=== PATIENT | male | born 1955 | race Caucasian/White ===

== ENCOUNTER → 2018-03-23 11:35 | Outpatient (CLI) | payer OTHER, SELFPAY ==
[2018-03-23 12:47] LABS: Blood Urea Nitrogen 16 mg/dL (9-20); Calcium 9.7 mg/dL (8.4-10.2); Carbon Dioxide 27 mmol/L (22-32); Chloride 99 mmol/L (98-107); Cholesterol 183 mg/dL (140-199); Estimated Glomerular Filt Rate > 60.0 mL/min (>60); Glucose 97 mg/dL (80-110); HDL Cholesterol 52 mg/dL (40-60); HEMOLYSIS 28 (0-50); LDL Cholesterol Calculated 107 mg/dL (<100); Potassium 5.3 mmol/L (3.4-5.1); Sodium 136 mmol/L (137-145); Triglycerides 122 mg/dL (35-150)
== END ==
PROVIDERS: PCP Internal Medicine; Visit Provider Internal Medicine
DX: E78.2 Mixed hyperlipidemia (principal)
CPT/HCPCS: 36415; 80048; 80061

== ENCOUNTER → 2019-03-28 15:36 | Outpatient (CLI) | payer MEDICARE, OTHER, SELFPAY ==
[2019-03-28 17:04] LABS: BUN Creatinine Ratio 16.7 (6-22); Blood Urea Nitrogen 15 mg/dL (9-20); Calcium 10.6 mg/dL (8.4-10.2); Carbon Dioxide 22 mmol/L (22-32); Chloride 105 mmol/L (98-107); Cholesterol 149 mg/dL (140-199); Estimated Glomerular Filt Rate > 60.0 mL/min (>60); Glucose 89 mg/dL (80-110); HDL Cholesterol 46 mg/dL (40-60); HEMOLYSIS < 15 (0-50); LDL Cholesterol Calculated 85 mg/dL (<100); Potassium 4.7 mmol/L (3.4-5.1); Sodium 138 mmol/L (137-145); Triglycerides 91 mg/dL (35-150)
== END ==
PROVIDERS: Family Provider Internal Medicine; PCP Internal Medicine; Visit Provider Internal Medicine
DX: I10 Essential (primary) hypertension (principal); E78.2 Mixed hyperlipidemia; Z12.5 Encounter for screening for malignant neoplasm of prostate
CPT/HCPCS: 36415; 80048; 80061; G0103

== ENCOUNTER → 2019-08-11 12:39 | Outpatient (CLI) | payer MEDICARE, OTHER, SELFPAY ==
[2019-08-11 13:56] LABS: Influenza A - CEPHEID Flu A NEGATIVE (NEGATIVE); Influenza B - CEPHEID Flu B NEGATIVE (NEGATIVE)
== END ==
PROVIDERS: Family Provider Internal Medicine; PCP Internal Medicine; Visit Provider Nurse Practitioner
DX: R68.89 Other general symptoms and signs (principal)
CPT/HCPCS: 87502

== ENCOUNTER → 2020-01-06 14:18 | Outpatient (CLI) | payer MEDICARE, OTHER, SELFPAY ==
--- NOTE | 2020-01-06 | DI.RAD.S_ITS ---
PROCEDURE: XR CHEST 2V INDICATIONS: COUGH TECHNIQUE: 2 views of the chest were acquired. COMPARISON: [facility], , CHEST 1 VIEW, 06/19/2013, 11:51. FINDINGS: Surgical changes and devices: None. Lungs and pleura: Moderate bibasilar airspace opacities are present. No pleural effusions or pneumothorax. Mediastinum: Mediastinal contours are normal. Heart size is normal. Bones and chest wall: No suspicious bony abnormalities. Soft tissues appear unremarkable. IMPRESSION: Moderate bibasilar pneumonia. Continued plain film surveillance is recommended to ensure resolution, and to exclude underlying or central malignancy. Dictated by: Zuleima Negron M.D. on 01/06/2020 at 16:43 Approved by: Zuleima Negron M.D. on 01/06/2020 at 16:45
== END ==
PROVIDERS: Family Provider Internal Medicine; PCP Internal Medicine; Referring Provider Internal Medicine; Visit Provider Internal Medicine
DX: R05 Cough (principal); J18.9 Pneumonia, unspecified organism
CPT/HCPCS: 71046

== ENCOUNTER → 2020-01-14 11:59 | Outpatient (CLI) | payer MEDICARE, OTHER, SELFPAY ==
--- NOTE | 2020-01-14 12:02 | DI.CT.S_ITS ---
PROCEDURE: CT CHEST W CON INDICATIONS: Pneumonia, unspecified organism TECHNIQUE: After the administration of intravenous contrast, 5 mm thick sections acquired from the pulmonary apices to the posterior costophrenic angles. 1 mm axial lung, 5 mm thick coronal and sagittal reformats and 7 mm axial MIP were acquired. For radiation dose reduction, the following was used: automated exposure control, adjustment of mA and/or kV according to patient size. COMPARISON: [facility], CT, PE STUDY (CTA CHEST), 06/19/2013, 12:20. FINDINGS: Image quality: Excellent. Lungs and pleura: No pneumothorax. Small-moderate left pleural effusion is noted with adjacent atelectasis. No right pleural fluid. Scattered atelectasis and patchy consolidations involving the right middle lobe and right lower lobe. There is nodular appearance to subpleural consolidation seen within the lateral right lung base. Airway thickening in keeping with nonspecific bronchitis and/or reactive airways disease. Mediastinum: Heart size is normal. Coronary artery calcifications are present. No pericardial effusion. No mediastinal or hilar adenopathy by size criteria. Thoracic aorta and central pulmonary arteries are normal in size. Esophagus is normal in caliber. No hiatal hernia. Bones and chest wall: No suspicious bony lesions. No vertebral body compression fractures. No axillary or supraclavicular adenopathy by size criteria. Thyroid gland unremarkable. Possible partially visualized left renal cyst although technically indeterminate. IMPRESSION: Small-moderate left pleural effusion with adjacent atelectasis Patchy consolidative opacities within the right middle lobe and right lower lobe. One of these demonstrates a nodular appearance as indicated on the montage image. This could represent focal pneumonia, nodular scarring/atypical rounded atelectasis however in the absence of relevant prior studies cannot exclude a neoplastic etiology. Short interval followup could be performed after treatment with chest CT to document improvement or resolution. If this persists, then PET/CT could be considered. Coronary artery disease Airway thickening in keeping with nonspecific bronchitis and/or reactive airways disease. Dictated by: Gibran Adam M.D. on 01/14/2020 at 15:04 Approved by: Gibran Adam M.D. on 01/14/2020 at 15:12
[2020-01-14 13:31] LABS: BUN Creatinine Ratio 14.3 (6-22); Blood Urea Nitrogen 13 mg/dL (9-20); Carbon Dioxide 25 mmol/L (22-32); Chloride 102 mmol/L (98-107); Estimated Glomerular Filt Rate > 60.0 mL/min (>60); Glucose 119 mg/dL (80-110); HEMOLYSIS < 15 (0-50); Potassium 4.6 mmol/L (3.4-5.1); Sodium 137 mmol/L (137-145)
== END ==
PROVIDERS: Family Provider Internal Medicine; PCP Internal Medicine; Referring Provider Internal Medicine; Visit Provider Internal Medicine
DX: J18.9 Pneumonia, unspecified organism (principal); I25.10 Atherosclerotic heart disease of native coronary artery without angina pectoris; J90 Pleural effusion, not elsewhere classified; J98.11 Atelectasis
CPT/HCPCS: 36415; 71260; 80048

== ENCOUNTER → 2020-02-04 11:59 | Outpatient (CLI) | payer MEDICARE, OTHER, SELFPAY ==
--- NOTE | 2020-02-04 | DI.CT.S_ITS ---
PROCEDURE: CT CHEST W CON INDICATIONS: CHRONIC OBSTRUCTION TECHNIQUE: After the administration of intravenous contrast, 5 mm thick sections acquired from the pulmonary apices to the posterior costophrenic angles. 1 mm axial lung, 5 mm thick coronal and sagittal reformats and 7 mm axial MIP were acquired. For radiation dose reduction, the following was used: automated exposure control, adjustment of mA and/or kV according to patient size. COMPARISON: [facility], CT, PE STUDY (CTA CHEST), 06/19/2013, 12:20. [facility], CT, CT CHEST W CON, 01/14/2020, 13:47. FINDINGS: Image quality: Excellent. Lungs and pleura: Since 01/14/20, there is interval decrease in size of subpleural ill-defined nodular consolidation measuring 1.8 x 1.2 cm, previously 3.2 x 2.0 cm. There is scattered bibasilar scarring/atelectasis. Small-moderate left pleural effusion with adjacent atelectasis. Trace loculated right pleural fluid. Airway thickening in keeping with nonspecific bronchitis and/or reactive airways disease. Mediastinum: Heart size is normal. Coronary artery calcifications are present. No pericardial effusion. No mediastinal or hilar adenopathy by size criteria. Redemonstration of eccentric intraluminal filling defect seen in the left pulmonary artery compatible with chronic pulmonary embolism. This is slightly more conspicuous appearance since the prior study, although of note also demonstrated eccentric (chronic) appearance on that study. Esophagus is normal in caliber. No hiatal hernia. Bones and chest wall: No suspicious bony lesions. No vertebral body compression fractures. No axillary or supraclavicular adenopathy by size criteria. Abdomen: Visualized upper abdominal solid organs appear normal. Upper abdominal bowel loops are normal in caliber. IMPRESSION: Improvement/decrease in size of subpleural ill-defined nodular focus within the right lung base, compatible with resolving postinflammatory etiology. Incidentally noted, eccentric filling defect within the left pulmonary artery in keeping with chronic pulmonary embolism. This appears slightly more conspicuous since 01/14/20. Consider further evaluation and risk stratification with bilateral lower extremity ultrasound for deep venous thrombosis. Findings and recommendations were personally telephoned and discussed with Dr. Collins at 1330 hours on 02/04/20 Small left pleural effusion with adjacent atelectasis. This appears unchanged Additional chronic and incidental findings as above. Dictated by: Gibran Adam M.D. on 02/04/2020 at 13:08 Approved by: Gibran Adam M.D. on 02/04/2020 at 13:31
[2020-02-04 12:45] LABS: BUN Creatinine Ratio 18.5 (6-22); Blood Urea Nitrogen 15 mg/dL (9-20); Estimated Glomerular Filt Rate > 60.0 mL/min (>60)
== END ==
PROVIDERS: Family Provider Internal Medicine; PCP Internal Medicine; Referring Provider Internal Medicine; Visit Provider Internal Medicine
DX: J16.8 Pneumonia due to other specified infectious organisms (principal); J44.9 Chronic obstructive pulmonary disease, unspecified; J90 Pleural effusion, not elsewhere classified; J98.11 Atelectasis; I27.82 Chronic pulmonary embolism; I25.10 Atherosclerotic heart disease of native coronary artery without angina pectoris
CPT/HCPCS: 36415; 71260; 82565; 84520; Q9967

== ENCOUNTER → 2020-02-05 12:11 | Outpatient (CLI) | payer MEDICARE, OTHER, SELFPAY ==
--- NOTE | 2020-02-05 12:13 | DI.US.S_ITS ---
PROCEDURE: US PERIPH VENOUS LOW EXTREM BI INDICATIONS: PE TECHNIQUE: Real-time imaging, as well as color and pulse Doppler interrogation, were performed of the deep veins of both legs from the inguinal ligament to the popliteal fossa. COMPARISON: None. FINDINGS: Right: The common femoral, femoral and popliteal veins are normally compressible, and free of intraluminal thrombus. Color and pulse Doppler demonstrate normal phasic intravascular flow. There is normal augmentation response to distal compression maneuver. Left: The common femoral, femoral and popliteal veins are normally compressible, and free of intraluminal thrombus. Color and pulse Doppler demonstrate normal phasic intravascular flow. There is normal augmentation response to distal compression maneuver. IMPRESSION: Negative for deep venous thrombosis. Dictated by: Gen Rose M.D. on 02/05/2020 at 12:11 Approved by: Gen Rose M.D. on 02/05/2020 at 12:11
--- NOTE | 2020-02-20 10:45 | ONC.MSW ---
Description: Initial Referral Navigation Activity: Reviewed referral for acuity, medical status, and immediate needs. Forwarded to scheduling for next available initial consult time.
== END ==
PROVIDERS: Family Provider Internal Medicine; PCP Internal Medicine; Referring Provider Internal Medicine; Visit Provider Internal Medicine
DX: I26.99 Other pulmonary embolism without acute cor pulmonale (principal); I82.409 Acute embolism and thrombosis of unspecified deep veins of unspecified lower extremity
CPT/HCPCS: 93970

== ENCOUNTER → 2020-03-17 14:52 | Outpatient (CLI) | payer MEDICARE, OTHER, SELFPAY ==
[2020-03-17 15:05] LABS: Add Manual Diff / Slide Review NO; Basophils Absolute Auto 0 /uL (0-100); Basophils Percent Auto 0.7 % (0-2); Eosinophils Absolute Auto 100 /uL (0-450); Eosinophils Percent Auto 1.7 % (2-4); Hematocrit 46.9 % (41-53); Hemoglobin 15.9 g/dL (13.5-17.5); Lymphocytes Absolute Auto 1600 /uL (1100-4500); Lymphocytes Percent Auto 26.2 % (25-40); Mean Corpuscular Hemoglobin 35.3 PG (26-34); Mean Corpuscular Volume 103.8 fL (80-100); Monocytes Absolute Auto 600 /uL (0-900); Monocytes Percent Auto 10.3 % (3-14); Neutrophils Absolute Auto 3800 /uL (1500-7000); Neutrophils Percent Auto 61.1 % (50-75); Platelet Count 138 X10^3/uL (150-400); Red Blood Cell Count 4.51 X10^6/uL (4.5-5.9); Red Cell Distribution Width 14.6 % (11.6-14.8); White Blood Cell Count 6.2 X10^3/uL (4.5-11.0)
== END ==
PROVIDERS: Family Provider Internal Medicine; PCP Internal Medicine; Referring Provider Internal Medicine Hematology & Oncology; Visit Provider Internal Medicine Hematology & Oncology
DX: I26.99 Other pulmonary embolism without acute cor pulmonale (principal); R22.2 Localized swelling, mass and lump, trunk
CPT/HCPCS: 36415; 85025

== ENCOUNTER → 2020-03-18 10:41 | Outpatient (CLI) | payer MEDICARE, OTHER, SELFPAY ==
--- NOTE | 2020-03-18 10:42 | DI.CT.S_ITS ---
PROCEDURE: CT CHEST W CON INDICATIONS: pleural nodules, left pleural fluids, pulmonoanry embolism TECHNIQUE: After the administration of intravenous contrast, 5 mm thick sections acquired from the pulmonary apices to the posterior costophrenic angles. 1 mm axial lung, 5 mm thick coronal and sagittal reformats and 7 mm axial MIP were acquired. For radiation dose reduction, the following was used: automated exposure control, adjustment of mA and/or kV according to patient size. COMPARISON: [facility], CT, CT CHEST W CON, 02/04/2020, 12:45. FINDINGS: Image quality: Excellent. Lungs and pleura: Focal pleural-based area of irregular thickening and reticulation laterally in the right lower lobe. Slight tethering of the overlying bronchovascular architecture. Mild scarring anteromedially right upper lobe and small posterolateral superior segment right lower lobe subpleural 4 mm nodule, stable. The moderate size left pleural effusion is unchanged. There is associated left lower lobe atelectasis. There has been interval resolution of the trace right pleural effusion. No new airspace opacities. No airway lesions. Mediastinum: Heart size is normal. Moderate coronary artery calcification. No pericardial effusion. No mediastinal or hilar adenopathy by size criteria. Thoracic aorta and central pulmonary arteries are normal in size. Esophagus is normal in caliber. No hiatal hernia Hypodense, slightly irregular adherent clot is seen along the dorsal aspect of the left main pulmonary artery. There is also eccentric clot in the posterior basal left lower lobe segmental branch, similar compared to the prior study. The left inferior pulmonary vein appears attenuated. Bones and chest wall: No suspicious bony lesions. No vertebral body compression fractures. No axillary or supraclavicular adenopathy by size criteria. Thyroid gland is unremarkable . Surgical change in the left humeral head. Abdomen: Visualized upper abdominal solid organs appear normal. Upper abdominal bowel loops are normal in caliber. IMPRESSION: 1. Persistent left pleural effusion and atelectasis. 2. Persistent left lower lobe posterior basal partial occlusive PE. 3. Decreased extent of left main pulmonary arterial thrombus. 4. No evidence of right heart strain. 5. Decreased size of subpleural irregularity right lateral lower lobe suggesting resolving Delgado's hump or round atelectasis. 6. Resolution of trace right pleural effusion. Dictated by: Lyndsay Herrera M.D. on 03/18/2020 at 16:52 Approved by: Lyndsay Herrera M.D. on 03/18/2020 at 17:14
[2020-03-18 11:17] LABS: Alanine Aminotransferase 41 IU/L (<50); Albumin 4.2 g/dL (3.5-5.0); Albumin Globulin Ratio 1.4 (1.0-2.8); Alkaline Phosphatase 83 U/L (38-126); Aspartate Aminotransferase 43 IU/L (17-59); BUN Creatinine Ratio 12.8 (6-22); Blood Urea Nitrogen 11 mg/dL (9-20); Calcium 10.1 mg/dL (8.4-10.2); Carbon Dioxide 28 mmol/L (22-32); Chloride 103 mmol/L (98-107); Estimated Glomerular Filt Rate > 60.0 mL/min (>60); Glucose 89 mg/dL (80-110); HEMOLYSIS < 15 (0-50); Potassium 5.1 mmol/L (3.4-5.1); Sodium 137 mmol/L (137-145); Total Protein 7.2 g/dL (6.3-8.2)
== END ==
PROVIDERS: Family Provider Internal Medicine; PCP Internal Medicine; Referring Provider Internal Medicine Hematology & Oncology; Visit Provider Internal Medicine Hematology & Oncology
DX: R22.2 Localized swelling, mass and lump, trunk (principal); I26.99 Other pulmonary embolism without acute cor pulmonale; J90 Pleural effusion, not elsewhere classified; I27.82 Chronic pulmonary embolism; J98.11 Atelectasis
CPT/HCPCS: 36415; 71260; 80053; Q9967

== ENCOUNTER → 2020-06-17 19:36 | Outpatient (ROUT) | payer MEDICARE, OTHER, SELFPAY | PROVIDERS: Family Provider Internal Medicine; PCP Internal Medicine; Visit Provider Internal Medicine | DX: N30.00 Acute cystitis without hematuria (principal); N39.0 Urinary tract infection, site not specified | CPT/HCPCS: 87077; 87086; 87186 ==

== ENCOUNTER → 2020-08-13 14:32 | Outpatient (CLI) | payer MEDICARE, OTHER, SELFPAY ==
[2020-08-13 14:48] LABS: Bacteria Urine None Seen
[2020-08-13 15:56] LABS: Appearance Urine UA CLEAR; Bilirubin Urine UA NEGATIVE (NEGATIVE); Color Urine UA YELLOW; Glucose Urine UA NEGATIVE (Negative); Ketones Urine UA NEGATIVE (NEGATIVE); Leukocyte Esterase Urine UA NEGATIVE (NEGATIVE); Nitrite Urine UA NEGATIVE (Negative); Occult Blood Urine UA 3+ (Negative); Protein Urine UA TRACE (Negative); Urobilinogen Urine UA 0.2 E.U./dL (0.2); pH Urine UA 6.5 (4.5-8.0)
[2020-08-13 16:20] LABS: Culture Indicated Urine Cult Not Indicated; RBC Urine 10-30/HPF (0-5/HPF); Renal Epithelial Cells Urine 0-1/HPF (0-1/HPF); Squamous Epithelial Cell Urine 1-5 /HPF (0-5/HPF); Transitional Epi Cells Urine 0-1/HPF (0-5/HPF); WBC Urine 0-1/HPF (0-5/HPF)
== END ==
PROVIDERS: Family Provider Internal Medicine; PCP Internal Medicine; Referring Provider Internal Medicine; Visit Provider Internal Medicine
DX: N30.00 Acute cystitis without hematuria (principal)
CPT/HCPCS: 81001; 87086

== ENCOUNTER → 2020-08-18 19:32 | Outpatient (ROUT) | payer MEDICARE, OTHER, SELFPAY | PROVIDERS: Family Provider Internal Medicine; PCP Internal Medicine; Visit Provider Internal Medicine | DX: R30.0 Dysuria (principal) | CPT/HCPCS: 87086 ==

== ENCOUNTER → 2020-10-16 13:51 | Outpatient (CLI) | payer MEDICARE, OTHER, SELFPAY ==
[2020-10-16 14:14] LABS: Add Manual Diff / Slide Review NO; Basophils Absolute Auto 100 /uL (0-100); Eosinophils Absolute Auto 100 /uL (0-450); Eosinophils Percent Auto 1.5 % (2-4); Hematocrit 42.7 % (41-53); Hemoglobin 14.6 g/dL (13.5-17.5); Lymphocytes Absolute Auto 1200 /uL (1100-4500); Lymphocytes Percent Auto 23.2 % (25-40); Mean Corpuscular HGB Conc 34.1 % (30-36); Mean Corpuscular Hemoglobin 38.8 PG (26-34); Mean Corpuscular Volume 113.6 fL (80-100); Monocytes Absolute Auto 500 /uL (0-900); Monocytes Percent Auto 10.1 % (3-14); Neutrophils Absolute Auto 3300 /uL (1500-7000); Neutrophils Percent Auto 64.2 % (50-75); Platelet Count 125 X10^3/uL (150-400); Red Blood Cell Count 3.76 X10^6/uL (4.5-5.9); Red Cell Distribution Width 12.4 % (11.6-14.8); White Blood Cell Count 5.2 X10^3/uL (4.5-11.0)
[2020-10-16 14:27] LABS: Macrocytosis 3+
== END ==
PROVIDERS: Family Provider Internal Medicine; PCP Internal Medicine; Referring Provider Internal Medicine Hematology & Oncology; Visit Provider Internal Medicine Hematology & Oncology
DX: I26.99 Other pulmonary embolism without acute cor pulmonale (principal); R22.2 Localized swelling, mass and lump, trunk
CPT/HCPCS: 36415; 85025

== ENCOUNTER → 2020-11-17 10:33 | Outpatient (CLI) | payer MEDICARE, OTHER, SELFPAY ==
--- NOTE | 2020-11-17 10:54 | DI.CT.S_ITS ---
PROCEDURE: CT CHEST W CON INDICATIONS: pulmonary embolism, cough, pleural nodules TECHNIQUE: After the administration of intravenous contrast, 5 mm thick sections acquired from the pulmonary apices to the posterior costophrenic angles. 1 mm axial lung, 5 mm thick coronal and sagittal reformats and 7 mm axial MIP were acquired. For radiation dose reduction, the following was used: automated exposure control, adjustment of mA and/or kV according to patient size. COMPARISON: [facility], CT, CT CHEST W CON, 03/18/2020, 11:29. [facility], CT, CT CHEST W CON, 02/04/2020, 12:45. FINDINGS: Image quality: Excellent. Lungs and pleura: A small right pleural effusion has not significantly changed in size when compared to the CT from 03/18/2020 with scarring or atelectasis of the adjacent left lower lobe. Chronic subpleural scarring is again seen in the lateral portion of the right lower lobe. Stable 4 mm subpleural pulmonary nodule in the right lower lobe (image 140 of series 3). No right-sided pleural effusion is seen. Central and peripheral airways are patent and normal in caliber. Mediastinum: Heart size is normal. No pericardial effusion. Moderate coronary artery atherosclerotic calcifications are present. Mild atherosclerotic calcifications are seen in the aorta No mediastinal or hilar adenopathy by size criteria. Esophagus is normal in caliber. No hiatal hernia. The previously seen eccentric thrombus along the dorsal aspect of the left main pulmonary artery has resolved. There continues to be eccentric nonocclusive chronic thrombus within posterior basal segment of the left lower lobe pulmonary artery. The main pulmonary artery measures 3.2 cm in diameter, not significantly changed when compared to the prior CT. Bones and chest wall: No suspicious bony lesions. No vertebral body compression fractures. No axillary or supraclavicular adenopathy by size criteria. Thyroid gland appears normal. Postsurgical changes again noted in the right humeral head. Abdomen: An air-filled diverticulum is seen in the 2nd portion of the duodenum. A simple appearing cyst is seen in the superior pole of left kidney. Visualized upper abdominal solid organs otherwise appear normal. IMPRESSION: 1. No significant change in the left pleural effusion with atelectasis of the left lower lobe. 2. Chronic eccentric partially occlusive thrombus in the posterior basal segment of the left lower lobe pulmonary artery appears stable. Eccentric thrombus in the left main pulmonary artery has resolved. 3. Chronic subpleural scarring or rounded atelectasis in the lateral right lower lobe appears stable. Dictated by: Wilfredo Brooks M.D. on 11/17/2020 at 10:00 Approved by: Wilfredo Brooks M.D. on 11/17/2020 at 10:19
== END ==
PROVIDERS: Family Provider Internal Medicine; PCP Internal Medicine; Referring Provider Internal Medicine Hematology & Oncology; Visit Provider Internal Medicine Hematology & Oncology
DX: I27.82 Chronic pulmonary embolism (principal); I48.91 Unspecified atrial fibrillation; R05 Cough; R91.8 Other nonspecific abnormal finding of lung field; J90 Pleural effusion, not elsewhere classified; I25.10 Atherosclerotic heart disease of native coronary artery without angina pectoris; J98.4 Other disorders of lung
CPT/HCPCS: 71260; Q9967

== ENCOUNTER → 2021-03-02 10:09 | Outpatient (CLI) | payer MEDICARE, OTHER, SELFPAY | PROVIDERS: Family Provider Internal Medicine; PCP Internal Medicine; Visit Provider Urology | DX: R30.0 Dysuria (principal); R31.0 Gross hematuria; B96.20 Unspecified Escherichia coli [E. coli] as the cause of diseases classified elsewhere; R82.81 Pyuria; R35.0 Frequency of micturition; N39.41 Urge incontinence; R39.14 Feeling of incomplete bladder emptying; Z79.01 Long term (current) use of anticoagulants; Z72.0 Tobacco use | CPT/HCPCS: 51798; 81002; 87077; 87086; 87186; 99215 ==

== ENCOUNTER → 2021-03-09 08:39 | Outpatient (CLI) | payer MEDICARE, OTHER, SELFPAY ==
--- NOTE | 2021-03-09 08:43 | DI.CT.S_ITS ---
PROCEDURE: CT ABDOMEN PELVIS WO/W CON INDICATIONS: irritative voiding symptoms, gross hematuria, tobacco abuse TECHNIQUE: Optional 5 mm thick noncontrast images acquired from the diaphragm to the symphysis pubis. After the administration of intravenous contrast, 5 mm thick images acquired from the diaphragm to the symphysis pubis after a 10-minute delay. 2 mm thick coronal and sagittal reformats were then performed of the kidneys and ureters. For radiation dose reduction, the following was used: automated exposure control, adjustment of mA and/or kV according to patient size. COMPARISON: [facility], CT, CT CHEST W CON, 01/14/2020, 13:47 the . [facility], CT, CT CHEST W CON, 11/17/2020, 10:42. FINDINGS: Image quality: Excellent. Lung bases: Small left pleural effusion with left basilar atelectasis.. Heart size is normal. Moderately advanced coronary artery calcifications. Urinary system: Both kidneys are normal in size, without hydronephrosis or nephrolithiasis on pre-contrast images. No perinephric fat stranding. There is normal bilateral renal enhancement. Renal calyces appear normal in morphology when filled with contrast. Opacified portions of both ureters demonstrate normal caliber. The bladder has asymmetric wall thickening, significantly greater along the right lateral wall and right fundus. Findings may potentially represent plaque-like malignancy. Alternatively, it may represent asymmetric involvement with cystitis. There is ill definition of the fat adjacent to the right wall of the bladder, anterior laterally, possibly inflammatory. However, cannot exclude involvement with malignancy. Other solid organs: Liver is normal in size and enhancement. Gallbladder is unremarkable . Biliary system is non dilated. Pancreas enhances normally. Spleen is normal in size and enhancement. Nonspecific left adrenal nodule measuring approximately 2 cm. This is stable. Peritoneum and bowel: Bowel loops demonstrate normal wall thickness and caliber. No free fluid or air. Extensive sigmoid diverticulosis without evidence of diverticulitis. Nodes and vessels: No retroperitoneal or mesenteric adenopathy by size criteria. Aorta and inferior vena cava are normal in size. Abdominal wall: No ventral hernias. Pelvis: No pathologic free pelvic fluid. Bilateral fat containing inguinal hernias, left greater than right. No inguinal adenopathy. Bones: No suspicious bony lesions. No vertebral body compression fractures. IMPRESSION: 1. Small left pleural effusion with left basilar atelectasis. 2. Moderately advanced coronary artery disease. 3. Asymmetric wall thickening along the right side of the bladder. Cannot exclude malignancy. Additionally, there is ill definition of the fat adjacent to the right wall of the bladder anterior laterally. This can potentially be inflammatory. However, cannot exclude involvement with malignancy. 4. Sigmoid diverticulosis without evidence of diverticulitis. Dictated by: Felipe Crook M.D. on 03/09/2021 at 9:40 Approved by: Felipe Crook M.D. on 03/09/2021 at 11:46
== END ==
PROVIDERS: Family Provider Internal Medicine; PCP Internal Medicine; Referring Provider Urology; Visit Provider Urology
DX: R31.0 Gross hematuria (principal); I25.10 Atherosclerotic heart disease of native coronary artery without angina pectoris; J90 Pleural effusion, not elsewhere classified; J98.11 Atelectasis; K57.30 Diverticulosis of large intestine without perforation or abscess without bleeding; Z72.0 Tobacco use
CPT/HCPCS: 74178; Q9967

== ENCOUNTER → 2021-03-22 15:15 | Outpatient (CLI) | payer MEDICARE, OTHER, SELFPAY | PROVIDERS: Family Provider Internal Medicine; PCP Internal Medicine; Visit Provider Urology | DX: R30.0 Dysuria (principal); R31.0 Gross hematuria; N32.89 Other specified disorders of bladder; N39.0 Urinary tract infection, site not specified; B96.20 Unspecified Escherichia coli [E. coli] as the cause of diseases classified elsewhere | CPT/HCPCS: 81002; 87086; 99215 ==

== ENCOUNTER → 2021-04-22 15:19 | Outpatient (CLI) | payer MEDICARE, OTHER, SELFPAY | PROVIDERS: Family Provider Internal Medicine; PCP Internal Medicine; Referring Provider Urology; Visit Provider Urology | DX: N39.0 Urinary tract infection, site not specified (principal); N32.89 Other specified disorders of bladder; N32.9 Bladder disorder, unspecified; R39.14 Feeling of incomplete bladder emptying; N39.41 Urge incontinence; R35.0 Frequency of micturition; Z79.01 Long term (current) use of anticoagulants | CPT/HCPCS: 81002; 87086; 99215 ==

== ENCOUNTER → 2021-04-27 10:07 | Outpatient (CLI) | payer MEDICARE, OTHER, SELFPAY ==
[2021-04-27 11:02] LABS: COVID19 -Nasal RAPID Negative (Negative)
== END ==
PROVIDERS: Family Provider Internal Medicine; PCP Internal Medicine; Visit Provider Urology
DX: Z20.822 Contact with and (suspected) exposure to COVID-19 (principal)
CPT/HCPCS: 87635; C9803

== ENCOUNTER 2021-04-29 09:49 | Day surgery (SDC) | payer MEDICARE, OTHER, SELFPAY ==
[2021-04-28 10:51] VITALS: BMI 36.6
[2021-04-29] VITALS (7 sets, daily range): BP systolic 107–137; BP diastolic 68–78; PULSE 79–138; RESP 14–20; TEMP 36.4–36.8; O2SAT 92–98; BMI 36.6
--- NOTE | 2021-04-29 | PATH_ITS ---
[facility] Accession Number: [id number] . 01 Material submitted: . bladder - RIGHT BLADDER WALL . 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 No invasive malignancy identified. MRV 05/05/2021 1551 Local . 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 Coty Leigh, who concurs with the given interpretation. . 01 Electronically signed: . Aundrea Anderson MD, Pathologist NPI- [id number] . 01 Gross description: . RIGHT BLADDER WALL: Received in formalin are 4 fragment(s) of linares, soft tissue measuring 0.5 x 0.3 x 0.1 cm to 0.3 x 0.3 x 0.1 cm submitted entirely in 1 cassette(s) /JANEE 04/30/2021 0343 Local . 01 Microscopic: . Immunostains performed show focal patchy CK20 positivity within the urothelial umbrella cells. P53 shows focal and weak staining of the basal urothelial cells (less than 10 %). Ki67 shows a low proliferation index (less than 10%). Interpretation: The morphology and immunophenotype is consistent with benign (reactive) urothelium. Controls stain appropriately. . Technical Note: This test and its performance characteristics have been determined by [facility]. It has not been cleared or approved by the U.S. Food and Drug Administration. The FDA has determined that such clearance or approval is not necessary. This test is used for clinical purposes. It should not be regarded as investigational or for research. . 01 Pathologist provided ICD-10: N32.9 . 01 CPT . 316732, I34085, J71602 Performed at: 01 [facility] [address] [facility] [place], [place], [place] [id number] MD Emmanuel Charlton MD Phone: [phone]
[2021-04-29] MEDS: LACTATED RINGERS 1,000 ML 42 ML IV (10:50)
[2021-04-29] MEDS: ALBUTEROL 2.5 MG/3 ML NEB (ADULT) INH (12:12)
--- NOTE | 2021-04-29 12:15 | PM.PREOP ---
Pre-operative Note COVID-19 COVID-19 status: Negative Result date/Date tested (Pos, Neg/Pending): 04/27/21 Interval Note History & Physical reviewed/Exam performed by Physician: Yes Changes to H&P: No
[2021-04-29] MEDS: CEFAZOLIN 1 GM VIAL 2 GM IV (12:50)
[2021-04-29] MEDS: BELLADONNA/OPIUM SUPPOSITORIES 1 EACH PR (12:52)
--- NOTE | 2021-04-29 13:04 | SUR.OPER ---
Lithotomy on padded OR bed, head on pillow, arms secured on padded arm boards at <90 degrees abduction. Legs secured in padded yellow fins stirrups.
[2021-04-29] MEDS: LIDOCAINE 2% (GLYDO) 6 ML GEL TOP (13:16)
[2021-04-29] MEDS: METOPROLOL TARTRATE 5 MG/5 ML INJ IV (13:38)
--- NOTE | 2021-04-29 13:39 | PM.OP.1 ---
Procedure & Clinicians Procedure: Cystoscopy with bladder biopsy and fulguration Same procedure as scheduled: Yes Indications: Very pleasant gentleman who presented with gross hematuria and dysuria. Through workup he was found to have a right-sided bladder lesion of presents this time for cystoscopy with bladder biopsy. Surgeon: Dilip Humphreys Click Yes if Unassisted: Yes Anesthesia Type: General Operative Notes Findings: Urethra normal to the prostatic fossa which shows minimal to moderate obstructive character. Within the bladder the ureteral orifices in normal position with clear efflux. On the right side of the bladder, encompassing most all the right side is an area of erythema, bolus edema and what appeared to be inflammatory changes. These are biopsied the breast of the bladder is minimally hyperemic. No stones are noted. This does not have the appearance of a classic transitional cell or urothelial carcinoma. And again appears more inflammatory. Was quite friable and easy to bleed. Closure Type: not applicable Specimen(s): other (Biopsy of right bladder wall lesion.) Estimated Blood Loss (mL): 10 Blood products transfused: none Procedure in detail: Procedure in detail: After informed consent was obtained, patient was identified and brought to the operating room. He was placed on the operating room table in supine position and anesthesia was induced. After induction and maintenance of anesthesia the patient was placed in a lithotomy position. Patient was then prepped, draped and prepared in a sterile fashion; After prepping draping and ensure and ensuring an adequate level of anesthesia a 22 [place] cystoscope was passed through the urethra prostate and into the bladder. Once in the bladder cystoscopy was performed with the 30 and 70 degree lens. Biopsy forceps was then inserted and biopsies taken from multiple sites on the lesion. The biopsy forceps was then exchanged for Bugbee electrode and points of bleeding were controlled infiltrated with the Bugbee. After this hemostasis appeared to be good. With this the bladder was drained, the scope removed,the patient awakened and taken to the postanesthesia care unit. There were no complications and the patient tolerated the procedure well. Patient will be discharged home to follow-up in my office. Specimens forwarded to pathology for examination. Complications: none Post-operative Condition: stable Disposition: PACU Plan for aftercare: Discharged to home follow-up in my office.
--- NOTE | 2021-04-29 13:39 | SUR.PHASEI ---
Pt arrived to PACU, HR 120-130, metoprolol given as instructed.
[2021-04-29] MEDS: ACETAMINOPHEN 325 MG TABLET 650 MG PO (13:52)
[2021-04-29] MEDS: PHENAZOPYRIDINE 100 MG TABLET 200 MG PO (13:52)
== END 2021-04-29 15:00 | disposition home or self-care (01) ==
PROVIDERS: Family Provider Internal Medicine; PCP Internal Medicine; Referring Provider Urology; Visit Provider Urology
PROC: 0TBB8ZZ Excision of Bladder, Via Natural or Artificial Opening Endoscopic (ICD-10-PCS; CPT 52204; principal; 2021-04-29 10:45)
DX: N30.20 Other chronic cystitis without hematuria (principal); F17.210 Nicotine dependence, cigarettes, uncomplicated; Z79.01 Long term (current) use of anticoagulants; E78.5 Hyperlipidemia, unspecified; I48.91 Unspecified atrial fibrillation
CPT/HCPCS: 52204; 82962; J0690; J1100; J2250; J2405; J2704; J3010; J7613

== ENCOUNTER → 2021-05-05 13:38 | Outpatient (ROUT) | payer MEDICARE, OTHER, SELFPAY ==
[2021-05-05 14:06] LABS: Appearance Urine UA TURBID; Bilirubin Urine UA NEGATIVE (NEGATIVE); Color Urine UA RED; Glucose Urine UA 1+ g/dL (Negative); Ketones Urine UA NEGATIVE (NEGATIVE); Leukocyte Esterase Urine UA TRACE (NEGATIVE); Nitrite Urine UA POSITIVE (Negative); Occult Blood Urine UA 3+ (Negative); Protein Urine UA 3+ (Negative)
[2021-05-05 14:10] LABS: RBC Urine >100/HPF (0-5/HPF); WBC Urine 1-5/HPF (0-5/HPF)
[2021-05-05 14:11] LABS: Bacteria Urine Many (>30); Culture Indicated Urine Specimen Cultured
== END ==
PROVIDERS: Family Provider Internal Medicine; PCP Internal Medicine; Visit Provider Urology
DX: N39.0 Urinary tract infection, site not specified (principal)
CPT/HCPCS: 81001; 87086

== ENCOUNTER 2021-06-23 10:15 | Emergency (ER) | payer MEDICARE, OTHER, SELFPAY ==
[2021-06-23 10:26] VITALS: BP 126/69; PULSE 163; RESP 22; TEMP 36.2; O2SAT 93; BMI 35.2
--- NOTE | 2021-06-23 10:36 | ED_ITS ---
HPI - Fall General Chief Complaint: Fall Stated Complaint: Fell, on thinners Time Seen by Provider: 06/23/21 10:25 Source: patient, EMS and old records reviewed Mode of arrival: EMS Limitations: no limitations History of Present Illness HPI Narrative: This is a 65-year-old male who states that [facility] at around 7:00 a.m.. Patient states he got up at 4:00 a.m. without any issues and was able to walk to the bathroom get a drink to water in go back to bed. He states between then and 7:00 a.m. he had some difficulty with sleeping and noted that he started having some pain in his calf and numbness. He states that he had a bed about 7:00 a.m. in the morning and it was very difficult and that he fell onto the floor. He does not believe that he hit his head. He states that it feels like his right leg is numb. It is painful to try to move from the calf area about 2[address] He denies any back pain. Patient states he has not had similar issues in the past. He normally ambulates either with a cane or without any assistance at all. He denies headache, no vision changes, no numbness, tingling or weakness in his arms or left leg. He states his left leg was sort of painful earlier but feels better now. He denies any new urinary incontinence or bowel control. No chest pain, no shortness of breath. Patient states he missed his morning COPD inhaled medications and often uses albuterol in the morning as well. He takes Xarelto daily in the evening and had his recent dose. He does metoprolol and several medications for his known atrial fibrillation, COPD, had a recent biopsy of his bladder. Related Data Home Medications Medication Instructions Recorded Confirmed metoprolol tartrate 50 mg tablet 50 mg PO BID #0 02/07/13 05/20/21 allopurinol 100 mg tablet 400 mg PO SEE INSTRUCTIONS #0 07/27/16 05/20/21 tiotropium bromide 1.25 2 puff INHALATION DAILY 08/11/19 05/20/21 mcg/actuation mist for inhalation (Spiriva Respimat) albuterol sulfate 90 mcg/actuation 2 puff INHALATION Q4-6H PRN 03/16/20 05/20/21 aerosol inhaler fluticasone 250 mcg-salmeterol 50 1 inh INHALATION BID 03/16/20 05/20/21 mcg/dose blistr powdr for inhalation (Advair Diskus) sulfamethoxazole 800 1 tab PO BID 04/16/21 05/20/21 mg-trimethoprim 160 mg tablet (Bactrim DS) tamsulosin 0.4 mg capsule (Flomax) 0.4 mg PO DAILY 04/16/21 05/20/21 Previous Rx's Medication Instructions Recorded oxybutynin chloride 5 mg tablet 5 mg PO BID-TID PRN #30 tab 04/29/21 phenazopyridine 200 mg tablet 200 mg PO TID PRN #30 tab 04/29/21 (Pyridium) furosemide 40 mg tablet (Lasix) 40 mg PO DAILY #5 tab 06/23/21 Allergies Allergy/AdvReac Type Severity Reaction Status Date / Time No Known Drug Allergies Allergy Verified 05/20/21 15:20 Review of Systems Review of Systems ROS Unobtainable: All systems reviewed & are unremarkable except as noted in HPI and below Patient History Medical History Acute urinary tract infection Afib Bladder wall thickening Cat bite of left lower leg with infection Chronic anticoagulation COPD (chronic obstructive pulmonary disease) Dysuria E. coli urinary tract infection Feeling of incomplete bladder emptying Gout Gross hematuria History of renal calculi Hyperlipidemia Lesion of bladder Sleep apnea syndrome Tobacco abuse Urge incontinence Urinary frequency Surgical History H/O knee surgery H/O shoulder surgery Social History household members: family Smoking Status: Current every day smoker alcohol intake: current Smoking Status: Current every day smoker alcohol intake frequency: 3 or more drinks per day Alcohol type: beer, wine and hard liquor Substance Use Type: does not use Exam Narrative Exam Narrative: GEN: Patient appears in mild distress. HEAD: No evidence of trauma, no raccoon/Jean sign. NECK: Nontender, painless range of motion, trachea midline [Negative/positive] Nexus criteria, there is no midline line tenderness, distracting injury, altered mental status, neuro deficit, recent EtOH. EYES: PERRLA, EOMI ENT: External inspection normal, trachea is midline, nares are clear, no septal hematoma, no dental or oral injury, airway is normal and with normal occlusion, No bony tenderness RESP: Chest is nontender and has symmetric movement, no ecchymosis, breath sounds are normal no crackles, wheezes or rales CVS: Heart sounds are normal, no murmur noted, No JVD. ABG/GI: Nontender, soft, normal bowel sounds, no distention, no organomegaly, pelvic rock is negative NEURO: Oriented AOx3, neuro is grossly intact, sensation and motor is normal all 4 extremities moving, cranial nerves II through XII are intact, GCS is 15 PSYCH: Normal mood and affect SKIN: Intact, warm and dry, no crepitus and without decubitus BACK: No CVA tenderness, no vertebral tenderness, no step-off's, no crepitus EXT: Atraumatic, right greater trochanter is tender to palpation, left is nontender, patient does not have any clear bony tenderness throughout the right lower extremity. Calf squeeze is negative. Lower extremities are equal circumference with no warmth, erythema or other changes appreciated. Pedal edema, normal color and temperature, normal range of motion of extremities except for the right leg, patient increased pain with movement. Otherwise normal tendon exam, 2+ pulses in all four extremities Initial Vital Signs Initial Vital Signs: Vital Signs Temperature 97.2 F L 06/23/21 10:26 Pulse Rate 163 H 06/23/21 10:26 Respiratory Rate 22 06/23/21 10:26 Blood Pressure 126/69 06/23/21 10:26 Pulse Oximetry 93 06/23/21 10:26 Scores GCS [place] coma scale eye opening: Spontaneous [place] coma scale verbal response: Orientated [place] coma scale motor response: Obey commands [place] coma scale total score: 15 Course Orders Ordered: ED Orders 06/23/21 10:22 COVID19 -Nasal swab/Pre-Proc Stat 06/23/21 10:30 Basic Metabolic Panel Stat Complete Blood Count AUTO DIFF Stat Magnesium Stat NT-proBNP (BNP-Adult 18+) Stat Partial Thromboplastin Time Stat Prothrombin Time INR Stat Thyroid Stimulating Hormone Stat Troponin & CK Cardiac Panel Stat 06/23/21 10:51 CT head/brain wo con Stat XR chest 1V Stat XR hip w pel if done RT 2V Stat XR tibia fibula RT 2V Stat Discontinued Medications Albuterol (Albuterol Hfa Mdi 60 Puff/8 Gm Inhaler) 2 puff INH NOW ONE Stop: 06/23/21 10:52 Last Admin: 06/23/21 11:53 Dose: Not Given Documented by: CTRRadhaHANDER Albuterol (Albuterol 2.5 Mg/3 Ml Neb (Adult)) 2.5 mg INH NOW ONE Stop: 06/23/21 11:32 Last Admin: 06/23/21 11:34 Dose: 2.5 mg Documented by: GRAEME Diltiazem HCl (Diltiazem 5 Mg/Ml Sdv) 10 mg IV NOW ONE Stop: 06/23/21 10:52 Last Admin: 06/23/21 11:21 Dose: 10 mg Documented by: SHAHIDA Diltiazem HCl (Diltiazem 5 Mg/Ml Sdv) 10 mg IV NOW ONE Stop: 06/23/21 11:58 Last Admin: 06/23/21 12:10 Dose: 10 mg Documented by: CTRRadhaHANDAYAD Furosemide (Furosemide 40 Mg/4 Ml Vial) 40 mg IV NOW ONE Stop: 06/23/21 12:51 Last Admin: 06/23/21 13:04 Dose: 40 mg Documented by: CTRVIVIANA Sodium Chloride (Normal Saline 0.9%) 1,000 mls @ 150 mls/hr IV CONT [facility] Last Infusion: 06/23/21 15:22 Dose: 0 mls/hr Documented by: Admin: 06/23/21 11:21 Dose: 150 mls/hr Documented by: SHAHIDA Metoprolol Tartrate (Metoprolol Ir 25 Mg Tablet) 50 mg PO NOW ONE Stop: 06/23/21 12:51 Last Admin: 06/23/21 13:04 Dose: 50 mg Documented by: CTRRadhaHANDAYAD Metoprolol Tartrate (Metoprolol Tartrate 5 Mg/5 Ml Inj) 5 mg IV Q5M ELIUD Stop: 06/23/21 13:56 Last Admin: 06/23/21 14:26 Dose: 5 mg Documented by: Admin: 06/23/21 14:11 Dose: 5 mg Documented by: CTRRadhaHANDAYAD Admin: 06/23/21 13:50 Dose: 5 mg Documented by: CTRRadhaREEMA Morphine Sulfate (Morphine 2 Mg/Ml Inj) 2 mg IV NOW ONE Stop: 06/23/21 10:52 Last Admin: 06/23/21 11:20 Dose: 2 mg Documented by: SHAHIDA Reevaluation(s) Time: 11:56 Reevaluation #2: On re-evaluation patient is still tachycardic in AFib RVR. Heart rate sometimes up to 150s even after 2 doses of IV Cardizem and his home dose of oral metoprolol. After further discussion patient states he has not taken his anticoagulants or any of his medications for the past week. He does not feel when he is in atrial fibrillation. Time: 13:38 Reevaluation #3: Patient is adamant that he does not wish to be admitted. He w as given several doses of IV metoprolol after minimal improvement with IV Cardizem and his home oral metoprolol dose. Patient was able to stand and walk although somewhat shaky fully. He is alert, appropriate to make decisions. He states he does not wish to stay because he has a cat at home. We did have social work meet with the patient. We did review that if he continues to be in AFib RVR persistently that he could continue to worsen and . Time: 14:22 Additional Reevaluation(s): Patient discharged home Against Medical Advice. He was able to stand and ambulate in the department with a little wobbly. He is alert, oriented and appropriate to make this decision. He is aware that I will he should be admitted. His heart rate has improved with some IV medications here in the department and he was asked to restart his home medications. Patient was waiting for a cab but when it arrived patient was unable to get up and ambulate to the cab himself without any assistance. He initially was reluctant to call any family admission was once again offered even though he had been discharged already. Patient continues to defer and a friend was called who came and picked patient here at the emergency department. Patient was made aware that he can return at any time for re-evaluation. Vital Signs Vital signs: Vital Signs - 8 hr 06/23/21 11:37 06/23/21 11:54 06/23/21 12:10 Pulse Rate 141 H 143 H 154 H Respiratory Rate 16 22 Blood Pressure 160/81 H 154/86 H Pulse Oximetry 93 93 06/23/21 13:40 06/23/21 14:16 Pulse Rate 136 H 109 H Respiratory Rate 20 Blood Pressure 130/73 Pulse Oximetry 97 MDM - Fall Lab Data Result diagrams: 06/23/21 10:30 06/23/21 10:30 Labs: Lab Results 06/23/21 06/23/21 06/23/21 Range/Units 10: 10:30 10:30 WBC 13.3 H (4.5-11.0) X10^3/uL RBC 3.66 L (4.5-5.9) X10^6/uL Hgb 14.6 (13.5-17.5) g/dL Hct 42.3 (41-53) % MCV 115.6 H (80-100) fL MCH 39.8 H (26-34) PG MCHC 34.4 (30-36) % RDW 13.0 (11.6-14.8) % Plt Count 128 L (150-400) X10^3/uL Neut % (Auto) 92.4 H (50-75) % Lymph % (Auto) 2.4 L (25-40) % [place] % (Auto) 4.8 (3-14) % Eos % (Auto) 0.0 L (2-4) % Baso % (Auto) 0.4 (0-2) % Neut # (Auto) 32689 H (7618-4156) /uL Lymph # (Auto) 300 L (8642-0246) /uL [place] # (Auto) 600 (0-900) /uL Eos # (Auto) 0 (0-450) /uL Baso # (Auto) 0 (0-100) /uL RBC Morphology Not Reportable Macrocytosis 2+ H PT 25.0 H (10.1-12.7) SECONDS INR 2.2 H (0.9-1.3) APTT 42 H (26.4-36.2) SECONDS Sodium (137-145) mmol/L Potassium (3.4-5.1) mmol/L Chloride (98-107) mmol/L Carbon Dioxide (22-32) mmol/L BUN (9-20) mg/dL Creatinine (0.66-1.25) mg/dL Estimated GFR (>60) mL/min BUN/Creatinine Ratio (6-22) Glucose (80-110) mg/dL Calcium (8.4-10.2) mg/dL Magnesium (1.6-2.3) mg/dL Total Creatine Kinase (55-170) U/L CK-MB (CK-2) CK-MB (CK-2) Rel Index Troponin I (0.01-0.034) ng/mL NT-Pro-B Natriuret Pep (<125) pg/mL TSH (0.47-4.68) uIU/mL SARS-CoV-2 (PCR) Negative (Negative) 06/23/21 06/23/21 06/23/21 Range/Units 10:30 10:30 10:30 WBC (4.5-11.0) X10^3/uL RBC (4.5-5.9) X10^6/uL Hgb (13.5-17.5) g/dL Hct (41-53) % MCV (80-100) fL MCH (26-34) PG MCHC (30-36) % RDW (11.6-14.8) % Plt Count (150-400) X10^3/uL Neut % (Auto) (50-75) % Lymph % (Auto) (25-40) % [place] % (Auto) (3-14) % Eos % (Auto) (2-4) % Baso % (Auto) (0-2) % Neut # (Auto) (9154-0170) /uL Lymph # (Auto) (9807-3023) /uL [place] # (Auto) (0-900) /uL Eos # (Auto) (0-450) /uL Baso # (Auto) (0-100) /uL RBC Morphology Macrocytosis PT (10.1-12.7) SECONDS INR (0.9-1.3) APTT (26.4-36.2) SECONDS Sodium 135 L (137-145) mmol/L Potassium 4.3 (3.4-5.1) mmol/L Chloride 100 (98-107) mmol/L Carbon Dioxide 24 (22-32) mmol/L BUN 15 (9-20) mg/dL Creatinine 0.98 (0.66-1.25) mg/dL Estimated GFR > 60.0 (>60) mL/min BUN/Creatinine Ratio 15.3 (6-22) Glucose 120 H (80-110) mg/dL Calcium 10.0 (8.4-10.2) mg/dL Magnesium 1.6 (1.6-2.3) mg/dL Total Creatine Kinase 56 (55-170) U/L CK-MB (CK-2) TNP CK-MB (CK-2) Rel Index TNP Troponin I < 0.012 (0.01-0.034) ng/mL NT-Pro-B Natriuret Pep 1290 H (<125) pg/mL TSH 1.04 (0.47-4.68) uIU/mL SARS-CoV-2 (PCR) (Negative) Imaging Data CT scan - head: Radiologist's Impression: [address] [address] [address] Scan Report Signed Patient: Farhad Valdes MR#: [id number] : 1955 Acct:[id number] Age/Sex: 65 / M Date of Service: 06/23/21 Loc: ED Accession Number: [id number] ?? Procedure: CT head/brain wo con Ordering Provider: Valentine Germain D.O. PROCEDURE:? CT HEAD/BRAIN WO CON ? INDICATIONS:? fall, on thinners, new right leg weakness ? TECHNIQUE:? Noncontrast 4.5 mm thick angled axial sections acquired from the foramen magnum to the vertex, with coronal and sagittal reformats.? For radiation dose reduction, the following was used:? automated exposure control, adjustment of mA and/or kV according to patient size.? ? COMPARISON:? None. ? FINDINGS:? Image quality:? Excellent.? ? CSF spaces:? Basal cisterns are patent.? No extra-axial fluid collections.? The ventricles are symmetric in size and shape.? ? Brain:? No intracranial bleeds or masses.? There is cerebral volume loss for age, with resultant ventricular and sulcal prominence.? There are periventricular and deep white matter chronic small vessel ischemic changes.? There is intracranial internal carotid artery and vertebral artery atherosclerosis.? ? Skull and face:? Calvarium and visualized facial bones appear intact, without suspicious lesions.? ? Sinuses:? Visualized sinuses and mastoids are clear.? ? IMPRESSION:? No acute intracranial disease process. ? ? Dictated by: Rosaline Flanagan MD, PhD on 06/23/2021 at 11:09 ? ? Approved by: Rosaline Flanagan MD, PhD on 06/23/2021 at 11:1 Chest x-ray: Radiologist's Impression: Launch?Image [address] [address] XRay Report Signed Patient: Farhad Valdes MR#: [id number] : 1955 Acct:[id number] Age/Sex: 65 / M Date of Service: 06/23/21 Loc: ED Accession Number: [id number] ?? Procedure: XR chest 1V Ordering Provider: Valentine Germain D.O. PROCEDURE:? XR CHEST 1V ? INDICATIONS:? fall, leg pain, weakness ? TECHNIQUE:? One view of the chest was acquired.? ? COMPARISON:[facility], CR, XR CHEST 2V, 01/06/2020, 15:01. ? FINDINGS:? ? Surgical changes and devices:? None.? ? Lungs and pleura:? Mild increased pulmonary vascularity is present. ? Mediastinum:? Mediastinal contours appear normal.? Heart size is enlarged. ? Bones and chest wall:? No suspicious bony lesions.? Overlying soft tissues appear unremarkable.? ? IMPRESSION:? Cardiomegaly with increased vascularity suggestive of edema. ? ? Dictated by: Beverley Summers M.D. on 06/23/2021 at 11:41 ? ? Approved by: Beverley Summers M.D. on 06/23/2021 at 11:42? Extremity x-ray #1: Radiologist's Impression: Close Tibia/Fibula X-Ray (Signed) Beverley Summers - 06/23/21 Hip X-Ray (Signed) Beverley Summers - 06/23/[address] (Signed) Rosaline Flanagan - 06/23/21 Chest X-Ray (Signed) Beverley Summers - 06/23/21 Abdomen/Pelvis CT (Signed) Felipe Crook - 03/09/[address] (Signed) Wilfredo Brooks - 11/17/[address] (Signed) Lyndsay Herrera - 03/18/20 Vascular Ultrasound (Signed) Gen Rose - 02/05/[address] (Signed) Gibran Adam - 02/04/[address] (Signed) Thien Adamie - 01/14/20 Chest X-Ray (Signed) Zuleima Negron - 01/06/20 Radiology - Historical 08/01/16 Launch?Image [address] [address] XRay Report Signed Patient: Farhad Valdes MR#: [id number] : 1955 Acct:[id number] Age/Sex: 65 / M Date of Service: 06/23/21 Loc: ED Accession Number: [id number] ?? Procedure: XR hip w pel if done RT 2V Ordering Provider: Valentine Germain D.O. PROCEDURE:? XR HIP W PEL IF DONE RT 2V ? INDICATIONS:? right hip pain, calf pain, fall from bed. ? TECHNIQUE:? AP pelvis with lateral view(s) of the right hip(s).? ? COMPARISON:? [facility], , HIP 2V RIGHT, 02/05/2015, 9:54. ? FINDINGS:? ? Bones:? No fractures or dislocations.? Pelvic ring appears intact.? No suspicious bony lesions.? Right hip arthroplasty is present.? Hardware is intact without evidence of hardware fracture or periprosthetic lucency to suggest loosening.? Mild degenerative narrowing is present within the left hip. ? Soft tissues:? The visualized bowel gas pattern is normal.? No suspicious soft tissue calcifications.? ? ? IMPRESSION:? No visualized acute fracture or dislocation. However, if clinical concern and/or pain persist, short interval imaging followup in 7-10 days is recommended, as occult injury cannot be definitively excluded. ? Dictated by: Beverley Summers M.D. on 06/23/2021 at 11:32 ? ? Approved by: Beverley Summers M.D. on 06/23/2021 at 11:41?? Extremity x-ray #2: Radiologist's Impression: [address] [address] XRay Report Signed Patient: Farhad Valdes MR#: [id number] : 1955 Acct:[id number] Age/Sex: 65 / M Date of Service: 06/23/21 Loc: ED Accession Number: [id number] ?? Procedure: XR tibia fibula RT 2V Ordering Provider: Valentine Germain D.O. PROCEDURE:? XR TIBIA FUBULA RT 2V ? INDICATIONS:? right calf pain ? TECHNIQUE:? 2 views of the tibia and fibula were acquired.? ? COMPARISON:? None. ? FINDINGS:? ? Bones:? No fractures or dislocations.? No suspicious bony lesions.? ? Soft tissues:? No suspicious soft tissue calcifications or masses.? ? IMPRESSION:? No visualized acute fracture or dislocation. However, if clinical concern and/or pain persist, short interval imaging followup in 7-10 days is recommended, as occult injury cannot be definitively excluded. ? ? Dictated by: Beverley Summers M.D. on 06/23/2021 at 11:29 ? ? Approved by: Beverley Summers M.D. on 06/23/2021 at 11:30? ECG Data Attestation: I personally reviewed and interpreted this ECG as follows: Prior ECG tracings: not available for review Interpretation: Afib with RVR. Nonspecific ST changes. Patient does have some possible depression V4-V6. No acute developed a massey appreciated. Patient has prior EKG from 07/20/2016 with similar changes except in lateral lead. MDM Narrative Medical decision making narrative: This is a 65-year-old male who had a fall out of bed. He does drink alcohol sometimes 4-5 glasses daily this may have contributed. There does not appear to be any clear acute neurologic event causing his symptoms he has pain in his calf which seems to be the majority the reason why he cannot lift or move his leg. He did have some hip pain on exam imaging does not show any fractures or obvious injuries, head CT is negative. His urine exam does not show any acute neurologic changes. He is noted to be in AFib with RVR and has not been hypoxic but does appear to have some pulmonary edema. His heart rate improved moderately with some IV medications and after discussion about cardioversion it was made clear to myself that he has been off his anticoagulants for at least a week, does not have a sensation when he is in AFib and is not an appropriate candidate because of this. Patient was offered admission which he politely refuses he states he has a CT he wishes to take care of and when discussing options to assist with him staying he continues to politely defer. Patient was able to stand and ambulate some here in the department but when discharged was not able to get into a cab. He was offered admission again and again politely refused and appears competent appropriate to make this decision. Social work had been in contact with patient in the department before and after discharge and there is a plan in place to have the community global regulatory affairs manager program follow-up with the patient. He was ultimately picked up by friends who assisted him back to his home. Discharge Plan Departure Patient Disposition: Left Against Medical Advice Clinical Impression: Atrial fibrillation with rapid ventricular response, Fall, Acute pain of right lower extremity, CHF (congestive heart failure) Instructions: DI for Atrial Fibrillation Activity Restrictions/Additional Instructions: Your atrial fibrillation was uncontrolled today and will likely not be well controlled home. You do need to restart your home medications and take these regularly. Please take your medications this evening. It is recommended that you be admitted today as you have elected not to please follow-up in the short term for recheck. Call for an appointment in the morning. You may return for re-evaluation in the emergency department at any time. Prescription sent to [facility]. Please return for new or worsening symptoms, chest pain shortness of breath, lightheadedness or passing out, persistent vomiting, recurrent falling or other new or concerning symptoms. Prescriptions: New furosemide [Lasix] 40 mg tablet 40 mg PO DAILY Qty: 5 RF: 0 No Action Spiriva Respimat 1.25 mcg/actuation mist 2 puff INHALATION DAILY RF: 0 metoprolol tartrate 50 MG tablet 50 mg PO BID Qty: 0 RF: 0 allopurinol 100 MG tablet 400 mg PO SEE INSTRUCTIONS Qty: 0 RF: 0 fluticasone propion-salmeterol [Advair Diskus] 250-50 mcg/dose Blister With Device 1 inh INHALATION BID RF: 0 albuterol sulfate 90 mcg/actuation Hfa Aerosol Inhaler 2 puff INHALATION Q4-6H PRN (Reason: Cough) RF: 0 oxybutynin chloride 5 mg tablet 5 mg PO BID-TID PRN (Reason: bladder spasms) Qty: 30 RF: 0 phenazopyridine [Pyridium] 200 mg tablet 200 mg PO TID PRN (Reason: Bladder irritation) Qty: 30 RF: 0 tamsulosin [Flomax] 0.4 mg capsule 0.4 mg PO DAILY RF: 0 sulfamethoxazole-trimethoprim [Bactrim DS] 800-160 mg tablet 1 tab PO BID RF: 0 Referrals: Amarilis Alexander MD [Physician] - Alicia Collins MD [Primary Care Provider] - Stand Alone Forms: Against Medical Advice
--- NOTE | 2021-06-23 10:51 | DI.RAD.S_ITS ---
PROCEDURE: XR HIP W PEL IF DONE RT 2V INDICATIONS: right hip pain, calf pain, fall from bed. TECHNIQUE: AP pelvis with lateral view(s) of the right hip(s). COMPARISON: [facility], , HIP 2V RIGHT, 02/05/2015, 9:54. FINDINGS: Bones: No fractures or dislocations. Pelvic ring appears intact. No suspicious bony lesions. Right hip arthroplasty is present. Hardware is intact without evidence of hardware fracture or periprosthetic lucency to suggest loosening. Mild degenerative narrowing is present within the left hip. Soft tissues: The visualized bowel gas pattern is normal. No suspicious soft tissue calcifications. IMPRESSION: No visualized acute fracture or dislocation. However, if clinical concern and/or pain persist, short interval imaging followup in 7-10 days is recommended, as occult injury cannot be definitively excluded. Dictated by: Beverley Summers M.D. on 06/23/2021 at 11:32 Approved by: Beverley Summers M.D. on 06/23/2021 at 11:41
--- NOTE | 2021-06-23 10:51 | DI.CT.S_ITS ---
PROCEDURE: CT HEAD/BRAIN WO CON INDICATIONS: fall, on thinners, new right leg weakness TECHNIQUE: Noncontrast 4.5 mm thick angled axial sections acquired from the foramen magnum to the vertex, with coronal and sagittal reformats. For radiation dose reduction, the following was used: automated exposure control, adjustment of mA and/or kV according to patient size. COMPARISON: None. FINDINGS: Image quality: Excellent. CSF spaces: Basal cisterns are patent. No extra-axial fluid collections. The ventricles are symmetric in size and shape. Brain: No intracranial bleeds or masses. There is cerebral volume loss for age, with resultant ventricular and sulcal prominence. There are periventricular and deep white matter chronic small vessel ischemic changes. There is intracranial internal carotid artery and vertebral artery atherosclerosis. Skull and face: Calvarium and visualized facial bones appear intact, without suspicious lesions. Sinuses: Visualized sinuses and mastoids are clear. IMPRESSION: No acute intracranial disease process. Dictated by: Rosaline Flanagan MD, PhD on 06/23/2021 at 11:09 Approved by: Rosaline Flanagan MD, PhD on 06/23/2021 at 11:11
--- NOTE | 2021-06-23 10:51 | DI.RAD.S_ITS ---
PROCEDURE: XR TIBIA FUBULA RT 2V INDICATIONS: right calf pain TECHNIQUE: 2 views of the tibia and fibula were acquired. COMPARISON: None. FINDINGS: Bones: No fractures or dislocations. No suspicious bony lesions. Soft tissues: No suspicious soft tissue calcifications or masses. IMPRESSION: No visualized acute fracture or dislocation. However, if clinical concern and/or pain persist, short interval imaging followup in 7-10 days is recommended, as occult injury cannot be definitively excluded. Dictated by: Beverley Summers M.D. on 06/23/2021 at 11:29 Approved by: Beverley Summers M.D. on 06/23/2021 at 11:30
--- NOTE | 2021-06-23 10:51 | DI.RAD.S_ITS ---
PROCEDURE: XR CHEST 1V INDICATIONS: fall, leg pain, weakness TECHNIQUE: One view of the chest was acquired. COMPARISON: [facility], CR, XR CHEST 2V, 01/06/2020, 15:01. FINDINGS: Surgical changes and devices: None. Lungs and pleura: Mild increased pulmonary vascularity is present. Mediastinum: Mediastinal contours appear normal. Heart size is enlarged. Bones and chest wall: No suspicious bony lesions. Overlying soft tissues appear unremarkable. IMPRESSION: Cardiomegaly with increased vascularity suggestive of edema. Dictated by: Beverley Summers M.D. on 06/23/2021 at 11:41 Approved by: Beverley Summers M.D. on 06/23/2021 at 11:42
[2021-06-23 11:01] LABS: Add Manual Diff / Slide Review NO; Basophils Absolute Auto 0 /uL (0-100); Basophils Percent Auto 0.4 % (0-2); Eosinophils Absolute Auto 0 /uL (0-450); Hematocrit 42.3 % (41-53); Hemoglobin 14.6 g/dL (13.5-17.5); Lymphocytes Absolute Auto 300 /uL (1100-4500); Lymphocytes Percent Auto 2.4 % (25-40); Mean Corpuscular HGB Conc 34.4 % (30-36); Mean Corpuscular Hemoglobin 39.8 PG (26-34); Mean Corpuscular Volume 115.6 fL (80-100); Monocytes Absolute Auto 600 /uL (0-900); Monocytes Percent Auto 4.8 % (3-14); Neutrophils Absolute Auto 12300 /uL (1500-7000); Neutrophils Percent Auto 92.4 % (50-75); Platelet Count 128 X10^3/uL (150-400); Red Blood Cell Count 3.66 X10^6/uL (4.5-5.9); White Blood Cell Count 13.3 X10^3/uL (4.5-11.0)
[2021-06-23 11:03] LABS: INR 2.2 (0.9-1.3)
[2021-06-23 11:05] LABS: PTT Partial Thromboplastin Tim 42 SECONDS (26.4-36.2)
[2021-06-23 11:07] LABS: BUN Creatinine Ratio 15.3 (6-22); Blood Urea Nitrogen 15 mg/dL (9-20); Carbon Dioxide 24 mmol/L (22-32); Chloride 100 mmol/L (98-107); Creatine Kinase 56 U/L (55-170); Estimated Glomerular Filt Rate > 60.0 mL/min (>60); Glucose 120 mg/dL (80-110); HEMOLYSIS 19 (0-50); Magnesium 1.6 mg/dL (1.6-2.3); Potassium 4.3 mmol/L (3.4-5.1); Sodium 135 mmol/L (137-145)
[2021-06-23 11:18] LABS: Troponin I < 0.012 ng/mL (0.01-0.034)
[2021-06-23] MEDS: MORPHINE 2 MG/ML INJ IV (11:20)
[2021-06-23] MEDS: SODIUM CHLORIDE 0.9% 1,000 ML 150 ML IV (11:21)
[2021-06-23] MEDS: dilTIAZem 5 MG/ML SDV 10 MG IV ×2 (11:21→12:10)
[2021-06-23 11:28] LABS: COVID19 -Nasal RAPID Negative (Negative)
[2021-06-23 11:29] LABS: Macrocytosis 2+
[2021-06-23] MEDS: ALBUTEROL 2.5 MG/3 ML NEB (ADULT) INH (11:34)
[2021-06-23 11:37] VITALS: BP 160/81; PULSE 141; RESP 16; O2SAT 93
[2021-06-23 11:38] LABS: Thyroid Stimulating Hormone 1.04 uIU/mL (0.47-4.68)
--- NOTE | 2021-06-23 11:48 | PC.NURSE ---
RT at bedside administering neb. Pt tolerating well.
[2021-06-23 11:54] VITALS: PULSE 143; RESP 22; O2SAT 93
[2021-06-23 12:09] LABS: NT-proBNP (BNP-Adult 18+) 1290 pg/mL (<125)
[2021-06-23 12:10] VITALS: BP 154/86; PULSE 154
[2021-06-23] MEDS: FUROSEMIDE 40 MG/4 ML VIAL IV (13:04)
[2021-06-23] MEDS: METOPROLOL IR 25 MG TABLET 50 MG PO (13:04)
--- NOTE | 2021-06-23 13:39 | PC.NURSE ---
Pt aided in using a urinal. Wet brief from home removed; pt endorses that he has been incontinent since a recent bladder biopsy. Clean brief applied.
[2021-06-23 13:40] VITALS: PULSE 136
[2021-06-23] MEDS: METOPROLOL TARTRATE 5 MG/5 ML INJ IV ×3 (13:50→14:26)
[2021-06-23 14:16] VITALS: BP 130/73; PULSE 109; RESP 20; O2SAT 97
--- NOTE | 2021-06-23 14:28 | PC.NURSE ---
AGRICULTURAL PRODUCE COMMISSION AGENT at bedside discussing options for further help at home. Pt is open exploring the support available.
--- NOTE | 2021-06-23 14:39 | CM.SWNOTE ---
Addendum entered by Tracie Rosa 06/23/21 17:17: RN BUILDING Assessment Note Update: Correction - Plan: Patient to d/c ED AMA, with community bowling pin setters installer referral in place. ED provider's recommendation for patient was to be admitted for AFib, CHF and recent GLF. Patient declined and chose to leave AMA. The [employer] was called for patient upon d/c from the ED but upon [employer] arrival patient was unable to ambulate and get up to get into the taxi and [employer] declined patient. ESTEBAN, RN and ED provider Dr. Germain attempt to encourage patient to return to ED as admission is an option and there is concern for his medical clearance and his ability to independently ambulate. [facility] contacts ED/ICU/ACU director Keke Aguero who informs [facility] of patient's options. Patient is informed of his options by TALENT DEVELOPMENT CONSULTANT and RN BUILDING of his options to have his sister give him a ride or patient could be admitted or LE will be contacted and patient will be trespassed. Patient was adamant about d/c to home. Patient is without his phone and not able to access his contacts. Patient had concern for worrying sister, but ultimately agreed to have RN BUILDING call his sister for a ride. RN BUILDING calls patient's sister Danisha, and the voicemail box is full and RN BUILDING cannot leave VM. Patient provides the name of a friend Armen Cm who is currently at the [employer] lodge. [facility] calls patient's friend and it is reported that he can pear picker patient. Plan: patient to d/c from the ED via friend Jabari and RN BUILDING to continue to refer Community Environmental Director program for patient. ESTEBAN Jo Original Note: RN BUILDING Assessment RN BUILDING receives consult and enters room to meet with patient. Patient is 65 y/o male who presents to the ED via EMS after a recent fall out of his bed this morning. Patient endorses he does not know what happened and he was not able to get up so he contacted EMS. Patient endorses he lives alone, and endorses independence with ADLs. Patient endorses he has a cat at home to care for. Patient endorses he has a sister that lives in [place] and friends that live locally in [place]. Patient endorses upon d/c he would like to have [employer] transportation and declined ED staff contacting his emergency contact, his sister. Patient endorses he drives his care and ambulates independently with cane and has a walker at home. Patient has an upcoming [facility] appt on 07/02/21 and an upcoming Oncology appt on 08/27/21 for f/u regarding hx of Pulmonary Embolism. Patient's PCP is Dr. Alicia Collins. RN BUILDING discusses HH and Community Environmental Director services. Patient denies HH but indicates interest in being connected with Community Environmental Director Bucky Gao with [facility] (Ph. # [phone]). RN BUILDING provides patient with Bucky's contact information and calls Bucky to leave requesting return call for referral. Plan: Patient to d/c to home when medically clear with community bowling pin setters installer f/u referral. ESTEBAN Jo
== END 2021-06-23 15:00 | disposition left against medical advice (07) ==
PROVIDERS: Emergency Provider Emergency Medicine; Family Provider Internal Medicine; PCP Internal Medicine
DX: I48.20 Chronic atrial fibrillation, unspecified (principal); M25.551 Pain in right hip; M79.604 Pain in right leg; I50.9 Heart failure, unspecified; W06.XXXA Fall from bed, initial encounter; R00.0 Tachycardia, unspecified; Z20.822 Contact with and (suspected) exposure to COVID-19; Z79.01 Long term (current) use of anticoagulants
CPT/HCPCS: 36415; 70450; 71045; 73502; 73590; 80048; 82550; 83735; 83880; 84443; 84484; 85025; 85610; 85730; 87635; 93005; 94640; 96361; 96374; 96375; 96376; 99285; C9803; A9270; J1940; J2270; J7613

== ENCOUNTER → 2021-07-02 11:24 | Outpatient (CLI) | payer MEDICARE, OTHER, SELFPAY | PROVIDERS: Family Provider Internal Medicine; PCP Internal Medicine; Visit Provider Urology | DX: N39.0 Urinary tract infection, site not specified (principal); R30.0 Dysuria; N32.9 Bladder disorder, unspecified; N32.89 Other specified disorders of bladder; Z79.01 Long term (current) use of anticoagulants; R39.14 Feeling of incomplete bladder emptying; R82.81 Pyuria; Z68.38 Body mass index [BMI] 38.0-38.9, adult | CPT/HCPCS: 51798; 81002; 87077; 87086; 87186; 99213 ==

== ENCOUNTER → 2021-11-30 15:43 | Outpatient (CLI) | payer MEDICARE, OTHER, SELFPAY | PROVIDERS: Family Provider Internal Medicine; PCP Internal Medicine; Visit Provider Urology | DX: R30.0 Dysuria (principal); R82.81 Pyuria; N32.89 Other specified disorders of bladder | CPT/HCPCS: 51798; 81002; 87077; 87086; 87186; 99213 ==

== ENCOUNTER → 2022-01-04 15:23 | Outpatient (CLI) | payer MEDICARE, OTHER, SELFPAY ==
[2022-01-04 17:47] LABS: Add Manual Diff / Slide Review NO; Basophils Absolute Auto 100 /uL (0-100); Basophils Percent Auto 1.1 % (0-2); Eosinophils Absolute Auto 100 /uL (0-450); Eosinophils Percent Auto 2.5 % (2-4); Hematocrit 42.3 % (41-53); Hemoglobin 14.8 g/dL (13.5-17.5); Lymphocytes Absolute Auto 1200 /uL (1100-4500); Lymphocytes Percent Auto 22.2 % (25-40); Mean Corpuscular Volume 108.5 fL (80-100); Monocytes Absolute Auto 600 /uL (0-900); Monocytes Percent Auto 10.5 % (3-14); Neutrophils Absolute Auto 3400 /uL (1500-7000); Neutrophils Percent Auto 63.7 % (50-75); Platelet Count 154 X10^3/uL (150-400); Red Blood Cell Count 3.89 X10^6/uL (4.5-5.9); White Blood Cell Count 5.4 X10^3/uL (4.5-11.0)
[2022-01-04 18:00] LABS: Alanine Aminotransferase 31 IU/L (<50); Albumin 4.1 g/dL (3.5-5.0); Albumin Globulin Ratio 1.3 (1.0-2.8); Alkaline Phosphatase 78 U/L (38-126); Aspartate Aminotransferase 30 IU/L (17-59); BUN Creatinine Ratio 8.6 (6-22); Bilirubin Total 0.7 mg/dL (0.2-1.3); Blood Urea Nitrogen 8 mg/dL (9-20); Calcium 9.3 mg/dL (8.4-10.2); Carbon Dioxide 28 mmol/L (22-32); Chloride 100 mmol/L (98-107); Estimated Glomerular Filt Rate > 60 mL/min (>60); Globulin 3.2 g/dL (1.7-4.1); Glucose 90 mg/dL (80-110); HEMOLYSIS < 15 (0-50); Potassium 4.3 mmol/L (3.4-5.1); Sodium 132 mmol/L (137-145); Total Protein 7.3 g/dL (6.3-8.2)
[2022-01-04 18:18] LABS: RBC Urine 10-30/HPF (0-5/HPF); Squamous Epithelial Cell Urine 0-1 /HPF (0-5/HPF); WBC Urine >100/HPF (0-5/HPF)
[2022-01-04 18:19] LABS: Bacteria Urine Few (2-10); Culture Indicated Urine Specimen Cultured; Transitional Epi Cells Urine 0-1/HPF (0-5/HPF)
[2022-01-04 18:30] LABS: Prostate Specific Antigen 0.781 ng/mL (0.10-4.00)
== END ==
PROVIDERS: Family Provider Internal Medicine; PCP Internal Medicine; Referring Provider Internal Medicine Infectious Disease; Visit Provider Internal Medicine Infectious Disease
DX: R31.9 Hematuria, unspecified (principal); N39.0 Urinary tract infection, site not specified
CPT/HCPCS: 36415; 80053; 81015; 84153; 85025; 87077; 87086; 87186

== ENCOUNTER → 2022-01-20 13:45 | Outpatient (CLI) | payer MEDICARE, OTHER, SELFPAY ==
[2022-01-20 15:34] LABS: Appearance Urine UA CLEAR; Bilirubin Urine UA NEGATIVE (NEGATIVE); Color Urine UA YELLOW; Glucose Urine UA TRACE g/dL (Negative); Ketones Urine UA TRACE (NEGATIVE); Leukocyte Esterase Urine UA 1+ (NEGATIVE); Nitrite Urine UA NEGATIVE (Negative); Occult Blood Urine UA TRACE-INTACT (Negative); Protein Urine UA TRACE (Negative); Specific Gravity Urine UA 1.015 (1.000-1.035)
[2022-01-20 15:51] LABS: Bacteria Urine None Seen; Culture Indicated Urine Specimen Cultured; RBC Urine 1-5/HPF (0-5/HPF); Squamous Epithelial Cell Urine 5-10 /HPF (0-5/HPF); WBC Urine 10-30/HPF (0-5/HPF)
[2022-01-20 15:58] LABS: Add Manual Diff / Slide Review NO; Basophils Absolute Auto 100 /uL (0-100); Basophils Percent Auto 1.4 % (0-2); Eosinophils Absolute Auto 100 /uL (0-450); Eosinophils Percent Auto 2.4 % (2-4); Hematocrit 41.5 % (41-53); Hemoglobin 14.6 g/dL (13.5-17.5); Lymphocytes Absolute Auto 1100 /uL (1100-4500); Lymphocytes Percent Auto 19.6 % (25-40); Mean Corpuscular HGB Conc 35.3 % (30-36); Mean Corpuscular Hemoglobin 38.9 PG (26-34); Mean Corpuscular Volume 110.3 fL (80-100); Monocytes Absolute Auto 700 /uL (0-900); Monocytes Percent Auto 11.6 % (3-14); Neutrophils Absolute Auto 3800 /uL (1500-7000); Platelet Count 130 X10^3/uL (150-400); Red Blood Cell Count 3.76 X10^6/uL (4.5-5.9); Red Cell Distribution Width 15.2 % (11.6-14.8); White Blood Cell Count 5.9 X10^3/uL (4.5-11.0)
[2022-01-20 16:20] LABS: Alanine Aminotransferase 25 IU/L (<50); Albumin 4.1 g/dL (3.5-5.0); Albumin Globulin Ratio 1.5 (1.0-2.8); Alkaline Phosphatase 75 U/L (38-126); Aspartate Aminotransferase 27 IU/L (17-59); Bilirubin Total 0.9 mg/dL (0.2-1.3); Blood Urea Nitrogen 12 mg/dL (9-20); Carbon Dioxide 26 mmol/L (22-32); Chloride 99 mmol/L (98-107); Estimated Glomerular Filt Rate > 60 mL/min (>60); Globulin 2.7 g/dL (1.7-4.1); Glucose 101 mg/dL (80-110); HEMOLYSIS < 15 (0-50); Potassium 4.4 mmol/L (3.4-5.1); Sodium 130 mmol/L (137-145); Total Protein 6.8 g/dL (6.3-8.2)
[2022-01-20 16:21] LABS: Anisocytosis 1+; Macrocytosis 1+
[2022-01-20 16:50] LABS: Prostate Specific Antigen 0.739 ng/mL (0.10-4.00)
== END ==
PROVIDERS: Family Provider Internal Medicine; PCP Internal Medicine; Referring Provider Internal Medicine Infectious Disease; Visit Provider Internal Medicine Infectious Disease
DX: N39.0 Urinary tract infection, site not specified (principal); R31.9 Hematuria, unspecified
CPT/HCPCS: 36415; 80053; 81001; 84153; 85025; 87086

== ENCOUNTER → 2022-02-04 10:26 | Outpatient (CLI) | payer MEDICARE, OTHER, SELFPAY ==
[2022-02-04 11:08] LABS: Appearance Urine UA CLEAR; Bilirubin Urine UA NEGATIVE (NEGATIVE); Color Urine UA YELLOW; Glucose Urine UA NEGATIVE (Negative); Ketones Urine UA NEGATIVE (NEGATIVE); Leukocyte Esterase Urine UA TRACE (NEGATIVE); Nitrite Urine UA NEGATIVE (Negative); Occult Blood Urine UA TRACE-INTACT (Negative); Protein Urine UA TRACE (Negative); Specific Gravity Urine UA 1.015 (1.000-1.035); Urobilinogen Urine UA 0.2 E.U./dL (0.2)
[2022-02-04 11:16] LABS: Bacteria Urine None Seen; Culture Indicated Urine Specimen Cultured; RBC Urine 1-5/HPF (0-5/HPF); Squamous Epithelial Cell Urine 0-1 /HPF (0-5/HPF); WBC Urine 1-5/HPF (0-5/HPF)
== END ==
PROVIDERS: Family Provider Internal Medicine; PCP Internal Medicine; Referring Provider Internal Medicine Infectious Disease; Visit Provider Internal Medicine Infectious Disease
DX: N39.0 Urinary tract infection, site not specified (principal)
CPT/HCPCS: 81001; 87086

== ENCOUNTER → 2022-02-08 16:11 | Outpatient (CLI) | payer MEDICARE, OTHER, SELFPAY ==
[2022-02-08 18:03] LABS: Add Manual Diff / Slide Review NO; Basophils Absolute Auto 0 /uL (0-100); Basophils Percent Auto 0.6 % (0-2); Eosinophils Absolute Auto 100 /uL (0-450); Hematocrit 42.4 % (41-53); Hemoglobin 15.2 g/dL (13.5-17.5); Lymphocytes Absolute Auto 1100 /uL (1100-4500); Mean Corpuscular HGB Conc 35.7 % (30-36); Mean Corpuscular Volume 109.1 fL (80-100); Monocytes Absolute Auto 500 /uL (0-900); Monocytes Percent Auto 11.3 % (3-14); Neutrophils Absolute Auto 2800 /uL (1500-7000); Neutrophils Percent Auto 62.1 % (50-75); Platelet Count 90 X10^3/uL (150-400); Red Blood Cell Count 3.89 X10^6/uL (4.5-5.9); Red Cell Distribution Width 15.3 % (11.6-14.8); White Blood Cell Count 4.5 X10^3/uL (4.5-11.0)
[2022-02-08 18:16] LABS: Alanine Aminotransferase 55 IU/L (<50); Albumin 4.2 g/dL (3.5-5.0); Albumin Globulin Ratio 1.3 (1.0-2.8); Alkaline Phosphatase 92 U/L (38-126); Aspartate Aminotransferase 48 IU/L (17-59); BUN Creatinine Ratio 8.2 (6-22); Bilirubin Total 0.8 mg/dL (0.2-1.3); Blood Urea Nitrogen 9 mg/dL (9-20); Calcium 9.3 mg/dL (8.4-10.2); Carbon Dioxide 23 mmol/L (22-32); Chloride 97 mmol/L (98-107); Estimated Glomerular Filt Rate > 60 mL/min (>60); Globulin 3.3 g/dL (1.7-4.1); Glucose 99 mg/dL (80-110); HEMOLYSIS < 15 (0-50); Potassium 4.2 mmol/L (3.4-5.1); Sodium 130 mmol/L (137-145); Total Protein 7.5 g/dL (6.3-8.2)
== END ==
PROVIDERS: Family Provider Internal Medicine; PCP Internal Medicine; Referring Provider Internal Medicine Infectious Disease; Visit Provider Internal Medicine Infectious Disease
DX: N39.0 Urinary tract infection, site not specified (principal); A49.8 Other bacterial infections of unspecified site
CPT/HCPCS: 36415; 80053; 85025

== ENCOUNTER → 2022-05-11 14:29 | Outpatient (CLI) | payer MEDICARE, OTHER, SELFPAY ==
[2022-05-11 14:45] LABS: Add Manual Diff / Slide Review SLIDE REVIEW; Basophils Absolute Auto 100 /uL (0-100); Basophils Percent Auto 1.1 % (0-2); Eosinophils Absolute Auto 100 /uL (0-450); Eosinophils Percent Auto 1.9 % (2-4); Hematocrit 43.9 % (41-53); Hemoglobin 15.6 g/dL (13.5-17.5); Lymphocytes Absolute Auto 1300 /uL (1100-4500); Lymphocytes Percent Auto 22.8 % (25-40); Mean Corpuscular HGB Conc 35.4 % (30-36); Mean Corpuscular Hemoglobin 40.8 PG (26-34); Mean Corpuscular Volume 115.1 fL (80-100); Monocytes Absolute Auto 700 /uL (0-900); Monocytes Percent Auto 12.5 % (3-14); Neutrophils Absolute Auto 3600 /uL (1500-7000); Neutrophils Percent Auto 61.7 % (50-75); Platelet Count 136 X10^3/uL (150-400); Red Blood Cell Count 3.82 X10^6/uL (4.5-5.9); Red Cell Distribution Width 13.9 % (11.6-14.8); White Blood Cell Count 5.9 X10^3/uL (4.5-11.0)
[2022-05-11 14:57] LABS: D Dimer 954 ng/ml (<500)
[2022-05-11 15:03] LABS: Alanine Aminotransferase 27 IU/L (<50); Albumin 4.2 g/dL (3.5-5.0); Albumin Globulin Ratio 1.1 (1.0-2.8); Alkaline Phosphatase 70 U/L (38-126); Aspartate Aminotransferase 30 IU/L (17-59); BUN Creatinine Ratio 10.9 (6-22); Bilirubin Total 0.9 mg/dL (0.2-1.3); Blood Urea Nitrogen 10 mg/dL (9-20); Calcium 9.6 mg/dL (8.4-10.2); Carbon Dioxide 28 mmol/L (22-32); Chloride 97 mmol/L (98-107); Estimated Glomerular Filt Rate > 60 mL/min (>60); Globulin 3.7 g/dL (1.7-4.1); Glucose 104 mg/dL (80-110); HEMOLYSIS < 15 (0-50); Potassium 3.8 mmol/L (3.4-5.1); Sodium 134 mmol/L (137-145); Total Protein 7.9 g/dL (6.3-8.2)
[2022-05-11 15:08] LABS: Macrocytosis 2+
== END ==
PROVIDERS: PCP Internal Medicine; Referring Provider Internal Medicine Hematology & Oncology; Visit Provider Internal Medicine Hematology & Oncology
DX: I27.82 Chronic pulmonary embolism (principal); I48.91 Unspecified atrial fibrillation
CPT/HCPCS: 36415; 80053; 85025; 85379

== ENCOUNTER → 2022-09-12 13:46 | Outpatient (CLI) | payer MEDICARE, OTHER, SELFPAY ==
[2022-09-12 15:17] LABS: Appearance Urine UA SL CLOUDY; Bilirubin Urine UA NEGATIVE (NEGATIVE); Color Urine UA YELLOW; Glucose Urine UA NEGATIVE (Negative); Ketones Urine UA NEGATIVE (NEGATIVE); Leukocyte Esterase Urine UA 2+ (NEGATIVE); Nitrite Urine UA POSITIVE (Negative); Occult Blood Urine UA 2+ (Negative); Protein Urine UA 1+ (Negative); Urobilinogen Urine UA 0.2 E.U./dL (0.2)
[2022-09-12 15:25] LABS: RBC Urine 1-5/HPF (0-5/HPF)
[2022-09-12 15:26] LABS: Bacteria Urine Moderate (10-30); Culture Indicated Urine Specimen Cultured; Squamous Epithelial Cell Urine 1-5 /HPF (0-5/HPF); WBC Urine 1-5/HPF (0-5/HPF)
== END ==
PROVIDERS: PCP Internal Medicine; Referring Provider Internal Medicine Infectious Disease; Visit Provider Internal Medicine Infectious Disease
DX: N39.0 Urinary tract infection, site not specified (principal)
CPT/HCPCS: 81001; 87077; 87086; 87186

== ENCOUNTER → 2022-11-10 13:55 | Outpatient (CLI) | payer MEDICARE, OTHER, SELFPAY ==
[2022-11-10 15:54] LABS: Appearance Urine UA CLOUDY; Bilirubin Urine UA 1+ (NEGATIVE); Color Urine UA YELLOW; Glucose Urine UA NEGATIVE (Negative); Ketones Urine UA NEGATIVE (NEGATIVE); Leukocyte Esterase Urine UA NEGATIVE (NEGATIVE); Nitrite Urine UA NEGATIVE (Negative); Occult Blood Urine UA 3+ (Negative); Protein Urine UA 1+ (Negative); Specific Gravity Urine UA >=1.030 (1.000-1.035); pH Urine UA 5.5 (4.5-8.0)
[2022-11-10 16:01] LABS: BUN Creatinine Ratio 10.2 (6-22); Blood Urea Nitrogen 9 mg/dL (9-20); Calcium 8.6 mg/dL (8.4-10.2); Carbon Dioxide 27 mmol/L (22-32); Chloride 99 mmol/L (98-107); Estimated Glomerular Filt Rate > 60 mL/min (>60); Glucose 67 mg/dL (80-110); HEMOLYSIS < 15 (0-50); Magnesium 1.6 mg/dL (1.6-2.3); Potassium 3.9 mmol/L (3.4-5.1); Sodium 131 mmol/L (137-145)
[2022-11-10 16:19] LABS: Bacteria Urine None Seen; Culture Indicated Urine Cult Not Indicated; Ictotest Urine Negative (Negative); RBC Urine 30-100/HPF (0-5/HPF); Squamous Epithelial Cell Urine 1-5 /HPF (0-5/HPF); WBC Urine 1-5/HPF (0-5/HPF)
== END ==
PROVIDERS: PCP Internal Medicine; Referring Provider Internal Medicine Infectious Disease; Visit Provider Internal Medicine Infectious Disease
DX: R94.31 Abnormal electrocardiogram [ECG] [EKG] (principal); A49.8 Other bacterial infections of unspecified site; T78 Adverse effects, not elsewhere classified
CPT/HCPCS: 36415; 80048; 81001; 83735

== ENCOUNTER → 2023-02-16 15:05 | Outpatient (CLI) | payer MEDICARE, OTHER, SELFPAY ==
[2023-02-16 17:13] LABS: BUN Creatinine Ratio 11.1 (6-22); Blood Urea Nitrogen 10 mg/dL (9-20); Calcium 8.8 mg/dL (8.4-10.2); Carbon Dioxide 29 mmol/L (22-32); Chloride 94 mmol/L (98-107); Cholesterol 174 mg/dL (140-199); Estimated Glomerular Filt Rate > 60 mL/min (>60); Glucose 88 mg/dL (80-110); HDL Cholesterol 64 mg/dL (40-60); HEMOLYSIS < 15 (0-50); LDL Cholesterol Calculated 92 mg/dL (<100); Potassium 4.7 mmol/L (3.4-5.1); Sodium 130 mmol/L (137-145); Triglycerides 89 mg/dL (35-150)
== END ==
PROVIDERS: PCP Internal Medicine; Referring Provider Internal Medicine Cardiovascular Disease; Visit Provider Internal Medicine Cardiovascular Disease
DX: I10 Essential (primary) hypertension (principal); E78.5 Hyperlipidemia, unspecified
CPT/HCPCS: 36415; 80048; 80061

== ENCOUNTER → 2023-05-19 12:30 | Outpatient (CLI) | payer MEDICARE, OTHER, SELFPAY ==
--- NOTE | 2023-05-19 | DI.ECHO.S_ITS ---
[facility]---------+ [facility] +---------+ : : [address] : : : : [id number] : : : : Phone: [phone] Echocardiogram Report + + :Name: LEONID VOSS Study Date: 05/19/2023 Height: 68 in : :[facility] ReadingLocation: Weight: 240 lb : : Gender: Male BSA: 2.2 m2 : :: 1955 Age: 67 yrs BP: 115/78 mmHg: :Reason For Study: Other Forms of Dyspnea : :Ordering Physician: JOHN, : :VERONIKA Valderrama Performed By: Natasha Girard : :Referring: VERONIKA PAZ : + + Interpretation Summary The ejection fraction is estimated to be 60-65%. Diastolic function could not be accurately assessed due to atrial fibrillation. The left atrium is moderately dilated. The right ventricle is mildly dilated. The right ventricular systolic function is normal. The right atrium is mildly dilated. No significant valvular abnormalities. Pulmonary artery pressures cannot be estimated because of the lack of a measurable TR jet velocity but the IVC suggests a CVP of around 3 mmHg. Procedure: A two-dimensional transthoracic echocardiogram with color flow and Doppler was performed. The study quality was technically difficult. The patient had an echocardiogram, but there is no comparison study available. The patient was in atrial fibrillation with heart rates between 73-105 bpm during the exam. Left Ventricle: The left ventricle is normal in size and wall thickness. The ejection fraction is estimated to be 60-65%. Diastolic function could not be accurately assessed due to atrial fibrillation. Right Ventricle: The right ventricle is mildly dilated. The right ventricular systolic function is normal. Atria: The left atrium is moderately dilated. The right atrium is mildly dilated. There is no Doppler evidence for an interatrial shunt. Mitral Valve: The mitral valve is normal. There is no mitral valve stenosis. There is trace mitral regurgitation. Aortic Valve: The aortic valve is trileaflet. There is mild aortic valve sclerosis. There is no aortic valve stenosis. No aortic regurgitation is present. Tricuspid Valve: The tricuspid valve is normal. There is no tricuspid stenosis. There is trace tricuspid regurgitation. Pulmonary artery pressures cannot be estimated because of the lack of a measurable TR jet velocity but the IVC suggests a CVP of around 3 mmHg. Pulmonic Valve: The pulmonic valve leaflets are thin and pliable; valve motion is normal. There is no pulmonic valvular stenosis. There is trace pulmonic regurgitation. Great Vessels: The aortic root is normal size. The ascending aorta is at the upper limits of normal in size. The pulmonary artery is normal size. The IVC is of normal diameter and collapses greater than 50% with a sniff. This suggests a low right atrial pressure of 3 mm Hg. Pericardium/ Pleura There is no pericardial effusion. MMode/2D Measurements & Calculations LVIDd: 4.4 cm LVOT diam: 2.2 cm LVIDs: 2.8 cm Ao root diam: 3.6 cm FS: 36.4 % asc Aorta Diam: 3.6 cm IVSd: 1.0 cm LVPWd: 1.1 cm LV whiteside. diameter/BSA (cm/m^2): 2.0 LV sys. diameter/BSA (cm/m^2): 1.3 LA A2 area: 22.0 cm2 RA area: 22.4 cm2 LA length (vol): 6.6 cm RVD1 (basal): 4.7 cm LVLs ap4: 6.1 cm LVLd ap2: 7.4 cm TAPSE_phl: 2.1 cm LVLs ap2: 6.3 cm Doppler Measurements & Calculations Ao V2 max: 90.7 cm/sec LVOT Max Cisco: 78.4 cm/sec Ao V2 mean: 64.2 cm/sec LV V1 max P.5 mmHg Ao max P.0 mmHg LV V1 VTI: 14.8 cm Ao mean P.0 mmHg JANEE(I,D): 3.0 cm2 Ao V2 VTI: 18.5 cm JANEE(V,D): 3.3 cm2 sev ratio: 0.80 JANEE indexed to BSA (cm^2/m^2): 1.4 TR max cisco: 199.0 cm/sec SV(LVOT): 56.1 ml TR max P.8 mmHg PA V2 max: 81.6 cm/sec PA V2 mean: 57.4 cm/sec PA mean P.0 mmHg PA pr(Accel): 47.9 mmHg AV VR_phl: 0.86 JANEE(VTI)/BSA_phl: 1.4 Reading Physician:04:53 PM
== END ==
PROVIDERS: PCP Internal Medicine; Referring Provider Internal Medicine Cardiovascular Disease; Visit Provider Internal Medicine Cardiovascular Disease
DX: I35.8 Other nonrheumatic aortic valve disorders (principal); R06.09 Other forms of dyspnea
CPT/HCPCS: 93306

== ENCOUNTER → 2023-06-23 13:48 | Outpatient (CLI) | payer MEDICARE, OTHER, SELFPAY ==
--- NOTE | 2023-06-23 | DI.NM.S_ITS ---
PROCEDURE: NM RAMAN PERF SPECT R&S PHARM Rest and pharmacological stress myocardial perfusion SPECT with gated imaging and ejection fraction RADIOPHARMACEUTICAL: 25.2 mCi Tc-99m tetrafosmin IV at rest and 25.8 mCi Tc-99m tetrafosmin IV at peak effect of pharmacological stress. Brn-krz-aahqbcpm was performed. INDICATIONS: Other forms of dyspnea TECHNIQUE: Radiopharmaceutical was injected at peak stress test, and also at rest. SPECT images were obtained. SPECT myocardial perfusion images were displayed in short axis, horizontal long axis, and vertical long axis views. Gated images were reviewed using [employer] software. COMPARISON: None. CARDIAC STRESS: A pharmacologic stress test was performed under the supervision of an attending staff, using an infusion of regadenoson 0.4 mg IV. Hemodynamic data: There is normal blood pressure and heart rate response to pharmacologic stress. Symptoms: The patient denied anginal chest pain. EKG: No diagnostic changes of ischemia; no ectopy. FINDINGS: Raw data: There is good myocardial uptake of radiotracer. No significant motion artifacts. Abru-vo-tnqbz ratio is 0.41 (normal is less than 0.38 for tetrafosmin tracer). Left ventricle function: Gated images demonstrate normal left ventricular wall thickening. No segmental wall motion abnormalities. No transient ischemic dilation; TID is 0.89 (normal less than 1.3). Left ventricle resting end diastolic volume is 109 mL. Left ventricle stress ejection fraction is 63%; normal range is above 45%. Myocardial perfusion: There is a medium size, mild intensity fixed inferior wall defect that appears somewhat better in the resting supine images. No reversible perfusion defects. IMPRESSION: Likely low risk study. No evidence of pharmacologic induced ischemia. The fixed inferior wall defect appears better but does not completely resolve in the stress supine images. No prone images were obtained to clarify. There is evidence of some diaphragmatic attenuation on the raw images likely contributing to this finding. Normal LV size and function. Dictated by: Veronika Paz D.O. on 06/26/2023 at 16:29 Approved by: Veronika Paz D.O. on 06/26/2023 at 16:32
== END ==
PROVIDERS: PCP Internal Medicine; Referring Provider Internal Medicine Cardiovascular Disease; Visit Provider Internal Medicine Cardiovascular Disease
DX: R06.09 Other forms of dyspnea (principal)
CPT/HCPCS: 78452; 93017; A9502; J2785

== ENCOUNTER 2023-10-16 10:49 | Inpatient (IN) | payer MEDICARE, OTHER, SELFPAY ==
[2023-10-16] VITALS (101 sets, daily range): BP systolic 113–188; BP diastolic 65–115; PULSE 69–166; RESP 14–37; TEMP 29–37.4; O2SAT 74–99; BMI 39.2
--- NOTE | 2023-10-16 10:55 | ED.SOB ---
HPI - SOB/Dyspnea General Chief Complaint: Shortness of Breath/Dyspnea Stated Complaint: Resp distress Time Seen by Provider: 10/16/23 10:55 Source: patient, RN notes reviewed and old records reviewed Mode of arrival: EMS Limitations: no limitations History of Present Illness HPI Narrative: 67-year-old male known history of COPD, atrial fibrillation,, pulmonary embolism on metoprolol and reportedly on anticoagulants but does not know the name. Patient presents with complaint of shortness of breath he would felt ill for the last several days with increasing shortness of breath. Called 911 because he would slipped out of bed and fallen onto his knees. Was too weak to be able to stand on his legs. Patient denies any fevers or chills. States he had recent increasing cough with yellow productive sputum which he states gotten better but then had increasing shortness of breath. Denies any pain in his chest. No syncope. No nausea or vomiting, no GI or urinary symptoms. Denies new swelling in his extremities. Patient does continue to smoke tobacco, patient does drink several alcoholic drinks daily, denies any recreational drugs or IV drugs. No known drug allergies. Patient was found to be in the 70s per EMS, received DuoNeb in the field as well as placed on CPAP and improved into the mid 90s and had significant improvement in his work of breathing. Related Data Home Medications Medication Instructions Recorded Confirmed metoprolol tartrate 50 mg tablet 50 mg PO BID ##0 02/07/13 04/14/22 tiotropium bromide 1.25 2 puff inhalation DAILY 08/11/19 04/14/22 mcg/actuation mist for inhalation (Spiriva Respimat) albuterol sulfate 90 mcg/actuation 2 puff inhalation Q4-6H PRN Cough 03/16/20 04/14/22 aerosol inhaler fluticasone 250 mcg-salmeterol 50 1 inh inhalation BID 03/16/20 04/14/22 mcg/dose blistr powdr for inhalation (Advair Diskus) acetaminophen 650 mg 1,300 mg PO DAILY 07/02/21 04/14/22 tablet,extended release (Tylenol Arthritis Pain) allopurinol 100 mg tablet 400 mg PO SEE INSTRUCTIONS PRN 07/02/21 04/14/22 Gout ##0 tamsulosin 0.4 mg capsule (Flomax) 0.4 mg PO BID 07/02/21 04/14/22 Previous Rx's Medication Instructions Recorded apixaban 5 mg tablet (Eliquis) 5 mg PO BID #180 tabs 10/13/22 Allergies Allergy/AdvReac Type Severity Reaction Status Date / Time No Known Drug Allergies Allergy Verified 12/21/21 15:30 Review of Systems Review of Systems ROS Unobtainable: All systems reviewed & are unremarkable except as noted in HPI and below Patient History Medical History Lesion of bladder Acute urinary tract infection Bladder wall thickening Feeling of incomplete bladder emptying Chronic anticoagulation Urge incontinence History of renal calculi Urinary frequency Dysuria E. coli urinary tract infection Gross hematuria Cat bite of left lower leg with infection Tobacco abuse Gout Sleep apnea syndrome Hyperlipidemia Afib COPD (chronic obstructive pulmonary disease) Surgical History H/O knee surgery H/O shoulder surgery Social History household members: family Smoking Status: Current every day smoker alcohol intake: current Smoking Status: Current every day smoker alcohol intake frequency: 3 or more drinks per day Alcohol type: beer, wine and hard liquor Substance Use Type: does not use Exam Narrative Exam Narrative: GENERAL: Alert and oriented x three, obese male in moderate distress. HEENT: Head normocephalic, atraumatic, EOMI, pupils reactive, face symmetric, moist mucous membranes NECK: Supple, full range of motion CARDIOVASCULAR: Tachycardic rate and rhythm without murmurs, rubs or gallops. No edema bilateral lower extremities. RESPIRATORY: Breath sounds present bilaterally, no wheezes or rales. Positive for tachypnea. Positive for work of breathing. Patient arrived on EMS CPAP and switched over to BiPAP. ABDOMEN: Soft, nontender. Normoactive bowel sounds all 4 quadrants. No guarding or rebound, rigidity, no mass : No CVA tenderness EXTREMITIES: Normal range of motion, no clubbing or edema. Neurovascularly intact NEUROLOGICAL: Cranial nerves II through XII grossly intact. Moving all extremities SKIN: Warm, dry, no petechiae, no rashes or lesions, Patient had portion of his left great toenail pulled off. Small amount of blood. Initial Vital Signs Initial Vital Signs: Vital Signs Temperature 99.4 F 10/16/23 10:49 Pulse Rate 159 H 10/16/23 10:49 Respiratory Rate 35 H 10/16/23 10:49 Blood Pressure 131/93 H 10/16/23 10:49 Pulse Oximetry 88 L 10/16/23 10:49 Oxygen Delivery Method CPAP 10/16/23 10:49 Course Orders Ordered: ED Orders 10/16/23 10:50 Complete Blood Count AUTO DIFF Stat Comprehensive Metabolic Panel Stat Lactate (Lactic Acid) Stat Lipase Stat NT-proBNP (BNP-Adult 18+) Stat PTT Partial Thromboplastin Raman Stat Procalcitonin Stat Prothrombin Time INR Stat Respiratory Panel (Film Array) Stat Troponin & CK Cardiac Panel Stat 10/16/23 10:58 XR chest 1V Stat EKG-12 Lead Stat 10/16/23 11:03 ABG [Arterial Blood Gas] Stat 10/16/23 11:10 Blood Culture Stat 10/16/23 11:52 CT angio chest PE protocol Stat 10/16/23 14:15 Trop I [Troponin I] Stat Discontinued Medications Diltiazem HCl (Diltiazem 5 Mg/Ml Sdv) 10 mg IV NOW ONE Stop: 10/16/23 11:41 Last Admin: 10/16/23 12:18 Dose: 10 mg Documented By: SAL Sodium Chloride (Normal Saline 0.9%) 1,000 mls @ 1,000 mls/hr IV BOLUS ONE Stop: 10/16/23 12:21 Last Infusion: 10/16/23 13:15 Dose: Infused Documented By: Admin: 10/16/23 11:32 Dose: 1,000 mls/hr Documented By: SAL Ceftriaxone Sodium 2,000 mg/ (Sodium Chloride) 100 mls @ 200 mls/hr IV NOW ONE Stop: 10/16/23 13:01 Last Infusion: 10/16/23 14:29 Dose: Infused Documented By: Admin: 10/16/23 13:40 Dose: 200 mls/hr Documented By: SAL Azithromycin 500 mg/ Dextrose 250 mls @ 250 mls/hr IV NOW ONE Stop: 10/16/23 13:01 Last Infusion: 10/16/23 15:49 Dose: 250 mls/hr Documented By: Admin: 10/16/23 15:13 Dose: 250 mls/hr Documented By: SPF Methylprednisolone (Methylprednisolone 125 Mg/2 Ml Vial) 125 mg IV NOW ONE Stop: 10/16/23 10:58 Last Admin: 10/16/23 11:33 Dose: 125 mg Documented By: SAL Vital Signs Vital signs: Vital Signs - 8 hr 10/16/23 10:49 10/16/23 10:54 10/16/23 10:59 Temperature 99.4 F Pulse Rate 159 H 166 H Respiratory Rate 35 H 35 H Blood Pressure 131/93 H 131/93 H Pulse Oximetry 88 L 96 Oxygen Delivery Method CPAP Oxygen Flow Rate Fraction of Inspired Oxygen 35 10/16/23 11:00 10/16/23 11:02 10/16/23 11:02 Temperature Pulse Rate 163 H 158 H Respiratory Rate 36 H 36 H Blood Pressure 113/79 Pulse Oximetry 96 96 Oxygen Delivery Method Oxygen Flow Rate Fraction of Inspired Oxygen 10/16/23 11:05 10/16/23 11:05 10/16/23 11:10 Temperature Pulse Rate 159 H 156 H Respiratory Rate 34 H 35 H Blood Pressure 113/73 Pulse Oximetry 96 94 Oxygen Delivery Method Oxygen Flow Rate Fraction of Inspired Oxygen 10/16/23 11:10 10/16/23 11:15 10/16/23 11:15 Temperature Pulse Rate 154 H Respiratory Rate 31 H Blood Pressure 121/92 H 132/105 H Pulse Oximetry 94 Oxygen Delivery Method Oxygen Flow Rate Fraction of Inspired Oxygen 10/16/23 11:20 10/16/23 11:20 10/16/23 11:25 Temperature Pulse Rate 146 H Respiratory Rate 33 H Blood Pressure 131/96 H 131/71 Pulse Oximetry 95 Oxygen Delivery Method BiPAP Oxygen Flow Rate Fraction of Inspired Oxygen 10/16/23 11:25 10/16/23 11:30 10/16/23 11:30 Temperature Pulse Rate 144 H 142 H Respiratory Rate 34 H 33 H Blood Pressure 131/72 Pulse Oximetry 95 94 Oxygen Delivery Method BiPAP Oxygen Flow Rate Fraction of Inspired Oxygen 10/16/23 11:35 10/16/23 11:35 10/16/23 11:40 Temperature Pulse Rate 136 H 124 H Respiratory Rate 34 H 32 H Blood Pressure 134/83 Pulse Oximetry 95 95 Oxygen Delivery Method BiPAP Oxygen Flow Rate Fraction of Inspired Oxygen 10/16/23 11:40 10/16/23 11:45 10/16/23 11:45 Temperature Pulse Rate 128 H Respiratory Rate 27 H Blood Pressure 121/72 133/66 Pulse Oximetry 95 Oxygen Delivery Method Oxygen Flow Rate Fraction of Inspired Oxygen 10/16/23 11:50 10/16/23 11:50 10/16/23 11:55 Temperature Pulse Rate 121 H 118 H Respiratory Rate 30 H 31 H Blood Pressure 135/90 Pulse Oximetry 95 94 Oxygen Delivery Method BiPAP BiPAP Oxygen Flow Rate Fraction of Inspired Oxygen 10/16/23 11:55 10/16/23 12:00 10/16/23 12:00 Temperature Pulse Rate 120 H Respiratory Rate 29 H Blood Pressure 142/65 H 131/85 Pulse Oximetry 95 Oxygen Delivery Method BiPAP Oxygen Flow Rate Fraction of Inspired Oxygen 10/16/23 12:12 10/16/23 12:12 10/16/23 12:15 Temperature Pulse Rate 127 H 129 H Respiratory Rate 31 H 30 H Blood Pressure 138/77 Pulse Oximetry 90 L 90 L Oxygen Delivery Method Nasal Cannula Nasal Cannula Oxygen Flow Rate 4 4 Fraction of Inspired Oxygen 10/16/23 12:15 10/16/23 12:18 10/16/23 12:20 Temperature Pulse Rate 114 H 118 H Respiratory Rate 28 H Blood Pressure 138/100 H 138/100 H Pulse Oximetry 93 Oxygen Delivery Method Oxygen Flow Rate Fraction of Inspired Oxygen 10/16/23 12:23 10/16/23 12:24 10/16/23 12:24 Temperature Pulse Rate 89 Respiratory Rate 28 H Blood Pressure 119/75 Pulse Oximetry 91 90 L Oxygen Delivery Method BiPAP Oxygen Flow Rate Fraction of Inspired Oxygen 10/16/23 12:26 10/16/23 12:28 10/16/23 12:28 Temperature Pulse Rate 87 Respiratory Rate 29 H Blood Pressure 138/73 Pulse Oximetry 91 91 Oxygen Delivery Method BiPAP BiPAP Oxygen Flow Rate Fraction of Inspired Oxygen 10/16/23 12:30 10/16/23 12:32 10/16/23 12:32 Temperature Pulse Rate 84 86 Respiratory Rate 29 H 29 H Blood Pressure 130/71 Pulse Oximetry 91 91 Oxygen Delivery Method BiPAP Oxygen Flow Rate Fraction of Inspired Oxygen 10/16/23 12:36 10/16/23 12:36 10/16/23 12:40 Temperature Pulse Rate 86 83 Respiratory Rate 30 H 26 H Blood Pressure 129/79 Pulse Oximetry 93 92 Oxygen Delivery Method Oxygen Flow Rate Fraction of Inspired Oxygen 10/16/23 12:40 10/16/23 12:44 10/16/23 12:44 Temperature Pulse Rate 85 Respiratory Rate 24 Blood Pressure 123/79 129/75 Pulse Oximetry 92 Oxygen Delivery Method Oxygen Flow Rate Fraction of Inspired Oxygen 10/16/23 12:48 10/16/23 12:48 10/16/23 12:50 Temperature Pulse Rate 88 83 Respiratory Rate 28 H 24 Blood Pressure 123/81 Pulse Oximetry 92 92 Oxygen Delivery Method BiPAP Oxygen Flow Rate Fraction of Inspired Oxygen 10/16/23 12:52 10/16/23 12:52 10/16/23 12:55 Temperature Pulse Rate 91 H Respiratory Rate 29 H Blood Pressure 137/77 138/100 H Pulse Oximetry 91 Oxygen Delivery Method BiPAP Oxygen Flow Rate Fraction of Inspired Oxygen 35 10/16/23 12:56 10/16/23 12:56 10/16/23 13:00 Temperature Pulse Rate 89 83 Respiratory Rate 26 H 24 Blood Pressure 126/76 Pulse Oximetry 92 92 Oxygen Delivery Method BiPAP Oxygen Flow Rate Fraction of Inspired Oxygen 10/16/23 13:00 10/16/23 13:04 10/16/23 13:04 Temperature Pulse Rate 88 Respiratory Rate 29 H Blood Pressure 125/77 134/77 Pulse Oximetry 93 Oxygen Delivery Method Oxygen Flow Rate Fraction of Inspired Oxygen 10/16/23 13:08 10/16/23 13:08 10/16/23 13:10 Temperature Pulse Rate 93 H 88 Respiratory Rate 34 H 28 H Blood Pressure 128/79 Pulse Oximetry 94 94 Oxygen Delivery Method BiPAP Oxygen Flow Rate Fraction of Inspired Oxygen 10/16/23 13:12 10/16/23 13:12 10/16/23 13:16 Temperature Pulse Rate 94 H Respiratory Rate 29 H Blood Pressure 136/79 133/86 Pulse Oximetry 94 Oxygen Delivery Method Oxygen Flow Rate Fraction of Inspired Oxygen 10/16/23 13:16 10/16/23 13:20 10/16/23 13:20 Temperature Pulse Rate 90 89 Respiratory Rate 27 H 29 H Blood Pressure 132/79 Pulse Oximetry 94 94 Oxygen Delivery Method Oxygen Flow Rate Fraction of Inspired Oxygen 10/16/23 13:24 10/16/23 13:24 10/16/23 13:28 Temperature Pulse Rate 91 H 95 H Respiratory Rate 30 H 33 H Blood Pressure 137/87 Pulse Oximetry 95 95 Oxygen Delivery Method BiPAP Oxygen Flow Rate Fraction of Inspired Oxygen 10/16/23 13:28 10/16/23 13:30 10/16/23 13:32 Temperature Pulse Rate 91 H Respiratory Rate 28 H Blood Pressure 133/96 H 145/98 H Pulse Oximetry 94 Oxygen Delivery Method Oxygen Flow Rate Fraction of Inspired Oxygen 10/16/23 13:32 10/16/23 13:36 10/16/23 13:36 Temperature Pulse Rate 92 H 98 H Respiratory Rate 29 H 29 H Blood Pressure 148/97 H Pulse Oximetry 94 94 Oxygen Delivery Method Oxygen Flow Rate Fraction of Inspired Oxygen 10/16/23 13:40 10/16/23 13:40 10/16/23 13:50 Temperature Pulse Rate 96 H 101 H Respiratory Rate 30 H 30 H Blood Pressure 143/104 H Pulse Oximetry 94 95 Oxygen Delivery Method BiPAP Oxygen Flow Rate Fraction of Inspired Oxygen 10/16/23 14:00 10/16/23 14:01 10/16/23 14:01 Temperature Pulse Rate 93 H 101 H Respiratory Rate 29 H 29 H Blood Pressure 143/89 H Pulse Oximetry 94 94 Oxygen Delivery Method BiPAP Oxygen Flow Rate Fraction of Inspired Oxygen 10/16/23 14:10 10/16/23 14:20 10/16/23 14:20 Temperature Pulse Rate 110 H 102 H Respiratory Rate 28 H 29 H Blood Pressure 159/97 H Pulse Oximetry 95 94 Oxygen Delivery Method Oxygen Flow Rate Fraction of Inspired Oxygen 10/16/23 14:30 10/16/23 14:40 10/16/23 14:40 Temperature Pulse Rate 109 H 117 H Respiratory Rate 29 H 27 H Blood Pressure 154/107 H Pulse Oximetry 95 94 Oxygen Delivery Method BiPAP Oxygen Flow Rate Fraction of Inspired Oxygen 10/16/23 14:44 10/16/23 14:50 10/16/23 15:00 Temperature Pulse Rate 114 H 117 H Respiratory Rate 27 H 29 H Blood Pressure 154/107 H Pulse Oximetry 95 95 Oxygen Delivery Method BiPAP Oxygen Flow Rate Fraction of Inspired Oxygen 35 10/16/23 15:00 Temperature Pulse Rate Respiratory Rate Blood Pressure 160/114 H Pulse Oximetry Oxygen Delivery Method Oxygen Flow Rate Fraction of Inspired Oxygen MDM - SOB/Dyspnea Lab Data 10/16/23 10:50 10/16/23 10:50 Labs: Lab Results 10/16/23 10/16/23 10/16/23 Range/Units 10:50 11:03 13:15 WBC 8.3 (4.5-11.0) X10^3/uL RBC 3.52 L (4.5-5.9) X10^6/uL Hgb 14.2 (13.5-17.5) g/dL Hct 40.9 L (41-53) % MCV 116.2 H (80-100) fL MCH 40.3 H (26-34) PG MCHC 34.7 (30-36) % RDW 13.8 (11.6-14.8) % Plt Count 116 L (150-400) X10^3/uL Neut % (Auto) 82.6 H (50-75) % Lymph % (Auto) 7.4 L (25-40) % [place] % (Auto) 9.4 (3-14) % Eos % (Auto) 0.0 L (2-4) % Baso % (Auto) 0.6 (0-2) % Neut # (Auto) 6900 (2306-2066) /uL Lymph # (Auto) 600 L (2354-7894) /uL [place] # (Auto) 800 (0-900) /uL Eos # (Auto) 0 (0-450) /uL Baso # (Auto) 0 (0-100) /uL RBC Morphology See below Macrocytosis 2+ H PT 21.8 H (9.4-12.5) SECONDS INR 1.9 H (0.9-1.3) APTT 37 H (25.1-36.5) SECONDS ABG Sample Site Left radial ABG pH 7.29 L* (7.35-7.45) ABG pCO2 48.3 H (35-45) mmHg ABG pO2 113 H (80-100) mmHg ABG HCO3 23 (23-27) mmol/L ABG Total CO2 24 (23-27) mmol/L ABG O2 Saturation 98 (95-100) % ABG Base Excess -4.0 L (-2-3) mmol/L FiO2 45 Sodium 129 L (137-145) mmol/L Potassium 4.2 (3.4-5.1) mmol/L Chloride 94 L (98-107) mmol/L Carbon Dioxide 20 L (22-32) mmol/L BUN 12 (9-20) mg/dL Creatinine 0.99 (0.66-1.25) mg/dL Estimated GFR > 60 (>60) mL/min BUN/Creatinine Ratio 12.1 (6-22) Glucose 183 H (80-110) mg/dL Lactate 6.3 H* 1.0 (0.7-2.1) mmol/L Calcium 9.6 (8.4-10.2) mg/dL Total Bilirubin 1.1 (0.2-1.3) mg/dL AST 45 (17-59) IU/L ALT 26 (<50) IU/L Alkaline Phosphatase 75 (38-126) U/L Total Creatine Kinase 487 H (55-170) U/L Troponin I 0.013 (0.01-0.034) ng/mL NT-Pro-B Natriuret Pep 3390 H (<125) pg/mL Total Protein 8.0 (6.3-8.2) g/dL Albumin 4.4 (3.5-5.0) g/dL Globulin 3.6 (1.7-4.1) g/dL Albumin/Globulin Ratio 1.2 (1.0-2.8) Lipase 52 (23-300) U/L Procalcitonin 0.09 (<0.5) ng/mL Chlamy pneumoniae PCR Not detected (Not Detect) Adenovirus (PCR) Not detected (Not Detect) B.parapertussis DNA PCR Not detected (Not Detecte) Coronavirus OC43 (PCR) Not detected (Not Detect) Coronavirus HKU1 (PCR) Not detected (Not Detect) Coronavirus 229E (PCR) Not detected (Not Detect) SARS-CoV-2 (PCR) Not detected (Not Detecte) Coronavirus NL63 (PCR) Not detected (Not Detect) Human Metapneumovir PCR Not detected (Not Detect) Influ A (H1N1 [place]) PCR Detected H (Not Detect) Influenza Type B (PCR) Not detected (Not Detect) M. pneumoniae (PCR) Not detected (Not Detect) Parainfluenza 1 (PCR) Not detected (Not Detect) Parainfluenza 2 (PCR) Not detected (Not Detect) Parainfluenza 3 (PCR) Not detected (Not Detect) Parainfluenza 4 (PCR) Not detected (Not Detect) RSV (PCR) Not detected (Not Detect) Entero/Rhino (PCR) Detected H (Not Detect) 02/19/24 Range/Units 14:15 WBC (4.5-11.0) X10^3/uL RBC (4.5-5.9) X10^6/uL Hgb (13.5-17.5) g/dL Hct (41-53) % MCV (80-100) fL MCH (26-34) PG MCHC (30-36) % RDW (11.6-14.8) % Plt Count (150-400) X10^3/uL Neut % (Auto) (50-75) % Lymph % (Auto) (25-40) % [place] % (Auto) (3-14) % Eos % (Auto) (2-4) % Baso % (Auto) (0-2) % Neut # (Auto) (0355-7532) /uL Lymph # (Auto) (2824-0992) /uL [place] # (Auto) (0-900) /uL Eos # (Auto) (0-450) /uL Baso # (Auto) (0-100) /uL RBC Morphology Macrocytosis PT (9.4-12.5) SECONDS INR (0.9-1.3) APTT (25.1-36.5) SECONDS ABG Sample Site ABG pH (7.35-7.45) ABG pCO2 (35-45) mmHg ABG pO2 (80-100) mmHg ABG HCO3 (23-27) mmol/L ABG Total CO2 (23-27) mmol/L ABG O2 Saturation (95-100) % ABG Base Excess (-2-3) mmol/L FiO2 Sodium (137-145) mmol/L Potassium (3.4-5.1) mmol/L Chloride (98-107) mmol/L Carbon Dioxide (22-32) mmol/L BUN (9-20) mg/dL Creatinine (0.66-1.25) mg/dL Estimated GFR (>60) mL/min BUN/Creatinine Ratio (6-22) Glucose (80-110) mg/dL Lactate (0.7-2.1) mmol/L Calcium (8.4-10.2) mg/dL Total Bilirubin (0.2-1.3) mg/dL AST (17-59) IU/L ALT (<50) IU/L Alkaline Phosphatase (38-126) U/L Total Creatine Kinase (55-170) U/L Troponin I 0.037 H (0.01-0.034) ng/mL NT-Pro-B Natriuret Pep (<125) pg/mL Total Protein (6.3-8.2) g/dL Albumin (3.5-5.0) g/dL Globulin (1.7-4.1) g/dL Albumin/Globulin Ratio (1.0-2.8) Lipase (23-300) U/L Procalcitonin (<0.5) ng/mL Chlamy pneumoniae PCR (Not Detect) Adenovirus (PCR) (Not Detect) B.parapertussis DNA PCR (Not Detecte) Coronavirus OC43 (PCR) (Not Detect) Coronavirus HKU1 (PCR) (Not Detect) Coronavirus 229E (PCR) (Not Detect) SARS-CoV-2 (PCR) (Not Detecte) Coronavirus NL63 (PCR) (Not Detect) Human Metapneumovir PCR (Not Detect) Influ A (H1N1 [place]) PCR (Not Detect) Influenza Type B (PCR) (Not Detect) M. pneumoniae (PCR) (Not Detect) Parainfluenza 1 (PCR) (Not Detect) Parainfluenza 2 (PCR) (Not Detect) Parainfluenza 3 (PCR) (Not Detect) Parainfluenza 4 (PCR) (Not Detect) RSV (PCR) (Not Detect) Entero/Rhino (PCR) (Not Detect) ABG Data ABG results: ABG shows a pH of 7.28 pCO2 of 48, PO2 113 with a bicarb of 23 on BiPAP FiO2 was decreased from 45% 35%. Imaging Data Chest x-ray: Radiologist's Impression: [address] [address] XRay Report Signed Patient: Farhad Valdes MR#: [id number] : 1955 Acct:[id number] Age/Sex: 67 / M Date of Service: 10/16/23 Loc: ED Accession Number: [id number] Procedure: XR chest 1V Ordering Provider: Valentine Germain D.O. PROCEDURE: XR CHEST 1V INDICATIONS: sob TECHNIQUE: One view of the chest was acquired. COMPARISON: [facility], [place], XR CHEST 1V, 06/23/2021, 10:48. FINDINGS: Surgical changes and devices: None. Lungs and pleura: Poor inspiratory effort is present. There is mild appearance of left lower lobe opacity. Mediastinum: Mediastinal contours appear normal. Heart size is enlarged. Bones and chest wall: No suspicious bony lesions. Overlying soft tissues appear unremarkable. IMPRESSION: Appearance of left lower lobe opacity although poor inspiratory effort is present. Cannot exclude development of effusion/pneumonia/atelectasis. Dictated by: Beverley Summers M.D. on 10/16/2023 at 11:45 Approved by: Beverley Summers M.D. on 10/16/2023 at 11:45 CT scan - chest: Radiologist's Impression: Close Chest CTA (Signed) Rosaline Flanagan - 10/16/23 Chest X-Ray (Signed) Beverley Summers - 10/16/23 Myocardial Perfusion Scan Nuc Med (Signed) Veronika Paz - 06/23/23 Echocardiogram Ultrasound (Signed) Veronika Paz - 05/19/23 Tibia/Fibula X-Ray (Signed) Beverley Summers - 06/23/21 Hip X-Ray (Signed) Beverley Summers - 06/23/[address] (Signed) Rosaline Flanagan - 06/23/21 Chest X-Ray (Signed) Beverley Summers - 06/23/21 Abdomen/Pelvis CT (Signed) Felipe Crook - 03/09/[address] (Signed) Wilfredo Brooks - 11/17/[address] (Signed) Lyndsay Herrera - 03/18/20 Vascular Ultrasound (Signed) Gen Rose - 02/05/[address] (Signed) Gibran Adam - 02/04/[address] (Signed) Gibran Adam - 01/14/20 Chest X-Ray (Signed) Zuleima Negron - 01/06/[address] [address] [address] Scan Report Signed Patient: Farhad Valdes MR#: [id number] : 1955 Acct:[id number] Age/Sex: 67 / M Date of Service: 10/16/23 Loc: ED Accession Number: [id number] Procedure: CT angio chest PE protocol Ordering Provider: Valentine Germain D.O. PROCEDURE: CT ANGIO CHEST PE PROTOCOL INDICATIONS: hx of chronic PE, acute hypoxic resp failure TECHNIQUE: After the administration of intravenous contrast, 2 mm thick sections acquired from the pulmonary apices to the posterior costophrenic angles. 3-dimensional maximum intensity projection (MIP) coronal and sagittal reformats were then acquired through the thorax. For radiation dose reduction, the following was used: automated exposure control, adjustment of mA and/or kV according to patient size. COMPARISON: [facility], CT, CT CHEST W CON, 11/17/2020, 10:42. [facility], CR, XR CHEST 1V, 06/23/2021, 10:48. [facility], CR, XR CHEST 1V, 10/16/2023, 11:21. FINDINGS: Image quality: Diagnostic. Pulmonary arteries: Pulmonary arteries are normal in size, and demonstrate no intraluminal filling defects to suggest central pulmonary embolism. Lower Neck: No enlarged lymph nodes. Thyroid: No thyroid nodules which require sonographic follow up, per consensus guidelines. Axillae: No enlarged lymph nodes. Chest Wall: Unremarkable. Bones: Spine degenerative disc disease and facet arthropathy. Lungs and Pleura: No pneumothorax. Trace left pleural effusion. Mild pleural enhancement adjacent to the pleural effusion which could be secondary to inflammatory infectious etiology. Patchy consolidation in the left lung base. Stable parenchymal scarring in the lateral periphery of the right lower lobe. Heart: Heart size is normal. No pericardial effusion. Thoracic Vessels: No aortic aneurysm. Mediastinum and [place]: No enlarged lymph nodes. Esophagus: No wall thickening. Small hiatal hernia. Upper Abdomen: No acute disease process in the visualized abdomen. IMPRESSION: No pulmonary embolus. Trace left pleural effusion with associated subtle pleural enhancement. Finding could represent inflammatory or infectious process. Left basilar patchy consolidation that could represent atelectasis, aspiration or pneumonia. Dictated by: Rosaline Flanagan MD, PhD on 10/16/2023 at 12:19 Approved by: Rosaline Flanagan MD, PhD on 10/16/2023 at 12:28 ECG Data Attestation: I personally reviewed and interpreted this ECG as follows: Prior ECG tracings: available for review Interpretation: AFib rate of 144 QRS 80 QTC 483. No acute ST elevation depression noted. Patient has prior from 06/23/21 which appears similar. MDM Narrative Medical decision making narrative: ? 67-year-old male with history of COPD, prior chronic pulmonary embolism reportedly anticoagulated, tobacco use and chronic ETOH use. Patient presents with acute respiratory failure, hypoxia in the field improved with CPAP patient is acidotic but does not appear to be retaining CO2 appears more metabolic.? Patient does have history of pulmonary emboli he is somewhat poor historian but appears to still be on his anticoagulation for chronic pulmonary emboli as well as atrial fibrillation.? Patient was in AFib RVR. Labs show normal white count, no significant anemia, INR of 1.9 patient has had repeat D-dimer is from Oncology trended upwards over time was not repeated today but had CT angio which showed no pulmonary emboli, left patchy basilar consolidation, trace left pleural effusion. CMP shows a sodium 129 CO2 of 20, potassium of 4.2 with normal renal function glucose of 183 initial lactate was 6.3 and police septic slowly to a level of 1 with fluids and respiratory support.? Patient's LFTs are negative total CK was 487 initial troponin was negative at 0.013 trended upwards slightly to indeterminate range at 0.037 but suspected to be more demand ischemia.? BNP is 3390.? Procalcitonin is negative.? Patient had had recent upper respiratory infection in his positive for influenza a as well as entero/rhinovirus. Patient received steroids secondary to COPD history, had received DuoNeb and field he has not wheezy on examination but was continued on with BiPAP, was trialed off on nasal cannula unsuccessfully and dropped to the mid 80% range with 4-5 L.? Patient does not normally use any home O2 and was placed back on BiPAP.?? Patient is reluctant to stay he states he is no intubation, can have short term CPR but does not want prolonged.? He states he does have a DNR/DNI at home. Patient was covered with dose of IV antibiotics as well as a dose of diltiazem 10 mg which helped with AFib RVR and patient's heart rate had significantly improved.? Only received a L bolus was not given a 30 cc/kilos bolus although met septic criteria with tachycardia, tachypnea secondary to atrial fibrillation potential CHF history.? Patient seems to improved.? Discussed with Dr. Garcia who accepts for inpatient admission with ICU. Critical Care Time Critical Care Time Critical Care Time: Yes Total Critical Care Time: 35 Attestation: The high probability of a clinically significant, sudden or life threatening deterioration of the [cardiac, pulm] system(s) required my full and direct attention, intervention and personal management. The aggregate critical care time was [] minutes. This time is in addition to time spent performing reported procedures but includes the following: [x] Data Review and interpretation [x] Patient assessment and monitoring of vital signs [x] Documentation [x] Medication orders and management Discharge Plan Departure Patient Disposition: Admitted As Inpatient Clinical Impression: Atrial fibrillation with rapid ventricular response, Acute respiratory distress, Influenza A, Rhinovirus infection, Pneumonia Admit Date/Time: 10/16/23 15:15 Admit Provider: Zachariah Toribio
--- NOTE | 2023-10-16 10:58 | DI.RAD.S_ITS ---
PROCEDURE: XR CHEST 1V INDICATIONS: sob TECHNIQUE: One view of the chest was acquired. COMPARISON: [facility], CR, XR CHEST 1V, 06/23/2021, 10:48. FINDINGS: Surgical changes and devices: None. Lungs and pleura: Poor inspiratory effort is present. There is mild appearance of left lower lobe opacity. Mediastinum: Mediastinal contours appear normal. Heart size is enlarged. Bones and chest wall: No suspicious bony lesions. Overlying soft tissues appear unremarkable. IMPRESSION: Appearance of left lower lobe opacity although poor inspiratory effort is present. Cannot exclude development of effusion/pneumonia/atelectasis. Dictated by: Beverley Summers M.D. on 10/16/2023 at 11:45 Approved by: Beverley Summers M.D. on 10/16/2023 at 11:45
[2023-10-16 11:11] LABS: Add Manual Diff / Slide Review NO; Basophils Absolute Auto 0 /uL (0-100); Basophils Percent Auto 0.6 % (0-2); Eosinophils Absolute Auto 0 /uL (0-450); Hematocrit 40.9 % (41-53); Hemoglobin 14.2 g/dL (13.5-17.5); Lymphocytes Absolute Auto 600 /uL (1100-4500); Lymphocytes Percent Auto 7.4 % (25-40); Mean Corpuscular HGB Conc 34.7 % (30-36); Mean Corpuscular Hemoglobin 40.3 PG (26-34); Mean Corpuscular Volume 116.2 fL (80-100); Monocytes Absolute Auto 800 /uL (0-900); Monocytes Percent Auto 9.4 % (3-14); Neutrophils Absolute Auto 6900 /uL (1500-7000); Neutrophils Percent Auto 82.6 % (50-75); Platelet Count 116 X10^3/uL (150-400); Red Blood Cell Count 3.52 X10^6/uL (4.5-5.9); Red Cell Distribution Width 13.8 % (11.6-14.8); White Blood Cell Count 8.3 X10^3/uL (4.5-11.0)
[2023-10-16 11:15] LABS: INR 1.9 (0.9-1.3); Prothrombin Time 21.8 SECONDS (9.4-12.5)
[2023-10-16 11:17] LABS: PTT Partial Thromboplastin Tim 37 SECONDS (25.1-36.5)
[2023-10-16 11:17] LABS: Allen Test for ABG Passed? Yes, Passed; Blood Gas Collection Site Left Radial; Fractionated Inspired Oxygen 45; HCO3 ABG 23 mmol/L (23-27); Oxygen Saturation ABG 98 % (95-100); PCO2 ABG 48.3 mmHg (35-45); PO2 ABG 113 mmHg (80-100); TCO2 ABG 24 mmol/L (23-27); pH ABG 7.29 (7.35-7.45)
[2023-10-16 11:21] LABS: Alanine Aminotransferase 26 IU/L (<50); Albumin 4.4 g/dL (3.5-5.0); Albumin Globulin Ratio 1.2 (1.0-2.8); Alkaline Phosphatase 75 U/L (38-126); Aspartate Aminotransferase 45 IU/L (17-59); BUN Creatinine Ratio 12.1 (6-22); Bilirubin Total 1.1 mg/dL (0.2-1.3); Blood Urea Nitrogen 12 mg/dL (9-20); Calcium 9.6 mg/dL (8.4-10.2); Carbon Dioxide 20 mmol/L (22-32); Chloride 94 mmol/L (98-107); Creatine Kinase 487 U/L (55-170); Estimated Glomerular Filt Rate > 60 mL/min (>60); Globulin 3.6 g/dL (1.7-4.1); Glucose 183 mg/dL (80-110); HEMOLYSIS < 15 (0-50); Lactate (Lactic Acid) 6.3 mmol/L (0.7-2.1); Lipase 52 U/L (23-300); Potassium 4.2 mmol/L (3.4-5.1); Sodium 129 mmol/L (137-145)
[2023-10-16 11:23] LABS: Macrocytosis 2+
[2023-10-16 11:32] LABS: NT-proBNP (BNP-Adult 18+) 3390 pg/mL (<125); Troponin I 0.013 ng/mL (0.01-0.034)
[2023-10-16] MEDS: SODIUM CHLORIDE 0.9% 1,000 ML 1000 ML IV (11:32)
[2023-10-16] MEDS: methylPREDNISolone 125 MG/2 ML VIAL IV (11:33)
[2023-10-16 11:38] LABS: Procalcitonin 0.09 ng/mL (<0.5)
--- NOTE | 2023-10-16 11:47 | PC.NURSE ---
Addendum entered by Jim Krishnamurthy R.N. 10/16/23 12:29: Pt's left greater toenail is partially broken from his slip out of bed this morning. Bleeding controlled. Original Note: Pt reports feeling unwell, weak, and SOB since Past couple of days. Pt slipped out of his bed this morning and was on his knees at the bedside for about an hour and a half. Pt reports he dropped his phone and was looking for it under the bed. Pt finally found his phone and called . Pt C/O SOB and lightheaded. Denies N/V and chest pain. He is A&O x4. He uses a CPAP machine at home and does not use oxygen. He endorses history of COPD and atrial fibrillation. Pt is taking eliquis. Pt reports pain to his right buttocks and left knee (which is swollen). Pt has a skin tear the size of a quarter on his right knee from being on the ground. Pt ambulatory at home with a cane.
--- NOTE | 2023-10-16 11:52 | DI.CT.S_ITS ---
PROCEDURE: CT ANGIO CHEST PE PROTOCOL INDICATIONS: hx of chronic PE, acute hypoxic resp failure TECHNIQUE: After the administration of intravenous contrast, 2 mm thick sections acquired from the pulmonary apices to the posterior costophrenic angles. 3-dimensional maximum intensity projection (MIP) coronal and sagittal reformats were then acquired through the thorax. For radiation dose reduction, the following was used: automated exposure control, adjustment of mA and/or kV according to patient size. COMPARISON: [facility], CT, CT CHEST W CON, 11/17/2020, 10:42. [facility], CR, XR CHEST 1V, 06/23/2021, 10:48. [facility], CR, XR CHEST 1V, 10/16/2023, 11:21. FINDINGS: Image quality: Diagnostic. Pulmonary arteries: Pulmonary arteries are normal in size, and demonstrate no intraluminal filling defects to suggest central pulmonary embolism. Lower Neck: No enlarged lymph nodes. Thyroid: No thyroid nodules which require sonographic follow up, per consensus guidelines. Axillae: No enlarged lymph nodes. Chest Wall: Unremarkable. Bones: Spine degenerative disc disease and facet arthropathy. Lungs and Pleura: No pneumothorax. Trace left pleural effusion. Mild pleural enhancement adjacent to the pleural effusion which could be secondary to inflammatory infectious etiology. Patchy consolidation in the left lung base. Stable parenchymal scarring in the lateral periphery of the right lower lobe. Heart: Heart size is normal. No pericardial effusion. Thoracic Vessels: No aortic aneurysm. Mediastinum and Apoorva: No enlarged lymph nodes. Esophagus: No wall thickening. Small hiatal hernia. Upper Abdomen: No acute disease process in the visualized abdomen. IMPRESSION: No pulmonary embolus. Trace left pleural effusion with associated subtle pleural enhancement. Finding could represent inflammatory or infectious process. Left basilar patchy consolidation that could represent atelectasis, aspiration or pneumonia. Dictated by: Rosaline Flanagan MD, PhD on 10/16/2023 at 12:19 Approved by: Rosaline Flanagan MD, PhD on 10/16/2023 at 12:28
--- NOTE | 2023-10-16 12:10 | PC.NURSE ---
Pt placed on 4L NC and taken to CT with transport monitor. Oxygen 92% on 4L NC. RN with pt to CT.
[2023-10-16] MEDS: dilTIAZem 5 MG/ML SDV 10 MG IV (12:18)
[2023-10-16 12:19] LABS: Adenovirus Not Detected (Not Detect); B. parapertussis Not Detected (Not Detecte); Bordetella pertussis Not Detected (Not Detect); Chlamydophila pneumoniae Not Detected (Not Detect); Coronavirus 229E Not Detected (Not Detect); Coronavirus HKU1 Not Detected (Not Detect); Coronavirus NL 63 Not Detected (Not Detect); Coronavirus OC43 Not Detected (Not Detect); Human Metapneumovirus Not Detected (Not Detect); Human Rhinovirus/Enterovirus Detected (Not Detect); Influenza A H1-2009 Detected (Not Detect); Influenza B Not Detected (Not Detect); Mycoplasma pneumoniae Not Detected (Not Detect); Parainfluenza Virus 1 Not Detected (Not Detect); Parainfluenza Virus 2 Not Detected (Not Detect); Parainfluenza Virus 3 Not Detected (Not Detect); Parainfluenza Virus 4 Not Detected (Not Detect); Respiratory Syncytial Virus Not Detected (Not Detect); SARS- CoV-2 Not Detected (Not Detecte)
--- NOTE | 2023-10-16 12:23 | PC.NURSE ---
Pt is back in the room from CT and reports I cant catch my breathe now while on 4L NC. RT at bedside and patient positioned back onto Bipap with Ipap16 and Epap 6.
[2023-10-16 12:48] LABS: Reflexed Lactate in 2 Hours Y
[2023-10-16] MEDS: cefTRIAXone 2,000 MG in SODIUM CHLORIDE 0.9% 100 ML 200 MG IV (13:40)
--- NOTE | 2023-10-16 13:47 | PC.NURSE ---
Pt expresses to me that he wants to go home to take care of his cat before being admitted to the hospital. I informed patient of the concern for his need for respiratory equipment. Pt continues to state he is thinking of ways to escape. I asked about his sister possibly getting access to the house to care for his cat (pt reports using a garage door captain and entering through that way, no access from front door (?) ). Pt does not have his garage door captain on his person.
[2023-10-16 14:53] LABS: Troponin I 0.037 ng/mL (0.01-0.034)
[2023-10-16] MEDS: AZITHROMYCIN 500 MG in DEXTROSE 5% IN WATER 250 ML 250 MG IV (15:13)
--- NOTE | 2023-10-16 15:18 | PC.NURSE ---
Pt reports that his cat bit him on his left, lateral calf yesterday. There are hernandez representing a cat bite on left calf.
--- NOTE | 2023-10-16 15:37 | PC.NURSE ---
Noted monitor states 9 beat run of possible VT vs AFib: Dr. Germain aware, believes it is afib. no new orders.
--- NOTE | 2023-10-16 16:00 | PC.NURSE ---
Pt states No one is listening to me. I will call NARESH's taxi to take me home. Pt unable to tolerate being off of Bipap. Pt moved to ICU.
--- NOTE | 2023-10-16 16:16 | RT ---
FiO2 titrated to 30%; SpO2 sustaining at 94%, pt tolerating well. Will continue to monitor.
--- NOTE | 2023-10-16 16:50 | RT ---
At 1650, pt taken off BiPAP per Dr. Toribio. He is currently being supported on 2L nasal cannula. Per Dr. Toribio will perform ABG in 30 minute while off BiPAP.
--- NOTE | 2023-10-16 16:51 | PM.HP.1 ---
History of Present Illness History of Present Illness Date Patient Seen: 10/16/23 Time Patient Seen: 16:51 Chief complaint: Resp distress Narrative: This is a 67 year old male with PMH of COPD, chronic atrial fibrillation, PE on chronic anticoagulation, HTN who presents with worsening shortness of breath over the past 4-5 days. He reports fever yesterday, worsening cough for the past 1-2 days productive of yellowish sputum. He was reportedly hypoxic to the 70s with EMS, improved with CPAP. Attempted to wean to nasal cannula in the ER, but placed on bipap. He was given solumedrol, furosemide and antibiotics in the ER. He feels like he cannot take a deep breath in, but was improved with the bipap. Blood gas showed pH of 7.29, with PCO2 of 49. Troponin initially negative, repeat indeterminant at 0.037, proBNP 3390. Sodium was 129. He was positive for flu and rhinovirus on respiratory panel. He was admitted for further management to the ICU. [facility] Medical History Lesion of bladder Acute urinary tract infection Bladder wall thickening Feeling of incomplete bladder emptying Chronic anticoagulation Urge incontinence History of renal calculi Urinary frequency Dysuria E. coli urinary tract infection Gross hematuria Cat bite of left lower leg with infection Tobacco abuse Gout Sleep apnea syndrome Hyperlipidemia Afib COPD (chronic obstructive pulmonary disease) Surgical History H/O knee surgery H/O shoulder surgery Social History household members: none Smoking Status: Current every day smoker alcohol intake: current Meds Home Medications and Allergies Home Medications Medication Instructions Recorded Confirmed Type metoprolol tartrate 50 mg tablet 50 mg PO BID ##0 02/07/13 10/16/23 History tiotropium bromide 1.25 2 puff inhalation DAILY 08/11/19 10/16/23 History mcg/actuation mist for inhalation (Spiriva Respimat) albuterol sulfate 90 mcg/actuation 2 puff inhalation Q4-6H PRN Cough 03/16/20 10/16/23 History aerosol inhaler fluticasone 250 mcg-salmeterol 50 1 inh inhalation BID 03/16/20 10/16/23 History mcg/dose blistr powdr for inhalation (Advair Diskus) acetaminophen 650 mg 1,300 mg PO DAILY PRN Pain (Scale 07/02/21 10/16/23 History tablet,extended release (Tylenol Score 4-6) Arthritis Pain) tamsulosin 0.4 mg capsule (Flomax) 0.4 mg PO BID 07/02/21 10/16/23 History apixaban 5 mg tablet (Eliquis) 5 mg PO BID #180 tabs 10/13/22 10/16/23 Rx losartan 50 mg tablet 50 mg PO DAILY 10/16/23 10/16/23 History magnesium oxide 400 mg (241.3 mg 400 mg PO DAILY 10/16/23 10/16/23 History magnesium) tablet Allergies Allergy/AdvReac Type Severity Reaction Status Date / Time No Known Drug Allergies Allergy Verified 12/21/21 15:30 Review of Systems Review of Systems Narrative: All other systems reviewed with the patient and are negative unless otherwise stated. Exam Vital Signs (past 8 hours): - 10/16/23 10:49 10/16/23 10:54 10/16/23 10:59 Temperature 99.4 F Pulse Rate 159 H 166 H Respiratory Rate 35 H 35 H Blood Pressure 131/93 H 131/93 H Pulse Oximetry 88 L 96 Oxygen Delivery Method CPAP Oxygen Flow Rate Fraction of Inspired Oxygen 35 10/16/23 11:00 10/16/23 11:02 10/16/23 11:02 Temperature Pulse Rate 163 H 158 H Respiratory Rate 36 H 36 H Blood Pressure 113/79 Pulse Oximetry 96 96 Oxygen Delivery Method Oxygen Flow Rate Fraction of Inspired Oxygen 10/16/23 11:05 10/16/23 11:05 10/16/23 11:10 Temperature Pulse Rate 159 H 156 H Respiratory Rate 34 H 35 H Blood Pressure 113/73 Pulse Oximetry 96 94 Oxygen Delivery Method Oxygen Flow Rate Fraction of Inspired Oxygen 10/16/23 11:10 10/16/23 11:15 10/16/23 11:15 Temperature Pulse Rate 154 H Respiratory Rate 31 H Blood Pressure 121/92 H 132/105 H Pulse Oximetry 94 Oxygen Delivery Method Oxygen Flow Rate Fraction of Inspired Oxygen 10/16/23 11:20 10/16/23 11:20 10/16/23 11:25 Temperature Pulse Rate 146 H Respiratory Rate 33 H Blood Pressure 131/96 H 131/71 Pulse Oximetry 95 Oxygen Delivery Method BiPAP Oxygen Flow Rate Fraction of Inspired Oxygen 10/16/23 11:25 10/16/23 11:30 10/16/23 11:30 Temperature Pulse Rate 144 H 142 H Respiratory Rate 34 H 33 H Blood Pressure 131/72 Pulse Oximetry 95 94 Oxygen Delivery Method BiPAP Oxygen Flow Rate Fraction of Inspired Oxygen 10/16/23 11:35 10/16/23 11:35 10/16/23 11:40 Temperature Pulse Rate 136 H 124 H Respiratory Rate 34 H 32 H Blood Pressure 134/83 Pulse Oximetry 95 95 Oxygen Delivery Method BiPAP Oxygen Flow Rate Fraction of Inspired Oxygen 10/16/23 11:40 10/16/23 11:45 10/16/23 11:45 Temperature Pulse Rate 128 H Respiratory Rate 27 H Blood Pressure 121/72 133/66 Pulse Oximetry 95 Oxygen Delivery Method Oxygen Flow Rate Fraction of Inspired Oxygen 10/16/23 11:50 10/16/23 11:50 10/16/23 11:55 Temperature Pulse Rate 121 H 118 H Respiratory Rate 30 H 31 H Blood Pressure 135/90 Pulse Oximetry 95 94 Oxygen Delivery Method BiPAP BiPAP Oxygen Flow Rate Fraction of Inspired Oxygen 10/16/23 11:55 10/16/23 12:00 10/16/23 12:00 Temperature Pulse Rate 120 H Respiratory Rate 29 H Blood Pressure 142/65 H 131/85 Pulse Oximetry 95 Oxygen Delivery Method BiPAP Oxygen Flow Rate Fraction of Inspired Oxygen 10/16/23 12:12 10/16/23 12:12 10/16/23 12:15 Temperature Pulse Rate 127 H 129 H Respiratory Rate 31 H 30 H Blood Pressure 138/77 Pulse Oximetry 90 L 90 L Oxygen Delivery Method Nasal Cannula Nasal Cannula Oxygen Flow Rate 4 4 Fraction of Inspired Oxygen 10/16/23 12:15 10/16/23 12:18 10/16/23 12:20 Temperature Pulse Rate 114 H 118 H Respiratory Rate 28 H Blood Pressure 138/100 H 138/100 H Pulse Oximetry 93 Oxygen Delivery Method Oxygen Flow Rate Fraction of Inspired Oxygen 10/16/23 12:23 10/16/23 12:24 10/16/23 12:24 Temperature Pulse Rate 89 Respiratory Rate 28 H Blood Pressure 119/75 Pulse Oximetry 91 90 L Oxygen Delivery Method BiPAP Oxygen Flow Rate Fraction of Inspired Oxygen 10/16/23 12:26 10/16/23 12:28 10/16/23 12:28 Temperature Pulse Rate 87 Respiratory Rate 29 H Blood Pressure 138/73 Pulse Oximetry 91 91 Oxygen Delivery Method BiPAP BiPAP Oxygen Flow Rate Fraction of Inspired Oxygen 10/16/23 12:30 10/16/23 12:32 10/16/23 12:32 Temperature Pulse Rate 84 86 Respiratory Rate 29 H 29 H Blood Pressure 130/71 Pulse Oximetry 91 91 Oxygen Delivery Method BiPAP Oxygen Flow Rate Fraction of Inspired Oxygen 10/16/23 12:36 10/16/23 12:36 10/16/23 12:40 Temperature Pulse Rate 86 83 Respiratory Rate 30 H 26 H Blood Pressure 129/79 Pulse Oximetry 93 92 Oxygen Delivery Method Oxygen Flow Rate Fraction of Inspired Oxygen 10/16/23 12:40 10/16/23 12:44 10/16/23 12:44 Temperature Pulse Rate 85 Respiratory Rate 24 Blood Pressure 123/79 129/75 Pulse Oximetry 92 Oxygen Delivery Method Oxygen Flow Rate Fraction of Inspired Oxygen 10/16/23 12:48 10/16/23 12:48 10/16/23 12:50 Temperature Pulse Rate 88 83 Respiratory Rate 28 H 24 Blood Pressure 123/81 Pulse Oximetry 92 92 Oxygen Delivery Method BiPAP Oxygen Flow Rate Fraction of Inspired Oxygen 10/16/23 12:52 10/16/23 12:52 10/16/23 12:55 Temperature Pulse Rate 91 H Respiratory Rate 29 H Blood Pressure 137/77 138/100 H Pulse Oximetry 91 Oxygen Delivery Method BiPAP Oxygen Flow Rate Fraction of Inspired Oxygen 35 10/16/23 12:56 10/16/23 12:56 10/16/23 13:00 Temperature Pulse Rate 89 83 Respiratory Rate 26 H 24 Blood Pressure 126/76 Pulse Oximetry 92 92 Oxygen Delivery Method BiPAP Oxygen Flow Rate Fraction of Inspired Oxygen 10/16/23 13:00 10/16/23 13:04 10/16/23 13:04 Temperature Pulse Rate 88 Respiratory Rate 29 H Blood Pressure 125/77 134/77 Pulse Oximetry 93 Oxygen Delivery Method Oxygen Flow Rate Fraction of Inspired Oxygen 10/16/23 13:08 10/16/23 13:08 10/16/23 13:10 Temperature Pulse Rate 93 H 88 Respiratory Rate 34 H 28 H Blood Pressure 128/79 Pulse Oximetry 94 94 Oxygen Delivery Method BiPAP Oxygen Flow Rate Fraction of Inspired Oxygen 10/16/23 13:12 10/16/23 13:12 10/16/23 13:16 Temperature Pulse Rate 94 H Respiratory Rate 29 H Blood Pressure 136/79 133/86 Pulse Oximetry 94 Oxygen Delivery Method Oxygen Flow Rate Fraction of Inspired Oxygen 10/16/23 13:16 10/16/23 13:20 10/16/23 13:20 Temperature Pulse Rate 90 89 Respiratory Rate 27 H 29 H Blood Pressure 132/79 Pulse Oximetry 94 94 Oxygen Delivery Method Oxygen Flow Rate Fraction of Inspired Oxygen 10/16/23 13:24 10/16/23 13:24 10/16/23 13:28 Temperature Pulse Rate 91 H 95 H Respiratory Rate 30 H 33 H Blood Pressure 137/87 Pulse Oximetry 95 95 Oxygen Delivery Method BiPAP Oxygen Flow Rate Fraction of Inspired Oxygen 10/16/23 13:28 10/16/23 13:30 10/16/23 13:32 Temperature Pulse Rate 91 H Respiratory Rate 28 H Blood Pressure 133/96 H 145/98 H Pulse Oximetry 94 Oxygen Delivery Method Oxygen Flow Rate Fraction of Inspired Oxygen 10/16/23 13:32 10/16/23 13:36 10/16/23 13:36 Temperature Pulse Rate 92 H 98 H Respiratory Rate 29 H 29 H Blood Pressure 148/97 H Pulse Oximetry 94 94 Oxygen Delivery Method Oxygen Flow Rate Fraction of Inspired Oxygen 10/16/23 13:40 10/16/23 13:40 10/16/23 13:50 Temperature Pulse Rate 96 H 101 H Respiratory Rate 30 H 30 H Blood Pressure 143/104 H Pulse Oximetry 94 95 Oxygen Delivery Method BiPAP Oxygen Flow Rate Fraction of Inspired Oxygen 10/16/23 14:00 10/16/23 14:01 10/16/23 14:01 Temperature Pulse Rate 93 H 101 H Respiratory Rate 29 H 29 H Blood Pressure 143/89 H Pulse Oximetry 94 94 Oxygen Delivery Method BiPAP Oxygen Flow Rate Fraction of Inspired Oxygen 10/16/23 14:10 10/16/23 14:20 10/16/23 14:20 Temperature Pulse Rate 110 H 102 H Respiratory Rate 28 H 29 H Blood Pressure 159/97 H Pulse Oximetry 95 94 Oxygen Delivery Method Oxygen Flow Rate Fraction of Inspired Oxygen 10/16/23 14:30 10/16/23 14:40 10/16/23 14:40 Temperature Pulse Rate 109 H 117 H Respiratory Rate 29 H 27 H Blood Pressure 154/107 H Pulse Oximetry 95 94 Oxygen Delivery Method BiPAP Oxygen Flow Rate Fraction of Inspired Oxygen 10/16/23 14:44 10/16/23 14:50 10/16/23 15:00 Temperature Pulse Rate 114 H 117 H Respiratory Rate 27 H 29 H Blood Pressure 154/107 H Pulse Oximetry 95 95 Oxygen Delivery Method BiPAP Oxygen Flow Rate Fraction of Inspired Oxygen 35 10/16/23 15:00 10/16/23 15:20 10/16/23 15:20 Temperature Pulse Rate 116 H Respiratory Rate 28 H Blood Pressure 160/114 H 144/91 H Pulse Oximetry 96 Oxygen Delivery Method Oxygen Flow Rate Fraction of Inspired Oxygen 10/16/23 15:40 10/16/23 15:40 10/16/23 16:14 Temperature Pulse Rate 116 H 103 H Respiratory Rate 26 H 29 H Blood Pressure 145/100 H Pulse Oximetry 96 99 Oxygen Delivery Method BiPAP Oxygen Flow Rate Fraction of Inspired Oxygen 10/16/23 16:15 10/16/23 16:15 10/16/23 16:15 Temperature Pulse Rate 102 H Respiratory Rate 29 H Blood Pressure 135/89 Pulse Oximetry 96 Oxygen Delivery Method BiPAP Oxygen Flow Rate Fraction of Inspired Oxygen 35 10/16/23 16:16 10/16/23 16:20 10/16/23 16:29 Temperature Pulse Rate 117 H Respiratory Rate 29 H Blood Pressure Pulse Oximetry 95 94 Oxygen Delivery Method BiPAP BiPAP Oxygen Flow Rate Fraction of Inspired Oxygen 30 10/16/23 16:40 Temperature Pulse Rate 115 H Respiratory Rate 26 H Blood Pressure Pulse Oximetry 95 Oxygen Delivery Method Oxygen Flow Rate Fraction of Inspired Oxygen Fraction of Inspired Oxygen 30 Oxygen Delivery Method BiPAP Oxygen Flow Rate 4 Narrative Exam Narrative: General:? Patient is well developed and well nourished, in no distress at this time. HEENT:? Normocephalic, atraumatic, extraocular muscles intact, oral pharynx is clear and mucous membranes are moist. Neck: supple and symmetric, trachea is midline, no cervical adenopathy. Negative for JVD Chest:? Normal AP diameter and contour without kyphoscoliosis, no tachypnea, equal chest rise bilaterally. Lungs:? CTA b/l no wheezing rhonchi or rales. Cardio:?RRR no m/r/g. Abdomen: S NT ND. No CVA tenderness. Musculoskeletal:? Muscle strength and tone are equal within normal limits, no deformity. Extremities: No edema or joint effusions. No cyanosis or clubbing. Skin:? Pale,? Warm to touch,dry and intact without rashes, ulcerations or petechiae.? Neuro:? Alert and orientated x3,? sensation to touch intact in all extremities, no gross deficits noted of cranial nerves. Psych:? Patient has a well-kept appearance, appropriate affect, mental status attitude thought context and judgment are appropriate for age. Objective ECG Impression: afib with RVR with nonspecific ST depressions based on my interpretation. Labs 10/16/23 10:50 10/16/23 10:50 Labs: Laboratory Results - last 24 hr 10/16/23 10/16/23 10/16/23 10:50 11:03 13:15 WBC 8.3 RBC 3.52 L Hgb 14.2 Hct 40.9 L MCV 116.2 H MCH 40.3 H MCHC 34.7 RDW 13.8 Plt Count 116 L Neut % (Auto) 82.6 H Lymph % (Auto) 7.4 L [place] % (Auto) 9.4 Eos % (Auto) 0.0 L Baso % (Auto) 0.6 Neut # (Auto) 6900 Lymph # (Auto) 600 L [place] # (Auto) 800 Eos # (Auto) 0 Baso # (Auto) 0 RBC Morphology See below Macrocytosis 2+ H PT 21.8 H INR 1.9 H APTT 37 H ABG Sample Site Left radial ABG pH 7.29 L* ABG pCO2 48.3 H ABG pO2 113 H ABG HCO3 23 ABG Total CO2 24 ABG O2 Saturation 98 ABG Base Excess -4.0 L FiO2 45 Sodium 129 L Potassium 4.2 Chloride 94 L Carbon Dioxide 20 L BUN 12 Creatinine 0.99 Estimated GFR > 60 BUN/Creatinine Ratio 12.1 Glucose 183 H Lactate 6.3 H* 1.0 Calcium 9.6 Total Bilirubin 1.1 AST 45 ALT 26 Alkaline Phosphatase 75 Total Creatine Kinase 487 H Troponin I 0.013 NT-Pro-B Natriuret Pep 3390 H Total Protein 8.0 Albumin 4.4 Globulin 3.6 Albumin/Globulin Ratio 1.2 Lipase 52 Procalcitonin 0.09 Chlamy pneumoniae PCR Not detected Adenovirus (PCR) Not detected B.parapertussis DNA PCR Not detected Coronavirus OC43 (PCR) Not detected Coronavirus HKU1 (PCR) Not detected Coronavirus 229E (PCR) Not detected SARS-CoV-2 (PCR) Not detected Coronavirus NL63 (PCR) Not detected Human Metapneumovir PCR Not detected Influ A (H1N1 Seas) PCR Detected H Influenza Type B (PCR) Not detected M. pneumoniae (PCR) Not detected Parainfluenza 1 (PCR) Not detected Parainfluenza 2 (PCR) Not detected Parainfluenza 3 (PCR) Not detected Parainfluenza 4 (PCR) Not detected RSV (PCR) Not detected Entero/Rhino (PCR) Detected H 10/16/23 14:15 WBC RBC Hgb Hct MCV MCH MCHC RDW Plt Count Neut % (Auto) Lymph % (Auto) [place] % (Auto) Eos % (Auto) Baso % (Auto) Neut # (Auto) Lymph # (Auto) [place] # (Auto) Eos # (Auto) Baso # (Auto) RBC Morphology Macrocytosis PT INR APTT ABG Sample Site ABG pH ABG pCO2 ABG pO2 ABG HCO3 ABG Total CO2 ABG O2 Saturation ABG Base Excess FiO2 Sodium Potassium Chloride Carbon Dioxide BUN Creatinine Estimated GFR BUN/Creatinine Ratio Glucose Lactate Calcium Total Bilirubin AST ALT Alkaline Phosphatase Total Creatine Kinase Troponin I 0.037 H NT-Pro-B Natriuret Pep Total Protein Albumin Globulin Albumin/Globulin Ratio Lipase Procalcitonin Chlamy pneumoniae PCR Adenovirus (PCR) B.parapertussis DNA PCR Coronavirus OC43 (PCR) Coronavirus HKU1 (PCR) Coronavirus 229E (PCR) SARS-CoV-2 (PCR) Coronavirus NL63 (PCR) Human Metapneumovir PCR Influ A (H1N1 Seas) PCR Influenza Type B (PCR) M. pneumoniae (PCR) Parainfluenza 1 (PCR) Parainfluenza 2 (PCR) Parainfluenza 3 (PCR) Parainfluenza 4 (PCR) RSV (PCR) Entero/Rhino (PCR) Assessment & Plan Assessment & Plan narrative: 1. Sepsis with acute respiratory failure with hypoxia and hypercapnea, thrombocytopenia secondary to influenza, rhinovirus, possible bacterial pnemonia - possible bacterial pneumonia superimposed with flu and rhinoviral infections, willl continue antibiotics with ceftriaxone and azithromycin - improved respiratory status with only mild hypercapnea on admission, trial off bipap with repeat blood gas after off for 1/2 an hour. May need to resume. - hold home losartan for now - supportive care for flu and rhinovirus 2. chronic afib with RVR - resume home metorpolol, did not take this morning - if difficulty weaning consider further diuresis or echo - continue home eliquis. 3. COPD with exacerbation - RT eval and treat - replace home medications with pulmicort, duonebs, and prn albuterol - prednisone 40 mg Daily, given IV steroids in the ER. 4. myocardial injury - non specific ST changes on EKG, no chest pain, likely elevated troponin due to demand from above. - continue to trend until downtrending, patient already on anticoagulation. 5. possible diastolic heart failure - does not appear grossly overloaded on exam now, given diuretic in the emergency room. - no echo at this time but if difficulty weaning or more overt failure will order one - diurese prn. 6. hyponatremia - s/p furosemide in the ER, mild at 129, will continue to monitor with bmp in the morning tomorrow. 7. history of PE with chronic anticoagulation - continue home eliquis. Code: Full, surrogate is patient's sister DVT on anticoagulation I have utilized all available immediate resources to obtain, update, or review the patient's current medications. I spent 35 minutes providing critical care management this patient. This excludes time spent in performing separately billed procedures. Quality VTE Deep Vein Thrombosis/Pulmonary Embolism Present on Admission: No
[2023-10-16] MEDS: METOPROLOL IR 50 MG TABLET PO ×2 (17:11→20:30)
--- NOTE | 2023-10-16 17:37 | RT ---
Dr. Toribio aware of ABG results on 2L. Pt placed back on BiPAP with previous settings of 16/6 30% at 1737. He is tolerating well, will cont. to monitor. RN aware.
[2023-10-16 17:48] LABS: pH ABG 7.26 (7.35-7.45)
[2023-10-16 17:49] LABS: Allen Test for ABG Passed? Yes, Passed; Blood Gas Collection Site Right Radial; Fractionated Inspired Oxygen 28; HCO3 ABG 27 mmol/L (23-27); Oxygen Saturation ABG 86 % (95-100); PCO2 ABG 60.8 mmHg (35-45); PO2 ABG 61 mmHg (80-100); TCO2 ABG 29 mmol/L (23-27)
[2023-10-16 19:26] LABS: MRSA (Nasal) PCR Not Detected (Not Detect)
[2023-10-16] MEDS: APIXABAN 5 MG TABLET PO (20:30)
[2023-10-16] MEDS: TAMSULOSIN 0.4 MG CAPSULE PO (20:30)
[2023-10-16] MEDS: BUDESONIDE 0.5 MG/2 ML NEB INH (21:39)
[2023-10-16] MEDS: ALBUTEROL/IPRATROPIUM 3 ML AMPUL INH (21:41)
[2023-10-16 22:45] LABS: Troponin I 0.026 ng/mL (0.01-0.034)
[2023-10-17] VITALS (61 sets, daily range): BP systolic 130–161; BP diastolic 88–114; PULSE 95–156; RESP 14–45; TEMP 30.7–37.1; O2SAT 84–99
[2023-10-17] MEDS: ALBUTEROL/IPRATROPIUM 3 ML AMPUL INH ×2 (08:04→16:43)
[2023-10-17] MEDS: BUDESONIDE 0.5 MG/2 ML NEB INH ×2 (08:04→20:19)
[2023-10-17] MEDS: METOPROLOL IR 50 MG TABLET PO ×3 (09:49→21:23)
[2023-10-17] MEDS: APIXABAN 5 MG TABLET PO ×2 (09:49→21:23)
[2023-10-17] MEDS: predniSONE 20 MG TABLET 40 MG PO (09:49)
[2023-10-17] MEDS: TAMSULOSIN 0.4 MG CAPSULE PO ×2 (09:49→21:23)
[2023-10-17] MEDS: FUROSEMIDE 40 MG/4 ML VIAL IV ×2 (11:10→17:22)
[2023-10-17 11:32] LABS: Add Manual Diff / Slide Review NO; Basophils Absolute Auto 0 /uL (0-100); Basophils Percent Auto 0.1 % (0-2); Eosinophils Absolute Auto 0 /uL (0-450); Eosinophils Percent Auto 0.1 % (2-4); Hematocrit 37.7 % (41-53); Lymphocytes Absolute Auto 300 /uL (1100-4500); Lymphocytes Percent Auto 3.3 % (25-40); Mean Corpuscular HGB Conc 34.3 % (30-36); Mean Corpuscular Hemoglobin 39.6 PG (26-34); Mean Corpuscular Volume 115.4 fL (80-100); Monocytes Absolute Auto 400 /uL (0-900); Monocytes Percent Auto 4.7 % (3-14); Neutrophils Absolute Auto 6900 /uL (1500-7000); Neutrophils Percent Auto 91.8 % (50-75); Platelet Count 94 X10^3/uL (150-400); Red Blood Cell Count 3.27 X10^6/uL (4.5-5.9); Red Cell Distribution Width 13.4 % (11.6-14.8); White Blood Cell Count 7.5 X10^3/uL (4.5-11.0)
[2023-10-17 11:43] LABS: Alanine Aminotransferase 31 IU/L (<50); Albumin 3.6 g/dL (3.5-5.0); Albumin Globulin Ratio 1.1 (1.0-2.8); Alkaline Phosphatase 61 U/L (38-126); Aspartate Aminotransferase 80 IU/L (17-59); BUN Creatinine Ratio 20.3 (6-22); Bilirubin Total 0.7 mg/dL (0.2-1.3); Blood Urea Nitrogen 14 mg/dL (9-20); Calcium 8.8 mg/dL (8.4-10.2); Carbon Dioxide 24 mmol/L (22-32); Chloride 96 mmol/L (98-107); Estimated Glomerular Filt Rate > 60 mL/min (>60); Globulin 3.4 g/dL (1.7-4.1); Glucose 134 mg/dL (80-110); HEMOLYSIS < 15 (0-50); Magnesium 1.9 mg/dL (1.6-2.3); Potassium 4.4 mmol/L (3.4-5.1); Sodium 129 mmol/L (137-145)
[2023-10-17 11:48] LABS: Anisocytosis 1+; Poikilocytosis 1+
[2023-10-17] MEDS: cefTRIAXone 1,000 MG in SODIUM CHLORIDE 0.9% 100 ML 200 MG IV (14:37)
[2023-10-17] MEDS: AZITHROMYCIN 500 MG in DEXTROSE 5% IN WATER 250 ML 250 MG IV (15:29)
--- NOTE | 2023-10-17 15:33 | P.PN_ITS ---
Subjective Subjective Interval history: 67 M with PMH of COPD, afib admitted with sepsis, acute respiratory failure, COPD exacerbation due primarily due to flu and rhinovirus infection. He struggled to get off of biPAP today, but improved after dose of furosemide given. Remains in afib with RVR, have increased metoprolol to TID. He still has cough and shortness of breath today. Exam Vital Signs (past 8 hours): - 10/17/23 07:40 10/17/23 08:00 10/17/23 08:00 Pulse Rate 146 H 141 H Respiratory Rate 37 H 25 H Blood Pressure Pulse Oximetry 94 95 Oxygen Delivery Method BiPAP Fraction of Inspired Oxygen 10/17/23 08:18 10/17/23 08:20 10/17/23 08:25 Pulse Rate 113 H 139 H Respiratory Rate 24 39 H Blood Pressure 150/97 H Pulse Oximetry 95 96 Oxygen Delivery Method BiPAP Fraction of Inspired Oxygen 30 30 10/17/23 08:40 10/17/23 09:00 10/17/23 09:20 Pulse Rate 117 H 106 H 101 H Respiratory Rate 26 H 18 16 Blood Pressure Pulse Oximetry 96 94 94 Oxygen Delivery Method Fraction of Inspired Oxygen 10/17/23 09:40 10/17/23 09:56 10/17/23 09:56 Pulse Rate 107 H 142 H Respiratory Rate 45 H 38 H Blood Pressure 149/114 H Pulse Oximetry 95 93 Oxygen Delivery Method Fraction of Inspired Oxygen 10/17/23 10:00 10/17/23 10:20 10/17/23 10:40 Pulse Rate 151 H 156 H 139 H Respiratory Rate 22 25 H 21 Blood Pressure Pulse Oximetry 84 L 95 96 Oxygen Delivery Method Fraction of Inspired Oxygen 10/17/23 11:00 10/17/23 11:20 10/17/23 11:40 Pulse Rate 102 H 109 H 113 H Respiratory Rate 16 21 23 Blood Pressure Pulse Oximetry 96 96 96 Oxygen Delivery Method Fraction of Inspired Oxygen 10/17/23 12:00 10/17/23 12:00 10/17/23 12:20 Pulse Rate 130 H 119 H Respiratory Rate 24 25 H Blood Pressure Pulse Oximetry 95 95 Oxygen Delivery Method BiPAP Fraction of Inspired Oxygen 10/17/23 12:40 10/17/23 12:45 10/17/23 12:45 Pulse Rate 132 H 113 H Respiratory Rate 30 H 24 Blood Pressure 147/102 H Pulse Oximetry 95 97 Oxygen Delivery Method Fraction of Inspired Oxygen 10/17/23 13:00 10/17/23 13:04 10/17/23 13:20 Pulse Rate 107 H 102 H Respiratory Rate 22 19 Blood Pressure Pulse Oximetry 96 95 Oxygen Delivery Method Fraction of Inspired Oxygen 30 10/17/23 13:40 10/17/23 14:00 10/17/23 14:20 Pulse Rate 131 H 117 H 125 H Respiratory Rate 23 26 H 27 H Blood Pressure Pulse Oximetry 98 96 97 Oxygen Delivery Method Fraction of Inspired Oxygen Fraction of Inspired Oxygen 30 SaO2/FiO2 Ratio 316 Oxygen Delivery Method BiPAP Oxygen Flow Rate 4 Narrative Exam Narrative: General:? Patient is well developed and well nourished, in no distress at this time. Lungs:?bibasilar rales. Cardio:?tacycardic, irregularly irregular. Abdomen: S NT ND. Musculoskeletal:? Muscle strength and tone are equal within normal limits, no deformity. Neuro:? Alert and orientated x3,? sensation to touch intact in all extremities, no gross deficits noted of cranial nerves. Psych:? Patient has a well-kept appearance, appropriate affect, mental status attitude thought context and judgment are appropriate for age. Objective Labs 10/17/23 11:14 10/17/23 11:14 Labs: Laboratory Results - last 24 hr 10/16/23 10/16/23 10/16/23 16:46 17:26 22:15 WBC RBC Hgb Hct MCV MCH MCHC RDW Plt Count Neut % (Auto) Lymph % (Auto) [place] % (Auto) Eos % (Auto) Baso % (Auto) Neut # (Auto) Lymph # (Auto) [place] # (Auto) Eos # (Auto) Baso # (Auto) RBC Morphology Poikilocytosis Anisocytosis ABG Sample Site Right radial ABG pH 7.26 L* ABG pCO2 60.8 H ABG pO2 61 L ABG HCO3 27 ABG Total CO2 29 H ABG O2 Saturation 86 L ABG Base Excess 0.0 FiO2 28 Sodium Potassium Chloride Carbon Dioxide BUN Creatinine Estimated GFR BUN/Creatinine Ratio Glucose Calcium Magnesium Total Bilirubin AST ALT Alkaline Phosphatase Troponin I 0.026 Total Protein Albumin Globulin Albumin/Globulin Ratio Nasal Screen MRSA (PCR) Not detected 10/17/23 11:14 WBC 7.5 RBC 3.27 L Hgb 13.0 L Hct 37.7 L MCV 115.4 H MCH 39.6 H MCHC 34.3 RDW 13.4 Plt Count 94 L Neut % (Auto) 91.8 H Lymph % (Auto) 3.3 L [place] % (Auto) 4.7 Eos % (Auto) 0.1 L Baso % (Auto) 0.1 Neut # (Auto) 6900 Lymph # (Auto) 300 L [place] # (Auto) 400 Eos # (Auto) 0 Baso # (Auto) 0 RBC Morphology Not Reportable Poikilocytosis 1+ H Anisocytosis 1+ H ABG Sample Site ABG pH ABG pCO2 ABG pO2 ABG HCO3 ABG Total CO2 ABG O2 Saturation ABG Base Excess FiO2 Sodium 129 L Potassium 4.4 Chloride 96 L Carbon Dioxide 24 BUN 14 Creatinine 0.69 Estimated GFR > 60 BUN/Creatinine Ratio 20.3 Glucose 134 H Calcium 8.8 Magnesium 1.9 Total Bilirubin 0.7 AST 80 H ALT 31 Alkaline Phosphatase 61 Troponin I Total Protein 7.0 Albumin 3.6 Globulin 3.4 Albumin/Globulin Ratio 1.1 Nasal Screen MRSA (PCR) [facility] Medical History Lesion of bladder Acute urinary tract infection Bladder wall thickening Feeling of incomplete bladder emptying Chronic anticoagulation Urge incontinence History of renal calculi Urinary frequency Dysuria E. coli urinary tract infection Gross hematuria Cat bite of left lower leg with infection Tobacco abuse Gout Sleep apnea syndrome Hyperlipidemia Afib COPD (chronic obstructive pulmonary disease) Surgical History H/O knee surgery H/O shoulder surgery Social History household members: none Smoking Status: Current every day smoker alcohol intake: current Assessment & Plan Assessment & Plan narrative: 1. Sepsis with acute respiratory failure with hypoxia and hypercapnea, thrombocytopenia secondary to influenza, rhinovirus, possible bacterial pnemonia - possible bacterial pneumonia superimposed with flu and rhinoviral infections, willl continue antibiotics with ceftriaxone and azithromycin - continue bipap prn for now, try to maximize time off of therapy. repeat blood gas if off for a few hours - hold home losartan for now - supportive care for flu and rhinovirus - prednisone 40 mg daily for COPD exacerbation for 5 days total. - started diuresis today with some improvement. 2. chronic afib with RVR - increased metoprolol to TID from BID today, may need additional rate control agents, poor exercise tolerance but okay rate at rest. - started diuresis today, continue 40 mg IV BID - continue home eliquis. 3. COPD with exacerbation - RT eval and treat - replace home medications with pulmicort, duonebs, and prn albuterol - prednisone 40 mg Daily, given IV steroids in the ER. 4. myocardial injury - non specific ST changes on EKG, no chest pain, likely elevated troponin due to demand from above. - continue to trend until downtrending, patient already on anticoagulation. 5. acute diastolic heart failure - does not appear grossly overloaded on exam now, given diuretic in the emergency room. - limited echo ordered today to reassess EF in setting of RVR, recent echo about 6 months ago with normal EF. - diurese as noted above. 6. hyponatremia - s/p furosemide in the ER, mild at 129, will continue to monitor with bmp in the morning tomorrow. 7. history of PE with chronic anticoagulation - continue home eliquis. Code: Full, surrogate is patient's sister DVT on anticoagulation I have utilized all available immediate resources to obtain, update, or review the patient's current medications. I spent 35 minutes providing critical care management this patient. This excludes time spent in performing separately billed procedures. Quality VTE Deep Vein Thrombosis/Pulmonary Embolism Present on Admission: No
--- NOTE | 2023-10-17 15:50 | DI.ECHO.S_ITS ---
[facility]---------+ [facility] +---------+ : : [address] : : : : [id number] : : : : Phone: [phone] Echocardiogram Report + + :Name: LEONID VOSS Study Date: 10/18/2023 Height: 69 in : :[facility] ReadingLocation: Weight: 266 lb : : Gender: Male BSA: 2.3 m2 : :: 1955 Age: 67 yrs BP: 133/89 mmHg: :Reason For Study: ASSESS EF : :Ordering Physician: SLOANE, : :BRYANNA KABA Performed By: Chelsea Baires : :Referring: BRYANNA ANTON : + + Interpretation Summary Limited study. The patient was in atrial fibrillation with heart rates between 93-114 bpm during the exam. The left ventricle is normal in size. The ejection fraction is estimated to be 50-55%. Previous LVEF 60 to 65%. The right ventricle is normal in size and function. Overall no significant valvular pathology seen. The IVC is dilated (diameter is greater than 2.1 cm) yet it collapses greater than 50% with a sniff. This suggests a right atrial pressure of 8 mm Hg. Procedure: The study quality was technically limited. A contrast injection of Definity was performed to improve assessment of LV function. Comparison is made with the echocardiogram of 05/19/2023. The heart rate ranged between 93- 114 bpm during the study. The patient was in atrial fibrillation with heart rates between 93-114 bpm during the exam. Left Ventricle: The left ventricle is normal in size. There is mild concentric left ventricular hypertrophy. There is no thrombus. The ejection fraction is estimated to be 50-55%. There are no focal wall motion abnormalities. Right Ventricle: The right ventricle is normal in size and function. Mitral Valve: There is mild mitral annular calcification. There is trace mitral regurgitation. Aortic Valve: The aortic valve is trileaflet. The aortic valve opens well. There is no aortic valve stenosis. Tricuspid Valve: The tricuspid valve is normal. There is mild tricuspid regurgitation. Pulmonary artery pressures cannot be estimated because of the lack of a measurable TR jet velocity. Great Vessels: The IVC is dilated (diameter is greater than 2.1 cm) yet it collapses greater than 50% with a sniff. This suggests a right atrial pressure of 8 mm Hg. Pericardium/ Pleura There is no pericardial effusion. There is no pleural effusion. MMode/2D Measurements & Calculations LVIDd: 4.6 cm IVC diam: 2.3 cm EPSS: 0.52 cm IVSd: 1.2 cm LVPWd: 1.0 cm LV whiteside. diameter/BSA (cm/m^2): 2.0 Reading Physician:10:44 AM
--- NOTE | 2023-10-17 17:17 | CM.DANOTE ---
DCP Assessment Note- Brief pt is a 67yo M here with pneumonia/rhino virus/flu/afib with RVR. PMH of COPD. PCP Shauna Salazar Medicare and cipriano ORELLANA reviewed EMR. Per provider PN, pt struggled to get off biPAP today. Remains in afib with RVR. No oxygen at baseline. Per chart review, ambulates with cane at home. Per chart review, pt lives home alone in [place]. Sister Danisha lives in [facility] and is POA. Per chart review, pt has multiple drinks per day. Per ED RN notes, pt was eager to leave potentially AMA back home to care for his cat. HANDLE MAKER unable to meet with pt today due to triaging needs. Pt likely here for a few days/until medically stable. Plan: DCP will continue to develop as medical POC unfolds. Home vs Home with HH likely. CM team will follow closely. ESTEBAN De Jesus Discharge Planning/Care Management CM Discharge Assessment Start: 10/17/23 17:15 Freq: Status: Active Protocol: Document 10/17/23 17:16 (Rec: 10/17/23 17:17 [id number]) Discharge Planning Assessment Assigned Tube Worker ESTEBAN Faulkner DPOA/Assigned Designee Name sister Raman Contact Information [phone] Advance Directives? No History Provided By Patient,Medical Record Prior Living Arrangements House Household Members none Whiteboard Updated in Patient Room with No name and ext. # of Tube Worker Review Status In Process Next Review Type Continued Stay Review
[2023-10-17] MEDS: SODIUM CHLORIDE 0.9% FLUSH 10 ML IV ×2 (17:22→21:23)
[2023-10-17] MEDS: dilTIAZem 30 MG TABLET PO (23:50)
[2023-10-18] VITALS (27 sets, daily range): BP systolic 119–150; BP diastolic 71–106; PULSE 85–138; RESP 14–37; TEMP 31.2–36.6; O2SAT 91–98
[2023-10-18] MEDS: dilTIAZem 30 MG TABLET PO ×2 (06:40→12:32)
[2023-10-18] MEDS: ALBUTEROL/IPRATROPIUM 3 ML AMPUL INH ×3 (07:18→19:09)
[2023-10-18] MEDS: BUDESONIDE 0.5 MG/2 ML NEB INH ×2 (07:18→19:09)
--- NOTE | 2023-10-18 07:46 | P.PN_ITS ---
Subjective Subjective Interval history: Interval history: 67 M with PMH of COPD, afib admitted with sepsis, acute respiratory failure, COPD exacerbation due primarily due to flu and rhinovirus infection. He struggled to get off of biPAP today, but improved after dose of furosemide given. Remains in afib with RVR, have increased metoprolol to TID. He still has cough and shortness of breath today. This morning he feels a little less short of breath. He was on BiPAP overnight, he is off for breakfast but will go back on after breakfast. Afternoon: On BiPAP most of the day, feeling better. His heart rate is also better. No pain. Exam Vital Signs (past 8 hours): - 10/17/23 23:50 10/17/23 23:50 10/17/23 23:50 Temperature Pulse Rate 109 H 106 H Respiratory Rate 25 H Blood Pressure 161/100 H 161/100 H Pulse Oximetry 95 Oxygen Delivery Method Oxygen Flow Rate Fraction of Inspired Oxygen 10/17/23 23:53 10/18/23 00:00 10/18/23 00:00 Temperature 97.7 F Pulse Rate 99 H Respiratory Rate 23 Blood Pressure 145/91 H Pulse Oximetry 98 Oxygen Delivery Method Oxygen Flow Rate Fraction of Inspired Oxygen 30 10/18/23 00:00 10/18/23 02:45 10/18/23 04:00 Temperature Pulse Rate Respiratory Rate Blood Pressure 133/89 Pulse Oximetry Oxygen Delivery Method BiPAP Oxygen Flow Rate Fraction of Inspired Oxygen 30 10/18/23 04:00 10/18/23 04:00 10/18/23 06:40 Temperature 97.3 F L Pulse Rate 93 H 90 Respiratory Rate 20 Blood Pressure 150/106 H Pulse Oximetry 95 Oxygen Delivery Method BiPAP Oxygen Flow Rate 3 Fraction of Inspired Oxygen 10/18/23 07:23 10/18/23 07:27 Temperature Pulse Rate 114 H Respiratory Rate 23 Blood Pressure 150/106 H Pulse Oximetry 96 Oxygen Delivery Method BiPAP Oxygen Flow Rate Fraction of Inspired Oxygen 30 Fraction of Inspired Oxygen 30 SaO2/FiO2 Ratio 316 Oxygen Delivery Method BiPAP Oxygen Flow Rate 3 Narrative Exam Narrative: On BiPAP, NAD, fluent speech. Lungs with scattered expiratory wheezing otherwise good air movement. Heart is regular, no murmur gallop or rub. Abdomen is distended and non tender. Extremities are free of edema. Objective Labs 10/17/23 11:14 10/17/23 11:14 Labs: Laboratory Results - last 24 hr 10/17/23 11:14 WBC 7.5 RBC 3.27 L Hgb 13.0 L Hct 37.7 L MCV 115.4 H MCH 39.6 H MCHC 34.3 RDW 13.4 Plt Count 94 L Neut % (Auto) 91.8 H Lymph % (Auto) 3.3 L [place] % (Auto) 4.7 Eos % (Auto) 0.1 L Baso % (Auto) 0.1 Neut # (Auto) 6900 Lymph # (Auto) 300 L [place] # (Auto) 400 Eos # (Auto) 0 Baso # (Auto) 0 RBC Morphology Not Reportable Poikilocytosis 1+ H Anisocytosis 1+ H Sodium 129 L Potassium 4.4 Chloride 96 L Carbon Dioxide 24 BUN 14 Creatinine 0.69 Estimated GFR > 60 BUN/Creatinine Ratio 20.3 Glucose 134 H Calcium 8.8 Magnesium 1.9 Total Bilirubin 0.7 AST 80 H ALT 31 Alkaline Phosphatase 61 Total Protein 7.0 Albumin 3.6 Globulin 3.4 Albumin/Globulin Ratio 1.1 PFSH Medical History Lesion of bladder Acute urinary tract infection Bladder wall thickening Feeling of incomplete bladder emptying Chronic anticoagulation Urge incontinence History of renal calculi Urinary frequency Dysuria E. coli urinary tract infection Gross hematuria Cat bite of left lower leg with infection Tobacco abuse Gout Sleep apnea syndrome Hyperlipidemia Afib COPD (chronic obstructive pulmonary disease) Surgical History H/O knee surgery H/O shoulder surgery Social History household members: none Smoking Status: Current every day smoker alcohol intake: current Assessment & Plan Assessment & Plan narrative: 1. Sepsis with acute respiratory failure with hypoxia and hypercapnea, thrombocytopenia secondary to influenza, rhinovirus, possible bacterial pnemonia. Present on admission and improving. - possible bacterial pneumonia superimposed with flu and rhinoviral infections, willl continue antibiotics with ceftriaxone and azithromycin - continue bipap prn for now, try to maximize time off of therapy. repeat blood gas if off for a few hours - supportive care for flu and rhinovirus - prednisone 40 mg daily for COPD exacerbation for 5 days total. - started diuresis 10/17 2. Chronic afib with RVR, improving. - increased metoprolol to TID from BID today, may need additional rate control agents, poor exercise tolerance but okay rate at rest. - started diuresis today, continue 40 mg IV BID - continue home eliquis. 3. COPD with exacerbation, improving. - replace home medications with pulmicort, duonebs, and prn albuterol - prednisone 40 mg Daily, given IV steroids in the ER. 4. Demand ischemia, active. - non specific ST changes on EKG, no chest pain, likely elevated troponin due to demand from above. - continue to trend until downtrending, patient already on anticoagulation. 5. Acute diastolic heart failure, active. - does not appear grossly overloaded on exam now, given diuretic in the emergency room. - limited echo ordered today to reassess EF in setting of RVR, recent echo about 6 months ago with normal EF. - diurese as noted above. 6. Hyponatremia, active. - s/p furosemide in the ER, mild at 129, will continue to monitor with bmp in the morning tomorrow. 7. Remote PE with chronic anticoagulation, stable. - continue home eliquis. Code: Full, surrogate is patient's sister DVT on anticoagulation Time Spent With Patient Time with patient: 30 to 49 minutes with 50% spent counseling/coordinating care Quality VTE Deep Vein Thrombosis/Pulmonary Embolism Present on Admission: No
[2023-10-18] MEDS: METOPROLOL IR 50 MG TABLET PO ×3 (08:26→21:15)
[2023-10-18] MEDS: FUROSEMIDE 40 MG/4 ML VIAL IV ×2 (08:26→17:21)
[2023-10-18] MEDS: SODIUM CHLORIDE 0.9% FLUSH 10 ML IV ×2 (08:27→21:17)
[2023-10-18] MEDS: TAMSULOSIN 0.4 MG CAPSULE PO ×2 (08:27→21:10)
[2023-10-18] MEDS: APIXABAN 5 MG TABLET PO ×2 (08:27→21:11)
[2023-10-18] MEDS: predniSONE 20 MG TABLET 40 MG PO (08:27)
--- NOTE | 2023-10-18 11:29 | CM.DPC ---
DCP Cont. Reviewed EMR and team rounds for pt's status updates. Pt has continued to require a bipap for respiratory needs. He continues with IV ABO's, remains in Afib with RVR, still having shortness of breath and cough today. Will cont. to monitor for whether or not he will need Home Health at d/c. Anticipate a few more days inpt.
[2023-10-18] MEDS: cefTRIAXone 1,000 MG in SODIUM CHLORIDE 0.9% 100 ML 200 MG IV (12:32)
[2023-10-18] MEDS: ACETAMINOPHEN 325 MG TABLET 650 MG PO (13:23)
[2023-10-18] MEDS: AZITHROMYCIN 500 MG in DEXTROSE 5% IN WATER 250 ML 250 MG IV (13:24)
[2023-10-18] MEDS: dilTIAZem 30 MG TABLET 60 MG PO (17:21)
--- NOTE | 2023-10-18 18:32 | PC.NURSE ---
Day Shift Note Patient on bipap most of day 16/ FiO2 30% FiO2, sats in the mid-90s, tolerating well. Off bipap for meals, pt SBA with FWW into bathroom to void during these times as well. On 3L NC when off bipap with sats in the low 90s. Short of breath with any movement, audible grunting and wheezing/rhonchi. Denies pain. Call light within reach, using appropriately to make needs known.
[2023-10-19] VITALS (47 sets, daily range): BP systolic 107–141; BP diastolic 57–86; PULSE 78–113; RESP 14–40; TEMP 32–36.8; O2SAT 90–99
[2023-10-19] MEDS: dilTIAZem 30 MG TABLET 60 MG PO ×4 (00:37→17:43)
[2023-10-19] MEDS: FUROSEMIDE 40 MG/4 ML VIAL IV ×2 (08:06→16:24)
[2023-10-19] MEDS: predniSONE 20 MG TABLET 40 MG PO (08:06)
[2023-10-19] MEDS: TAMSULOSIN 0.4 MG CAPSULE PO ×2 (08:07→20:53)
[2023-10-19] MEDS: METOPROLOL IR 50 MG TABLET PO ×3 (08:08→20:53)
[2023-10-19] MEDS: SODIUM CHLORIDE 0.9% FLUSH 10 ML IV ×2 (08:09→20:54)
--- NOTE | 2023-10-19 08:22 | PM.PN.1 ---
Subjective Subjective Interval history: He feels that his breathing is improving. He is having hematuria, and notes a history of the same with urine tract infection and a kidney stone in the past. No events overnight, he has been off BiPAP since this morning. He denies any chest pain. No pain with urination. Exam Vital Signs (past 8 hours): - 10/19/23 00:37 10/19/23 01:00 10/19/23 01:55 Pulse Rate 84 Respiratory Rate Blood Pressure 121/74 131/82 Pulse Oximetry 97 Oxygen Delivery Method BiPAP Fraction of Inspired Oxygen 10/19/23 01:55 10/19/23 02:00 10/19/23 03:00 Pulse Rate 90 84 Respiratory Rate 29 H 40 H Blood Pressure Pulse Oximetry 94 95 Oxygen Delivery Method Fraction of Inspired Oxygen 30 10/19/23 04:00 10/19/23 04:00 10/19/23 04:06 Pulse Rate 91 H Respiratory Rate 19 Blood Pressure 133/75 133/75 Pulse Oximetry 96 Oxygen Delivery Method Nasal Cannula BiPAP Fraction of Inspired Oxygen 10/19/23 04:06 10/19/23 05:00 10/19/23 05:43 Pulse Rate 84 96 H Respiratory Rate 22 Blood Pressure 133/75 Pulse Oximetry 96 96 Oxygen Delivery Method BiPAP Fraction of Inspired Oxygen 10/19/23 06:00 10/19/23 06:37 10/19/23 07:44 Pulse Rate 93 H Respiratory Rate 24 Blood Pressure Pulse Oximetry 96 Oxygen Delivery Method Nasal Cannula Fraction of Inspired Oxygen 30 Fraction of Inspired Oxygen 30 SaO2/FiO2 Ratio 320 Oxygen Delivery Method Nasal Cannula Oxygen Flow Rate 3 Narrative Exam Narrative: NAD, fluent speech. Lungs are notable for diminished breath sounds with expiratory prolongation and wheezing. He also has scattered rhonchi. Heart is irregular without murmur. Abdomen is distended, non tender. Extremities with 0 to 1+ edema. No skin rash or lesions. Objective Imaging Chest x-ray: My impression: Mild pulmonary edema to my read. Radiologist's impression: Compared to prior radiograph 10/16/2023, increased lung volumes with probable persistent small bilateral pleural effusions. Left lower lobe opacity may represent overlapping soft tissue density. Labs 10/17/23 11:14 10/17/23 11:14 [facility] Medical History Lesion of bladder Acute urinary tract infection Bladder wall thickening Feeling of incomplete bladder emptying Chronic anticoagulation Urge incontinence History of renal calculi Urinary frequency Dysuria E. coli urinary tract infection Gross hematuria Cat bite of left lower leg with infection Tobacco abuse Gout Sleep apnea syndrome Hyperlipidemia Afib COPD (chronic obstructive pulmonary disease) Surgical History H/O knee surgery H/O shoulder surgery Social History household members: none Smoking Status: Current every day smoker alcohol intake: current Assessment & Plan Assessment & Plan narrative: 1. Sepsis with acute respiratory failure with hypoxia and hypercapnea, influenza, rhinovirus, possible bacterial pnemonia. Present on admission and improving. - possible bacterial pneumonia superimposed with flu and rhinoviral infections, willl continue antibiotics with ceftriaxone and azithromycin - prednisone 40 mg daily for COPD exacerbation for 5 days total. - started diuresis 10/17, continue. 2. influenza, rhinovirus, possible bacterial pneumonia. Present on admission and active. -cont abx (3 and 5 days course) 3. Chronic atrial fibrillation with RVR, improving. - increased metoprolol to TID from BID today, may need additional rate control agents, poor exercise tolerance but okay rate at rest. - started diuresis with 40 mg IV BID - hold home eliquis (new hematuria since 10/18). 4. COPD with exacerbation, improving. - replace home medications with pulmicort, duonebs, and prn albuterol - prednisone 40 mg Daily. 5. Hematuria, new and active. -UA -hold Apixiban. 4. Demand ischemia, active. - non specific ST changes on EKG, no chest pain, likely elevated troponin due to demand from above. - continue to trend until downtrending. 5. Acute diastolic heart failure, active. - does not appear grossly overloaded on exam now, given diuretic in the emergency room. - limited echo reveals EF 55% - diurese as noted above. 6. Hyponatremia, active. - s/p furosemide in the ER, mild at 129, will continue to monitor with bmp in the morning tomorrow. 7. Remote PE with chronic anticoagulation, stable. - continue home eliquis. Resume when hematuria improved. Code: Full, surrogate is patient's sister DVT on anticoagulation Time Spent With Patient Time with patient: 30 to 49 minutes with 50% spent counseling/coordinating care Time Spent With Patient Time with patient: 30 to 49 minutes with 50% spent counseling/coordinating care Quality VTE Deep Vein Thrombosis/Pulmonary Embolism Present on Admission: No
--- NOTE | 2023-10-19 08:31 | PC.NURSE ---
Addendum entered by Shalonda Fabian R.N. 10/19/23 18:10: Earlier in the afternoon pt reported lower diffuse abdominal discomfort, said he took tums at home. Pt did not think it felt like he was constipated or like a UTI. Reported pt's concerns to provider. Pt also reported that he drinks 3-10 alcoholic drinks/day reported the last drink was approximately 6 days ago. Reported this to provider and did a CIWA assessment, CIWA <8. Addendum entered by Shalonda Fabian R.N. 10/19/23 14:55: SCDs in place due to holding eliquis. Provider aware of hematuria. Original Note: Provider said to hold eliquis due to hematuria. Notified provider no labs for a couple days and pt's orientation status.
[2023-10-19] MEDS: ALBUTEROL/IPRATROPIUM 3 ML AMPUL INH ×2 (08:34→13:24)
[2023-10-19] MEDS: BUDESONIDE 0.5 MG/2 ML NEB INH ×2 (08:34→19:29)
--- NOTE | 2023-10-19 08:36 | DI.RAD.S_ITS ---
PROCEDURE: XR CHEST 1V INDICATIONS: dyspnea TECHNIQUE: One view of the chest was acquired. COMPARISON: [facility], CR, XR CHEST 1V, 10/16/2023, 11:21. FINDINGS: Surgical changes and devices: None. Lungs and pleura: Lung volumes have slightly increased. Persistent small bilateral pleural effusions left lower lobe opacity. Mediastinum: Mediastinal contours appear normal. Heart size is normal. Bones and chest wall: No suspicious bony lesions. Overlying soft tissues appear unremarkable. IMPRESSION: Compared to prior radiograph 10/16/2023, increased lung volumes with probable persistent small bilateral pleural effusions. Left lower lobe opacity may represent overlapping soft tissue density. Approved by: Katy Rivers M.D. on 10/19/2023 at 9:05
[2023-10-19 10:15] LABS: Hematocrit 39.5 % (41-53); Hemoglobin 13.6 g/dL (13.5-17.5); Mean Corpuscular HGB Conc 34.4 % (30-36); Mean Corpuscular Hemoglobin 39.9 PG (26-34); Mean Corpuscular Volume 115.8 fL (80-100); Platelet Count 120 X10^3/uL (150-400); Red Blood Cell Count 3.42 X10^6/uL (4.5-5.9); Red Cell Distribution Width 13.4 % (11.6-14.8)
[2023-10-19] MEDS: polyethylene glycoL 3350 17 GM POWD.PACK PO (10:24)
[2023-10-19 10:41] LABS: Alanine Aminotransferase 48 IU/L (<50); Albumin 3.7 g/dL (3.5-5.0); Albumin Globulin Ratio 1.1 (1.0-2.8); Alkaline Phosphatase 54 U/L (38-126); Aspartate Aminotransferase 71 IU/L (17-59); BUN Creatinine Ratio 25.9 (6-22); Bilirubin Total 0.8 mg/dL (0.2-1.3); Blood Urea Nitrogen 21 mg/dL (9-20); Calcium 9.1 mg/dL (8.4-10.2); Carbon Dioxide 36 mmol/L (22-32); Chloride 88 mmol/L (98-107); Estimated Glomerular Filt Rate > 60 mL/min (>60); Globulin 3.3 g/dL (1.7-4.1); Glucose 146 mg/dL (80-110); HEMOLYSIS < 15 (0-50); Potassium 3.6 mmol/L (3.4-5.1); Sodium 130 mmol/L (137-145)
[2023-10-19] MEDS: cefTRIAXone 1,000 MG in SODIUM CHLORIDE 0.9% 100 ML 200 MG IV (12:00)
[2023-10-19 12:07] LABS: pH ABG 7.35 (7.35-7.45)
[2023-10-19 12:08] LABS: HCO3 ABG 35 mmol/L (23-27); PCO2 ABG 64.1 mmHg (35-45); PO2 ABG 81 mmHg (80-100)
[2023-10-19 12:09] LABS: Fractionated Inspired Oxygen 32; Oxygen Saturation ABG 95 % (95-100); TCO2 ABG 37 mmol/L (23-27)
[2023-10-19 12:10] LABS: Allen Test for ABG Passed? Yes, Passed; Blood Gas Collection Site Left Radial
--- NOTE | 2023-10-19 13:14 | CM.DPC ---
DCP Cont. Reviewed EMR and team rounds for status updates. Pt will likely need 2-more days, remains quite sick, but is slowly improving. Will monitor for final d/c needs/recommendations.
[2023-10-19] MEDS: CALCIUM CARBONATE 500 MG TAB 1000 MG PO (16:22)
--- NOTE | 2023-10-19 18:19 | PC.NURSE ---
FREIGHT SORTER note: Condom cath placed @1700, pt tolerated well.
[2023-10-19] MEDS: ALBUTEROL 2.5 MG/3 ML NEB (ADULT) INH ×2 (19:30→23:18)
[2023-10-20] VITALS (32 sets, daily range): BP systolic 112–159; BP diastolic 64–95; PULSE 84–102; RESP 14–29; TEMP 35.8–36.8; O2SAT 90–99
[2023-10-20] MEDS: dilTIAZem 30 MG TABLET 60 MG PO ×4 (00:35→19:20)
--- NOTE | 2023-10-20 06:25 | PC.NURSE ---
Patient started getting confused at midnight while on BiPAP, at 0200H patient ripped off his BiPAP mask and refused to wear BiPAP again for the rest of the night. Oxygen saturation 92-97% on 3 L/minute per NC.
--- NOTE | 2023-10-20 08:04 | P.PN_ITS ---
Subjective Subjective Interval history: He feels a little better today. Less short of breath. He feels a little bit confused but can state that he is in [place]. He states he lives at home with his cat. He describes the BiPAP mask being way too tight to use last night. Minimal or no cough. Exam Vital Signs (past 8 hours): - 10/20/23 00:35 10/20/23 01:00 10/20/23 03:00 Temperature Pulse Rate 89 Respiratory Rate Blood Pressure 117/86 Pulse Oximetry 97 Oxygen Delivery Method BiPAP Nasal Cannula Oxygen Flow Rate 10/20/23 04:00 10/20/23 05:00 10/20/23 05:32 Temperature 98.3 F Pulse Rate 91 H 91 H Respiratory Rate 22 Blood Pressure 125/89 125/89 Pulse Oximetry 98 93 Oxygen Delivery Method Nasal Cannula Oxygen Flow Rate 2 3 10/20/23 07:00 Temperature Pulse Rate 91 H Respiratory Rate 19 Blood Pressure Pulse Oximetry 99 Oxygen Delivery Method Oxygen Flow Rate Fraction of Inspired Oxygen 30 SaO2/FiO2 Ratio 320 Oxygen Delivery Method Nasal Cannula Oxygen Flow Rate 3 Narrative Exam Narrative: NAD, fluent speech. Anicteric sclera. Lungs are clear, less wheezing and less prolongation of expiratory phase. Heart is irregular Abdomen is soft, nontender. Extremities with 1+ edema. Objective Labs 10/20/23 09:43 10/20/23 09:43 Labs: Laboratory Results - last 24 hr 10/19/23 10/19/23 09:54 10:25 WBC 6.0 RBC 3.42 L Hgb 13.6 Hct 39.5 L MCV 115.8 H MCH 39.9 H MCHC 34.4 RDW 13.4 Plt Count 120 L ABG Sample Site Left radial ABG pH 7.35 ABG pCO2 64.1 H* ABG pO2 81 ABG HCO3 35 H ABG Total CO2 37 H ABG O2 Saturation 95 ABG Base Excess 10.0 H FiO2 32 Sodium 130 L Potassium 3.6 Chloride 88 L Carbon Dioxide 36 H BUN 21 H Creatinine 0.81 Estimated GFR > 60 BUN/Creatinine Ratio 25.9 H Glucose 146 H Calcium 9.1 Total Bilirubin 0.8 AST 71 H ALT 48 Alkaline Phosphatase 54 Total Protein 7.0 Albumin 3.7 Globulin 3.3 Albumin/Globulin Ratio 1.1 [facility] Medical History Lesion of bladder Acute urinary tract infection Bladder wall thickening Feeling of incomplete bladder emptying Chronic anticoagulation Urge incontinence History of renal calculi Urinary frequency Dysuria E. coli urinary tract infection Gross hematuria Cat bite of left lower leg with infection Tobacco abuse Gout Sleep apnea syndrome Hyperlipidemia Afib COPD (chronic obstructive pulmonary disease) Surgical History H/O knee surgery H/O shoulder surgery Social History household members: none Smoking Status: Current every day smoker alcohol intake: current Assessment & Plan Assessment & Plan narrative: 1. Sepsis with acute respiratory failure with hypoxia and hypercapnea. Present on admission and improving. - possible bacterial pneumonia superimposed with flu and rhinoviral infections, willl continue antibiotics with ceftriaxone and azithromycin - prednisone 40 mg daily for COPD exacerbation for 5 days total. - started diuresis 10/17, continue. 2. Worsening metabolic alkalosis, this is new and worsening. This is likely a combination of contraction alkalosis and compensatory alkalosis. We will recheck ABG to be sure his pCO2 is not increased from yesterday at 64. 3. influenza, rhinovirus, possible bacterial pneumonia. Present on admission and active. -cont abx (3 and 5 days course of azithro and ceftriaxone) 4. Chronic atrial fibrillation with RVR, present on admission and improving. - increased metoprolol to TID from BID today, may need additional rate control agents, poor exercise tolerance but okay rate at rest. - started diuresis with 40 mg IV BID - hold home eliquis (new hematuria since 10/18). - Better rate control. 5. COPD with exacerbation, present on admission and improving. - replace home medications with pulmicort, duonebs, and prn albuterol - prednisone 40 mg Daily. 6. Hematuria, new and active. Improving. -UA, culture if indicated. -hold Apixiban (since 10/19). - will need OP urology FU. 7. Demand ischemia, improved.. - non specific ST changes on EKG, no chest pain, likely elevated troponin due to demand from above. - continue to trend until downtrending. 8. Acute diastolic heart failure, improved. - does not appear grossly overloaded on exam now, given diuretic in the emergency room. - limited echo reveals EF 55% - diurese as noted above. 9. Hyponatremia, active. - s/p furosemide in the ER, mild at 129, will continue to monitor with bmp in the morning tomorrow. 10. Remote PE with chronic anticoagulation, stable. - continue home eliquis. Resume when hematuria improved. 11. Obesity class 2, present on admission and active. Time Spent With Patient Time with patient: 30 to 49 minutes with 50% spent counseling/coordinating care Quality VTE Deep Vein Thrombosis/Pulmonary Embolism Present on Admission: No
[2023-10-20] MEDS: predniSONE 20 MG TABLET 40 MG PO (08:23)
[2023-10-20] MEDS: FUROSEMIDE 40 MG/4 ML VIAL IV ×2 (08:23→16:02)
[2023-10-20] MEDS: polyethylene glycoL 3350 17 GM POWD.PACK PO (08:23)
[2023-10-20] MEDS: TAMSULOSIN 0.4 MG CAPSULE PO ×2 (08:25→20:33)
[2023-10-20] MEDS: SODIUM CHLORIDE 0.9% FLUSH 10 ML IV ×2 (08:25→20:33)
[2023-10-20] MEDS: METOPROLOL IR 50 MG TABLET PO ×3 (08:39→20:33)
[2023-10-20 09:57] LABS: Hematocrit 40.6 % (41-53); Hemoglobin 14.1 g/dL (13.5-17.5); Mean Corpuscular HGB Conc 34.7 % (30-36); Mean Corpuscular Hemoglobin 39.9 PG (26-34); Mean Corpuscular Volume 114.7 fL (80-100); Platelet Count 131 X10^3/uL (150-400); Red Blood Cell Count 3.53 X10^6/uL (4.5-5.9); Red Cell Distribution Width 13.4 % (11.6-14.8); White Blood Cell Count 5.9 X10^3/uL (4.5-11.0)
[2023-10-20] MEDS: ALBUTEROL/IPRATROPIUM 3 ML AMPUL INH ×3 (10:02→20:40)
[2023-10-20] MEDS: BUDESONIDE 0.5 MG/2 ML NEB INH ×2 (10:03→20:40)
[2023-10-20 10:12] LABS: Alanine Aminotransferase 60 IU/L (<50); Albumin 3.9 g/dL (3.5-5.0); Albumin Globulin Ratio 1.1 (1.0-2.8); Alkaline Phosphatase 57 U/L (38-126); Aspartate Aminotransferase 65 IU/L (17-59); BUN Creatinine Ratio 27.6 (6-22); Bilirubin Total 0.9 mg/dL (0.2-1.3); Blood Urea Nitrogen 21 mg/dL (9-20); Calcium 9.5 mg/dL (8.4-10.2); Chloride 86 mmol/L (98-107); Estimated Glomerular Filt Rate > 60 mL/min (>60); Globulin 3.7 g/dL (1.7-4.1); Glucose 111 mg/dL (80-110); HEMOLYSIS < 15 (0-50); Potassium 3.9 mmol/L (3.4-5.1); Sodium 131 mmol/L (137-145); Total Protein 7.6 g/dL (6.3-8.2)
[2023-10-20 10:14] LABS: Carbon Dioxide 40 mmol/L (22-32)
--- NOTE | 2023-10-20 10:39 | PC.NURSE ---
Pt had critical lab CO2 40, reported to provider and provider acknowledged. In am, reported to provider that pt had overnight confusion and was confused with morning assessment. RN reoriented patient.
[2023-10-20 12:03] LABS: Blood Gas Collection Site Right Brachial; Fractionated Inspired Oxygen 24; HCO3 ABG 39 mmol/L (23-27); Oxygen Saturation ABG 89 % (95-100); PO2 ABG 58 mmHg (80-100); TCO2 ABG 41 mmol/L (23-27); pH ABG 7.41 (7.35-7.45)
[2023-10-20] MEDS: cefTRIAXone 1,000 MG in SODIUM CHLORIDE 0.9% 100 ML 200 MG IV (12:30)
--- NOTE | 2023-10-20 14:23 | CM.DPC ---
DCP Cont. Reviewed EMR and team rounds for status updates. Per Hospitalist, pt will likely be here inpt through the weekend, as he is continuing to require ICU level respiratory therapy and care. Multiple comorbidities are complicating his recovery process. This CONTROL SPECIALIST did meet with pt to discuss the current recommendations for d/c, which at this time is SNF rehab. He states he would rather go home with Home Health, and agreed that we could revisit this closer to when he's medically stable for d/c. Will continue to monitor closely.
[2023-10-20 19:47] LABS: Appearance Urine UA CLOUDY; Bilirubin Urine UA NEGATIVE (NEGATIVE); Color Urine UA RED; Glucose Urine UA NEGATIVE (Negative); Ketones Urine UA NEGATIVE (NEGATIVE); Leukocyte Esterase Urine UA NEGATIVE (NEGATIVE); Nitrite Urine UA NEGATIVE (Negative); Occult Blood Urine UA 3+ (Negative); Protein Urine UA TRACE (Negative); Urobilinogen Urine UA 0.2 E.U./dL (0.2)
[2023-10-20 19:48] LABS: Bacteria Urine Occasional (0-1); Culture Indicated Urine Cult Not Indicated; Mucus Urine 1+ (Negative); RBC Urine 30-100/HPF (0-5/HPF); Squamous Epithelial Cell Urine 0-1 /HPF (0-5/HPF); Urine Volume 10mL (spun); WBC Urine 0-1/HPF (0-5/HPF)
[2023-10-21] VITALS (16 sets, daily range): BP systolic 105–146; BP diastolic 77–98; PULSE 71–104; RESP 16–33; TEMP 36.1–36.7; O2SAT 89–94
[2023-10-21] MEDS: ALBUTEROL 2.5 MG/3 ML NEB (ADULT) INH (01:45)
[2023-10-21] MEDS: dilTIAZem 30 MG TABLET 60 MG PO ×3 (07:22→17:18)
[2023-10-21 07:42] LABS: Hematocrit 40.2 % (41-53); Hemoglobin 14.3 g/dL (13.5-17.5); Mean Corpuscular HGB Conc 35.5 % (30-36); Mean Corpuscular Hemoglobin 40.2 PG (26-34); Mean Corpuscular Volume 113.2 fL (80-100); Platelet Count 131 X10^3/uL (150-400); Red Blood Cell Count 3.55 X10^6/uL (4.5-5.9); Red Cell Distribution Width 13.6 % (11.6-14.8); White Blood Cell Count 6.5 X10^3/uL (4.5-11.0)
--- NOTE | 2023-10-21 07:53 | PM.PN.1 ---
Subjective Subjective Interval history: He is doing well. He slept well. No BiPAP for the last day. He denies any dyspnea. He is able to walk with physical therapy yesterday. His CO2 on BMP is stable. Exam Vital Signs (past 8 hours): - 10/21/23 00:00 10/21/23 00:00 10/21/23 00:00 Temperature 97.0 F L Pulse Rate 83 Respiratory Rate 23 Blood Pressure 105/79 Pulse Oximetry 91 91 Oxygen Delivery Method Nasal Cannula Nasal Cannula Oxygen Flow Rate 1 1 Fraction of Inspired Oxygen 10/21/23 00:09 10/21/23 01:45 10/21/23 04:00 Temperature Pulse Rate 83 88 Respiratory Rate 18 Blood Pressure 105/79 Pulse Oximetry 91 Oxygen Delivery Method Nasal Cannula Nasal Cannula Oxygen Flow Rate 1 Fraction of Inspired Oxygen 24 10/21/23 04:00 10/21/23 04:15 10/21/23 07:22 Temperature 97.1 F L Pulse Rate 89 94 H Respiratory Rate 27 H Blood Pressure 135/87 146/98 H Pulse Oximetry 91 91 Oxygen Delivery Method Nasal Cannula Oxygen Flow Rate 1 1 Fraction of Inspired Oxygen Fraction of Inspired Oxygen 24 SaO2/FiO2 Ratio 379 Oxygen Delivery Method Nasal Cannula Oxygen Flow Rate 1 Narrative Exam Narrative: NAD, fluent speech. 2 L of oxygen. Lungs are clear with minimal wheezing. Slight increased rate. Heart is irregular without murmur. Abdomen is distended and nontender. Extremities with trace edema. Objective Labs 10/21/23 07:35 10/20/23 09:43 Labs: Laboratory Results - last 24 hr 10/20/23 10/20/23 10/20/23 09:43 11:55 19:30 WBC 5.9 RBC 3.53 L Hgb 14.1 Hct 40.6 L MCV 114.7 H MCH 39.9 H MCHC 34.7 RDW 13.4 Plt Count 131 L ABG Sample Site Right brachial ABG pH 7.41 ABG pCO2 62.0 H* ABG pO2 58 L ABG HCO3 39 H ABG Total CO2 41 H ABG O2 Saturation 89 L ABG Base Excess 14.0 H FiO2 24 Sodium 131 L Potassium 3.9 Chloride 86 L Carbon Dioxide 40 H* BUN 21 H Creatinine 0.76 Estimated GFR > 60 BUN/Creatinine Ratio 27.6 H Glucose 111 H Calcium 9.5 Total Bilirubin 0.9 AST 65 H ALT 60 H Alkaline Phosphatase 57 Total Protein 7.6 Albumin 3.9 Globulin 3.7 Albumin/Globulin Ratio 1.1 Urine Color Red Urine Appearance Cloudy Urine pH 7.0 Ur Specific Lejunior 1.010 Urine Protein Trace H Urine Glucose (UA) Negative Urine Ketones Negative Urine Occult Blood 3+ H Urine Nitrate Negative Urine Bilirubin Negative Urine Urobilinogen 0.2 Ur Leukocyte Esterase Negative Urine RBC 30-100/hpf H Urine WBC 0-1/hpf Ur Squamous Epith Cells 0-1 /hpf Urine Bacteria Occasional (0-1) Urine Mucus 1+ H Ur Culture Indicated? Cult not indicated Vol Urine Centrifuged 10ml (spun) 10/21/23 07:35 WBC 6.5 RBC 3.55 L Hgb 14.3 Hct 40.2 L MCV 113.2 H MCH 40.2 H MCHC 35.5 RDW 13.6 Plt Count 131 L ABG Sample Site ABG pH ABG pCO2 ABG pO2 ABG HCO3 ABG Total CO2 ABG O2 Saturation ABG Base Excess FiO2 Sodium Potassium Chloride Carbon Dioxide BUN Creatinine Estimated GFR BUN/Creatinine Ratio Glucose Calcium Total Bilirubin AST ALT Alkaline Phosphatase Total Protein Albumin Globulin Albumin/Globulin Ratio Urine Color Urine Appearance Urine pH Ur Specific Lejunior Urine Protein Urine Glucose (UA) Urine Ketones Urine Occult Blood Urine Nitrate Urine Bilirubin Urine Urobilinogen Ur Leukocyte Esterase Urine RBC Urine WBC Ur Squamous Epith Cells Urine Bacteria Urine Mucus Ur Culture Indicated? Vol Urine Centrifuged [facility] Medical History Lesion of bladder Acute urinary tract infection Bladder wall thickening Feeling of incomplete bladder emptying Chronic anticoagulation Urge incontinence History of renal calculi Urinary frequency Dysuria E. coli urinary tract infection Gross hematuria Cat bite of left lower leg with infection Tobacco abuse Gout Sleep apnea syndrome Hyperlipidemia Afib COPD (chronic obstructive pulmonary disease) Surgical History H/O knee surgery H/O shoulder surgery Social History household members: none Smoking Status: Current every day smoker alcohol intake: current Assessment & Plan Assessment & Plan narrative: 1. Sepsis with acute respiratory failure with hypoxia and hypercapnea. Present on admission and improving. - possible bacterial pneumonia superimposed with flu and rhinoviral infections, willl continue antibiotics with ceftriaxone and azithromycin - prednisone 40 mg daily for COPD exacerbation for 5 days total. - started diuresis 10/17, we will discontinue Lasix at this time, October 21. 2. Worsening metabolic alkalosis, this is new and stable. This is a combination of contraction alkalosis and compensatory alkalosis. ABG on October 20 revealed a compensated respiratory acidosis. 3. influenza, rhinovirus, possible bacterial pneumonia. Present on admission and active. -cont abx (3 and 5 days course of azithro and ceftriaxone) 4. Chronic atrial fibrillation with RVR, present on admission and improving. - increased metoprolol to TID from BID today, may need additional rate control agents, poor exercise tolerance but okay rate at rest. - started diuresis with 40 mg IV BID - hold home eliquis (new hematuria since 10/18). - Better rate control. No changes for today. 5. COPD with exacerbation, present on admission and improving. - replace home medications with pulmicort, duonebs, and prn albuterol - prednisone 40 mg Daily. Stop at this point. 6. Hematuria, new and active. Improving. -UA, culture if indicated. -hold Apixiban (since 10/19). - will need OP urology FU. 7. Demand ischemia, improved.. - non specific ST changes on EKG, no chest pain, likely elevated troponin due to demand from above. - continue to trend until downtrending. 8. Acute diastolic heart failure, improved. - does not appear grossly overloaded on exam now, given diuretic in the emergency room. - limited echo reveals EF 55% - diuresis stopped today (10/21) 9. Hyponatremia, active. - s/p furosemide in the ER, mild at 129, will continue to monitor with bmp in the morning tomorrow. 10. Remote PE with chronic anticoagulation, stable. - continue home eliquis. Resume when hematuria improved. 11. Obesity class 2, present on admission and active. Time Spent With Patient Time with patient: 30 to 49 minutes with 50% spent counseling/coordinating care Quality VTE Deep Vein Thrombosis/Pulmonary Embolism Present on Admission: No
[2023-10-21] MEDS: TAMSULOSIN 0.4 MG CAPSULE PO ×2 (08:24→21:04)
[2023-10-21] MEDS: polyethylene glycoL 3350 17 GM POWD.PACK PO (08:25)
[2023-10-21] MEDS: METOPROLOL IR 50 MG TABLET PO ×3 (08:25→21:04)
[2023-10-21] MEDS: predniSONE 20 MG TABLET 40 MG PO (08:25)
[2023-10-21] MEDS: SODIUM CHLORIDE 0.9% FLUSH 10 ML IV ×2 (08:37→21:05)
--- NOTE | 2023-10-21 09:04 | CM.DPC ---
DCP Cont. Reviewed EMR and team rounds for status updates. Pt is slowly improving, has been up with PT yesterday, ambulates around his room, interacting with staff. Continue to monitor, likely won't d/c until possibly Monday.
[2023-10-21] MEDS: ALBUTEROL/IPRATROPIUM 3 ML AMPUL INH ×2 (11:13→19:31)
--- NOTE | 2023-10-21 14:05 | PT.IIE ---
Current Diagnoses Sepsis, unspecified organism (10/16/23) Surgical History (Last Reviewed 10/21/23 @ 07:53 by Eric Mabry MD) H/O knee surgery H/O shoulder surgery Medical History (Last Reviewed 10/21/23 @ 07:53 by Eric Mabry MD) Acute urinary tract infection Afib Bladder wall thickening Cat bite of left lower leg with infection Chronic anticoagulation COPD (chronic obstructive pulmonary disease) Dysuria E. coli urinary tract infection Feeling of incomplete bladder emptying Gout Gross hematuria History of renal calculi Hyperlipidemia Lesion of bladder Sleep apnea syndrome Tobacco abuse Urge incontinence Urinary frequency Physical Therapy Inpatient Evaluation/Re-Eval M1 PT/OT-IP Prior Functional Status Start: 10/21/23 16:02 Freq: NEEDED Status: Active Protocol: Document 10/21/23 14:05 AB (Rec: 10/21/23 16:14 AB [id number]) Medical Review Prior Functional Status Medical History Reviewed Yes Communication able to make needs known Mobility and Gait pt stated that he was independent with all mobiites and ambulation without AD but uses a cart to lean on when out doing his groceries Social History Household Members none Living Arrangements House Number of Floors (Floors) One Floor Number of Stairs To Enter/Railing? no steps to enter Home Environment Standard Height Toilet,Walk in Shower Home Equipment Front Wheel Walker,Four Wheel Walker,Straight Cane,Shower Seat with Backrest,Hand Held Shower,Grab Bars Near Toilet, Grab Bars In Shower Additional Social History Comment pt stated that his sister lives in [place] that he can call for help if needed M2 PT-IP Current Condition Start: 10/21/23 16:02 Freq: NEEDED Status: Active Protocol: Document 10/21/23 14:05 AB (Rec: 10/21/23 16:14 AB [id number]) Physical Therapy Current Condition Current Condition Evaluation Date 10/21/23 Treatment Diagnosis acute respiratory distress; PNA; Influenza A; rhinovirus; diff in walking Onset Date 10/16/23 M3 PT-IP Subjective Start: 10/21/23 16:02 Freq: NEEDED Status: Active Protocol: Document 10/21/23 14:05 AB (Rec: 10/21/23 16:14 AB [id number]) Subjective Physical Therapy Visit Type Type Initial Evaluation Visit Start Time 14:05 Visit Stop Time 14:45 Number of NURSE LEADER Visits 40 Physical Therapy Visit Comments Patient Comments agreeable to do PT Therapy Pain Assessment Location Bilateral Hip Description Chronic M4 PT-IP Mobility and Gait Start: 10/21/23 16:02 Freq: NEEDED Status: Active Protocol: Document 10/21/23 14:05 AB (Rec: 10/21/23 16:14 AB [id number]) PT-Bed Mobility Assessment Supine to Sit Supine to Sit Standby Assistance PT-Transfer Assessment Sit to and From Stand Sit to and from Stand Standby Assistance,1 Person Assistance,Use of Upper Extremities Equipment Transfer Assistive Device Gait Belt,Front Wheeled Walker Orthotic/Prosthetic Devices or Brace: No Transfers Transfer Destination Chair Transfer Technique ambulated Transfer Ability Level of Assist Standby Assistance Comments Mobility Comments pt supine in bed and agreeable to do PT. obtained PLOF and home set up from pt. O2 sat with 3L/min: 89-91%. cued pt for PLB. pt with h/o COPD. pt completed supine to sit SBA . able to sit on EOB SBA. completed sit to stand sBA and ambulated in room using fWW ~ 30 ft SBA. presents with waddling gait. pt requested to use the toilet. ambulated without AD to the toilet CGA. presents with increase unsteady antalgic gait. pt completed toileting SBA. ambulated from the toilet to the sink without AD CGA. able to maintain standing SBA while completing handwashing. pt ambulated to the chair CGA. positioned on the chair. call light and table placed within reach. educated pt on safety and use of an AD for steadiness during ambulation. pt agreed to use an AD. will assess ambulation using a 4WW next tx session. Gait Assessment Gait Gait Assistance Required: Standby Assistance,Contact Guard Assist,1 Person Assist Distance (Feet) 30 Able to Maintain Weight Bearing Status Yes During Gait Assistive Devices Assistive Device None,Gait Belt,Front Wheeled Walker Orthotic/Prosthetic Devices or Brace: No Gait Deviations General Gait Pattern Ataxic,Decreased Stride Length ,Decreased Feet Clearance,Step -to Gait Factors Limiting Gait Function Factors Limiting Gait Function Decreased Activity Tolerance, Decreased Strength,Limited Range of Motion,Pain,Poor Balance,Poor Safety Awareness, Respiratory Distress PT-Balance Assessment Sitting Balance and Reactions Static Sitting Balance Ability Normal Dynamic Sitting Balance Ability Good Standing Balance and Reactions Static Standing Balance Ability Fair Dynamic Standing Balance Ability Fair Device Used FWW M5 PT-IP Objective Assessments Start: 10/21/23 16:02 Freq: NEEDED Status: Active Protocol: Document 10/21/23 14:05 AB (Rec: 10/21/23 16:14 AB [id number]) Orientation Orientation/Cognition Level of Alertness Alert Orientation Name,Place,Situation Safety Awareness Decreased Safety Awareness Memory Description No Deficits Noted Strength Lower Extremity Strength Assessment Within Functional Limits Muscle Tone Muscle Tone WNL Yes M6 PT-IP Treatment Start: 10/21/23 16:02 Freq: NEEDED Status: Active Protocol: Document 10/21/23 14:05 AB (Rec: 10/21/23 16:14 AB [id number]) Physical Therapy Treatment Education Education Provided Safety M7 PT-IP Assessment and Plan Start: 10/21/23 16:02 Freq: NEEDED Status: Active Protocol: Document 10/21/23 14:05 AB (Rec: 10/21/23 16:14 AB [id number]) PT Summary Assessment and Plan Potential Rehabilitation Potential Fair Status of Condition at Evaluation Evolving Summary Impairments Pain,ROM,Strength,Balance, Coordination,Sensation,Tone, Cognition,Bed Mobility, Transfers,Gait,Activity Tolerance Assessment Summary pt is a 67 y/o M who presented to the ED with SOB. pt admitted for acute respiratory distress, PNA, (+) influenza A and rhinovirus. pt with h/o COPD and PE. pt requiring SBA to CGA with mobility and recommending use of FWW/4WW for ambulation at this time. will continue to assess progress. Goals Bed Mobility Goal Independent Transfer Goal Independent,Four Wheeled Walker Gait Goal Independent,Four Wheel Walker Gait Distance 200 Other Goals improve transfers and ambulation without AD mod I 300 ft Days to Meet Goals 10 Frequency of Treatment Frequency Of Treatment Once a Day Treatment Plan Physical Therapy Treatment Plan Bed Mobility Training,Transfer Training,Gait Training, Therapeutic Exercise,Balance Retraining,Discharge Planning, Hot or Cold Pack,Neuromuscular Re-ed,Coordination Retraining Other Recommendations and Next Treatment ambulation using 4WW Focus Precautions Other Precautions Droplet Precautions Recommendations To Nursing Amount of Assist Needed 1 Person Assist Discharge Recommendations PT Discharge Recommendations Home with Assistance,Home Health Transportation Needs at Discharge Private Vehicle
[2023-10-21] MEDS: BUDESONIDE 0.5 MG/2 ML NEB INH (19:31)
[2023-10-22] VITALS (14 sets, daily range): BP systolic 98–137; BP diastolic 60–89; PULSE 76–94; RESP 16–20; TEMP 35.9; O2SAT 89–97
[2023-10-22] MEDS: dilTIAZem 30 MG TABLET 60 MG PO ×5 (00:06→23:44)
[2023-10-22 04:59] LABS: Hemoglobin 14.6 g/dL (13.5-17.5); Mean Corpuscular HGB Conc 34.8 % (30-36); Mean Corpuscular Hemoglobin 39.9 PG (26-34); Mean Corpuscular Volume 114.8 fL (80-100); Platelet Count 137 X10^3/uL (150-400); Red Blood Cell Count 3.66 X10^6/uL (4.5-5.9); Red Cell Distribution Width 13.6 % (11.6-14.8); White Blood Cell Count 8.3 X10^3/uL (4.5-11.0)
[2023-10-22] MEDS: ALBUTEROL/IPRATROPIUM 3 ML AMPUL INH ×3 (07:30→20:36)
[2023-10-22] MEDS: BUDESONIDE 0.5 MG/2 ML NEB INH ×2 (07:31→20:36)
--- NOTE | 2023-10-22 08:09 | PM.PN.1 ---
Subjective Subjective Interval history: This is a 67-year-old male with obesity, probable OHS, atrial fibrillation, and COPD who presented with influenza and rhino virus. He developed sepsis and acute respiratory failure with hypoxia in retention of CO2. Patient was treated for COPD with bronchodilators and had a uncompensated respiratory acidosis which then became compensated with a marked metabolic alkalosis. The patient was using BiPAP for several days but is now off and weaning down on oxygen. He did have a complication of hematuria, and apixaban was held on October 19. This will be restarted today. If he redevelops hematuria this will need to be stopped. He will need an outpatient Urology follow-up for hematuria. He also did have some demand ischemia without other symptoms. He has done well with physical therapy and may be able to discharge in the next 1-2 days with home oxygen and home health. S: He feels better today and he is eager to go home. He did reasonably well with physical therapy yesterday. He is confusion appears to be almost resolved. He is on 1 L of oxygen saturating 91%. He denies any pain, or dyspnea. Exam Vital Signs (past 8 hours): - 10/22/23 04:00 10/22/23 04:00 10/22/23 06:25 Pulse Rate 76 80 Respiratory Rate 16 Blood Pressure 135/80 137/89 Pulse Oximetry 93 92 Oxygen Delivery Method Nasal Cannula Oxygen Flow Rate 1 1 Fraction of Inspired Oxygen 10/22/23 07:00 10/22/23 07:31 Pulse Rate 87 Respiratory Rate 18 Blood Pressure Pulse Oximetry 90 L Oxygen Delivery Method Nasal Cannula Nasal Cannula Oxygen Flow Rate 1 Fraction of Inspired Oxygen 24 Fraction of Inspired Oxygen 24 SaO2/FiO2 Ratio 375 Oxygen Delivery Method Nasal Cannula Oxygen Flow Rate 1 Narrative Exam Narrative: NAD, alert and oriented. Fluent speech. 1 L oxygen. Lungs are with diminished breath sounds and some scattered wheezing but much improved, normal rate and effort. Heart is regular, no murmur gallop or rub. Abdomen is soft, non distended. Extremities are free of edema. Objective Labs 10/22/23 04:41 10/20/23 09:43 Labs: Laboratory Results - last 24 hr 10/22/23 04:41 WBC 8.3 RBC 3.66 L Hgb 14.6 Hct 42.0 MCV 114.8 H MCH 39.9 H MCHC 34.8 RDW 13.6 Plt Count 137 L PFSH Medical History Lesion of bladder Acute urinary tract infection Bladder wall thickening Feeling of incomplete bladder emptying Chronic anticoagulation Urge incontinence History of renal calculi Urinary frequency Dysuria E. coli urinary tract infection Gross hematuria Cat bite of left lower leg with infection Tobacco abuse Gout Sleep apnea syndrome Hyperlipidemia Afib COPD (chronic obstructive pulmonary disease) Surgical History H/O knee surgery H/O shoulder surgery Social History household members: none Smoking Status: Current every day smoker alcohol intake: current Assessment & Plan Assessment & Plan narrative: 1. Sepsis with acute respiratory failure with hypoxia and hypercapnea. Present on admission and resolved.. - possible bacterial pneumonia superimposed with flu and rhinoviral infections, he has completed ceftriaxone and azithromycin -prednisone 40 mg daily for COPD exacerbation for 5 days total. Completed. -started diuresis 10/17, we will discontinue Lasix at this time, October 21. 2. Severe respiratory acidosis and compensatory metabolic alkalosis, this is new and stable. This is a combination of contraction alkalosis and compensatory alkalosis. ABG on October 20 revealed a compensated respiratory acidosis. 3. Influenza, rhinovirus, possible bacterial pneumonia. Present on admission and improved. -cont abx (3 and 5 days course of azithro and ceftriaxone). 4. Chronic atrial fibrillation with RVR, present on admission and improving. - increased metoprolol to TID from BID today, may need additional rate control agents, poor exercise tolerance but okay rate at rest. - started diuresis with 40 mg IV BID - hold home eliquis (new hematuria since 10/18). - Better rate control. No changes for today. 5. COPD with exacerbation, present on admission and improving. - replace home medications with pulmicort, duonebs, and prn albuterol - prednisone 40 mg Daily. Stop at this point. 6. Hematuria, new and active. Improving. -UA, culture if indicated. -hold Apixiban (since 10/19). - will need OP urology FU. 7. Demand ischemia, improved.. - non specific ST changes on EKG, no chest pain, likely elevated troponin due to demand from above. - continue to trend until downtrending. 8. Acute diastolic heart failure, improved. - does not appear grossly overloaded on exam now, given diuretic in the emergency room. - limited echo reveals EF 55% - diuresis stopped today (10/21) 9. Hyponatremia, active. - s/p furosemide in the ER, mild at 129, will continue to monitor with bmp in the morning tomorrow. 10. Remote PE with chronic anticoagulation, stable. - continue home eliquis. Resume when hematuria improved. 11. Obesity class 2, present on admission and active. PLAN: -we will resume anticoagulation today and monitor for recurrent Hematuria. -if he does well physical therapy today he will likely be stable for discharge with home health tomorrow. He may need 1 L of oxygen for home he will require an evaluation. -he will require an outpatient urology follow up for his hematuria that happened during this hospitalization. -he would likely benefit from an outpatient pulmonology referral for his chronic respiratory status. DISPO: Home with home health and possibly oxygen and October 23. Time Spent With Patient Time with patient: 30 to 49 minutes with 50% spent counseling/coordinating care Quality VTE Deep Vein Thrombosis/Pulmonary Embolism Present on Admission: No
[2023-10-22] MEDS: METOPROLOL IR 50 MG TABLET PO ×3 (09:11→21:27)
[2023-10-22] MEDS: SODIUM CHLORIDE 0.9% FLUSH 10 ML IV ×2 (09:11→21:27)
[2023-10-22] MEDS: polyethylene glycoL 3350 17 GM POWD.PACK PO (09:11)
[2023-10-22] MEDS: TAMSULOSIN 0.4 MG CAPSULE PO ×2 (09:11→21:27)
--- NOTE | 2023-10-22 11:10 | CM.DPC ---
Addendum entered by Brielle Underwood R.N. 10/22/23 11:58: Spoke to Tosin at [facility] and let her know about referral that was just faxed. Sent face sheet, face to face, orders, H&P, latest progress note, and latest P.T. note. Original Note: DCP Cont: Discussed patient during team rounds, patient most likely will discharge home tomorrow, hospitalist in agreement that home health may be beneficial for patient. Briefly met with patient and asked him if he is interested in home health. Stated, if it's covered by insurance, is ok with this. Mentioned having nursing and P.T, O.T, he is ok with this. Asked him about agency preferences, stated, he has never had home health before, does not matter which agency. Noticed on calendar for this week, is [facility]. Will go ahead and complete face to face, orders, and will fax referral. Will follow up with a phone call. P: DCP to continue to follow. Will order [facility] for patient. May discharge home tomorrow. Brielle Underwood RN/Junior Sales Representative
--- NOTE | 2023-10-22 13:10 | PT.IPTN ---
Current Diagnoses Sepsis, unspecified organism (10/16/23) Physical Therapy Treatment Note M2 PT-IP Current Condition Start: 10/21/23 16:02 Freq: NEEDED Status: Active Protocol: Document 10/21/23 14:05 AB (Rec: 10/21/23 16:14 AB [id number]) Physical Therapy Current Condition Current Condition Evaluation Date 10/21/23 Treatment Diagnosis acute respiratory distress; PNA; Influenza A; rhinovirus; diff in walking Onset Date 10/16/23 M3 PT-IP Subjective Start: 10/21/23 16:02 Freq: NEEDED Status: Active Protocol: Document 10/22/23 12:50 KS (Rec: 10/22/23 13:32 KS [id number]) Subjective Physical Therapy Visit Type Type Treatment Note Visit Start Time 12:50 Visit Stop Time 13:10 Number of HEALTH PRACTICE MANAGER Visits 1 Physical Therapy Visit Comments Patient Comments agreeable to do PT M4 PT-IP Mobility and Gait Start: 10/21/23 16:02 Freq: NEEDED Status: Active Protocol: Document 10/22/23 12:50 KS (Rec: 10/22/23 13:32 KS [id number]) PT-Transfer Assessment Sit to and From Stand Sit to and from Stand Standby Assistance,1 Person Assistance,Use of Upper Extremities Equipment Transfer Assistive Device Gait Belt,Front Wheeled Walker Orthotic/Prosthetic Devices or Brace: No Transfers Transfer Destination Bed Transfer Technique ambulated Transfer Ability Level of Assist Standby Assistance Comments Mobility Comments Pt in chair upon arrival, agreeable to ambulate w/ 4WW. SBA for sit<>stand and 40 ft ambulation using 4WW. Pt needed min cues for proper use /brakes, but overall demonstrated good use of 4WW. Pt on .5L o2 during treatment, o2 desat to 87% during ambulation and increased to 90 % at rest. Pt requested to lay down and was left in bed w/ all needs in reach. Gait Assessment Gait Gait Assistance Required: Standby Assistance,Contact Guard Assist,1 Person Assist Distance (Feet) 40 Able to Maintain Weight Bearing Status Yes During Gait Assistive Devices Assistive Device Gait Belt,4 Wheeled Walker Orthotic/Prosthetic Devices or Brace: No Gait Deviations General Gait Pattern Ataxic,Decreased Stride Length ,Decreased Feet Clearance,Step -to Gait Factors Limiting Gait Function Factors Limiting Gait Function Decreased Activity Tolerance, Decreased Strength,Limited Range of Motion,Pain,Poor Balance,Poor Safety Awareness, Respiratory Distress Comments Gait Comments See mobility PT-Balance Assessment Sitting Balance and Reactions Static Sitting Balance Ability Normal Dynamic Sitting Balance Ability Good Standing Balance and Reactions Static Standing Balance Ability Fair Dynamic Standing Balance Ability Fair Device Used 4WW M5 PT-IP Objective Assessments Start: 10/21/23 16:02 Freq: NEEDED Status: Active Protocol: Document 10/21/23 14:05 AB (Rec: 10/21/23 16:14 AB [id number]) Orientation Orientation/Cognition Level of Alertness Alert Orientation Name,Place,Situation Safety Awareness Decreased Safety Awareness Memory Description No Deficits Noted Strength Lower Extremity Strength Assessment Within Functional Limits Muscle Tone Muscle Tone WNL Yes M6 PT-IP Treatment Start: 10/21/23 16:02 Freq: NEEDED Status: Active Protocol: Document 10/22/23 12:50 KS (Rec: 10/22/23 13:32 KS [id number]) Physical Therapy Treatment Education Education Provided Safety M7 PT-IP Assessment and Plan Start: 10/21/23 16:02 Freq: NEEDED Status: Active Protocol: Document 10/22/23 12:50 KS (Rec: 10/22/23 13:32 KS [id number]) PT Summary Assessment and Plan Potential Rehabilitation Potential Fair Summary Impairments Pain,ROM,Strength,Balance, Coordination,Sensation,Tone, Cognition,Bed Mobility, Transfers,Gait,Activity Tolerance Progress Towards Goals Slow Progress due to Medical Issues,Slow Progress due to Activity Tolerance Assessment Summary Pt making progress, still requiring SBA to occasional CGA for mobility. Ambulated 40 ft w/ 4WW on .5L O2. O2 87% during mobility, 90% at rest. States he had 4ww but lent it to a friend and will call to see if he is able to get one. Will continue to assess progress. Goals Bed Mobility Goal Independent Transfer Goal Independent,Four Wheeled Walker Gait Goal Independent,Four Wheel Walker Gait Distance 200 Other Goals improve transfers and ambulation without AD mod I 300 ft Days to Meet Goals 10 Frequency of Treatment Frequency Of Treatment Once a Day Treatment Plan Physical Therapy Treatment Plan Bed Mobility Training,Transfer Training,Gait Training, Therapeutic Exercise,Balance Retraining,Discharge Planning, Hot or Cold Pack,Neuromuscular Re-ed,Coordination Retraining Other Recommendations and Next Treatment Follow up to see if pt can Focus acquire 4WW for home use. Precautions Other Precautions Droplet Precautions Recommendations To Nursing Amount of Assist Needed 1 Person Assist Discharge Recommendations PT Discharge Recommendations Home with Assistance,Home Health Transportation Needs at Discharge Private Vehicle
--- NOTE | 2023-10-22 19:27 | PC.NURSE ---
Pt transferred from ICU at 1730, escorted to room 210 in wheelchair. Able to transfer from wheelchair to chair CGA w/FWW. A&Ox4, VSS on 1L NC. No c/o pain. Lung sounds very diminished with expiratory wheezes in R lobe, bowel sounds present. Condom cath functional, draining red urine with small clots. Pt oriented to new room and call light, sitting in chair to eat dinner, call light within reach.
[2023-10-23] VITALS (9 sets, daily range): BP systolic 106–117; BP diastolic 70–80; PULSE 18–89; RESP 20–86; TEMP 35.6–36.4; O2SAT 92–95
[2023-10-23] MEDS: dilTIAZem 30 MG TABLET 60 MG PO ×2 (05:28→12:12)
--- NOTE | 2023-10-23 06:02 | PC.NURSE ---
general foundry worker: Patient is AxOx4, vital signs are stable, O2 saturation 95% on 1L NC. On tele showing controlled afib. Denies chest pain, nausea, generalized pain. Notable SOB with exertion. Voiding via condom catheter, hematuria still present, Eliquis held. SCDs are on. Patient states that he feels fine, oriented to call-light, calls appropriately. Fall precautions in place.
[2023-10-23 06:16] LABS: Hematocrit 40.1 % (41-53); Hemoglobin 13.9 g/dL (13.5-17.5); Mean Corpuscular HGB Conc 34.7 % (30-36); Mean Corpuscular Hemoglobin 39.2 PG (26-34); Mean Corpuscular Volume 112.9 fL (80-100); Platelet Count 166 X10^3/uL (150-400); Red Blood Cell Count 3.55 X10^6/uL (4.5-5.9); Red Cell Distribution Width 13.6 % (11.6-14.8); White Blood Cell Count 7.4 X10^3/uL (4.5-11.0)
[2023-10-23 06:28] LABS: Blood Urea Nitrogen 22 mg/dL (9-20); Calcium 9.5 mg/dL (8.4-10.2); Carbon Dioxide 31 mmol/L (22-32); Chloride 91 mmol/L (98-107); Estimated Glomerular Filt Rate > 60 mL/min (>60); Glucose 98 mg/dL (80-110); HEMOLYSIS < 15 (0-50); Potassium 4.1 mmol/L (3.4-5.1); Sodium 128 mmol/L (137-145)
[2023-10-23] MEDS: BUDESONIDE 0.5 MG/2 ML NEB INH (07:26)
[2023-10-23] MEDS: ALBUTEROL/IPRATROPIUM 3 ML AMPUL INH ×2 (07:26→12:50)
[2023-10-23] MEDS: polyethylene glycoL 3350 17 GM POWD.PACK PO (08:44)
[2023-10-23] MEDS: SODIUM CHLORIDE 0.9% FLUSH 10 ML IV (08:44)
[2023-10-23] MEDS: METOPROLOL IR 50 MG TABLET PO (08:44)
[2023-10-23] MEDS: TAMSULOSIN 0.4 MG CAPSULE PO (08:44)
--- NOTE | 2023-10-23 11:12 | CM.DPC ---
DCP Cont. Reviewed EMR and team rounds for pt's medical status updates. Pt has improved signficantly since d/c, plan is for him to d/c home today, [facility] will contact him to set appt. for intake. Family will be transporting him home. Called [facility] to update on pt's d/c today. No further CM needs identified at this time.
--- NOTE | 2023-10-23 12:47 | P.DS_ITS ---
History of Present Illness History of Present Illness Date Patient Seen: 10/23/23 Chief complaint: Resp distress Narrative: This is a 67 year old male with PMH of COPD, chronic atrial fibrillation, PE on chronic anticoagulation, HTN who presents with worsening shortness of breath over the past 4-5 days. He reports fever yesterday, worsening cough for the past 1-2 days productive of yellowish sputum. He was reportedly hypoxic to the 70s with EMS, improved with CPAP. Attempted to wean to nasal cannula in the ER, but placed on bipap. He was given solumedrol, furosemide and antibiotics in the ER. He feels like he cannot take a deep breath in, but was improved with the bipap. Blood gas showed pH of 7.29, with PCO2 of 49. Troponin initially negative, repeat indeterminant at 0.037, proBNP 3390. Sodium was 129. He was positive for flu and rhinovirus on respiratory panel. He was admitted for further management to the ICU. Discharge Providers Provider Date of admission: 10/16/23 15:15 Discharge Date: 10/23/23 Primary care physician: SERVANDO Harding Consults: 10/16/23 16:45 Consult to Senior Java Programmer Routine Comment: 10/21/23 10:22 Consult to Physical Therapy Evaluate & Treat Comment: Physician Instructions: Evaluate and Treat 10/22/23 11:17 Consult to Home Health Routine Comment: Reason For Exam: Home Health RN, P.T, O.T. Discharge provider: Zachariah Toribio DO Summary Hospital Course Discharge Diagnosis: 1. Sepsis with acute on possibly chronic respiratory failure with hypoxia and hypercapnea. Present on admission and resolved.. 2. Severe respiratory acidosis and compensatory metabolic alkalosis, this is new and stable. 3. Influenza, rhinovirus, possible bacterial pneumonia. 4. Chronic atrial fibrillation with RVR, present on admission and improving. 5. COPD with exacerbation, present on admission and improving. 6. Hematuria, new and active. Improving. 7. Demand ischemia, improved.. 8. Acute diastolic heart failure, improved. 9. Hyponatremia, active. 10. Remote PE with chronic anticoagulation, stable. 11. Obesity class 2 Hospital Course: This is a 67 year old male with PMH of COPD, chronic atrial fibrillation, PE on chronic anticoagulation, HTN who was admitted for presumed acute respiratory failure with hypoxia and hypercapnea and sepsis likely due to superimposed bacterial pneumonia along with influenza and rhinovirus infections. He was also diuresed for probable diastolic heart failure. He was able to be weaned from his initial demands for BiPAP therapy, to nasal cannula but still required supplemental oxygen of 1L at the time of discharge to maintain oxygen saturations above 88%. He was diuresed during admission until euvolemia was achieved. He completed course of ceftriaxone and azithromycin for bacterial pneumonia while admitted along with prednisone for COPD exacerbation. Patient's underlying COPD is likely contributing to his need for chronic oxygen supplementation at the time of discharge. His course was complicated by hematuria which seemed to improve after initial cessation of his anticoagulant. apixaban was restarted without recurrence but outpatient follow up with urology is recommended. The patient is at much higher risk for medical and surgical complications because of their obesity. This increases the difficulty and complexity of medical and surgical interventions and increases the chances of poor outcomes such as morbidity and mortality. The patient also had a chronic hyponatremia which was stable and asymptomatic. Outpatient evaluation is recommended for this as well. Time Spent with Patient Time spent: Greater than 30 minutes Exam Vital Signs (past 8 hours): - 10/23/23 05:28 10/23/23 07:00 10/23/23 07:26 Temperature Pulse Rate 79 18 L Respiratory Rate 86 H Blood Pressure 116/80 Pulse Oximetry 95 Oxygen Delivery Method Nasal Cannula Nasal Cannula Oxygen Flow Rate 1 Fraction of Inspired Oxygen 24 10/23/23 08:00 10/23/23 08:00 10/23/23 12:00 Temperature 97.2 F L 97.4 F L Pulse Rate 85 65 Respiratory Rate 24 20 Blood Pressure 117/73 106/73 Pulse Oximetry 93 92 95 Oxygen Delivery Method Nasal Cannula Oxygen Flow Rate 1 1 1 Fraction of Inspired Oxygen 10/23/23 12:12 Temperature Pulse Rate 80 Respiratory Rate Blood Pressure Pulse Oximetry Oxygen Delivery Method Oxygen Flow Rate Fraction of Inspired Oxygen Fraction of Inspired Oxygen 24 SaO2/FiO2 Ratio 395 Oxygen Delivery Method Nasal Cannula Oxygen Flow Rate 1 Narrative Exam Narrative: NAD, alert and oriented. Fluent speech. 1 L oxygen. Lungs are with diminished breath sounds and some scattered wheezing but much improved, normal rate and effort. Heart is regular, no murmur gallop or rub. Abdomen is soft, non distended. Extremities are free of edema. Objective Labs 10/23/23 05:20 10/23/23 05:20 Labs: Laboratory Results - last 24 hr 10/23/23 05:20 WBC 7.4 RBC 3.55 L Hgb 13.9 Hct 40.1 L MCV 112.9 H MCH 39.2 H MCHC 34.7 RDW 13.6 Plt Count 166 Sodium 128 L Potassium 4.1 Chloride 91 L Carbon Dioxide 31 BUN 22 H Creatinine 0.71 Estimated GFR > 60 BUN/Creatinine Ratio 31.0 H Glucose 98 Calcium 9.5 PFSH Medical History Lesion of bladder Acute urinary tract infection Bladder wall thickening Feeling of incomplete bladder emptying Chronic anticoagulation Urge incontinence History of renal calculi Urinary frequency Dysuria E. coli urinary tract infection Gross hematuria Cat bite of left lower leg with infection Tobacco abuse Gout Sleep apnea syndrome Hyperlipidemia Afib COPD (chronic obstructive pulmonary disease) Surgical History H/O knee surgery H/O shoulder surgery Social History household members: none Smoking Status: Current every day smoker alcohol intake: current Discharge Plan Discharge Plan Patient Disposition: Home Provider Discharge Comment: You were admitted to the hospital with difficulty breathing. Improved greatly but still requiring small amount of supplemental oxygen. This may be able to be weaned after a couple more days at home or you may need exterminator termite therapy. Please follow up with your PCP as soon as possible to discuss this. Discharge orders & Medications Prescriptions: New diltiazem HCl 240 mg capsule,extended release 24 hr 240 mg PO QAM 30 Days Qty: 30 0RF Continued Spiriva Respimat 1.25 mcg/actuation mist 2 puff INHALATION DAILY metoprolol tartrate 50 MG tablet 50 mg PO BID Qty: 0 fluticasone propion-salmeterol [Advair Diskus] 250-50 mcg/dose Blister With Device 1 inh INHALATION BID albuterol sulfate 90 mcg/actuation Hfa Aerosol Inhaler 2 puff INHALATION Q4-6H PRN (Reason: Cough) Eliquis 5 mg Tablet 5 mg PO BID Qty: 180 3RF losartan 50 mg tablet 50 mg PO DAILY magnesium oxide 400 mg (241.3 mg magnesium) tablet 400 mg PO DAILY calcium carbonate [Tums] 300 mg (750 mg) Tablet,Chewable 300 mg PO PRN PRN (Reason: Indigestion) tamsulosin [Flomax] 0.4 mg capsule 0.4 mg PO BID acetaminophen [Tylenol Arthritis Pain] 650 mg tablet extended release 1,300 mg PO DAILY PRN (Reason: Pain (Scale Score 4-6)) Follow up/Referrals: Shauna Baca ARNP [Primary Care Provider] - Diet/Activity/Treatments Diet: Diet as Tolerated and Regular Activity: As tolerated no restrictions. Oxygen: Goal O2 88-96% while on supplemental therapy, if O2 88% or more can stop Visit Report/Discharge Packet Stand Alone Forms: Patient Portal/API, Stroke Signs & Symptoms Discharge Data Primary Care Provider: Shauna Baca Quality VTE Deep Vein Thrombosis/Pulmonary Embolism Present on Admission: No
--- NOTE | 2023-10-23 17:04 | PC.NURSE ---
Discharge Note Patient A&O, VSS, RA, no complaints of pain/discomfort. Discharge packet reviewed with patient, all questions/concerns addressed. PIV/TELE discontinued. Home O2 education completed. Patient able to dress self and pack all belongings. Patient switched to travel tank and reminded to worm picker prescriptions at preferred pharmacy. Patient taken down via wheelchair to POV.
== END 2023-10-23 15:30 | disposition home health service (06) | DRG 871 ==
LOC: ED 10:56 → AC 15:16 → ICU 15:35 → AC 10-22 17:47
PROVIDERS: Hospitalist; Admitting Provider Internal Medicine; Emergency Provider Emergency Medicine; PCP Internal Medicine; Referring Provider Emergency Medicine; Visit Provider Internal Medicine
DX: A41.9 Sepsis, unspecified organism (principal); I50.31 Acute diastolic (congestive) heart failure; J18.9 Pneumonia, unspecified organism; J96.22 Acute and chronic respiratory failure with hypercapnia; J96.21 Acute and chronic respiratory failure with hypoxia; I48.20 Chronic atrial fibrillation, unspecified; J44.1 Chronic obstructive pulmonary disease with (acute) exacerbation; I24.89 Other forms of acute ischemic heart disease; E87.1 Hypo-osmolality and hyponatremia; E87.4 Mixed disorder of acid-base balance; J10.1 Influenza due to other identified influenza virus with other respiratory manifestations; B97.89 Other viral agents as the cause of diseases classified elsewhere; D69.6 Thrombocytopenia, unspecified; R65.20 Severe sepsis without septic shock; R31.9 Hematuria, unspecified; I11.0 Hypertensive heart disease with heart failure; F17.200 Nicotine dependence, unspecified, uncomplicated; Z79.01 Long term (current) use of anticoagulants; Z86.711 Personal history of pulmonary embolism
CPT/HCPCS: 36415; 36600; 71045; 71275; 80048; 80053; 81001; 82550; 82805; 83605; 83690; 83735; 83880; 84145; 84484; 85025; 85027; 85610; 85730; 87040; 87633; 87797; 93005; 93307; 94618; 94640; 94660; 94760; 94762; 96365; 96367; 96375; 97116; 97162; 97530; 99285; 99291; J0696; J1940; J2930; J7613; Q9967

== ENCOUNTER → 2023-12-26 13:06 | Outpatient (CLI) | payer MEDICARE, OTHER, SELFPAY ==
[2023-10-16 15:21] VITALS: BMI 39.2
[2023-10-18 13:56] VITALS: O2SAT 95
[2023-10-19 23:00] VITALS: PULSE 96; RESP 21
== END ==
PROVIDERS: PCP Physician Assistant; Referring Provider Internal Medicine Critical Care Medicine; Visit Provider Internal Medicine Critical Care Medicine
DX: R06.00 Dyspnea, unspecified (principal); F17.290 Nicotine dependence, other tobacco product, uncomplicated; J98.8 Other specified respiratory disorders
CPT/HCPCS: 94060; 94726; 94729

== ENCOUNTER 2024-07-23 18:18 | Inpatient (IN) | payer MEDICARE, OTHER, SELFPAY ==
[2023-10-16 15:21] VITALS: BMI 39.2
[2023-10-18 13:56] VITALS: O2SAT 95
[2023-10-19 23:00] VITALS: PULSE 96; RESP 21
[2024-07-23] VITALS (18 sets, daily range): BP systolic 117–142; BP diastolic 62–100; PULSE 110–136; RESP 21–32; TEMP 36.6; O2SAT 93–98; BMI 35.0
--- NOTE | 2024-07-23 18:32 | EKG_ITS ---
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
--- NOTE | 2024-07-23 18:34 | DI.RAD.S_ITS ---
PROCEDURE: XR CHEST 1V INDICATIONS: afib rvr and n/v TECHNIQUE: One view of the chest was acquired. COMPARISON: [facility], CR, XR CHEST 1 VIEW, 07/16/2024, 22:00. [facility], CR, XR CHEST 1V, 10/19/2023, 8:45. [facility], CR, XR CHEST 1V, 10/16/2023, 11:21. FINDINGS: Surgical changes and devices: None. Lungs and pleura: Low lung volumes. Mild left lung base opacity again seen. Possible trace effusion versus thickening. Mediastinum: Unchanged cardiomediastinal contours Bones and chest wall: Elevated appearance of the humeral heads may be seen with rotator cuff pathology. Distended loops of bowel partially seen. IMPRESSION: Mild left lung base opacity could represent atelectasis and trace effusion versus thickening. Mild airspace disease also possible. Limited single view radiograph with low lung volumes. Distended loops of bowel in the upper abdomen partially seen. Dictated by: Naseem Milligan M.D. on 07/23/2024 at 19:25 Approved by: Naseem Milligan M.D. on 07/23/2024 at 19:26
--- NOTE | 2024-07-23 18:36 | ED_ITS ---
HPI - General Adult General Chief complaint: Nausea/Vomiting/Diarrhea Stated complaint: Afib, N/V Time Seen by Provider: 07/23/24 18:22 Source: patient, RN notes reviewed and old records reviewed Mode of arrival: EMS Limitations: no limitations History of Present Illness HPI narrative: 68-year-old male history of COPD, atrial fibrillation, pulmonary embolism on metoprolol and Eliquis who presents with complaint of shortness of breath nausea vomiting. Patient states he was recently hospitalized at [facility] for hypertension also found to have a UTI. Was discharged possibly on Monday since then started having nausea vomiting has not been able to take his medications including his Eliquis or his antibiotics. Patient states no fevers. No chest pain or pressure, he is felt short of breath. He has had a wet nonproductive cough. Patient states no orthopnea. He has not had any abdominal pain. He has had nausea vomiting had difficulty keeping anything down. He states he has been a little bit more constipated but did have a bowel movement today. Denies any black or bloody stools. Denies any urinary symptoms. Patient states he was on metoprolol but had it stopped related to his recent hospitalization. He does use tobacco, drinks 3 or 4 alcoholic drinks daily but has not had any in several days because of the nausea and vomiting no recreational drugs or IV drugs. No known drug allergies. Patient received a DuoNeb in the field as well as 10 mg of diltiazem for atrial fibrillation with RVR. 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 Related Data Home Medications Medication Instructions Recorded Confirmed metoprolol tartrate 50 mg tablet 50 mg PO BID ##0 02/07/13 01/04/24 tiotropium bromide 1.25 2 puff inhalation DAILY 08/11/19 01/04/24 mcg/actuation mist for inhalation (Spiriva Respimat) albuterol sulfate 90 mcg/actuation 2 puff inhalation Q4-6H PRN Cough 03/16/20 01/04/24 aerosol inhaler fluticasone 250 mcg-salmeterol 50 1 inh inhalation BID 03/16/20 01/04/24 mcg/dose blistr powdr for inhalation (Advair Diskus) acetaminophen 650 mg 1,300 mg PO DAILY PRN Pain (Scale 07/02/21 01/04/24 tablet,extended release (Tylenol Score 4-6) Arthritis Pain) tamsulosin 0.4 mg capsule (Flomax) 0.4 mg PO BID 07/02/21 01/04/24 losartan 50 mg tablet 50 mg PO DAILY 10/16/23 01/04/24 magnesium oxide 400 mg (241.3 mg 400 mg PO DAILY 10/16/23 01/04/24 magnesium) tablet calcium carbonate (Tums) 300 mg PO PRN PRN Indigestion 10/19/23 01/04/24 Previous Rx's Medication Instructions Recorded apixaban 5 mg tablet (Eliquis) 5 mg PO BID #180 tabs 10/13/22 Allergies Allergy/AdvReac Type Severity Reaction Status Date / Time No Known Drug Allergies Allergy Verified 01/04/24 14:48 Review of Systems Review of Systems ROS Unobtainable: All systems reviewed & are unremarkable except as noted in HPI and below Patient History Medical History Lesion of bladder Acute urinary tract infection Bladder wall thickening Feeling of incomplete bladder emptying Chronic anticoagulation Urge incontinence History of renal calculi Urinary frequency Dysuria E. coli urinary tract infection Gross hematuria Cat bite of left lower leg with infection Tobacco abuse Gout Sleep apnea syndrome Hyperlipidemia Afib COPD (chronic obstructive pulmonary disease) Surgical History H/O knee surgery H/O shoulder surgery Social History household members: none Smoking Status: Current every day smoker alcohol intake: current Smoking Status: Current every day smoker alcohol intake frequency: 3 or more drinks per day Alcohol type: beer, wine and hard liquor Substance Use Type: does not use Exam Narrative Exam Narrative: GEN: Obese male, alert and oriented x 3, patient appears to be in mild distress. HEENT: Atraumatic, pupils are equal round reactive to light, extraocular movements are intact, nares are clear, TMs are clear with no fluid, there is no conjunctival pallor. Throat is clear without any exudates, erythema, tonsillar enlargement or uvular deviation, no facial droop HEART: Tachycardic but irregularly irregular rate and rhythm without murmur, clicks, rubs. 2+ pulses bilateral lower extremities. LUNGS:Lungs slightly decreased bilaterally, no wheezes, rales, crackles, chest moves symmetrically, no crackles. No tachypnea. Patient has a very wet nonproductive cough. ABD:bowel sounds normal, soft, non-tender, mildly distended, no guarding, rebound, rigidity, no masses noted, no hepatosplenomegaly :No CVA tenderness MSCL: Non-tender, no muscle atrophy, muscles strength 5/5 upper and lower extremities, full range of motion, normal gait NEURO:CN 2-12 intact, sensation normal. Initial Vital Signs Initial Vital Signs: Vital Signs Temperature 97.8 F 07/23/24 18:18 Pulse Rate 124 H 07/23/24 18:18 Respiratory Rate 28 H 07/23/24 18:18 Blood Pressure 132/76 07/23/24 18:18 Pulse Oximetry 98 07/23/24 18:18 Oxygen Delivery Method Room Air 07/23/24 18:18 Course Orders Ordered: ED Orders 07/23/24 18:19 Complete Blood Count AUTO DIFF Stat Comprehensive Metabolic Panel Stat Lipase Stat NT-proBNP (BNP-Adult 18+) Stat TSH w/ Reflex to FT4 Stat Troponin & CK Cardiac Panel Stat 07/23/24 18:33 UA Complete [Urinalysis and Microscopic] Stat 07/23/24 18:34 XR chest 1V Stat 07/23/24 18:42 Respiratory Panel (Film Array) Stat 07/23/24 20:44 Trop I [Troponin I] Stat 07/23/24 21:55 Education, smoking cessation ONGOING Acetaminophen (Acetaminophen 325 Mg Tablet) 650 mg PO Q6H PRN PRN Reason: Fever/Mild Pain (1-3) Diltiazem HCl 125 mg/ Sodium (Chloride) 125 mls @ 5 mls/hr IV TITRATE ELIUD; Protocol Last Titration: 07/23/24 21:36 Dose: 10 mg/hr, 10 mls/hr Documented By: Titration: 07/23/24 20:45 Dose: 7 mg/hr, 7 mls/hr Documented By: Admin: 07/23/24 18:44 Dose: 5 mg/hr, 5 mls/hr Documented By: AB Diltiazem HCl 125 mg/ Sodium (Chloride) 125 mls @ 5 mls/hr IV TITRATE ELIUD; Protocol Naloxone HCl (Naloxone 0.4 Mg/Ml Vial) 0.2 mg IV Q2MIN PRN PRN Reason: Opiate Reversal Ondansetron HCl (Ondansetron 4 Mg/2 Ml Inj) 4 mg IV Q8HR PRN PRN Reason: Nausea And Vomiting Discontinued Medications Methylprednisolone (Methylprednisolone 125 Mg/2 Ml Vial) 125 mg IV NOW ONE Stop: 07/23/24 18:34 Last Admin: 07/23/24 18:44 Dose: 125 mg Documented By: Pantoprazole Sodium (Pantoprazole 40 Mg Vial) 40 mg IV NOW ONE Stop: 07/23/24 21:37 Last Admin: 07/23/24 21:43 Dose: 40 mg Documented By: OLE Vital Signs Vital signs: Vital Signs - 8 hr 07/23/24 18:18 07/23/24 18:27 07/23/24 18:30 Temperature 97.8 F Pulse Rate 124 H 136 H 129 H Respiratory Rate 28 H 24 25 H Blood Pressure 132/76 Pulse Oximetry 98 97 97 Oxygen Delivery Method Room Air 07/23/24 18:30 07/23/24 18:44 07/23/24 19:00 Temperature Pulse Rate 120 H 128 H Respiratory Rate 26 H Blood Pressure 129/71 129/71 Pulse Oximetry 96 Oxygen Delivery Method 07/23/24 19:00 07/23/24 19:02 07/23/24 19:02 Temperature Pulse Rate 125 H Respiratory Rate 26 H Blood Pressure 142/100 H 134/79 Pulse Oximetry 97 Oxygen Delivery Method Room Air 07/23/24 19:30 07/23/24 19:30 07/23/24 20:00 Temperature Pulse Rate 126 H 117 H Respiratory Rate 23 21 Blood Pressure 119/62 Pulse Oximetry 96 97 Oxygen Delivery Method Room Air 07/23/24 20:00 07/23/24 20:30 07/23/24 20:30 Temperature Pulse Rate 111 H Respiratory Rate 24 Blood Pressure 134/70 126/71 Pulse Oximetry 95 Oxygen Delivery Method 07/23/24 21:00 07/23/24 21:00 07/23/24 21:30 Temperature Pulse Rate 113 H 111 H Respiratory Rate 23 28 H Blood Pressure 132/82 Pulse Oximetry 93 94 Oxygen Delivery Method 07/23/24 21:30 Temperature Pulse Rate Respiratory Rate Blood Pressure 130/78 Pulse Oximetry Oxygen Delivery Method Medical Decision Making Lab Data 07/23/24 18:19 07/23/24 18:19 Labs: Lab Results 07/23/24 07/23/24 07/23/24 Range/Units 18:19 18:42 20:44 WBC 6.6 (4.5-11.0) X10^3/uL RBC 3.34 L (4.5-5.9) X10^6/uL Hgb 12.0 L (13.5-17.5) g/dL Hct 35.8 L (41-53) % MCV 107.1 H (80-100) fL MCH 35.9 H (26-34) PG MCHC 33.5 (30-36) % RDW 13.6 (11.6-14.8) % Plt Count 259 (150-400) X10^3/uL Neut % (Auto) 70.5 (50-75) % Lymph % (Auto) 9.9 L (25-40) % [place] % (Auto) 19.0 H (3-14) % Eos % (Auto) 0.5 L (2-4) % Baso % (Auto) 0.1 (0-2) % Neut # (Auto) 4600 (9371-4962) /uL Lymph # (Auto) 700 L (7720-5843) /uL [place] # (Auto) 1300 H (0-900) /uL Eos # (Auto) 0 (0-450) /uL Baso # (Auto) 0 (0-100) /uL Sodium 132 L (137-145) mmol/L Potassium 4.1 (3.4-5.1) mmol/L Chloride 99 (98-107) mmol/L Carbon Dioxide 24 (22-32) mmol/L BUN 28 H (9-20) mg/dL Creatinine 1.41 H (0.66-1.25) mg/dL Estimated GFR 54 L (>60) mL/min BUN/Creatinine Ratio 19.9 (6-22) Glucose 80 (80-110) mg/dL Calcium 10.1 (8.4-10.2) mg/dL Total Bilirubin 0.6 (0.2-1.3) mg/dL AST 28 (17-59) IU/L ALT 24 (<50) IU/L Alkaline Phosphatase 79 (38-126) U/L Total Creatine Kinase < 20 L (55-170) U/L Troponin I 0.040 H 0.037 H (0.01-0.034) ng/mL NT-Pro-B Natriuret Pep 1490 H (<125) pg/mL Total Protein 6.5 (6.3-8.2) g/dL Albumin 3.3 L (3.5-5.0) g/dL Globulin 3.2 (1.7-4.1) g/dL Albumin/Globulin Ratio 1.0 (1.0-2.8) Lipase 300 (23-300) U/L Chlamy pneumoniae PCR Not detected (Not Detect) Adenovirus (PCR) Not detected (Not Detect) B. pertussis DNA (PCR) Not detected (Not Detect) B.parapertussis DNA PCR Not detected (Not Detecte) Coronavirus OC43 (PCR) Not detected (Not Detect) Coronavirus HKU1 (PCR) Not detected (Not Detect) Coronavirus 229E (PCR) Not detected (Not Detect) SARS-CoV-2 (PCR) Not detected (Not Detecte) Coronavirus NL63 (PCR) Not detected (Not Detect) Human Metapneumovir PCR Not detected (Not Detect) Influenza Type A (PCR) Not detected (Not Detect) Influenza Type B (PCR) Not detected (Not Detect) M. pneumoniae (PCR) Not detected (Not Detect) Parainfluenza 1 (PCR) Not detected (Not Detect) Parainfluenza 2 (PCR) Not detected (Not Detect) Parainfluenza 3 (PCR) Not detected (Not Detect) Parainfluenza 4 (PCR) Not detected (Not Detect) RSV (PCR) Not detected (Not Detect) Entero/Rhino (PCR) Not detected (Not Detect) Point of Care Testing Glucose POC 80 Point of care testing: Point of Care Testing Glucose POC 80 ECG Data Attestation: I personally reviewed and interpreted this ECG as follows: Prior ECG tracings: available for review Interpretation: AFib with RVR rate of 139 QRS is 76 QTC of 468, patient has some ST depression lateral leads V2 through V4 and 5. No elevation appreciated. Patient has similar depression in lateral leads on prior EKG from 10/16/[address] [facility] Narrative Medical decision making narrative: Attempting to obtain records from [facility] from his recent hospitalization. Patient's [facility] H&P was reviewed was admitted with syncope, bradycardia and hypotension with a ROMELIA had epi drip and they held his metoprolol and diltiazem for symptomatic bradycardia. Appears patient's creatinine is still improving was 2.4 07/16/2024 so trending downward still. Labs show white count of 6.6 hemoglobin is 12 most recent priors for 13 has some macrocytosis of cells 259 with monocytes are 19%. Sodium of 132, potassium 4.1 chloride 99 CO2 of 24 BUN 28 creatinine of 1.41 she was elevated from patient's prior September of 2023. Glucose is 80 LFTs are normal troponin 0.04 patient's had intermittent elevated troponins in the past BNP is 1490. Troponin was repeated and is 0.037 Chest x-ray, mild left lung base opacity could represent atelectasis or trace effusion versus thickening mild airspace disease also possible. Distended loops of bowel and upper abdomen partially seen. EKG shows AFib RVR does have some ST depression lateral leads but appears similar to prior Urine Respiratory panel is negative. Patient was given Solu-Medrol, diltiazem drip patient had received 10 mg of diltiazem en route with EMS, patient had mild improvement of HR but still 120's. Patient's heart rate slowly improving still slightly elevated at 150 team but trending down words overall. No additional vomiting in the department. Spoke with hospitalist Dr. He, about admitting for AFib RVR patient has been off his anticoagulation for several days secondary to some nausea and vomiting is tachycardic, has not been hypotensive troponins are indeterminate but trending down words BNP is elevated but not as high as he has been in the past has a little bit of an AKA but actually appears to be improving when reviewing his records with a prior creatinine of 2.4 on 07/16/2024. Dr. He accepts for inpatient tele with diltiazem drip. Critical Care Time Critical Care Time Critical Care Time: Yes Total Critical Care Time: 20 Attestation: The high probability of a clinically significant, sudden or life threatening deterioration of the cardiac system(s) required my full and direct attention, intervention and personal management. The aggregate critical care time was [--] minutes. This time is in addition to time spent performing reported procedures but includes the following: [x] Data Review and interpretation [x] Patient assessment and monitoring of vital signs [x] Documentation [x] Medication orders and management Discharge Plan Departure Patient Disposition: Admitted As Inpatient Clinical Impression: Atrial fibrillation with rapid ventricular response, Nausea & vomiting Admit Date/Time: 07/23/24 22:01 Admit Provider: Almas He
[2024-07-23 18:41] LABS: Add Manual Diff / Slide Review NO; Basophils Absolute Auto 0 /uL (0-100); Basophils Percent Auto 0.1 % (0-2); Eosinophils Absolute Auto 0 /uL (0-450); Eosinophils Percent Auto 0.5 % (2-4); Hematocrit 35.8 % (41-53); Lymphocytes Absolute Auto 700 /uL (1100-4500); Lymphocytes Percent Auto 9.9 % (25-40); Mean Corpuscular HGB Conc 33.5 % (30-36); Mean Corpuscular Hemoglobin 35.9 PG (26-34); Mean Corpuscular Volume 107.1 fL (80-100); Monocytes Absolute Auto 1300 /uL (0-900); Neutrophils Absolute Auto 4600 /uL (1500-7000); Neutrophils Percent Auto 70.5 % (50-75); Platelet Count 259 X10^3/uL (150-400); Red Blood Cell Count 3.34 X10^6/uL (4.5-5.9); Red Cell Distribution Width 13.6 % (11.6-14.8); White Blood Cell Count 6.6 X10^3/uL (4.5-11.0)
[2024-07-23] MEDS: dilTIAZem 125 MG in SODIUM CHLORIDE 0.9% 100 ML IV (18:44)
[2024-07-23] MEDS: methylPREDNISolone 125 MG/2 ML VIAL IV (18:44)
[2024-07-23 18:46] LABS: Alanine Aminotransferase 24 IU/L (<50); Albumin 3.3 g/dL (3.5-5.0); Alkaline Phosphatase 79 U/L (38-126); Aspartate Aminotransferase 28 IU/L (17-59); BUN Creatinine Ratio 19.9 (6-22); Bilirubin Total 0.6 mg/dL (0.2-1.3); Blood Urea Nitrogen 28 mg/dL (9-20); Calcium 10.1 mg/dL (8.4-10.2); Carbon Dioxide 24 mmol/L (22-32); Chloride 99 mmol/L (98-107); Creatine Kinase < 20 U/L (55-170); Estimated Glomerular Filt Rate 54 mL/min (>60); Globulin 3.2 g/dL (1.7-4.1); Glucose 80 mg/dL (80-110); HEMOLYSIS 23 (0-50); Lipase 300 U/L (23-300); Potassium 4.1 mmol/L (3.4-5.1); Sodium 132 mmol/L (137-145); Total Protein 6.5 g/dL (6.3-8.2)
[2024-07-23 18:58] LABS: NT-proBNP (BNP-Adult 18+) 1490 pg/mL (<125)
[2024-07-23 19:57] LABS: Adenovirus Not Detected (Not Detect); B. parapertussis Not Detected (Not Detecte); Bordetella pertussis Not Detected (Not Detect); Chlamydophila pneumoniae Not Detected (Not Detect); Coronavirus 229E Not Detected (Not Detect); Coronavirus HKU1 Not Detected (Not Detect); Coronavirus NL 63 Not Detected (Not Detect); Coronavirus OC43 Not Detected (Not Detect); Human Metapneumovirus Not Detected (Not Detect); Human Rhinovirus/Enterovirus Not Detected (Not Detect); Influenza A Not Detected (Not Detect); Influenza B Not Detected (Not Detect); Mycoplasma pneumoniae Not Detected (Not Detect); Parainfluenza Virus 1 Not Detected (Not Detect); Parainfluenza Virus 2 Not Detected (Not Detect); Parainfluenza Virus 3 Not Detected (Not Detect); Parainfluenza Virus 4 Not Detected (Not Detect); Respiratory Syncytial Virus Not Detected (Not Detect); SARS- CoV-2 Not Detected (Not Detecte)
[2024-07-23 21:13] LABS: Troponin I 0.037 ng/mL (0.01-0.034)
[2024-07-23] MEDS: PANTOPRAZOLE 40 MG VIAL IV (21:43)
[2024-07-23 22:46] LABS: TSH w/ Reflex to FT4 1.17 uIU/mL (0.47-4.68)
[2024-07-24] VITALS (28 sets, daily range): BP systolic 121–178; BP diastolic 63–91; PULSE 90–122; RESP 14–33; TEMP 36.3–37; O2SAT 85–96
[2024-07-24] MEDS: ONDANSETRON 4 MG/2 ML INJ IV ×3 (01:57→18:37)
[2024-07-24 05:18] LABS: Add Manual Diff / Slide Review NO; Basophils Absolute Auto 0 /uL (0-100); Basophils Percent Auto 0.1 % (0-2); Eosinophils Absolute Auto 0 /uL (0-450); Eosinophils Percent Auto 0.1 % (2-4); Hematocrit 33.2 % (41-53); Hemoglobin 11.3 g/dL (13.5-17.5); Lymphocytes Absolute Auto 300 /uL (1100-4500); Lymphocytes Percent Auto 5.2 % (25-40); Mean Corpuscular Volume 106.1 fL (80-100); Monocytes Absolute Auto 100 /uL (0-900); Neutrophils Absolute Auto 5100 /uL (1500-7000); Neutrophils Percent Auto 92.6 % (50-75); Platelet Count 265 X10^3/uL (150-400); Red Blood Cell Count 3.13 X10^6/uL (4.5-5.9); Red Cell Distribution Width 13.7 % (11.6-14.8); White Blood Cell Count 5.5 X10^3/uL (4.5-11.0)
[2024-07-24] MEDS: dilTIAZem 125 MG in SODIUM CHLORIDE 0.9% 100 ML 10 MG IV (05:32)
[2024-07-24 05:35] LABS: BUN Creatinine Ratio 22.3 (6-22); Blood Urea Nitrogen 27 mg/dL (9-20); Calcium 9.6 mg/dL (8.4-10.2); Carbon Dioxide 23 mmol/L (22-32); Chloride 100 mmol/L (98-107); Estimated Glomerular Filt Rate > 60 mL/min (>60); Glucose 140 mg/dL (80-110); HEMOLYSIS < 15 (0-50); Potassium 3.8 mmol/L (3.4-5.1); Sodium 132 mmol/L (137-145)
[2024-07-24 06:35] LABS: MRSA (Nasal) PCR NOT DETECTED (Not Detect)
--- NOTE | 2024-07-24 07:04 | P.HP_ITS ---
History of Present Illness History of Present Illness Chief complaint: Afib, N/V Narrative: 68-year-old male with past medical history of COPD non O2 dependent, atrial fibrillation on metoprolol and Eliquis and pulmonary embolism presents with complaint of nausea, vomiting and shortness of breath. Note the patient was recently admitted and was discharged for UTI. During that recent admission the patient also was noted to be bradycardic and hypotensive. Metoprolol as well as his Diltiazem were held due to these reasons. The patient also had ROMELIA at that time and Cr was noted to be 2.4. The patient was doing relatively OK but starting yesterday, the patient started to notice increase nausea and vomiting. The patient was not able to keep much oral medications down including his antbiotics and Eliquis. The patient does have some shortness of breath and some palpitation but denies any chest pain, fever, chills, diarrhea or syncope. In our emergency room, the patient was found to be in Afib with RVR. The patient's blood pressure was relatively normal. Sodium 132 creatine 1.4 troponin 0.04 repeat 0.037. Patient was started on IV Diltiazem drip. [facility] Medical History Lesion of bladder Acute urinary tract infection Bladder wall thickening Feeling of incomplete bladder emptying Chronic anticoagulation Urge incontinence History of renal calculi Urinary frequency Dysuria E. coli urinary tract infection Gross hematuria Cat bite of left lower leg with infection Tobacco abuse Gout Sleep apnea syndrome Hyperlipidemia Afib COPD (chronic obstructive pulmonary disease) Surgical History H/O knee surgery H/O shoulder surgery Social History household members: none Smoking Status: Current every day smoker alcohol intake: current Meds Home Medications and Allergies Home Medications Medication Instructions Recorded Confirmed Type metoprolol tartrate 50 mg tablet 50 mg PO BID ##0 02/07/13 01/04/24 History tiotropium bromide 1.25 2 puff inhalation DAILY 08/11/19 01/04/24 History mcg/actuation mist for inhalation (Spiriva Respimat) albuterol sulfate 90 mcg/actuation 2 puff inhalation Q4-6H PRN Cough 03/16/20 01/04/24 History aerosol inhaler fluticasone 250 mcg-salmeterol 50 1 inh inhalation BID 03/16/20 01/04/24 History mcg/dose blistr powdr for inhalation (Advair Diskus) acetaminophen 650 mg 1,300 mg PO DAILY PRN Pain (Scale 07/02/21 01/04/24 History tablet,extended release (Tylenol Score 4-6) Arthritis Pain) tamsulosin 0.4 mg capsule (Flomax) 0.4 mg PO BID 07/02/21 01/04/24 History apixaban 5 mg tablet (Eliquis) 5 mg PO BID #180 tabs 10/13/22 01/04/24 Rx losartan 50 mg tablet 50 mg PO DAILY 10/16/23 01/04/24 History magnesium oxide 400 mg (241.3 mg 400 mg PO DAILY 10/16/23 01/04/24 History magnesium) tablet calcium carbonate (Tums) 300 mg PO PRN PRN Indigestion 10/19/23 01/04/24 History Allergies Allergy/AdvReac Type Severity Reaction Status Date / Time No Known Drug Allergies Allergy Verified 01/04/24 14:48 Review of Systems Review of Systems ROS: Yes All systems reviewed with the patient and are negative except as otherwise documented Exam Vital Signs (past 8 hours): - 07/23/24 23:06 07/23/24 23:07 07/23/24 23:10 Temperature Pulse Rate 110 H Respiratory Rate 32 H Blood Pressure 123/74 Pulse Oximetry 95 Oxygen Delivery Method Room Air Oxygen Flow Rate 07/23/24 23:20 07/23/24 23:20 07/23/24 23:30 Temperature Pulse Rate 116 H 110 H Respiratory Rate 32 H 28 H Blood Pressure 131/73 Pulse Oximetry 95 Oxygen Delivery Method Oxygen Flow Rate 07/24/24 00:00 07/24/24 00:00 07/24/24 00:49 Temperature 97.8 F Pulse Rate 106 H 111 H Respiratory Rate 26 H Blood Pressure 125/63 125/63 Pulse Oximetry 92 Oxygen Delivery Method Oxygen Flow Rate 0 07/24/24 01:00 07/24/24 01:00 07/24/24 02:00 Temperature Pulse Rate 107 H Respiratory Rate 27 H Blood Pressure 142/67 H 121/74 Pulse Oximetry 94 Oxygen Delivery Method Oxygen Flow Rate 0 07/24/24 02:00 07/24/24 03:00 07/24/24 04:00 Temperature Pulse Rate 108 H 107 H Respiratory Rate 28 H 26 H Blood Pressure 129/68 144/71 H Pulse Oximetry 95 94 Oxygen Delivery Method Oxygen Flow Rate 0 0 07/24/24 04:00 07/24/24 05:00 07/24/24 05:00 Temperature 97.4 F L Pulse Rate 100 H 103 H Respiratory Rate 31 H 28 H Blood Pressure 148/87 H Pulse Oximetry 94 94 Oxygen Delivery Method Oxygen Flow Rate 0 0 07/24/24 05:32 07/24/24 06:00 07/24/24 06:00 Temperature Pulse Rate 108 H 105 H Respiratory Rate 29 H Blood Pressure 148/87 H 134/82 Pulse Oximetry 93 Oxygen Delivery Method Oxygen Flow Rate 0 Oxygen Delivery Method Room Air Oxygen Flow Rate 0 Narrative Exam Narrative: GENERAL: The patient is not in any acute distressed. Awake and alert. HEENT: Nonicteric sclerae, PERRLA, EOMI. Oropharynx clear. Moist mucous membranes. Conjunctivae appear well perfused. HEART: slight tachy with irrreg/irreg rhythm without murmurs. No lower extremities edema. LUNGS: Clear to auscultation bilaterally. No wheezing, crackles or rhonchi ABDOMEN: Soft, positive bowel sounds, nontender. SKIN: No rash, no excessive bruising, petechiae, or purpura. NEUROLOGIC: AxO x 3. Cranial nerves II-XII intact without motor/sensory deficit. Objective Labs 07/24/24 04:10 07/24/24 04:10 Labs: Laboratory Results - last 24 hr 07/23/24 07/23/24 07/23/24 18:19 18:42 20:44 WBC 6.6 RBC 3.34 L Hgb 12.0 L Hct 35.8 L MCV 107.1 H MCH 35.9 H MCHC 33.5 RDW 13.6 Plt Count 259 Neut % (Auto) 70.5 Lymph % (Auto) 9.9 L [place] % (Auto) 19.0 H Eos % (Auto) 0.5 L Baso % (Auto) 0.1 Neut # (Auto) 4600 Lymph # (Auto) 700 L [place] # (Auto) 1300 H Eos # (Auto) 0 Baso # (Auto) 0 Sodium 132 L Potassium 4.1 Chloride 99 Carbon Dioxide 24 BUN 28 H Creatinine 1.41 H Estimated GFR 54 L BUN/Creatinine Ratio 19.9 Glucose 80 Calcium 10.1 Total Bilirubin 0.6 AST 28 ALT 24 Alkaline Phosphatase 79 Total Creatine Kinase < 20 L Troponin I 0.040 H 0.037 H NT-Pro-B Natriuret Pep 1490 H Total Protein 6.5 Albumin 3.3 L Globulin 3.2 Albumin/Globulin Ratio 1.0 Lipase 300 TSH 1.17 Nasal Screen MRSA (PCR) Chlamy pneumoniae PCR Not detected Adenovirus (PCR) Not detected B. pertussis DNA (PCR) Not detected B.parapertussis DNA PCR Not detected Coronavirus OC43 (PCR) Not detected Coronavirus HKU1 (PCR) Not detected Coronavirus 229E (PCR) Not detected SARS-CoV-2 (PCR) Not detected Coronavirus NL63 (PCR) Not detected Human Metapneumovir PCR Not detected Influenza Type A (PCR) Not detected Influenza Type B (PCR) Not detected M. pneumoniae (PCR) Not detected Parainfluenza 1 (PCR) Not detected Parainfluenza 2 (PCR) Not detected Parainfluenza 3 (PCR) Not detected Parainfluenza 4 (PCR) Not detected RSV (PCR) Not detected Entero/Rhino (PCR) Not detected 07/23/24 07/24/24 23:42 04:10 WBC 5.5 RBC 3.13 L Hgb 11.3 L Hct 33.2 L MCV 106.1 H MCH 36.0 H MCHC 34.0 RDW 13.7 Plt Count 265 Neut % (Auto) 92.6 H D Lymph % (Auto) 5.2 L [place] % (Auto) 2.0 L Eos % (Auto) 0.1 L Baso % (Auto) 0.1 Neut # (Auto) 5100 Lymph # (Auto) 300 L [place] # (Auto) 100 Eos # (Auto) 0 Baso # (Auto) 0 Sodium 132 L Potassium 3.8 Chloride 100 Carbon Dioxide 23 BUN 27 H Creatinine 1.21 Estimated GFR > 60 BUN/Creatinine Ratio 22.3 H Glucose 140 H Calcium 9.6 Total Bilirubin AST ALT Alkaline Phosphatase Total Creatine Kinase Troponin I NT-Pro-B Natriuret Pep Total Protein Albumin Globulin Albumin/Globulin Ratio Lipase TSH Nasal Screen MRSA (PCR) Not detected Chlamy pneumoniae PCR Adenovirus (PCR) B. pertussis DNA (PCR) B.parapertussis DNA PCR Coronavirus OC43 (PCR) Coronavirus HKU1 (PCR) Coronavirus 229E (PCR) SARS-CoV-2 (PCR) Coronavirus NL63 (PCR) Human Metapneumovir PCR Influenza Type A (PCR) Influenza Type B (PCR) M. pneumoniae (PCR) Parainfluenza 1 (PCR) Parainfluenza 2 (PCR) Parainfluenza 3 (PCR) Parainfluenza 4 (PCR) RSV (PCR) Entero/Rhino (PCR) Assessment & Plan Assessment & Plan narrative: Atrial fibrillation with RVR. Admit patient to ICU. Continue Diltiazem drip. Resume home oral metoprolol in the morning. Continue home Eliquis. Recent ROMELIA. Cr continue to improve. Couple days ago Cr was 2.4 and today Cr is 1.4. Baseline .7. Contiue to monitor renal function. UTI. Patient reports that he completed his antibiotic oral course. Mild elevate BNP at 1500s. Likely secondary to a fib RVR. No sign of volume overload otherwise. Monitor for now. Mild Hyponatremia. Sodium 132. Encourage PO intake recheck renal function sodium in the morning. DVT prophylaxis Eliquis. Code Status full code. Disposition likely home in two days. Time-Based Coding :: [TOTAL MINUTES] spent with patient and on the chart (including review of chart, obtaining history, exam, reviewing outside data, placing orders, documenting exam and treatment plan, and counseling patient) on [DATE].
--- NOTE | 2024-07-24 07:58 | P.PN_ITS ---
Subjective Subjective Interval history: From night doctor: 68-year-old male with past medical history of COPD non O2 dependent, atrial fibrillation on metoprolol and Eliquis and pulmonary embolism presents with complaint of nausea, vomiting and shortness of breath. Note the patient was recently admitted and was discharged for UTI. During that recent admission the patient also was noted to be bradycardic and hypotensive. Metoprolol as well as his Diltiazem were held due to these reasons. The patient also had ROMELIA at that time and Cr was noted to be 2.4. The patient was doing relatively OK but starting yesterday, the patient started to notice increase nausea and vomiting. The patient was not able to keep much oral medications down including his antbiotics and Eliquis. The patient does have some shortness of breath and some palpitation but denies any chest pain, fever, chills, diarrhea or syncope. In our emergency room, the patient was found to be in Afib with RVR. The patient's blood pressure was relatively normal. Sodium 132 creatine 1.4 troponin 0.04 repeat 0.037. Patient was started on IV Diltiazem drip. S: He was a lot of abdominal distention and no BM for possibly up to 10 days. He was still short of breath but with thinks that this is all related to his abdominal distention. Some nausea, no vomiting. Exam Vital Signs (past 8 hours): - 07/24/24 00:00 07/24/24 00:00 07/24/24 00:49 Temperature 97.8 F Pulse Rate 106 H 111 H Respiratory Rate 26 H Blood Pressure 125/63 125/63 Pulse Oximetry 92 Oxygen Flow Rate 0 07/24/24 01:00 07/24/24 01:00 07/24/24 02:00 Temperature Pulse Rate 107 H Respiratory Rate 27 H Blood Pressure 142/67 H 121/74 Pulse Oximetry 94 Oxygen Flow Rate 0 07/24/24 02:00 07/24/24 03:00 07/24/24 04:00 Temperature Pulse Rate 108 H 107 H Respiratory Rate 28 H 26 H Blood Pressure 129/68 144/71 H Pulse Oximetry 95 94 Oxygen Flow Rate 0 0 07/24/24 04:00 07/24/24 05:00 07/24/24 05:00 Temperature 97.4 F L Pulse Rate 100 H 103 H Respiratory Rate 31 H 28 H Blood Pressure 148/87 H Pulse Oximetry 94 94 Oxygen Flow Rate 0 0 07/24/24 05:32 07/24/24 06:00 07/24/24 06:00 Temperature Pulse Rate 108 H 105 H Respiratory Rate 29 H Blood Pressure 148/87 H 134/82 Pulse Oximetry 93 Oxygen Flow Rate 0 Oxygen Delivery Method Room Air Oxygen Flow Rate 0 Narrative Exam Narrative: NAD, alert and oriented. Fluent speech. Lungs are clear, normal rate and effort. Heart is irregular, no murmur gallop or rub. Abdomen is dramatically distended, hypertympanic, and nontender to palpation. Extremities are free of edema. Objective ECG Impression: Atrial fibrillation with rapid ventricular response with premature ventricular or aberrantly conducted complexes ST & T wave abnormality, consider anterolateral ischemia Imaging Chest x-ray: Radiologist's impression: Mild left lung base opacity could represent atelectasis and trace effusion versus thickening. Mild airspace disease also possible. Limited single view radiograph with low lung volumes. Distended loops of bowel in the upper abdomen partially seen. Labs 07/24/24 04:10 07/24/24 04:10 Labs: Laboratory Results - last 24 hr 07/23/24 07/23/24 07/23/24 18:19 18:42 20:44 WBC 6.6 RBC 3.34 L Hgb 12.0 L Hct 35.8 L MCV 107.1 H MCH 35.9 H MCHC 33.5 RDW 13.6 Plt Count 259 Neut % (Auto) 70.5 Lymph % (Auto) 9.9 L [place] % (Auto) 19.0 H Eos % (Auto) 0.5 L Baso % (Auto) 0.1 Neut # (Auto) 4600 Lymph # (Auto) 700 L [place] # (Auto) 1300 H Eos # (Auto) 0 Baso # (Auto) 0 Sodium 132 L Potassium 4.1 Chloride 99 Carbon Dioxide 24 BUN 28 H Creatinine 1.41 H Estimated GFR 54 L BUN/Creatinine Ratio 19.9 Glucose 80 Calcium 10.1 Total Bilirubin 0.6 AST 28 ALT 24 Alkaline Phosphatase 79 Total Creatine Kinase < 20 L Troponin I 0.040 H 0.037 H NT-Pro-B Natriuret Pep 1490 H Total Protein 6.5 Albumin 3.3 L Globulin 3.2 Albumin/Globulin Ratio 1.0 Lipase 300 TSH 1.17 Nasal Screen MRSA (PCR) Chlamy pneumoniae PCR Not detected Adenovirus (PCR) Not detected B. pertussis DNA (PCR) Not detected B.parapertussis DNA PCR Not detected Coronavirus OC43 (PCR) Not detected Coronavirus HKU1 (PCR) Not detected Coronavirus 229E (PCR) Not detected SARS-CoV-2 (PCR) Not detected Coronavirus NL63 (PCR) Not detected Human Metapneumovir PCR Not detected Influenza Type A (PCR) Not detected Influenza Type B (PCR) Not detected M. pneumoniae (PCR) Not detected Parainfluenza 1 (PCR) Not detected Parainfluenza 2 (PCR) Not detected Parainfluenza 3 (PCR) Not detected Parainfluenza 4 (PCR) Not detected RSV (PCR) Not detected Entero/Rhino (PCR) Not detected 07/23/24 07/24/24 23:42 04:10 WBC 5.5 RBC 3.13 L Hgb 11.3 L Hct 33.2 L MCV 106.1 H MCH 36.0 H MCHC 34.0 RDW 13.7 Plt Count 265 Neut % (Auto) 92.6 H D Lymph % (Auto) 5.2 L [place] % (Auto) 2.0 L Eos % (Auto) 0.1 L Baso % (Auto) 0.1 Neut # (Auto) 5100 Lymph # (Auto) 300 L [place] # (Auto) 100 Eos # (Auto) 0 Baso # (Auto) 0 Sodium 132 L Potassium 3.8 Chloride 100 Carbon Dioxide 23 BUN 27 H Creatinine 1.21 Estimated GFR > 60 BUN/Creatinine Ratio 22.3 H Glucose 140 H Calcium 9.6 Total Bilirubin AST ALT Alkaline Phosphatase Total Creatine Kinase Troponin I NT-Pro-B Natriuret Pep Total Protein Albumin Globulin Albumin/Globulin Ratio Lipase TSH Nasal Screen MRSA (PCR) Not detected Chlamy pneumoniae PCR Adenovirus (PCR) B. pertussis DNA (PCR) B.parapertussis DNA PCR Coronavirus OC43 (PCR) Coronavirus HKU1 (PCR) Coronavirus 229E (PCR) SARS-CoV-2 (PCR) Coronavirus NL63 (PCR) Human Metapneumovir PCR Influenza Type A (PCR) Influenza Type B (PCR) M. pneumoniae (PCR) Parainfluenza 1 (PCR) Parainfluenza 2 (PCR) Parainfluenza 3 (PCR) Parainfluenza 4 (PCR) RSV (PCR) Entero/Rhino (PCR) [facility] Medical History Lesion of bladder Acute urinary tract infection Bladder wall thickening Feeling of incomplete bladder emptying Chronic anticoagulation Urge incontinence History of renal calculi Urinary frequency Dysuria E. coli urinary tract infection Gross hematuria Cat bite of left lower leg with infection Tobacco abuse Gout Sleep apnea syndrome Hyperlipidemia Afib COPD (chronic obstructive pulmonary disease) Surgical History H/O knee surgery H/O shoulder surgery Social History household members: none Smoking Status: Current every day smoker alcohol intake: current Assessment & Plan Assessment & Plan narrative: 1. Atrial fibrillation with RVR. Present on admission and active. - Admit patient to ICU. Continue Diltiazem drip. Continue home Eliquis. 2. Recent ROMELIA. Present on admission and improving. - Cr continue to improve. Couple days ago Cr was 2.4 and today Cr is 1.4. Baseline .7. Contiue to monitor renal function. 3. UTI. Not present on admission are active. - Patient reports that he completed his antibiotic oral course. 4. Mild Hyponatremia. Present on admission and active. - Sodium 132. Encourage PO intake recheck renal function sodium in the morning. 5. Constipation and abdominal distention, present on admission and active. PLAN: -add low-dose metoprolol orally back in. -wean off diltiazem drip -out of bed, advance activity -all program including suppositories and enemas. -abdominal x-ray rule out bowel obstruction, he denies history of. He was also had no recent nausea or vomiting. BAILEY: 07/26 DVT prophylaxis Eliquis. Code Status full code. Disposition likely home in two days. Time-Based Coding :: [TOTAL MINUTES] spent with patient and on the chart (including review of chart, obtaining history, exam, reviewing outside data, placing orders, documenting exam and treatment plan, and counseling patient) on [DATE].
[2024-07-24] MEDS: TAMSULOSIN 0.4 MG CAPSULE PO ×2 (08:36→20:16)
[2024-07-24] MEDS: METOPROLOL ER 25 MG TABLET 12.5 MG PO (08:36)
[2024-07-24] MEDS: APIXABAN 5 MG TABLET PO ×2 (08:37→20:16)
[2024-07-24] MEDS: BISACODYL 10 MG SUPP PR (09:17)
--- NOTE | 2024-07-24 09:45 | DI.RAD.S_ITS ---
PROCEDURE: XR ABDOMEN 1V INDICATIONS: abd pain and distension TECHNIQUE: One view of the abdomen acquired. COMPARISON: None. Finding and impression: Limited supine radiographs. Moderate to severe distention of both small and large bowel, small bowel measuring up to 5 cm representing ileus or obstruction. Consider CT to further evaluate if clinically indicated. Osseous degenerative changes are right hip arthroplasty. Dictated by: Naseem Milligan M.D. on 07/24/2024 at 11:45 Approved by: Naseem Milligan M.D. on 07/24/2024 at 11:46
[2024-07-24 10:40] LABS: Magnesium 2.1 mg/dL (1.6-2.3)
[2024-07-24] MEDS: POTASSIUM CHLORIDE 20 MEQ TAB PO (11:38)
--- NOTE | 2024-07-24 13:50 | CM.DANOTE ---
Initial DCP Assessment Note Pt is a 68 yo male, resident of [place], admitted INPT for management of afib w/RVR, UTI, recent RMOELIA, constipation and distention-Imaging shows SBO. PCP: Shauna Melvin Payer: MARTELL/Holly Reviewed chart, met w/patient and his sister Danisha at bedside. Patient has been living independently up until about a month ago when he started not feeling well. Patient has found it more difficult to get around his home, states d/t SOB and poor activity tolerance. Patient reports he had HH in the past but cannot remember from which agency. No hx of SNF. Asked if patient would consider HH or SNF depending on recommendations and patient states he will consider HH not SNF. Mild confusion noted from patient this visit; patient's sister helps with history, patient agreeable. Sister reports patient would benefit from in home care, that she has been with patient more often lately as he has declined functionally. Discussed HH vs in home care and provided the senior resource guide for patient and sister to review. CM team will plan to follow clinical course closely; patient may be a good candidate for HH at discharge. Therapy evals may be useful to assist with dispo planning. plan: Discharge home w/family and HH anticipated. ESTEBAN Mcgregor Discharge Planning/Care Management CM Discharge Assessment Start: 07/24/24 13:45 Freq: Status: Active Protocol: Document 07/24/24 13:46 KAILYN (Rec: 07/24/24 13:50 [email or web address] [id number]) Discharge Planning Assessment Assigned Scrap Kettle Tender ESTEBAN Rodriguez DPOA/Assigned Designee Name Danisha Valdes, sister (Jana Pena) Contact Information [phone] Advance Directives? No History Provided By Patient,Medical Record Prior Living Arrangements House Household Members none Type of transporation used prior to Relies on Others admit Independent with ADL's No: Poor activity tolerance Is patient alert and oriented? No: Poor historian Needs Assistance With Meal Prep,Managing Medications ,Home Chores / Shopping Patient/Family Preference Home with Home Health Comment TBD Discharge Plan Home with Home Health Transportation Arrangement Family Referrals Initiated Home Health Additional Comment Follow for referral, patient unsure he needs HH at this time.
[2024-07-24] MEDS: dilTIAZem 30 MG TABLET PO ×2 (14:10→17:26)
[2024-07-24] MEDS: MINERAL OIL 1 EACH ENEMA PR (15:01)
--- NOTE | 2024-07-24 15:52 | DI.CT.S_ITS ---
PROCEDURE: CT ABDOMEN PELVIS W CON INDICATIONS: Abdomen pain and distension. TECHNIQUE: After the administration of intravenous contrast, axial sections acquired from the lung bases to the pubic symphysis. Coronal and sagittal reformats were performed. For radiation dose reduction, the following was used: automated exposure control, adjustment of mA and/or kV according to patient size. COMPARISON: [facility], CT, CT ABDOMEN PELVIS WO/W CON, 03/09/2021, 9:04. FINDINGS: Image quality: Diagnostic. Lower Chest: Volume loss in the left lung base with small left pleural effusion and atelectasis versus consolidation. Severe coronary artery calcifications. ABDOMEN: Liver: No solid mass. Gallbladder: No radiopaque gallstones or wall thickening. Biliary ducts: No biliary dilation. Pancreas: No ductal dilation. Spleen: Size is within normal limits. Adrenal Glands: Left adrenal nodule measuring up to 1.9 cm is stable compared to 03/09/2021. Kidneys and Ureters: No hydronephrosis. No solid mass. No complex renal cystic lesion which requires follow up. Stomach and Bowel: Multiple dilated loops of small bowel with air-fluid levels measuring up to 4.2 cm. Normal colonic caliber, without significant wall thickening. No definite transition point is seen. This appears to extend to the cecum. Diverticulosis without evidence of acute diverticulitis. Normal appendix. Peritoneum: No abnormal intraperitoneal fluid. No free air. Ventral Wall: No significant ventral hernia. Abdominal Nodes: No retroperitoneal or mesenteric adenopathy by size criteria. Vessels: Aorta and inferior vena cava are normal in size. Atherosclerotic vascular calcifications. PELVIS: Pelvic Organs: Unremarkable. Bladder: No bladder wall thickening, accounting for underdistention. Pelvic Nodes: No enlarged lymph nodes. Miscellaneous: No inguinal hernias are seen. Bones: No aggressive osseous abnormality. Right hip arthroplasty. Multilevel degenerative changes of the spine. IMPRESSION: 1. Multiple dilated loops of small bowel with air-fluid levels. No transition point is seen. Findings may represent ileus, obstruction is also in the differential. 2. Volume loss in the left lung base with small left pleural effusion and associated atelectasis versus consolidation. 3. Stable left adrenal nodule measuring 1.9 cm. 4. Diverticulosis without evidence of acute diverticulitis. Dictated by: Toan Henao M.D. on 07/24/2024 at 16:42 Approved by: Toan Henao M.D. on 07/24/2024 at 16:49
[2024-07-24] MEDS: IPRATROPIUM 0.5 MG/2.5 ML NEB INH (19:27)
[2024-07-24] MEDS: BUDESONIDE 0.5 MG/2 ML NEB INH (19:27)
[2024-07-24] MEDS: CALCIUM CARBONATE 500 MG TAB PO (20:12)
[2024-07-24] MEDS: METOCLOPRAMIDE 10 MG/2 ML INJ 5 MG IV (20:17)
[2024-07-25] VITALS (21 sets, daily range): BP systolic 111–133; BP diastolic 65–83; PULSE 87–112; RESP 16–22; TEMP 36.2–37.2; O2SAT 91–96
[2024-07-25] MEDS: dilTIAZem 30 MG TABLET PO ×3 (00:46→18:15)
[2024-07-25] MEDS: IPRATROPIUM 0.5 MG/2.5 ML NEB INH ×3 (07:54→18:41)
[2024-07-25] MEDS: BUDESONIDE 0.5 MG/2 ML NEB INH (07:55)
[2024-07-25] MEDS: METOPROLOL ER 25 MG TABLET 50 MG PO (08:27)
[2024-07-25] MEDS: TAMSULOSIN 0.4 MG CAPSULE PO ×2 (08:27→22:47)
[2024-07-25] MEDS: APIXABAN 5 MG TABLET PO ×2 (08:27→22:48)
--- NOTE | 2024-07-25 08:34 | PC.NURSE ---
Late note: 07/24/24 It was noted by this nurse and NOC shift nurse Wale on pt CXR that pt was impacted with stool, when questioned pt stated that it had been possibly more than 10 days since his last BM. Provider Dr Mabry notified, suppository ordered and placed with moderate results. Abdominal XR completed, showed that pt was still impacted with stool. Order for fleet enema obtained and provided, no results. Care of pt turned over to Johana RN, no further pt contact at this time.
[2024-07-25] MEDS: polyethylene glycoL 3350 17 GM POWD.PACK PO (08:50)
[2024-07-25] MEDS: SENNOSIDES 8.6 MG TABLET 17.2 MG PO (08:50)
[2024-07-25] MEDS: BISACODYL 5 MG TABLET 10 MG PO (08:50)
--- NOTE | 2024-07-25 11:46 | PM.PN.1 ---
Subjective Subjective Interval history: Had a bowel movement yesterday. No nausea or vomiting. Oxygen is noted to be low when sleeping, improved when awake. His abdomen still feels a bit distended, though improved. Exam Vital Signs (past 8 hours): - 07/25/24 04:00 07/25/24 05:04 07/25/24 05:05 Temperature 98.6 F Pulse Rate 98 H 108 H Respiratory Rate 18 Blood Pressure 130/82 130/82 Pulse Oximetry 92 92 Oxygen Delivery Method Oxygen Flow Rate 0 07/25/24 06:38 07/25/24 07:00 07/25/24 07:00 Temperature Pulse Rate 99 H 104 H Respiratory Rate Blood Pressure Pulse Oximetry 92 92 Oxygen Delivery Method Room Air Oxygen Flow Rate 07/25/24 07:41 07/25/24 07:41 07/25/24 07:55 Temperature Pulse Rate 94 H 96 H Respiratory Rate 22 Blood Pressure 132/80 Pulse Oximetry 92 94 Oxygen Delivery Method Room Air Oxygen Flow Rate 07/25/24 08:00 07/25/24 08:00 07/25/24 08:27 Temperature 97.9 F Pulse Rate 100 H 95 H 91 H Respiratory Rate 18 Blood Pressure 132/80 133/80 Pulse Oximetry 91 92 Oxygen Delivery Method Oxygen Flow Rate 0 07/25/24 08:57 07/25/24 09:00 07/25/24 10:00 Temperature Pulse Rate 89 90 89 Respiratory Rate Blood Pressure Pulse Oximetry 91 94 Oxygen Delivery Method Oxygen Flow Rate Oxygen Delivery Method Room Air Oxygen Flow Rate 0 Narrative Exam Narrative: NAD, alert and oriented. Fluent speech. Lungs are clear, normal rate and effort. Heart is irregular, no murmur gallop or rub. Abdomen is distended, mildly, but soft, and non-tender. Extremities are free of edema. Objective Labs 07/24/24 04:10 07/24/24 04:10 [facility] Medical History Lesion of bladder Acute urinary tract infection Bladder wall thickening Feeling of incomplete bladder emptying Chronic anticoagulation Urge incontinence History of renal calculi Urinary frequency Dysuria E. coli urinary tract infection Gross hematuria Cat bite of left lower leg with infection Tobacco abuse Gout Sleep apnea syndrome Hyperlipidemia Afib COPD (chronic obstructive pulmonary disease) Surgical History H/O knee surgery H/O shoulder surgery Social History household members: none Smoking Status: Current every day smoker alcohol intake: current Assessment & Plan Assessment & Plan narrative: 1. Atrial fibrillation with RVR. Present on admission and active. - was recently at [facility] with symptomatic bradycardia on metoprolol and diltiazem. - attempt to obtain discharge summary from [facility], awaiting fax with this to determine discharge medications - HR okay on 50 mg of metoprolol BID today, continue to monitor while awaiting med list from recent discharge. 2. Recent ROMELIA. Present on admission and improving. - Couple days ago Cr was 2.4 had been improving. Baseline .7. Continue to monitor renal function. - okay to re-eval tomorrow AM, no labs had been ordered for this morning. 3. UTI. Not present on admission are active. - Patient reports that he completed his antibiotic oral course. 4. Mild Hyponatremia. Present on admission and active. - monitor as above, okay to assess tomorrow with BMP 5. Constipation and abdominal distention, present on admission and active. - CT was without overt obstruction, likely ileus. - started laxitive therapies. PLAN: -metoprolol increased to 50 mg BID today -out of bed, advance activity -added senna, miralax, and docusate orally. Had a bowel movement yesterday. Symptoms improved today. BAILEY: 07/26 DVT prophylaxis Eliquis. Code Status full code. Hopeful for home tomorrow, possible 1-2 more days depending on HR, abdominal symptoms. Time-Based Coding :: [TOTAL MINUTES] spent with patient and on the chart (including review of chart, obtaining history, exam, reviewing outside data, placing orders, documenting exam and treatment plan, and counseling patient) on [DATE].
--- NOTE | 2024-07-25 19:10 | PC.NURSE ---
Pt attempted to have bm two times, ambulated in halls with this RN, FWW, and gait belt. Passing gas, feeling urge to have bm but unable to at this time. care ongoing.
[2024-07-26] VITALS (29 sets, daily range): BP systolic 104–147; BP diastolic 61–89; PULSE 40–142; RESP 18–24; TEMP 36–37.1; O2SAT 91–97
[2024-07-26] MEDS: dilTIAZem 30 MG TABLET PO ×2 (00:45→06:13)
[2024-07-26 05:10] LABS: Add Manual Diff / Slide Review NO; Basophils Absolute Auto 0 /uL (0-100); Basophils Percent Auto 0.3 % (0-2); Eosinophils Absolute Auto 0 /uL (0-450); Eosinophils Percent Auto 0.3 % (2-4); Hematocrit 31.9 % (41-53); Hemoglobin 10.9 g/dL (13.5-17.5); Lymphocytes Absolute Auto 600 /uL (1100-4500); Lymphocytes Percent Auto 5.2 % (25-40); Mean Corpuscular HGB Conc 34.3 % (30-36); Mean Corpuscular Hemoglobin 36.1 PG (26-34); Mean Corpuscular Volume 105.2 fL (80-100); Monocytes Absolute Auto 1100 /uL (0-900); Monocytes Percent Auto 9.8 % (3-14); Neutrophils Absolute Auto 9100 /uL (1500-7000); Neutrophils Percent Auto 84.4 % (50-75); Platelet Count 349 X10^3/uL (150-400); Red Blood Cell Count 3.03 X10^6/uL (4.5-5.9); Red Cell Distribution Width 13.8 % (11.6-14.8); White Blood Cell Count 10.8 X10^3/uL (4.5-11.0)
[2024-07-26 05:45] LABS: BUN Creatinine Ratio 21.4 (6-22); Blood Urea Nitrogen 21 mg/dL (9-20); Calcium 9.9 mg/dL (8.4-10.2); Carbon Dioxide 28 mmol/L (22-32); Chloride 101 mmol/L (98-107); Estimated Glomerular Filt Rate > 60 mL/min (>60); Glucose 90 mg/dL (80-110); HEMOLYSIS < 15 (0-50); Magnesium 1.9 mg/dL (1.6-2.3); Potassium 3.9 mmol/L (3.4-5.1); Sodium 132 mmol/L (137-145)
[2024-07-26] MEDS: BUDESONIDE 0.5 MG/2 ML NEB INH ×2 (07:39→20:21)
[2024-07-26] MEDS: IPRATROPIUM 0.5 MG/2.5 ML NEB INH ×3 (07:39→20:22)
[2024-07-26] MEDS: SENNOSIDES 8.6 MG TABLET 17.2 MG PO (08:18)
[2024-07-26] MEDS: TAMSULOSIN 0.4 MG CAPSULE PO ×2 (08:18→21:47)
[2024-07-26] MEDS: APIXABAN 5 MG TABLET PO ×2 (08:18→21:47)
[2024-07-26] MEDS: polyethylene glycoL 3350 17 GM POWD.PACK PO (08:18)
[2024-07-26] MEDS: dilTIAZem CD 180 MG CAP PO ×2 (09:15→21:48)
[2024-07-26] MEDS: ACETAMINOPHEN 325 MG TABLET 650 MG PO ×2 (09:15→21:49)
--- NOTE | 2024-07-26 11:40 | PT.IIE ---
Current Diagnoses Unspecified atrial fibrillation (07/23/24) Surgical History (Last Reviewed 07/24/24 @ 08:00 by Eric Mabry MD) H/O knee surgery H/O shoulder surgery Medical History (Last Reviewed 07/24/24 @ 08:00 by Eric Mabry MD) Acute urinary tract infection Afib Bladder wall thickening Cat bite of left lower leg with infection Chronic anticoagulation COPD (chronic obstructive pulmonary disease) Dysuria E. coli urinary tract infection Feeling of incomplete bladder emptying Gout Gross hematuria History of renal calculi Hyperlipidemia Lesion of bladder Sleep apnea syndrome Tobacco abuse Urge incontinence Urinary frequency Physical Therapy Inpatient Evaluation/Re-Eval M1 PT/OT-IP Prior Functional Status Start: 07/26/24 11:48 Freq: NEEDED Status: Active Protocol: Document 07/26/24 11:49 NM (Rec: 07/26/24 12:46 NM [id number]) Medical Review Prior Functional Status Medical History Reviewed Yes Mobility and Gait Use of FWW, 4WW and spc for mobility; household mobility only, using 4WW Usually sleeps in bed Hx of several falls over past year, including feeling lightheaded and dizzy, especially with transfers and mobility Activities of Daily Living and IADL's Pt reports IND with ADLs/IADLs , living independently until 1 month previously Prior Functional Level (Other details) Reliant on older sister, Danisha , and local friend Brown for assistance at home Social History Household Members none Living Arrangements House Number of Floors (Floors) One Floor Number of Stairs To Enter/Railing? 1 stair to enter in front without rails. Ramp to enter at garage without rails; this is pt's primary method of entry Home Equipment Straight Cane,Tub Transfer Bench,Grab Bars Near Toilet Additional Social History Comment Hx of several hospitaliztions and falls; pt is poor historian for timeline and conflates dates/events during subjective hx Pt states has ordered a lifted recliner which will arrive in upcoming week M2 PT-IP Current Condition Start: 07/26/24 11:48 Freq: NEEDED Status: Active Protocol: Document 07/26/24 11:49 NM (Rec: 07/26/24 12:46 NM [id number]) Physical Therapy Current Condition Current Condition Evaluation Date 07/26/24 Treatment Diagnosis Afib, RVR, recent ROMELIA, SOB, weakness M3 PT-IP Subjective Start: 07/26/24 11:48 Freq: NEEDED Status: Active Protocol: Document 07/26/24 11:49 NM (Rec: 07/26/24 12:46 NM [id number]) Subjective Physical Therapy Visit Type Type Initial Evaluation Visit Start Time 10:55 Visit Stop Time 11:40 Physical Therapy Visit Comments Patient Comments Pt is supine in bed with HOB and knees elevated. He agrees to participate in PT evaluation. Pt reports no dizziness or lightheadedness while supine in bed. Therapy Pain Assessment Pain When Pain Assessed At Rest Pain Present Pain Present Pain Reported Location Hips Intensity 4 Scale Used Numeric (0 - 10) Description Aching Shoulders Intensity 4 Scale Used Numeric (0 - 10) Description Aching M4 PT-IP Mobility and Gait Start: 07/26/24 11:48 Freq: NEEDED Status: Active Protocol: Document 07/26/24 11:49 NM (Rec: 07/26/24 12:46 NM [id number]) PT-Bed Mobility Assessment Rolling Type of Rolling Roll to Left Level of Assist Moderate Assistance,1 Person Assistance Supine to Sit Supine to Sit Maximum Assistance,1 Person Assistance Sit to Supine Sit to Supine Moderate Assistance,1 Person Assistance,Head of Bed Elevated,Bedrails Scooting Scooting to Edge of Bed Maximum Assistance Scooting Up and Down in Bed Minimal Assistance PT-Transfer Assessment Sit to and From Stand Sit to and from Stand Contact Guard Assistance Equipment Transfer Assistive Device Front Wheeled Walker Transfers Transfer Destination Bed Transfer Technique ambulation w/ FWW Transfer Ability Level of Assist Contact Guard Assistance Comments Mobility Comments Pt sitting supine in bed with HOB elevated. Resting vitals: 107/75 mmmHg, HR 92 bpm, spO2 93% in supine with HOB elevated; denies dizziness or lightheadedness. Mod Ax1 for rolling to L, max Ax1 for transfer supine > sit on EOB and for scooting to EOB, cueing for weight shifting. Demos strong posterior lean and unable to maintain seated balance without PT assist at trunk. Once EOB, reports lightheadedness which takes 5 min to pass. Seated vitals after 5 min 126/84 mmHg, no reports of dizziness or lightheadedness; still demos strong posterior lean. Sit > stand with CGA for cueing and to steady to FWW. Several steps in place with FWW, pt reporting fatigue and need to sit. Stand > sit with FWW and CGA, cueing for safety so pt does not miss EOB during transfer. After seated rest, pt sit > stand x1 CGA to FWW for gait. Gait Assessment Gait Gait Assistance Required: Contact Guard Assist Assistive Devices Assistive Device Gait Belt,Front Wheeled Walker Gait Deviations General Gait Pattern Decreased Feet Clearance, Flexed Trunk,Wide Based Gait Factors Limiting Gait Function Factors Limiting Gait Function Decreased Activity Tolerance, Decreased Strength,Limited Range of Motion,Pain,Poor Balance Comments Gait Comments Pt ambulated x10 ft using FWW and CGA to steady, especially with turning. Returned to bed x10 ft due to pt reports of fatigue and lightheadedness with ambulation. Once at EOB, pt takes several lateral steps with CGA to steady balance and with cueing for positioning toward head of bed prior to transfers. CGA and cueing to sit at EOB, cueing primarily for pt to backup to EOB prior to sitting and for repositioning onto bed for safety. Seated BP 104/71 mmHg. Mod A x1 for sit > supine transfer, assist for trunk and BLE onto bed, then min A for repositioning bed using handrails with HOB elevated. Stair Climbing Assessment Comments Stair Climbing Comments Unable to assess due to pt fatigue following gait in room and presence of catheters PT-Balance Assessment Sitting Balance and Reactions Static Sitting Balance Ability Poor Dynamic Sitting Balance Ability Poor Standing Balance and Reactions Static Standing Balance Ability Fair Dynamic Standing Balance Ability Fair Functional Assessments Functional Tests Tinetti Balance and Gait Assessment M5 PT-IP Objective Assessments Start: 07/26/24 11:48 Freq: NEEDED Status: Active Protocol: Document 07/26/24 11:49 NM (Rec: 07/26/24 12:46 NM [id number]) Orientation Orientation/Cognition Level of Alertness Alert Orientation Name,Age,Birthday,Place, Situation Safety Awareness Decreased Safety Awareness Memory Description Short Term Impaired Gross Range of Motion Upper Extremity ROM Assessment Within Functional Limits Lower Extremity ROM Assessment Within Functional Limits Strength Upper Extremity Strength Assessment Within Functional Limits Shoulder 4/5 MMT Elbow 4/5 MMT Wrist 4/5 MMT Lower Extremity Strength Assessment Within Functional Limits Hip 3/5 hip flex B; 4-/5 hip abd/ add MMT Knee 4-/5 MMT knee flex and ext Ankle 4-/5 MMT ankle dorsiflex and plantarflex Sensation Assessment Sensation Gross Sensation Right LE Impaired,Left LE Impaired Light Touch Impaired Comments Sensation Comments Decreased light touch sensation B below knee M7 PT-IP Assessment and Plan Start: 07/26/24 11:48 Freq: NEEDED Status: Active Protocol: Document 07/26/24 11:49 NM (Rec: 07/26/24 12:46 NM [id number]) PT Summary Assessment and Plan Potential Rehabilitation Potential Fair Status of Condition at Evaluation Stable Summary Impairments Pain,ROM,Strength,Balance, Sensation,Bed Mobility, Transfers,Gait,Activity Tolerance Assessment Summary Pt is a 68 y.o. presenting with decreased activity tolerance and weakness due to several co-morbidities, including Afib and RVR, recent ROMELIA, and SOB. He requires mod A to max A x1 for bed mobility and min A for repositioning, CGA for transfers to FWW to steady and gait with FWW x20 ft to steady. Tinetti gait and balance score 14/28, indicating increased fall risk with gait. Pt also demonstrates a strong posterior lean in sitting EOB. Pt is a poor historian. During PT evaluation, pt has several instances of lightheadedness with fluctuations in blood pressure with mobility; initial supine BP 107/75 mmHg, sitting 126/ 84 mHg, and BP to 104/71 mmHg following gait x20 ft. He requires several frequent seated rest breaks with transfers to EOB and sit <> stand to FWW. Pt also needs cueing to stay within FWW and CGA to steady with turns. Pt lives alone in a single story house and uses FWW or 4WW primarily for mobility; he has 1 step to enter or a ramp in garage. Previously pt was IND with ADLs/IADLs, but has a hx of several falls over past year. Pt does not have consistent help from family or friends. However, he demonstrates limitations with functional mobility and gait, in addition to decreased safety awareness with transfers; pt also has poor activity tolerance and frequent episodes of lightheadedness which increase risk of falls. Pt would benefit from assistance and HHPT if discharge to home or SNF; PT recommending SNF at this time due to above limitations. Goals Bed Mobility Goal Standby Assistance Transfer Goal Standby Assistance,Front Wheeled Walker,Four Wheeled Walker Gait Goal Standby Assistance,Front Wheel Walker,Four Wheel Walker Gait Distance 150 Other Goals Pt will perform at least 1 step without rail assist Days to Meet Goals 10 Frequency of Treatment Frequency Of Treatment Once a Day Treatment Plan Physical Therapy Treatment Plan Bed Mobility Training,Transfer Training,Gait Training, Therapeutic Exercise, Neuromuscular Re-ed Other Recommendations and Next Treatment Bed mobility, transfer, gait Focus training Recommendations To Nursing Amount of Assist Needed 1 Person Assist Discharge Recommendations PT Discharge Recommendations Home Health,SNF Rehab,Home vs SNF Other Discharge Recommendations Recommend discharge to SNF Transportation Needs at Discharge Private Vehicle
--- NOTE | 2024-07-26 13:31 | CM.DPC ---
DCP Continued: Reviewed EMR and team rounds for pt?s medical status. Per PT evaluation, pt recommended for SNF vs. Home with home health. DCP received verbal order to place OT evaluation orders for possible SNF referral, OT order placed. DCP entered room, introduced self and role. Patient states he is understanding of recommendation by PT, was hoping to discharge home. Pt consented to an initial referral to be sent to [facility]. DCP discussed other rehab options in case [facility] not available (in [place], closer to sister), pt does not wish for other referrals to be sent other than [facility]. DCP sent inital referral to [facility] for review, pending acceptance. Plan: Anticipating SNF Rehab, pending acceptance. CM Team will continue to follow for coordination of discharge plans. LORNA Fletcher
--- NOTE | 2024-07-26 14:36 | P.PN_ITS ---
Subjective Subjective Interval history: Had a bowel movement feels well. Had PT evaluate today and he was recommended for SNF. His BP is a bit soft. Was able to see discharge summary where he was supposed to be off of metoprolol and on 180 mg BID of cardizem. Medication list was updated. Exam Vital Signs (past 8 hours): - 07/26/24 07:31 07/26/24 07:39 07/26/24 07:40 Temperature Pulse Rate 96 H 98 H 97 H Respiratory Rate 22 Blood Pressure Pulse Oximetry 94 92 Oxygen Delivery Method Room Air 07/26/24 07:58 07/26/24 07:58 07/26/24 08:00 Temperature Pulse Rate 98 H 99 H Respiratory Rate Blood Pressure 104/67 Pulse Oximetry 95 95 Oxygen Delivery Method 07/26/24 08:34 07/26/24 09:00 07/26/24 09:00 Temperature 98.4 F Pulse Rate 104 H Respiratory Rate Blood Pressure Pulse Oximetry 95 Oxygen Delivery Method Room Air 07/26/24 10:00 07/26/24 11:00 07/26/24 11:16 Temperature Pulse Rate 93 H 95 H Respiratory Rate Blood Pressure 107/75 Pulse Oximetry 93 95 Oxygen Delivery Method 07/26/24 11:16 07/26/24 11:26 07/26/24 11:26 Temperature Pulse Rate 96 H 67 Respiratory Rate Blood Pressure 126/84 Pulse Oximetry 94 95 Oxygen Delivery Method 07/26/24 11:33 07/26/24 11:33 07/26/24 12:00 Temperature Pulse Rate 61 97 H Respiratory Rate Blood Pressure 104/71 Pulse Oximetry 95 91 Oxygen Delivery Method 07/26/24 12:00 Temperature 98.7 F Pulse Rate Respiratory Rate 24 Blood Pressure Pulse Oximetry Oxygen Delivery Method Oxygen Delivery Method Room Air Oxygen Flow Rate 0 Narrative Exam Narrative: NAD, alert and oriented. Fluent speech. Lungs are clear, normal rate and effort. Heart is irregular, no murmur gallop or rub. Abdomen is distended, mildly, but soft, and non-tender. Extremities are free of edema. Objective Labs 07/26/24 04:17 07/26/24 04:17 Labs: Laboratory Results - last 24 hr 07/26/24 04:17 WBC 10.8 RBC 3.03 L Hgb 10.9 L Hct 31.9 L MCV 105.2 H MCH 36.1 H MCHC 34.3 RDW 13.8 Plt Count 349 Neut % (Auto) 84.4 H Lymph % (Auto) 5.2 L [place] % (Auto) 9.8 Eos % (Auto) 0.3 L Baso % (Auto) 0.3 Neut # (Auto) 9100 H Lymph # (Auto) 600 L [place] # (Auto) 1100 H Eos # (Auto) 0 Baso # (Auto) 0 Sodium 132 L Potassium 3.9 Chloride 101 Carbon Dioxide 28 BUN 21 H Creatinine 0.98 Estimated GFR > 60 BUN/Creatinine Ratio 21.4 Glucose 90 Calcium 9.9 Magnesium 1.9 [facility] Medical History Lesion of bladder Acute urinary tract infection Bladder wall thickening Feeling of incomplete bladder emptying Chronic anticoagulation Urge incontinence History of renal calculi Urinary frequency Dysuria E. coli urinary tract infection Gross hematuria Cat bite of left lower leg with infection Tobacco abuse Gout Sleep apnea syndrome Hyperlipidemia Afib COPD (chronic obstructive pulmonary disease) Surgical History H/O knee surgery H/O shoulder surgery Social History household members: none Smoking Status: Current every day smoker alcohol intake: current Assessment & Plan Assessment & Plan narrative: 1. Atrial fibrillation with RVR. Present on admission and active. - was recently at [facility] with symptomatic bradycardia on metoprolol and diltiazem. - continue diltiazem 180 mg BID per discharge recommendations from [facility]. Rate is controlled today. - continue tele - PT evaluation recommended SNF. 2. Recent ROMELIA. Present on admission and improving. - Couple days ago Cr was 2.4 had been improving. Baseline 0.7 possibly. Continue to monitor renal function. - Cr is improving still, at 0.98 today. 3. UTI. Not present on admission are active. - Patient reports that he completed his antibiotic oral course. 4. Mild Hyponatremia. Present on admission and active. - monitor as above. Okay at 132 today. 5. Constipation and abdominal distention, present on admission and active. - CT was without overt obstruction, likely ileus. - started laxitive therapies with improvement thus far. PLAN: -continue dilt 180 mg BID, stop metoprolol. -out of bed, advance activity. PT/OT ordered. PT recommending SNF based on eval today. -added senna, miralax, and docusate orally. Had a bowel movement yesterday. Symptoms improved today. BAILEY: pending SNF DVT prophylaxis Eliquis. Code Status full code. Discharge to SNF once bed found. Time-Based Coding :: [TOTAL MINUTES] spent with patient and on the chart (including review of chart, obtaining history, exam, reviewing outside data, placing orders, documenting exam and treatment plan, and counseling patient) on [DATE].
[2024-07-26] MEDS: CALCIUM CARBONATE 500 MG TAB PO (17:16)
[2024-07-26] MEDS: MELATONIN 3 MG TABLET 18 MG PO (21:47)
[2024-07-26] MEDS: SODIUM CHLORIDE 0.9% FLUSH 10 ML IV ×2 (21:47→23:05)
[2024-07-26] MEDS: METOCLOPRAMIDE 10 MG/2 ML INJ 5 MG IV (23:05)
[2024-07-27] VITALS (23 sets, daily range): BP systolic 108–158; BP diastolic 57–84; PULSE 63–135; RESP 15–32; TEMP 36.1–36.6; O2SAT 87–96
[2024-07-27 05:18] LABS: Add Manual Diff / Slide Review NO; Basophils Absolute Auto 100 /uL (0-100); Basophils Percent Auto 0.6 % (0-2); Eosinophils Absolute Auto 100 /uL (0-450); Eosinophils Percent Auto 0.6 % (2-4); Hematocrit 32.3 % (41-53); Lymphocytes Absolute Auto 700 /uL (1100-4500); Lymphocytes Percent Auto 6.9 % (25-40); Mean Corpuscular Hemoglobin 35.7 PG (26-34); Monocytes Absolute Auto 800 /uL (0-900); Monocytes Percent Auto 7.5 % (3-14); Neutrophils Absolute Auto 8900 /uL (1500-7000); Neutrophils Percent Auto 84.4 % (50-75); Platelet Count 360 X10^3/uL (150-400); Red Blood Cell Count 3.08 X10^6/uL (4.5-5.9); Red Cell Distribution Width 13.9 % (11.6-14.8); White Blood Cell Count 10.5 X10^3/uL (4.5-11.0)
[2024-07-27 05:36] LABS: BUN Creatinine Ratio 19.6 (6-22); Blood Urea Nitrogen 18 mg/dL (9-20); Calcium 10.8 mg/dL (8.4-10.2); Carbon Dioxide 30 mmol/L (22-32); Chloride 99 mmol/L (98-107); Estimated Glomerular Filt Rate > 60 mL/min (>60); Glucose 97 mg/dL (80-110); HEMOLYSIS < 15 (0-50); Magnesium 1.7 mg/dL (1.6-2.3); Potassium 3.7 mmol/L (3.4-5.1); Sodium 130 mmol/L (137-145)
[2024-07-27] MEDS: dilTIAZem CD 180 MG CAP PO ×2 (09:44→21:28)
[2024-07-27] MEDS: TAMSULOSIN 0.4 MG CAPSULE PO ×2 (09:44→21:28)
[2024-07-27] MEDS: SENNOSIDES 8.6 MG TABLET 17.2 MG PO (09:44)
[2024-07-27] MEDS: polyethylene glycoL 3350 17 GM POWD.PACK PO (09:44)
[2024-07-27] MEDS: METOCLOPRAMIDE 10 MG/2 ML INJ 5 MG IV ×2 (09:44→16:43)
[2024-07-27] MEDS: APIXABAN 5 MG TABLET PO ×2 (09:44→21:28)
[2024-07-27] MEDS: CALCIUM CARBONATE 500 MG TAB PO ×2 (10:07→21:09)
[2024-07-27] MEDS: ONDANSETRON 4 MG/2 ML INJ IV ×2 (10:07→21:09)
[2024-07-27] MEDS: SODIUM CHLORIDE 0.9% FLUSH 10 ML IV ×2 (10:08→21:02)
--- NOTE | 2024-07-27 11:30 | PT-IP ANOTE ---
Checked on pt x2 this morning. Reports nausea and vomiting, he is not appropriate for PT at this time. PT will check on pt tomorrow.
[2024-07-27] MEDS: SODIUM CHLORIDE 0.9% 1,000 ML 100 ML IV (12:02)
--- NOTE | 2024-07-27 13:53 | CM.DPC ---
DCP SNF Planning: Per MD, pt with some ongoing n/v today and not yet medically stable to discharge. Per [employer], pt refused PT today due to feeling so poorly and PT will attempt again tomorrow Sun. SW spoke to [facility] admissions and they confirm they can accept the pt for SNF rehab but not admission staff this weekend but can accept Mon07/29/24. PASRR previously completed. Plan: SW to follow closely for further PT tomorrow to confirm SNF at d/c for plan of [facility] Monday unless pt makes significant progress with PT for home with HH. ESTEBAN Blanc
--- NOTE | 2024-07-27 13:54 | PM.PN.1 ---
Subjective Subjective Interval history: Nauseous again today, abdomen is soft. He otherwise feels okay. Did not work with therapy today due to nausea. Sodium a bit lower at 130, started on NS at 100 cc per hour. Exam Vital Signs (past 8 hours): - 07/27/24 07:00 07/27/24 07:00 07/27/24 11:00 Temperature 96.9 F L 97.8 F Pulse Rate 96 H 107 H Respiratory Rate 21 18 Blood Pressure 134/74 158/77 H Pulse Oximetry 94 92 Oxygen Delivery Method Room Air Oxygen Flow Rate 0 0 Fraction of Inspired Oxygen 21 SaO2/FiO2 Ratio 447 Oxygen Delivery Method Room Air Oxygen Flow Rate 0 Narrative Exam Narrative: NAD, alert and oriented. Fluent speech. Lungs are clear, normal rate and effort. Heart is irregular, no murmur gallop or rub. Abdomen is distended, mildly, but soft, and non-tender. Extremities are free of edema. Objective Labs 07/27/24 04:16 07/27/24 04:16 Labs: Laboratory Results - last 24 hr 07/27/24 04:16 WBC 10.5 RBC 3.08 L Hgb 11.0 L Hct 32.3 L MCV 105.0 H MCH 35.7 H MCHC 34.0 RDW 13.9 Plt Count 360 Neut % (Auto) 84.4 H Lymph % (Auto) 6.9 L [place] % (Auto) 7.5 Eos % (Auto) 0.6 L Baso % (Auto) 0.6 Neut # (Auto) 8900 H Lymph # (Auto) 700 L [place] # (Auto) 800 Eos # (Auto) 100 Baso # (Auto) 100 Sodium 130 L Potassium 3.7 Chloride 99 Carbon Dioxide 30 BUN 18 Creatinine 0.92 Estimated GFR > 60 BUN/Creatinine Ratio 19.6 Glucose 97 Calcium 10.8 H Magnesium 1.7 PFSH Medical History Lesion of bladder Acute urinary tract infection Bladder wall thickening Feeling of incomplete bladder emptying Chronic anticoagulation Urge incontinence History of renal calculi Urinary frequency Dysuria E. coli urinary tract infection Gross hematuria Cat bite of left lower leg with infection Tobacco abuse Gout Sleep apnea syndrome Hyperlipidemia Afib COPD (chronic obstructive pulmonary disease) Surgical History H/O knee surgery H/O shoulder surgery Social History household members: none Smoking Status: Current every day smoker alcohol intake: current Assessment & Plan Assessment & Plan narrative: 1. Atrial fibrillation with RVR. Present on admission and active. - was recently at [facility] with symptomatic bradycardia on metoprolol and diltiazem. - continue diltiazem 180 mg BID per discharge recommendations from [facility]. Rate is controlled today. - continue tele - PT evaluation recommended SNF. 2. Recent ROMELIA. Present on admission and improving. - Couple days ago Cr was 2.4 had been improving. Baseline 0.7 possibly. Continue to monitor renal function. - Cr is improving still, at 0.92 today. 3. UTI. Not present on admission are active. - Patient reports that he completed his antibiotic oral course. 4. Mild Hyponatremia. Present on admission and active. - monitor as above. Slightly lower at 130 today, with nausea will start some IV fluids. 5. Constipation and abdominal distention, present on admission and active. - CT was without overt obstruction, likely ileus. - started laxitive therapies with improvement thus far. PLAN: -continue dilt 180 mg BID, stop metoprolol. -out of bed, advance activity. PT/OT ordered. PT recommending SNF based on eval yesterday -added senna, miralax, and docusate orally. Had a bowel movement yesterday. Recurrent nausea today, unclear etiology may be slight hyponatremia will see if improved with IV fluids. BAILEY: pending SNF and improvement in nausea that recurred today. DVT prophylaxis Eliquis. Code Status full code. Time-Based Coding :: [TOTAL MINUTES] spent with patient and on the chart (including review of chart, obtaining history, exam, reviewing outside data, placing orders, documenting exam and treatment plan, and counseling patient) on [DATE].
[2024-07-27] MEDS: MELATONIN 3 MG TABLET 18 MG PO (21:28)
[2024-07-28] VITALS (32 sets, daily range): BP systolic 122–163; BP diastolic 64–79; PULSE 94–133; RESP 18–45; TEMP 36.2–37.1; O2SAT 81–95
[2024-07-28] MEDS: IPRATROPIUM 0.5 MG/2.5 ML NEB INH
[2024-07-28] MEDS: SODIUM CHLORIDE 0.9% FLUSH 10 ML IV ×4 (00:13→20:03)
[2024-07-28] MEDS: FAMOTIDINE 20 MG/2 ML VIAL IV (01:33)
[2024-07-28] MEDS: PANTOPRAZOLE 40 MG VIAL IV ×3 (01:33→20:02)
[2024-07-28] MEDS: METOCLOPRAMIDE 10 MG/2 ML INJ 5 MG IV ×2 (01:34→20:02)
[2024-07-28] MEDS: ONDANSETRON 4 MG/2 ML INJ IV (04:37)
[2024-07-28 05:51] LABS: BUN Creatinine Ratio 20.6 (6-22); Blood Urea Nitrogen 22 mg/dL (9-20); Calcium 11.2 mg/dL (8.4-10.2); Carbon Dioxide 31 mmol/L (22-32); Chloride 98 mmol/L (98-107); Estimated Glomerular Filt Rate > 60 mL/min (>60); Glucose 109 mg/dL (80-110); HEMOLYSIS < 15 (0-50); Magnesium 1.6 mg/dL (1.6-2.3); Potassium 3.8 mmol/L (3.4-5.1); Sodium 131 mmol/L (137-145)
[2024-07-28 08:22] LABS: Hematocrit 32.6 % (41-53); Hemoglobin 10.8 g/dL (13.5-17.5)
[2024-07-28] MEDS: SODIUM CHLORIDE 0.9% 1,000 ML 100 ML IV (08:39)
--- NOTE | 2024-07-28 10:24 | P.PN_ITS ---
Subjective Subjective Interval history: Nauseous again today, Overnight developed coffee ground emesis. Started on IV PPI. h/h is stable today. He does feel better this morning. Exam Vital Signs (past 8 hours): - 07/28/24 03:00 07/28/24 04:00 07/28/24 04:58 Temperature Pulse Rate 108 H 107 H Respiratory Rate 21 23 Blood Pressure 122/64 Pulse Oximetry 94 93 Oxygen Flow Rate 0 07/28/24 04:58 07/28/24 05:00 07/28/24 06:00 Temperature Pulse Rate 104 H 110 H 96 H Respiratory Rate 25 H 18 25 H Blood Pressure Pulse Oximetry 94 95 93 Oxygen Flow Rate 0 0 07/28/24 06:22 07/28/24 08:00 Temperature 97.2 F L 97.8 F Pulse Rate 108 H Respiratory Rate 21 Blood Pressure 137/66 Pulse Oximetry 95 Oxygen Flow Rate 0 Fraction of Inspired Oxygen 21 SaO2/FiO2 Ratio 438 Oxygen Delivery Method Room Air Oxygen Flow Rate 0 Narrative Exam Narrative: NAD, alert and oriented. Fluent speech. Lungs are clear, normal rate and effort. Heart is irregular, no murmur gallop or rub. Abdomen is distended, mildly, but soft, and non-tender. Extremities are free of edema. Objective Labs 07/28/24 04:49 07/28/24 04:49 Labs: Laboratory Results - last 24 hr 07/28/24 04:49 Hgb 10.8 L Hct 32.6 L Sodium 131 L Potassium 3.8 Chloride 98 Carbon Dioxide 31 BUN 22 H Creatinine 1.07 Estimated GFR > 60 BUN/Creatinine Ratio 20.6 Glucose 109 Calcium 11.2 H Magnesium 1.6 PFSH Medical History Lesion of bladder Acute urinary tract infection Bladder wall thickening Feeling of incomplete bladder emptying Chronic anticoagulation Urge incontinence History of renal calculi Urinary frequency Dysuria E. coli urinary tract infection Gross hematuria Cat bite of left lower leg with infection Tobacco abuse Gout Sleep apnea syndrome Hyperlipidemia Afib COPD (chronic obstructive pulmonary disease) Surgical History H/O knee surgery H/O shoulder surgery Social History household members: none Smoking Status: Current every day smoker alcohol intake: current Assessment & Plan Assessment & Plan narrative: 1. Atrial fibrillation with RVR. Present on admission and active. - was recently at [facility] with symptomatic bradycardia on metoprolol and diltiazem. - continue diltiazem 180 mg BID per discharge recommendations from [facility]. Rate is creeping up a bit, will see if improvement with IV fluids and PPI. Consider restarting low dose metoprolol. - continue tele - PT evaluation recommended SNF. 2. Recent ROMELIA. Present on admission and improving. - Couple days ago Cr was 2.4 had been improving. Baseline 0.7 possibly. Continue to monitor renal function. - Cr is improving still, at 0.92 today. 3. UTI. Not present on admission are active. - Patient reports that he completed his antibiotic oral course. 4. Mild Hyponatremia. Present on admission and active. - monitor as above. Improved to 131. Continue IV fluids today. 5. Constipation and abdominal distention, present on admission and active. - CT was without overt obstruction, likely ileus. - started laxitive therapies with improvement thus far. - PPI for #6 below. 6. Coffee ground emesis, not present on admission - continue IV PPI BID - if h/h remains stable no need for endoscopy. - okay to continue heart healthy diet. PLAN: -continue dilt 180 mg BID, stop metoprolol. -out of bed, advance activity. PT/OT ordered. PT recommending SNF based on eval -added senna, miralax, and docusate orally. Had a bowel movement yesterday. Recurrent nausea and coffee ground emesis, suspect gastritis. With stable h/h continue PPI no need for sugery consult for endoscopy at this time. If persistent or h/h decline then can consult surgery. BAILEY: pending SNF and improvement in nausea, stability of h/h. 1-2 more days expected. DVT prophylaxis Eliquis. Code Status full code. Time-Based Coding :: [TOTAL MINUTES] spent with patient and on the chart (including review of chart, obtaining history, exam, reviewing outside data, placing orders, documenting exam and treatment plan, and counseling patient) on [DATE].
--- NOTE | 2024-07-28 10:33 | CM.DPNOTE ---
DCP note QUANTITATIVE RESEARCHER reviewed EMR. Per RN, pt was up all night vomiting. Pt asked not to be disturbed at this time and allowed to rest. Per provider in morning rounds, potential for GI bleed? H&H stable so no plans for scope but will continue to follow closely. PT holding for today. per provider, could still be ready to dc Monday to pending N/V. QUANTITATIVE RESEARCHER updated January at , able to take him anytime the next few days. PASRR previously completed. Plan: CM team to follow closely for further PT/OT tomorrow to confirm SNF at d/c for plan of [facility] when medically stable unless pt makes significant progress with PT for home with HH. Jesica Malik, ESTEBAN
--- NOTE | 2024-07-28 11:53 | PT-IP ANOTE ---
Pt discussed in rounds. Per hospitalist, hold PT again today given nausea. Con't efforts next date.
--- NOTE | 2024-07-28 13:04 | PC.NURSE ---
0900 - Patient states they are nauseous and feeling unwell. Requested uninterrupted sleep due to being awake vomiting all night. PO medications withheld due to nausea, provider made aware. Patient woke up around 1300, stated they were feeling better, but declined anything PO. Will continue to monitor.
[2024-07-28 16:24] LABS: Hematocrit 29.6 % (41-53); Hemoglobin 10.1 g/dL (13.5-17.5)
[2024-07-28] MEDS: MELATONIN 3 MG TABLET 18 MG PO (20:02)
[2024-07-28] MEDS: dilTIAZem CD 180 MG CAP PO (20:02)
[2024-07-28] MEDS: TAMSULOSIN 0.4 MG CAPSULE PO (20:02)
[2024-07-28] MEDS: APIXABAN 5 MG TABLET PO (20:03)
[2024-07-29] VITALS (32 sets, daily range): BP systolic 119–159; BP diastolic 57–74; PULSE 78–112; RESP 16–36; TEMP 36.4–36.9; O2SAT 85–97
[2024-07-29 05:03] LABS: Hematocrit 29.1 % (41-53); Hemoglobin 9.8 g/dL (13.5-17.5)
[2024-07-29 05:35] LABS: Alanine Aminotransferase 16 IU/L (<50); Albumin 2.7 g/dL (3.5-5.0); Alkaline Phosphatase 69 U/L (38-126); Aspartate Aminotransferase 18 IU/L (17-59); BUN Creatinine Ratio 16.8 (6-22); Bilirubin Total 0.5 mg/dL (0.2-1.3); Blood Urea Nitrogen 16 mg/dL (9-20); Calcium 9.9 mg/dL (8.4-10.2); Carbon Dioxide 29 mmol/L (22-32); Chloride 100 mmol/L (98-107); Estimated Glomerular Filt Rate > 60 mL/min (>60); Globulin 2.6 g/dL (1.7-4.1); Glucose 87 mg/dL (80-110); HEMOLYSIS < 15 (0-50); Magnesium 1.5 mg/dL (1.6-2.3); Potassium 3.8 mmol/L (3.4-5.1); Sodium 130 mmol/L (137-145); Total Protein 5.3 g/dL (6.3-8.2)
[2024-07-29] MEDS: polyethylene glycoL 3350 17 GM POWD.PACK PO (08:51)
[2024-07-29] MEDS: PANTOPRAZOLE 40 MG VIAL IV ×2 (08:52→20:06)
[2024-07-29] MEDS: APIXABAN 5 MG TABLET PO ×2 (08:52→20:06)
[2024-07-29] MEDS: SENNOSIDES 8.6 MG TABLET 17.2 MG PO (08:52)
[2024-07-29] MEDS: dilTIAZem CD 180 MG CAP PO ×2 (08:52→20:06)
[2024-07-29] MEDS: SODIUM CHLORIDE 0.9% FLUSH 10 ML IV ×2 (08:53→20:30)
[2024-07-29] MEDS: TAMSULOSIN 0.4 MG CAPSULE PO ×2 (08:53→20:06)
[2024-07-29] MEDS: MAGNESIUM SULFATE 2 GM/50 ML PIGGYBACK IV (08:53)
--- NOTE | 2024-07-29 11:59 | PM.PN.1 ---
Subjective Subjective Interval history: Improved nausea today and no abdominal pain. Not taking much oral intake. No bowel movement since Monday again. Getting laxitive therapies. Exam Vital Signs (past 8 hours): - 07/29/24 04:00 07/29/24 04:00 07/29/24 04:12 Temperature 98.5 F Pulse Rate 102 H 102 H Respiratory Rate 20 21 Blood Pressure 139/67 139/67 Pulse Oximetry 94 93 07/29/24 04:12 07/29/24 05:00 07/29/24 06:00 Temperature Pulse Rate 103 H 100 H 101 H Respiratory Rate 26 H 36 H 36 H Blood Pressure Pulse Oximetry 94 92 93 07/29/24 07:00 07/29/24 07:35 07/29/24 07:35 Temperature Pulse Rate 95 H 98 H Respiratory Rate 27 H 29 H Blood Pressure 150/63 H Pulse Oximetry 93 93 07/29/24 08:00 Temperature Pulse Rate 94 H Respiratory Rate 24 Blood Pressure Pulse Oximetry 93 Fraction of Inspired Oxygen 21 SaO2/FiO2 Ratio 438 Oxygen Delivery Method Room Air Oxygen Flow Rate 0 Narrative Exam Narrative: NAD, alert and oriented. Fluent speech. Lungs are clear, normal rate and effort. Heart is irregular, no murmur gallop or rub. Abdomen is distended, mildly, but soft, and non-tender. Extremities are free of edema. Objective Labs 07/29/24 04:11 07/29/24 04:11 Labs: Laboratory Results - last 24 hr 07/28/24 07/29/24 16:15 04:11 Hgb 10.1 L 9.8 L Hct 29.6 L 29.1 L Sodium 130 L Potassium 3.8 Chloride 100 Carbon Dioxide 29 BUN 16 Creatinine 0.95 Estimated GFR > 60 BUN/Creatinine Ratio 16.8 Glucose 87 Calcium 9.9 Magnesium 1.5 L Total Bilirubin 0.5 AST 18 ALT 16 Alkaline Phosphatase 69 Total Protein 5.3 L Albumin 2.7 L Globulin 2.6 Albumin/Globulin Ratio 1.0 [facility] Medical History Lesion of bladder Acute urinary tract infection Bladder wall thickening Feeling of incomplete bladder emptying Chronic anticoagulation Urge incontinence History of renal calculi Urinary frequency Dysuria E. coli urinary tract infection Gross hematuria Cat bite of left lower leg with infection Tobacco abuse Gout Sleep apnea syndrome Hyperlipidemia Afib COPD (chronic obstructive pulmonary disease) Surgical History H/O knee surgery H/O shoulder surgery Social History household members: none Smoking Status: Current every day smoker alcohol intake: current Assessment & Plan Assessment & Plan narrative: 1. Atrial fibrillation with RVR. Present on admission and active. - was recently at [facility] with symptomatic bradycardia on metoprolol and diltiazem. - continue diltiazem 180 mg BID per discharge recommendations from [facility]. Rate is controlled generally. Consider restarting low dose metoprolol - continue tele - PT evaluation recommended SNF. - okay to continue on anticoagulation, though if continued decline in h/h will need to consider stopping. 2. Recent ROMELIA. Present on admission and improving. - Couple days ago Cr was 2.4 had been improving. Baseline 0.7 possibly. Continue to monitor renal function. - Cr now stabilized, at 0.95 today. 3. UTI. Not present on admission are active. - Patient reports that he completed his antibiotic oral course. 4. Mild Hyponatremia. Present on admission and active. - monitor as above. 130 today. Continue IV fluids today. 5. Constipation and abdominal distention, present on admission and active. - CT was without overt obstruction, likely ileus. - started laxitive therapies with improvement thus far. - PPI for #6 below. - if no bowel movement and minimal PO intake again tomorrow, will repeat CT. 6. Coffee ground emesis, not present on admission, with acute blood loss anemia - continue IV PPI BID - h/h decline possibly due to IV fluids, continue to follow. If melena will consult for endoscopy though no bowel movements since Monday. PLAN: -continue dilt 180 mg BID, stop metoprolol. -out of bed, advance activity. PT/OT ordered. PT recommending SNF based on eval -added senna, miralax, and docusate orally. Had a bowel movement last on Monday. Recurrent nausea and coffee ground emesis yesterday, suspect gastritis. -repeat CT tomorrow if no bowel movement and still nauseous. -if continued decline in h/h consider surgery consult for endoscopy. BAILEY: pending SNF and improvement in nausea, stability of h/h. 1-2 more days expected. DVT prophylaxis Eliquis currently. Code Status full code. Time-Based Coding :: [TOTAL MINUTES] spent with patient and on the chart (including review of chart, obtaining history, exam, reviewing outside data, placing orders, documenting exam and treatment plan, and counseling patient) on [DATE].
--- NOTE | 2024-07-29 14:40 | PT-IP ANOTE ---
PT checks in as pt stepping back to bed with OT. His HR increases to the low 130s briefly and returns to the 120s BPM. He declines further mobility with PT and OOB to chair. Recommend SNF at d/c given pt's low activity tolerance and ongoing tachycardia.
--- NOTE | 2024-07-29 14:44 | OT.IP.EVAL ---
Current Diagnoses Unspecified atrial fibrillation (07/23/24) Past Medical History (Last Reviewed 07/24/24 @ 08:00 by Eric Mabry MD) Acute urinary tract infection Afib Bladder wall thickening Cat bite of left lower leg with infection Chronic anticoagulation COPD (chronic obstructive pulmonary disease) Dysuria E. coli urinary tract infection Feeling of incomplete bladder emptying Gout Gross hematuria History of renal calculi Hyperlipidemia Lesion of bladder Sleep apnea syndrome Tobacco abuse Urge incontinence Urinary frequency Surgical History (Last Reviewed 07/24/24 @ 08:00 by Eric Mabry MD) H/O knee surgery H/O shoulder surgery Occupational Therapy Inpatient Evaluation/Re-Eval M1 PT/OT-IP Prior Functional Status Start: 07/26/24 11:48 Freq: NEEDED Status: Active Protocol: Document 07/29/24 16:59 CGR (Rec: 07/29/24 17:08 CGR [id number]) Medical Review Prior Functional Status Medical History Reviewed Yes Communication Pt is an 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 Mobility and Gait Use of FWW, 4WW and spc for mobility; household mobility only, using 4WW Usually sleeps in bed Hx of several falls over past year, including feeling lightheaded and dizzy, especially with transfers and mobility Activities of Daily Living and IADL's Pt reports IND with ADLs/IADLs , living independently until 1 month previously Prior Functional Level (Other details) Reliant on older sister, Danisha , and local friend Brown for assistance at home Social History Household Members none Living Arrangements House Number of Floors (Floors) One Floor Number of Stairs To Enter/Railing? 1 stair to enter in front without rails. Ramp to enter at garage without rails; this is pt's primary method of entry Home Equipment Straight Cane,Tub Transfer Bench,Grab Bars Near Toilet Additional Social History Comment Hx of several hospitaliztions and falls; pt is poor historian for timeline and conflates dates/events during subjective hx Pt states has ordered a lifted recliner which will arrive in upcoming week M2 OT-IP Current Condition Start: 07/29/24 16:58 Freq: Status: Active Protocol: Document 07/29/24 16:59 CGR (Rec: 07/29/24 17:08 CGR [id number]) Occupational Therapy Current Condition Current Condition Evaluation Date 07/29/24 Treatment Diagnosis nausea and vomiting, coffee ground emesis Diagnosis Onset Date 07/23/24 M3 OT- IP Subjective and Pain Start: 07/29/24 16:58 Freq: Status: Active Protocol: Document 07/29/24 16:59 CGR (Rec: 07/29/24 17:08 CGR [id number]) OT- Subjective Occupational Therapy Visit Type Type Initial Evaluation Visit Start Time 14:24 Visit Stop Time 14:44 Notes Partial co-treat with P.T. entereing the room. OT Pain Assessment Pain When Pain Assessed At Rest Pain Present Pain Present Denied Pain M4 OT- IP ADL's Start: 07/29/24 16:58 Freq: Status: Active Protocol: Document 07/29/24 16:59 CGR (Rec: 07/29/24 17:08 CGR [id number]) OT [id number] Comments OT Self-Feeding Comments not meal time OT ADL-Grooming General Evaluation Grooming Ability Independent Areas Needing Assistance Face Washing Comments OT Grooming Comments standing at sink OT ADL-Oral Care General Eval Oral Care Ability Standby Assistance Areas of Assistance Brushing Teeth Comments Oral Care Comments standing at sink OT ADL-Dressing General Eval Lower Body Dressing Ability Total Assistance Areas Needing Assistance Socks Comments OT Dressing Comments sitting EOB OT ADL-Toileting Comments OT Toileting Comments Pt declines need OT ADL-Bathing Comments OT Bathing Comments not performed M5 OT- IP IADL's Start: 07/29/24 16:58 Freq: Status: Active Protocol: Document 07/29/24 16:59 CGR (Rec: 07/29/24 17:08 CGR [id number]) OT-Instrumental Activities of Daily Living Deficits IADL Deficits Identified No Deficits Home Safety Awareness Awareness of Need for Assistance at Home Decreased Awareness Ability to Problem Solve Emergency Able to Problem Solve Situations Medication Management Medication Management Comments Concerns regarding pt's ability to perform safely. Money Management Money Management Comments Concerns regarding pt's ability to perform safely. Meal Preparation Meal Preparation Comments Concerns regarding pt's ability to perform safely. Hydrometallurgical Engineer Hydrometallurgical Engineer Comments Concerns regarding pt's ability to perform safely. 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 OT- IP Functional Cognition Start: 07/29/24 16:58 Freq: Status: Active Protocol: Document 07/29/24 16:59 CGR (Rec: 07/29/24 17:08 R [id number]) Cognitive Factors Limiting Selfcare Function Cognitive Ability Level of Alertness Alert Patient Orientation Name,Age,Birthday,Month,Date, Year,Day of Week,Place, Situation Attention Span Ability Capable of Focused Attention, Capable of Sustained Attention Ability to Follow Commands Able to Follow One Step Commands with Increased Time, Able to Follow One Step Commands with Repetition Cognitive Comments Cognitive Assessment Comments May benefit from formal cog assessment. OT- Vision and Hearing OT- Hearing Assessment OT- Hearing Assessment WFL OT- Vision Assessment Visual Acuity Glasses For Reading Visual Attentiveness WFL Occular Pursuits WFL Visual Convergence WFL M7 OT- IP Mobility and Balance Start: 07/29/24 16:58 Freq: Status: Active Protocol: Document 07/29/24 16:59 CGR (Rec: 07/29/24 17:08 R [id number]) OT- Bed Mobility Assessment Supine to Sit Supine to Sit Assist Minimal Assistance Sit to Supine Sit to Supine Assist Minimal Assistance Scooting Scooting to Edge of Bed Standby Assistance OT-Transfer Assessment Sit to and From Stand Sit to and from Stand Contact Guard Assistance Transfers Transfer Ability Contact Guard Assistance Technique Transfer Destination Bed Transfer Technique Stand Step Pivot Devices Transfer Assistive Devices Gait Belt,Front Wheeled Walker Comments Mobility Comments Bed to sink for ADLs standing then returned to bed as pt would like to nap. OT- Balance Assessment Sitting Balance and Reactions Static Sitting Balance Ability Good Dynamic Sitting Balance Ability Good M8 OT- IP Objective Assessments Start: 07/29/24 16:58 Freq: Status: Active Protocol: Document 07/29/24 16:59 CGR (Rec: 07/29/24 17:08 CGR [id number]) OT Gross Range of Motion Upper Extremity Range of Motion Assessment Within Functional Limits OT Strength Upper Extremity Strength Assessment Bilaterally Impaired Comments Strength Comments grossly 3/5 to shlds and 3+/5 to arms and hands. OT- Coordination Assessment Upper Extremity Finger to Nose Test Within Functional Limits Finger Tapping Test Within Functional Limits OT-Muscle Tone Assessment Muscle Tone WNL Yes OT Sensation Assessment Edema Edema Absent M9 OT- IP Assessment and Plan Start: 07/29/24 16:58 Freq: Status: Active Protocol: Document 07/29/24 16:59 CGR (Rec: 07/29/24 17:08 R [id number]) OT Summary Assessment and Plan Potential Rehabilitation Potential Good Analytic Complexity at Evaluation Moderate Summary OT Impairments Strength,Balance,Functional Cognition,Functional Mobility, Grooming,Dressing,Toileting, Bathing,Toilet Transfers, Shower Transfers,Activity Tolerance Progress Towards Goals Progressing Toward Goals Assessment Summary Pt presents as a moderate complexity evaluation s/p admit for nausea and vomiting. Pt is now doing better and was able to ambulate to sink for ADLs. Pt has been declining in his abilities at home and now shows even more of a decline that will likely be improved by a rehab stay. Pt will continue to benefit from therapy services while hospitalized and will benefit from Rehab upon discharge. Goals Grooming Goal Independent Dressing Goal Independent Toileting Goal Independent Bathing Goal Independent Toilet Transfer Goal Independent Shower Transfer Goal Independent Days to Meet Goals 15 Frequency of Treatment Other frequency 5x per week Treatment Plan OT Treatment Plan ADL Training,Functional Cognition Training,Functional Mobility,Patient/Family Education,Discharge Planning Other Treatment Recommendations and Next Cog assessment, shower, ADLs Treatment Focus standing, LB dressing. Discharge Recommendations OT Discharge Recommendations SNF Rehab Transportation Needs at Discharge Private Vehicle
--- NOTE | 2024-07-29 15:40 | DIET.CONS ---
Dietary Consultation Note Admission Date: 07/23/2024 22:01 Assessment: 68 y M admitted for management of afib with RVR, UTI, recent ROMELIA. Pt presented to ED reporting nausea and vomiting as well. RD screened for LOS. Attempted to meet with pt this afternoon, with OT. Pt with poor PO intakes r/t nausea. Recorded POs <50% for 6 days. Pt without BM since Monday, started laxative therapies today. Per ED note, pt typically has 3-4 alcoholic drinks per day, but none recently d/t nausea/vomiting No recent weight loss per chart. Ht: 172.72 cm Wt: 104.5 kg BMI: 35.0 UBW: 104.326 kg on 12/12/23 Last BM: 07/26/24 (07/26/24 06:00) MNA: 12 Stewart Score: 15 Diet: 07/23/24 Breakfast Heart Healthy Diet Diet Modifications: Nutrition Percent Meal Consumed 0% 07/27/24 18:00 Percent Meal Consumed 0% 07/27/24 14:00 Labs: RBC 3.08 X10^6/uL (4.5-5.9) L 07/27/24 04:16 Hgb 9.8 g/dL (13.5-17.5) L 07/29/24 04:11 Hct 29.1 % (41-53) L 07/29/24 04:11 Creatinine 0.95 mg/dL (0.66-1.25) 07/29/24 04:11 NT-Pro-B Natriuret Pep 1490 pg/mL (<125) H 07/23/24 18:19 Nutrition Diagnosis: Inadequate oral intake r/t nausea/vomiting aeb <50% recorded PO intakes for 6 days Interventions: 1. ONS TID EER: [id number] kcals (MSJx1.25) 80 g protein (1g/kg per age) Monitoring/Evaluations: po intakes Electronically Signed by: Cora Laird 07/29/24 15:40 Clinical Dietitian [address] [address]
[2024-07-29] MEDS: NYSTATIN POWDER 15GM 1 APPLIC TOP (17:09)
[2024-07-29] MEDS: MELATONIN 3 MG TABLET 18 MG PO (20:06)
[2024-07-30] VITALS (24 sets, daily range): BP systolic 93–158; BP diastolic 55–72; PULSE 78–103; RESP 14–46; TEMP 36.1–36.4; O2SAT 92–96
[2024-07-30 06:17] LABS: Hematocrit 29.8 % (41-53)
[2024-07-30 06:29] LABS: Alanine Aminotransferase 16 IU/L (<50); Albumin 2.7 g/dL (3.5-5.0); Alkaline Phosphatase 67 U/L (38-126); Aspartate Aminotransferase 22 IU/L (17-59); BUN Creatinine Ratio 15.8 (6-22); Bilirubin Total 0.5 mg/dL (0.2-1.3); Blood Urea Nitrogen 15 mg/dL (9-20); Calcium 9.5 mg/dL (8.4-10.2); Carbon Dioxide 29 mmol/L (22-32); Chloride 99 mmol/L (98-107); Estimated Glomerular Filt Rate > 60 mL/min (>60); Globulin 2.6 g/dL (1.7-4.1); Glucose 96 mg/dL (80-110); HEMOLYSIS 26 (0-50); Magnesium 1.7 mg/dL (1.6-2.3); Potassium 3.8 mmol/L (3.4-5.1); Sodium 129 mmol/L (137-145); Total Protein 5.3 g/dL (6.3-8.2)
[2024-07-30] MEDS: NYSTATIN POWDER 15GM 1 APPLIC TOP (09:00)
[2024-07-30] MEDS: PANTOPRAZOLE 40 MG VIAL IV ×2 (09:54→20:24)
[2024-07-30] MEDS: polyethylene glycoL 3350 17 GM POWD.PACK PO (09:55)
[2024-07-30] MEDS: SODIUM CHLORIDE 0.9% FLUSH 10 ML IV ×3 (09:55→20:25)
[2024-07-30] MEDS: APIXABAN 5 MG TABLET PO ×2 (09:55→20:24)
[2024-07-30] MEDS: TAMSULOSIN 0.4 MG CAPSULE PO ×2 (09:55→20:24)
[2024-07-30] MEDS: FUROSEMIDE 40 MG/4 ML VIAL IV ×2 (09:55→17:41)
[2024-07-30] MEDS: SENNOSIDES 8.6 MG TABLET 17.2 MG PO (09:55)
[2024-07-30] MEDS: dilTIAZem CD 180 MG CAP PO ×2 (09:55→20:24)
[2024-07-30] MEDS: MAGNESIUM CHLORIDE 64 MG TABLET 128 MG PO (09:55)
--- NOTE | 2024-07-30 10:59 | CM.DPC ---
DCP Continued: Reviewed EMR and team rounds for pt?s medical status. Per rounds, pt's Sodium is decreasing and has not had a bowel movement. Hopeful diuresis intervention will assist before being cleared to SNF. [facility] still tracking with pt. DCP updated [facility] admissions and discussed hopeful plan for Monday, 07/31. Plan: Anticipating [facility] on 07/31 or when medically cleared. CM Team will continue to follow for coordination of discharge plans. LORNA Fletcher
--- NOTE | 2024-07-30 11:10 | P.PN_ITS ---
Subjective Subjective Interval history: Improved nausea today and no abdominal pain. Not taking much oral intake. No bowel movement since Monday again. Getting laxitive therapies. Exam Vital Signs (past 8 hours): - 07/30/24 04:00 07/30/24 04:00 07/30/24 04:03 Temperature 97.2 F L Pulse Rate 91 H 88 88 Respiratory Rate 19 29 H 39 H Blood Pressure 140/61 Pulse Oximetry 92 93 Oxygen Flow Rate 0 07/30/24 04:03 07/30/24 05:00 07/30/24 06:00 Temperature Pulse Rate 86 86 Respiratory Rate 36 H 29 H Blood Pressure 140/61 Pulse Oximetry Oxygen Flow Rate 07/30/24 08:00 07/30/24 08:21 07/30/24 08:40 Temperature 97.0 F L Pulse Rate 78 Respiratory Rate Blood Pressure 110/72 Pulse Oximetry Oxygen Flow Rate 07/30/24 08:40 Temperature Pulse Rate 99 H Respiratory Rate 29 H Blood Pressure Pulse Oximetry 92 Oxygen Flow Rate Fraction of Inspired Oxygen 21 SaO2/FiO2 Ratio 438 Oxygen Delivery Method Room Air Oxygen Flow Rate 0 Narrative Exam Narrative: NAD, alert and oriented. Fluent speech. Lungs are clear, normal rate and effort. Heart is irregular, no murmur gallop or rub. Abdomen is non-distended, soft, and non-tender. Extremities are free of edema. Objective Labs 07/30/24 06:04 07/30/24 06:04 Labs: Laboratory Results - last 24 hr 07/30/24 06:04 Hgb 10.0 L Hct 29.8 L Sodium 129 L Potassium 3.8 Chloride 99 Carbon Dioxide 29 BUN 15 Creatinine 0.95 Estimated GFR > 60 BUN/Creatinine Ratio 15.8 Glucose 96 Calcium 9.5 Magnesium 1.7 Total Bilirubin 0.5 AST 22 ALT 16 Alkaline Phosphatase 67 Total Protein 5.3 L Albumin 2.7 L Globulin 2.6 Albumin/Globulin Ratio 1.0 [facility] Medical History Lesion of bladder Acute urinary tract infection Bladder wall thickening Feeling of incomplete bladder emptying Chronic anticoagulation Urge incontinence History of renal calculi Urinary frequency Dysuria E. coli urinary tract infection Gross hematuria Cat bite of left lower leg with infection Tobacco abuse Gout Sleep apnea syndrome Hyperlipidemia Afib COPD (chronic obstructive pulmonary disease) Surgical History H/O knee surgery H/O shoulder surgery Social History household members: none Smoking Status: Current every day smoker alcohol intake: current Assessment & Plan Assessment & Plan narrative: 1. Atrial fibrillation with RVR. Present on admission and active. - was recently at [facility] with symptomatic bradycardia on metoprolol and diltiazem. - continue diltiazem 180 mg BID per discharge recommendations from [facility]. Rate is controlled generally. Consider restarting low dose metoprolol - continue tele - PT evaluation recommended SNF. - okay to continue on anticoagulation, though if continued decline in h/h will need to consider stopping. - EF on 04/2023 was normal. 2. Recent ROMELIA. Present on admission and improving. - Couple days ago Cr was 2.4 had been improving. Baseline 0.7 possibly. Continue to monitor renal function. - Cr now stabilized, at 0.95 today. 3. UTI. Not present on admission are active. - Patient reports that he completed his antibiotic oral course. 4. Mild Hyponatremia. Present on admission and active. - monitor as above. 130 today. Continue IV fluids today. 5. Constipation and abdominal distention, present on admission and active. - CT was without overt obstruction, likely ileus. - started laxitive therapies with improvement thus far. - PPI for #6 below. - given holding home diuretic, may be some abdominal fluid build up from heart failure. Will attempt IV diuresis today to see if improvement in persistent nausea. 6. Coffee ground emesis, not present on admission, with acute blood loss anemia - continue IV PPI BID - h/h decline possibly due to IV fluids, continue to follow. If melena will consult for endoscopy though no bowel movements since Monday. 7. Possible acute diastolic heart failure. - diuresis as above. PLAN: -will attempt diuresis today to see if improvement in nausea and tolerance of oral intake. -continue dilt 180 mg BID, stop metoprolol. -out of bed, advance activity. PT/OT ordered. PT recommending SNF based on eval -added senna, miralax, and docusate orally. Had a bowel movement last on Monday. Recurrent nausea and coffee ground emesis, suspect gastritis. H/h stable no need for endoscopy as inpatient. BAILEY: pending SNF and improvement in nausea, stability of h/h. 1-2 more days expected. DVT prophylaxis Eliquis currently. Code Status full code. Time-Based Coding :: [TOTAL MINUTES] spent with patient and on the chart (including review of chart, obtaining history, exam, reviewing outside data, placing orders, documenting exam and treatment plan, and counseling patient) on [DATE].
--- NOTE | 2024-07-30 11:57 | OT.IP.TRT ---
Current Diagnoses Unspecified atrial fibrillation (07/23/24) Occupational Therapy Treatment Note M2 OT-IP Current Condition Start: 07/29/24 16:58 Freq: Status: Active Protocol: Document 07/29/24 16:59 [facility] (Rec: 07/29/24 17:08 CGR [id number]) Occupational Therapy Current Condition Current Condition Evaluation Date 07/29/24 Treatment Diagnosis nausea and vomiting, coffee ground emesis Diagnosis Onset Date 07/23/24 M3 OT- IP Subjective and Pain Start: 07/29/24 16:58 Freq: Status: Active Protocol: Document 07/30/24 12:25 [facility] (Rec: 07/30/24 12:36 [facility] [id number]) OT- Subjective Occupational Therapy Visit Type Type Treatment Note Visit Start Time 11:06 Visit Stop Time 11:57 Occupational Therapy Visit Comments Patient Comments Pt wanting to use the bathroom and agreed to go SLUMS. Patient/Caregiver Goals TO go home, pt states would prefer to hire assist at home versus going to SNF. OT Pain Assessment Pain When Pain Assessed At Rest Pain Present Pain Present Denied Pain M4 OT- IP ADL's Start: 07/29/24 16:58 Freq: Status: Active Protocol: Document 07/30/24 12:25 [facility] (Rec: 07/30/24 12:36 [facility] [id number]) OT [id number] Comments OT Self-Feeding Comments not meal time OT ADL-Grooming Comments OT Grooming Comments NOt performed. OT ADL-Oral Care Comments Oral Care Comments Pt states did earlier. OT ADL-Dressing Comments OT Dressing Comments Not performed. OT ADL-Toileting General Evaluation Toileting Ability Standby Assistance Comments OT Toileting Comments Pt able to stand with the FWW over the toilet and attempted to urinate without sucess. OT ADL-Bathing Comments OT Bathing Comments Pt will benefit from assist. M5 OT- IP IADL's Start: 07/29/24 16:58 Freq: Status: Active Protocol: Document 07/29/24 16:59 CGR (Rec: 07/29/24 17:08 CGR [id number]) OT-Instrumental Activities of Daily Living Deficits IADL Deficits Identified No Deficits Home Safety Awareness Awareness of Need for Assistance at Home Decreased Awareness Ability to Problem Solve Emergency Able to Problem Solve Situations Medication Management Medication Management Comments Concerns regarding pt's ability to perform safely. Money Management Money Management Comments Concerns regarding pt's ability to perform safely. Meal Preparation Meal Preparation Comments Concerns regarding pt's ability to perform safely. Pollution Control Chemist Pollution Control Chemist Comments Concerns regarding pt's ability to perform safely. 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 Pt able to recall 10 animals in one minute, able to recall 2/5 objects after time passed,not able to draw the hour hands of the clock correctly after time given and not able to recall a 4 digit number backwards Cognitive Comments Cognitive Assessment Comments Pt scored 470 seconds on [place] making Part B which implies severe impairments for speed of processing, mental flexibility, executive functioning, task switching, and problem solving. Pt realizing that he is not thinking well and to not drive at this time. Pt feels that he is very far from his baseline cognitively. M7 OT- IP Mobility and Balance Start: 07/29/24 16:58 Freq: Status: Active Protocol: Document 07/30/24 12:25 [facility] (Rec: 07/30/24 12:36 [facility] [id number]) OT-Transfer Assessment Sit to and From Stand Sit to and from Stand Standby Assistance Transfers Transfer Ability Standby Assistance Technique Transfer Destination Bed,Chair Transfer Technique Stand Step Pivot Devices Transfer Assistive Devices Gait Belt,Front Wheeled Walker Comments Mobility Comments close SBA with FWW. Pt needing use of BUE to slow his descent when coming to sit down. OT- Balance Assessment Sitting Balance and Reactions Static Sitting Balance Ability Good Dynamic Sitting Balance Ability Good Standing Balance and Reactions Static Standing Balance Ability Good Dynamic Standing Balance Ability Fair M8 OT- IP Objective Assessments Start: 07/29/24 16:58 Freq: Status: Active Protocol: Document 07/29/24 16:59 [facility] (Rec: 07/29/24 17:08 CGR [id number]) OT Gross Range of Motion Upper Extremity Range of Motion Assessment Within Functional Limits OT Strength Upper Extremity Strength Assessment Bilaterally Impaired Comments Strength Comments grossly 3/5 to shlds and 3+/5 to arms and hands. OT- Coordination Assessment Upper Extremity Finger to Nose Test Within Functional Limits Finger Tapping Test Within Functional Limits OT-Muscle Tone Assessment Muscle Tone WNL Yes OT Sensation Assessment Edema Edema Absent M9 OT- IP Assessment and Plan Start: 07/29/24 16:58 Freq: Status: Active Protocol: Document 07/30/24 12:25 [facility] (Rec: 07/30/24 12:36 [facility] [id number]) OT Summary Assessment and Plan Potential Rehabilitation Potential Good Analytic Complexity at Evaluation Moderate Summary OT Impairments Strength,Balance,Functional Cognition,Functional Mobility, Grooming,Dressing,Toileting, Bathing,Toilet Transfers, Shower Transfers,Activity Tolerance Progress Towards Goals Progressing Toward Goals,Slow Progress due to Cognition Assessment Summary Pt scored 23/30 ln the SLUMS which implies mild cognitive deficits and 470seconds on [place] Making Part B which implies severe deficits for problem solving , task switching, speed of precessing , mental flexibility, and executive functioning. Pt will benefit from skilled rehab versus go home with 20/03 assist in which pt is considering hiring assist at home. Goals Grooming Goal Independent Dressing Goal Independent Toileting Goal Independent Bathing Goal Independent Toilet Transfer Goal Independent Shower Transfer Goal Independent Days to Meet Goals 14 Frequency of Treatment Other frequency 5x per week Treatment Plan OT Treatment Plan ADL Training,Functional Cognition Training,Functional Mobility,Patient/Family Education,Discharge Planning Other Treatment Recommendations and Next shower, LB dressing Treatment Focus Discharge Recommendations OT Discharge Recommendations SNF Rehab Transportation Needs at Discharge Private Vehicle,Wheelchair/ Cabulance
--- NOTE | 2024-07-30 11:57 | OT.IP.TRT ---
Current Diagnoses Unspecified atrial fibrillation (07/23/24) Occupational Therapy Treatment Note M2 OT-IP Current Condition Start: 07/29/24 16:58 Freq: Status: Active Protocol: Document 07/29/24 16:59 C[facility] (Rec: 07/29/24 17:08 C[facility] [id number]) Occupational Therapy Current Condition Current Condition Evaluation Date 07/29/24 Treatment Diagnosis nausea and vomiting, coffee ground emesis Diagnosis Onset Date 07/23/24 M3 OT- IP Subjective and Pain Start: 07/29/24 16:58 Freq: Status: Active Protocol: Document 07/30/24 12:25 [facility] (Rec: 07/30/24 12:36 [facility] [id number]) OT- Subjective Occupational Therapy Visit Type Type Treatment Note Visit Start Time 11:06 Visit Stop Time 11:57 Occupational Therapy Visit Comments Patient Comments Pt wanting to use the bathroom and agreed to go SLUMS. Patient/Caregiver Goals TO go home, pt states would prefer to hire assist at home versus going to SNF, CM notified of pt's request to get info regarding caregivers. OT Pain Assessment Pain When Pain Assessed At Rest Pain Present Pain Present Denied Pain M4 OT- IP ADL's Start: 07/29/24 16:58 Freq: Status: Active Protocol: Document 07/30/24 12:25 [facility] (Rec: 07/30/24 12:36 [facility] [id number]) OT [id number] Comments OT Self-Feeding Comments not meal time OT ADL-Grooming Comments OT Grooming Comments NOt performed. OT ADL-Oral Care Comments Oral Care Comments Pt states did earlier. OT ADL-Dressing Comments OT Dressing Comments Not performed. OT ADL-Toileting General Evaluation Toileting Ability Standby Assistance Comments OT Toileting Comments Pt able to stand with the FWW over the toilet and attempted to urinate without success. OT ADL-Bathing Comments OT Bathing Comments Pt will benefit from assist. M5 OT- IP IADL's Start: 07/29/24 16:58 Freq: Status: Active Protocol: Document 07/29/24 16:59 [facility] (Rec: 07/29/24 17:08 [facility] [id number]) OT-Instrumental Activities of Daily Living Deficits IADL Deficits Identified No Deficits Home Safety Awareness Awareness of Need for Assistance at Home Decreased Awareness Ability to Problem Solve Emergency Able to Problem Solve Situations Medication Management Medication Management Comments Concerns regarding pt's ability to perform safely. Money Management Money Management Comments Concerns regarding pt's ability to perform safely. Meal Preparation Meal Preparation Comments Concerns regarding pt's ability to perform safely. Manager Merchandising Manager Merchandising Comments Concerns regarding pt's ability to perform safely. 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 Pt able to recall 8 animals in one minute, able to recall 2/5 objects after time passed, and able to answer 3/4 questions right after paragraph read. Cognitive Comments Cognitive Assessment Comments Pt scored 470 seconds on [place] making Part B which implies severe impairments for speed of processing, mental flexibility, executive functioning, task switching, and problem solving. Pt realizing that he is not thinking well and to not drive at this time. Pt feels that he is very far from his baseline cognitively. M7 OT- IP Mobility and Balance Start: 07/29/24 16:58 Freq: Status: Active Protocol: Document 07/30/24 12:25 [facility] (Rec: 07/30/24 12:36 [facility] [id number]) OT-Transfer Assessment Sit to and From Stand Sit to and from Stand Standby Assistance Transfers Transfer Ability Standby Assistance Technique Transfer Destination Bed,Chair Transfer Technique Stand Step Pivot Devices Transfer Assistive Devices Gait Belt,Front Wheeled Walker Comments Mobility Comments close SBA with FWW. Pt needing use of BUE to slow his descent when coming to sit down. OT- Balance Assessment Sitting Balance and Reactions Static Sitting Balance Ability Good Dynamic Sitting Balance Ability Good Standing Balance and Reactions Static Standing Balance Ability Good Dynamic Standing Balance Ability Fair M8 OT- IP Objective Assessments Start: 07/29/24 16:58 Freq: Status: Active Protocol: Document 07/29/24 16:59 [facility] (Rec: 07/29/24 17:08 [facility] [id number]) OT Gross Range of Motion Upper Extremity Range of Motion Assessment Within Functional Limits OT Strength Upper Extremity Strength Assessment Bilaterally Impaired Comments Strength Comments grossly 3/5 to shlds and 3+/5 to arms and hands. OT- Coordination Assessment Upper Extremity Finger to Nose Test Within Functional Limits Finger Tapping Test Within Functional Limits OT-Muscle Tone Assessment Muscle Tone WNL Yes OT Sensation Assessment Edema Edema Absent M9 OT- IP Assessment and Plan Start: 07/29/24 16:58 Freq: Status: Active Protocol: Document 07/30/24 12:25 [facility] (Rec: 07/30/24 12:36 [facility] [id number]) OT Summary Assessment and Plan Potential Rehabilitation Potential Good Analytic Complexity at Evaluation Moderate Summary OT Impairments Strength,Balance,Functional Cognition,Functional Mobility, Grooming,Dressing,Toileting, Bathing,Toilet Transfers, Shower Transfers,Activity Tolerance Progress Towards Goals Progressing Toward Goals,Slow Progress due to Cognition Assessment Summary Pt scored 23/30 ln the SLUMS which implies mild cognitive deficits and 470seconds on [place] Making Part B which implies severe deficits for problem solving , task switching, speed of precessing , mental flexibility, and executive functioning. Pt will benefit from skilled rehab versus go home with 20/03 assist in which pt is considering hiring assist at home. Goals Grooming Goal Independent Dressing Goal Independent Toileting Goal Independent Bathing Goal Independent Toilet Transfer Goal Independent Shower Transfer Goal Independent Days to Meet Goals 14 Frequency of Treatment Other frequency 5x per week Treatment Plan OT Treatment Plan ADL Training,Functional Cognition Training,Functional Mobility,Patient/Family Education,Discharge Planning Other Treatment Recommendations and Next shower, LB dressing Treatment Focus Discharge Recommendations OT Discharge Recommendations SNF Rehab Transportation Needs at Discharge Private Vehicle,Wheelchair/ Cabulance
--- NOTE | 2024-07-30 13:34 | PC.NURSE ---
Patient up with assistance to the bathroom, encouraged to try to increase activity as tolerated with assistance. Patient has not had BM, patient agrees to take miralax and stool softners. Denies abdominal pain, and nausea and vomiting. Appetite increasing, although refused breakfast, he states he normally only eats lunch and dinner. Call light withi nreach, bed alarm on for safety. Continue to monitor.
--- NOTE | 2024-07-30 14:45 | PT.IPTN ---
Current Diagnoses Unspecified atrial fibrillation (07/23/24) Physical Therapy Treatment Note M2 PT-IP Current Condition Start: 07/26/24 11:48 Freq: NEEDED Status: Active Protocol: Document 07/26/24 11:49 NM (Rec: 07/26/24 12:46 NM [id number]) Physical Therapy Current Condition Current Condition Evaluation Date 07/26/24 Treatment Diagnosis Afib, RVR, recent ROMELIA, SOB, weakness M3 PT-IP Subjective Start: 07/26/24 11:48 Freq: NEEDED Status: Active Protocol: Document 07/30/24 14:45 AB (Rec: 07/30/24 17:28 AB [id number]) Subjective Physical Therapy Visit Type Type Treatment Note Visit Start Time 14:45 Visit Stop Time 15:45 Number of BINDER STRIPPER MACHINE Visits 0 Physical Therapy Visit Comments Patient Comments agreed to do PT M4 PT-IP Mobility and Gait Start: 07/26/24 11:48 Freq: NEEDED Status: Active Protocol: Document 07/30/24 14:45 AB (Rec: 07/30/24 17:28 AB [id number]) PT-Bed Mobility Assessment Supine to Sit Supine to Sit Maximum Assistance,1 Person Assistance,2 Person Assistance ,Head of Bed Elevated,Bedrails PT-Transfer Assessment Sit to and From Stand Sit to and from Stand Contact Guard Assistance,1 Person Assistance,Use of Upper Extremities Equipment Transfer Assistive Device Gait Belt,4 Wheeled Walker Orthotic/Prosthetic Devices or Brace: No Transfers Transfer Destination Toilet Transfer Technique ambulated Transfer Ability Level of Assist Contact Guard Assistance,1 Person Assistance,Use of Upper Extremities Comments Mobility Comments pt supine in bed and sister in room. O2 sat at RA: 96% ME: 86bpm. pt completed bed mobility supine to sit max A x 1-2 and max cues. needed increase time and max cues to complete. (+) SOB but O2 sat: 94% ME: 86-88%. pt requested to use the toilet. completed sit to stand cGA and ambulated to the toilet using 4WW CGA. attempted to void but unable. pt ambulated back to the chair using 4WW CGA. c /o slight dizziness. BP checked: 100/56. pt stated that he is tired and refused further ambulation and also wants to go back to bed. completed sit to stand CGA and step transfer to bed using 4WW CGA. completed sit to supine max A and max cues with pt using 2 rails. max A for repositioning in bed. call light and table placed within reach. informed pt and pt's sister regarding current level of assistance. pt contemplating on going SNF but leaning towards going home with assistance and HHPT but more open to go to SNF due to pt's realization of current asssitance needs. tried to get a hold of registered nurse hh case manager but their are already off for the day. Gait Assessment Gait Gait Assistance Required: Contact Guard Assist Distance (Feet) 12 Able to Maintain Weight Bearing Status Yes During Gait Assistive Devices Assistive Device Gait Belt,4 Wheeled Walker Orthotic/Prosthetic Devices or Brace: No Gait Deviations General Gait Pattern Decreased Stride Length, Decreased Feet Clearance Factors Limiting Gait Function Factors Limiting Gait Function Decreased Activity Tolerance, Decreased Strength,Limited Range of Motion,Poor Balance, Poor Safety Awareness M5 PT-IP Objective Assessments Start: 07/26/24 11:48 Freq: NEEDED Status: Active Protocol: Document 07/26/24 11:49 NM (Rec: 07/26/24 12:46 NM [id number]) Orientation Orientation/Cognition Level of Alertness Alert Orientation Name,Age,Birthday,Place, Situation Safety Awareness Decreased Safety Awareness Memory Description Short Term Impaired Gross Range of Motion Upper Extremity ROM Assessment Within Functional Limits Lower Extremity ROM Assessment Within Functional Limits Strength Upper Extremity Strength Assessment Within Functional Limits Shoulder 4/5 MMT Elbow 4/5 MMT Wrist 4/5 MMT Lower Extremity Strength Assessment Within Functional Limits Hip 3/5 hip flex B; 4-/5 hip abd/ add MMT Knee 4-/5 MMT knee flex and ext Ankle 4-/5 MMT ankle dorsiflex and plantarflex Sensation Assessment Sensation Gross Sensation Right LE Impaired,Left LE Impaired Light Touch Impaired Comments Sensation Comments Decreased light touch sensation B below knee M6 PT-IP Treatment Start: 07/26/24 11:48 Freq: NEEDED Status: Active Protocol: Document 07/30/24 14:45 AB (Rec: 07/30/24 17:28 AB [id number]) Physical Therapy Treatment Education Education Provided Safety M7 PT-IP Assessment and Plan Start: 07/26/24 11:48 Freq: NEEDED Status: Active Protocol: Document 07/30/24 14:45 AB (Rec: 07/30/24 17:28 AB [id number]) PT Summary Assessment and Plan Potential Rehabilitation Potential Fair Summary Impairments Pain,ROM,Strength,Balance, Cognition,Bed Mobility, Transfers,Gait,Activity Tolerance Progress Towards Goals Slow Progress due to Medical Issues,Slow Progress due to Activity Tolerance Assessment Summary pt requiring max A x 1-2 for bed mobility and CGA with transfers and ambulation using 4WW but only able to tolerate ~ 12 ft of walking. pt with decrease activity tolerance affecting assistance level and safety. pt with h/o falls and stated that he had 3 falls for the year. pt will require 24/7 assist at this time and is now more open to go to SNF. Will continue inpt PT to improve overall strength and mobility level. will continue to assess. Goals Bed Mobility Goal Standby Assistance Transfer Goal Standby Assistance,Front Wheeled Walker,Four Wheeled Walker Gait Goal Standby Assistance,Front Wheel Walker,Four Wheel Walker Gait Distance 150 Other Goals Pt will perform at least 1 step without rail assist Days to Meet Goals 10 Frequency of Treatment Frequency Of Treatment Once a Day Treatment Plan Physical Therapy Treatment Plan Bed Mobility Training,Transfer Training,Gait Training, Therapeutic Exercise,Balance Retraining,Discharge Planning, Neuromuscular Re-ed Recommendations To Nursing Amount of Assist Needed 1 Person Assist Discharge Recommendations PT Discharge Recommendations SNF Rehab Transportation Needs at Discharge Private Vehicle,Wheelchair/ Cabulance
[2024-07-30] MEDS: MELATONIN 3 MG TABLET 18 MG PO (20:24)
[2024-07-31] VITALS: BP 124/57; PULSE 90; RESP 20; TEMP 36.5; O2SAT 94
[2024-07-31 04:00] VITALS: BP 110/59; PULSE 90; RESP 19; TEMP 36.7; O2SAT 93
[2024-07-31 05:54] LABS: Hematocrit 30.7 % (41-53); Hemoglobin 10.6 g/dL (13.5-17.5)
[2024-07-31 06:01] LABS: Alanine Aminotransferase 18 IU/L (<50); Albumin Globulin Ratio 1.1 (1.0-2.8); Alkaline Phosphatase 88 U/L (38-126); Aspartate Aminotransferase 27 IU/L (17-59); BUN Creatinine Ratio 11.5 (6-22); Bilirubin Total 0.4 mg/dL (0.2-1.3); Blood Urea Nitrogen 14 mg/dL (9-20); Calcium 9.2 mg/dL (8.4-10.2); Carbon Dioxide 28 mmol/L (22-32); Chloride 97 mmol/L (98-107); Estimated Glomerular Filt Rate > 60 mL/min (>60); Globulin 2.7 g/dL (1.7-4.1); Glucose 97 mg/dL (80-110); HEMOLYSIS < 15 (0-50); Magnesium 1.6 mg/dL (1.6-2.3); Potassium 3.2 mmol/L (3.4-5.1); Sodium 131 mmol/L (137-145); Total Protein 5.7 g/dL (6.3-8.2)
--- NOTE | 2024-07-31 07:57 | P.PN_ITS ---
Subjective Subjective Interval history: S: Exam Vital Signs (past 8 hours): - 07/31/24 00:00 07/31/24 04:00 Temperature 97.7 F 98.0 F Pulse Rate 90 90 Respiratory Rate 20 19 Blood Pressure 124/57 L 110/59 L Pulse Oximetry 94 93 Oxygen Flow Rate 0 0 Fraction of Inspired Oxygen 21 SaO2/FiO2 Ratio 438 Oxygen Delivery Method Room Air Oxygen Flow Rate 0 Narrative Exam Narrative: NAD, alert and oriented. Fluent speech. Lungs are clear, normal rate and effort. Heart is regular, no murmur gallop or rub. Abdomen is soft, non distended. Extremities are free of edema. Objective Labs 07/31/24 04:33 12 04:33 Labs: Laboratory Results - last 24 hr 07/31/24 04:33 Hgb 10.6 L Hct 30.7 L Sodium 131 L Potassium 3.2 L Chloride 97 L Carbon Dioxide 28 BUN 14 Creatinine 1.22 Estimated GFR > 60 BUN/Creatinine Ratio 11.5 Glucose 97 Calcium 9.2 Magnesium 1.6 Total Bilirubin 0.4 AST 27 ALT 18 Alkaline Phosphatase 88 Total Protein 5.7 L Albumin 3.0 L Globulin 2.7 Albumin/Globulin Ratio 1.1 COUNT INCLUDES THE [facility] Medical History Lesion of bladder Acute urinary tract infection Bladder wall thickening Feeling of incomplete bladder emptying Chronic anticoagulation Urge incontinence History of renal calculi Urinary frequency Dysuria E. coli urinary tract infection Gross hematuria Cat bite of left lower leg with infection Tobacco abuse Gout Sleep apnea syndrome Hyperlipidemia Afib COPD (chronic obstructive pulmonary disease) Surgical History H/O knee surgery H/O shoulder surgery Social History household members: none Smoking Status: Current every day smoker alcohol intake: current Assessment & Plan Assessment & Plan narrative: 1. Atrial fibrillation with RVR. Present on admission and active. - was recently at [facility] with symptomatic bradycardia on metoprolol and diltiazem. - continue diltiazem 180 mg BID per discharge recommendations from [facility]. Rate is controlled generally. Consider restarting low dose metoprolol - continue tele - PT evaluation recommended SNF. - okay to continue on anticoagulation, though if continued decline in h/h will need to consider stopping. 2. Recent ROMELIA. Present on admission and improving. - Couple days ago Cr was 2.4 had been improving. Baseline 0.7 possibly. Continue to monitor renal function. - Cr now stabilized, at 0.95 today. 3. UTI. Not present on admission are active. - Patient reports that he completed his antibiotic oral course. 4. Mild Hyponatremia. Present on admission and active. - monitor as above. 130 today. Continue IV fluids today. 5. Constipation and abdominal distention, present on admission and active. - CT was without overt obstruction, likely ileus. - started laxitive therapies with improvement thus far. - PPI for #6 below. - if no bowel movement and minimal PO intake again tomorrow, will repeat CT. 6. Coffee ground emesis, not present on admission, with acute blood loss anemia - continue IV PPI BID - h/h decline possibly due to IV fluids, continue to follow. If melena will consult for endoscopy though no bowel movements since Monday. PLAN: -continue dilt 180 mg BID, stop metoprolol. -out of bed, advance activity. PT/OT ordered. PT recommending SNF based on eval -added senna, miralax, and docusate orally. Had a bowel movement last on Monday. Recurrent nausea and coffee ground emesis yesterday, suspect gastritis. -repeat CT tomorrow if no bowel movement and still nauseous. -if continued decline in h/h consider surgery consult for endoscopy. BAILEY: pending SNF and improvement in nausea, stability of h/h. 1-2 more days expected. DVT prophylaxis Eliquis currently. Code Status full code. Time-Based Coding :: [TOTAL MINUTES] spent with patient and on the chart (including review of chart, obtaining history, exam, reviewing outside data, placing orders, documenting exam and treatment plan, and counseling patient) on [DATE].
[2024-07-31 08:00] VITALS: BP 116/57; PULSE 93; RESP 23; TEMP 36.9; O2SAT 94
[2024-07-31] MEDS: SENNOSIDES 8.6 MG TABLET 17.2 MG PO (09:22)
[2024-07-31] MEDS: FUROSEMIDE 40 MG/4 ML VIAL IV (09:22)
[2024-07-31] MEDS: TAMSULOSIN 0.4 MG CAPSULE PO (09:22)
[2024-07-31] MEDS: APIXABAN 5 MG TABLET PO (09:22)
[2024-07-31] MEDS: polyethylene glycoL 3350 17 GM POWD.PACK PO (09:22)
[2024-07-31] MEDS: PANTOPRAZOLE 40 MG VIAL IV (09:22)
[2024-07-31] MEDS: POTASSIUM CHLORIDE 20 MEQ TAB 40 MEQ PO (09:22)
[2024-07-31] MEDS: SODIUM CHLORIDE 0.9% FLUSH 10 ML IV (09:23)
[2024-07-31] MEDS: NYSTATIN POWDER 15GM 1 APPLIC TOP (09:23)
[2024-07-31] MEDS: dilTIAZem CD 180 MG CAP PO (09:23)
--- NOTE | 2024-07-31 10:22 | DIET.PN1 ---
Dietary Progress Note Assessment: F/u with pt at bedside. Reports decrease in appetite for around 4 weeks. Usually eats only dinner - half ribeye steak, beans, vegetables or other sides. Reports eating dinners at [facility] during previous hospitalization. Between that admission and this admission, at home was only having half a frozen stouffers meal a day for 3-4 days (didn't have much food at home, needed to go grocery shopping but not feeling well). Breakfast tray at side and untouched, pt not hungry for breakfast and usually doesn't eat it. Last night reports having 3 bites of food before getting full. Doesn't like ensures, but open to trying smoothie again with lunch. No NFPE findings. Ht: 172.72 cm Wt: 100 kg BMI: 35.0 UBW: 104-106 kg per pt (-3.8% weight loss in 1 month, non-severe), 104.326 kg on 12/12/23 Last BM: 07/26/24 (07/26/24 06:00) MNA: 12 Stewart Score: 18 Diet: 07/23/24 Breakfast Heart Healthy Diet Diet Modifications: Nutrition Percent Meal Consumed 25% 07/29/24 18:00 Labs: RBC 3.08 X10^6/uL (4.5-5.9) L 07/27/24 04:16 Hgb 10.6 g/dL (13.5-17.5) L 07/31/24 04:33 Hct 30.7 % (41-53) L 07/31/24 04:33 Creatinine 1.22 mg/dL (0.66-1.25) 07/31/24 04:33 NT-Pro-B Natriuret Pep 1490 pg/mL (<125) H 07/23/24 18:19 Nutrition Diagnosis: Inadequate oral intake r/t nausea/vomiting/early satiety aeb <75% of EER in 1 month Interventions: -pt to d/c this afternoon, provided protein smoothie with lunch -encouraged having small lunch and additional snack along with normal dinner as tolerated while experiencing early satiety to support EER EER: 8563-9119 kcals (MSJx1.25) 80 g protein (1g/kg per age) Monitoring/Evaluations: po intakes Electronically Signed by: Cora Laird 07/31/24 10:22 Clinical Dietitian [address] [id number]
--- NOTE | 2024-07-31 11:05 | P.DS_ITS ---
History of Present Illness History of Present Illness Chief complaint: Afib, N/V Narrative: From H&P: 68-year-old male with past medical history of COPD non O2 dependent, atrial fibrillation on metoprolol and Eliquis and pulmonary embolism presents with complaint of nausea, vomiting and shortness of breath. Note the patient was recently admitted and was discharged for UTI. During that recent admission the patient also was noted to be bradycardic and hypotensive. Metoprolol as well as his Diltiazem were held due to these reasons. The patient also had ROMELIA at that time and Cr was noted to be 2.4. The patient was doing relatively OK but starting yesterday, the patient started to notice increase nausea and vomiting. The patient was not able to keep much oral medications down including his antbiotics and Eliquis. The patient does have some shortness of breath and some palpitation but denies any chest pain, fever, chills, diarrhea or syncope. In our emergency room, the patient was found to be in Afib with RVR. The patient's blood pressure was relatively normal. Sodium 132 creatine 1.4 troponin 0.04 repeat 0.037. Patient was started on IV Diltiazem drip. Discharge Providers Provider Date of admission: 07/23/24 22:01 Discharge Date: 07/31/24 Primary care physician: Shauna Melvin PA-C Consults: 07/25/24 13:34 Consult to Physical Therapy Evaluate & Treat Comment: Physician Instructions: Evaluate and Treat 07/26/24 13:31 Consult to Occupational Therapy Evaluate & Treat Comment: Physician Instructions: Evaluate and treat Discharge provider: Eric Mabry MD Summary Hospital Course Discharge Diagnosis: 1. Atrial fibrillation with RVR. Present on admission and improved.. - was recently at [facility] with symptomatic bradycardia on metoprolol and diltiazem. - continue diltiazem 180 mg BID per discharge recommendations from [facility]. Rate is controlled generally. Consider restarting low dose metoprolol - PT evaluation recommended SNF. - okay to continue on anticoagulation, though if continued decline in h/h will need to consider stopping. - EF on 04/2023 was normal. 2. Recent ROMELIA. Present on admission and improving. - Couple days ago Cr was 2.4 had been improving. Baseline 0.7 possibly. Continue to monitor renal function. - Cr now stabilized, at 0.95 today. 3. UTI. Not present on admission are active. - Patient reports that he completed his antibiotic oral course. 4. Mild Hyponatremia. Present on admission and active. - monitor as above. 130 today. Continue IV fluids today. 5. Constipation and abdominal distention, present on admission and improved. - CT was without overt obstruction, likely ileus. - started laxitive therapies with improvement thus far. - PPI for #6 below. - given holding home diuretic, may be some abdominal fluid build up from heart failure. Will attempt IV diuresis today to see if improvement in persistent nausea. 6. Coffee ground emesis, not present on admission, with acute blood loss anemia - continue IV PPI BID - h/h decline possibly due to IV fluids, continue to follow. If melena will consult for endoscopy though no bowel movements since Monday. 7. Possible acute diastolic heart failure. - diuresis as above. Hospital Course: He was admitted with constipation and atrial fibrillation with rapid response. Initial imaging appeared to be consistent with ileus. The patient was treated with a diltiazem drip initially. He was found to have evidence of ROMELIA with a troponin of 1.4. He had an echo which is fairly unremarkable and was placed on metoprolol initially 50 b.i.d.. It was ROMELIA improved. He had a mild hyponatremia. He was found to be debilitated by therapies and recommendations were made for SNF. A discharge summary from [facility] indicated stopping metoprolol and going back to diltiazem 180 b.i.d., these changes were made. An aggressive bowel program was pursued and ultimately he did have some results with a bowel program. He had improvement of renal function and rate control was good when he was transitioned to oral medications. His nausea which was quite persistent improved over the last 2 days of hospitalization. He was stable for discharge to assisted facility on July 31. He had coffee-ground emesis and this was not further evaluated. He was on a PPI b.i.d., this will be transitioned to once a day with close monitoring. Status at Discharge Cognitive/behavioral status at discharge: oriented Functional status at discharge: uses cane/walker Overall status at discharge: patient is progressing back to baseline Time Spent with Patient Time spent: Greater than 30 minutes Exam Vital Signs (past 8 hours): - 07/31/24 04:00 07/31/24 08:00 07/31/24 08:00 Temperature 98.0 F 98.4 F Pulse Rate 90 93 H Respiratory Rate 19 23 Blood Pressure 110/59 L 116/57 L Pulse Oximetry 93 94 Oxygen Delivery Method Room Air Oxygen Flow Rate 0 0 Fraction of Inspired Oxygen 21 SaO2/FiO2 Ratio 438 Oxygen Delivery Method Room Air Oxygen Flow Rate 0 Narrative Exam Narrative: NAD, alert and oriented. Fluent speech. Lungs are clear, normal rate and effort. Heart is regular, no murmur gallop or rub. Abdomen is soft, distended, and non tender. . Extremities are free of edema. Objective ECG Impression: Atrial fibrillation with rapid ventricular response with premature ventricular or aberrantly conducted complexes ST & T wave abnormality, consider anterolateral ischemia Imaging Multiple studies:: Radiologist's impression: CT abdomen and pelvis: 1. Multiple dilated loops of small bowel with air-fluid levels. No transition point is seen. Findings may represent ileus, obstruction is also in the differential. 2. Volume loss in the left lung base with small left pleural effusion and associated atelectasis versus consolidation. 3. Stable left adrenal nodule measuring 1.9 cm. 4. Diverticulosis without evidence of acute diverticulitis. Abdomen x-ray: Moderate to severe distention of both small and large bowel, small bowel measuring up to 5 cm representing ileus or obstruction. Consider CT to further evaluate if clinically indicated. Osseous degenerative changes are right hip arthroplasty. Chest x-ray: Mild left lung base opacity could represent atelectasis and trace effusion versus thickening. Mild airspace disease also possible. Limited single view radiograph with low lung volumes. Distended loops of bowel in the upper abdomen partially seen. Labs 07/31/24 04:33 07/31/24 04:33 Labs: Laboratory Results - last 24 hr 07/31/24 04:33 Hgb 10.6 L Hct 30.7 L Sodium 131 L Potassium 3.2 L Chloride 97 L Carbon Dioxide 28 BUN 14 Creatinine 1.22 Estimated GFR > 60 BUN/Creatinine Ratio 11.5 Glucose 97 Calcium 9.2 Magnesium 1.6 Total Bilirubin 0.4 AST 27 ALT 18 Alkaline Phosphatase 88 Total Protein 5.7 L Albumin 3.0 L Globulin 2.7 Albumin/Globulin Ratio 1.1 [facility] Medical History Lesion of bladder Acute urinary tract infection Bladder wall thickening Feeling of incomplete bladder emptying Chronic anticoagulation Urge incontinence History of renal calculi Urinary frequency Dysuria E. coli urinary tract infection Gross hematuria Cat bite of left lower leg with infection Tobacco abuse Gout Sleep apnea syndrome Hyperlipidemia Afib COPD (chronic obstructive pulmonary disease) Surgical History H/O knee surgery H/O shoulder surgery Social History household members: none Smoking Status: Current every day smoker alcohol intake: current Discharge Assessment & Plan Assessment and Plan Assessment: 1. Atrial fibrillation with RVR, present on admission and improved. 2. Severe constipation, present on admission and improving. 3. Nausea, present on admission and improved. 4. Hyponatremia, present on admission and improving. 5. Hypokalemia, new and improving. Plan of Treatment[facility] We will monitor his labs with a follow up CBC and BNP within the next 3 days. Discharge Plan Discharge Plan Patient Disposition: SNF Transfer to: [facility] Under care of provider: Dr Romeo. Provider Discharge Comment: Stable for discharge to assisted facility for ongoing rehabilitation efforts. Discharge orders & Medications Prescriptions: New melatonin 3 mg Tablet 18 mg PO BEDTIME Qty: 30 0RF sennosides [senna] 8.6 mg Tablet 17.2 mg PO DAILY Qty: 30 0RF polyethylene glycol 3350 17 gram Powder In Packet 17 gm PO DAILY Qty: 30 0RF potassium chloride [Klor-Con M20] 20 mEq Tablet,Er Particles/Crystals 40 meq PO BID Qty: 60 0RF pantoprazole [Protonix] 40 mg tablet,delayed release (DR/EC) 40 mg PO DAILY Qty: 30 0RF Continued Spiriva Respimat 1.25 mcg/actuation mist 2 puff INHALATION DAILY fluticasone propion-salmeterol [Advair Diskus] 250-50 mcg/dose Blister With Device 1 inh INHALATION BID albuterol sulfate 90 mcg/actuation Hfa Aerosol Inhaler 2 puff INHALATION Q4-6H PRN (Reason: Cough) Eliquis 5 mg Tablet 5 mg PO BID Qty: 180 3RF magnesium oxide 400 mg (241.3 mg magnesium) tablet 400 mg PO DAILY Tums 300 mg (750 mg) Tablet,Chewable 300 mg PO PRN PRN (Reason: Indigestion) diltiazem HCl 180 mg capsule,extended release 24hr 180 mg PO BID torsemide 20 mg tablet 20 mg PO DAILY tamsulosin [Flomax] 0.4 mg capsule 0.4 mg PO BID acetaminophen [Tylenol Arthritis Pain] 650 mg tablet extended release 1,300 mg PO DAILY PRN (Reason: Pain (Scale Score 4-6)) Discontinued losartan 50 mg tablet 50 mg PO DAILY amoxicillin 875 mg tablet 875 mg PO BID ondansetron 4 mg tablet,disintegrating 2 mg PO Q6-8H PRN (Reason: Nausea And Vomiting) Follow up/Referrals: Shauna Melvin PA-C [Primary Care Provider] - Diet/Activity/Treatments Diet: Regular Liquid consistency: Normal/Thin Food texture: Regular Skin/Wound/Dressing Care Report to your healthcare provider any signs of infection, such as:: chills, fever, night sweats and increased pain Special Rehabilitation Services Reason for rehabilitation: Recovery r/t decondition Rehab type: Physical therapy and Occupational therapy Visit Report/Discharge Packet Stand Alone Forms: Patient Portal/API Discharge Data Primary Care Provider: Shauna Melvin
[2024-07-31 12:00] VITALS: BP 106/57; PULSE 86; RESP 24; TEMP 36.7; O2SAT 94
--- NOTE | 2024-07-31 13:19 | CM.DPNOTE ---
DCP note ZIPPER CUTTER reviewed EMR. per hospitalist in morning rounds, cleared to dc to [facility] today. Per Reema from , can take pt today at 1330. ZIPPER CUTTER gave RN report number and updated on plan. CC Pily sent [facility], signed med list, and scripts. placed PASRR/med lists in chart. ZIPPER CUTTER met with pt in room. Reviewed plan. Pt remains in agreement with plan/preference to dc to [facility] prior to return home. concerned about his cat/bills at home. ZIPPER CUTTER encouraged pt to reach out to local sister to see if she can help care for cat/bring him his bills at . Pt in agreement with plan. P: pt to dc today to [facility] at 1330. CM team will continue to follow as needed ESTEBAN De Jesus
--- NOTE | 2024-07-31 13:40 | PC.NURSE ---
Discharge Note Patient discharged to [facility] via wheelchair at 1335. Information packet with pt and all belongings with pt including CPAP, glasses, and cell phone. Report called to Radha at [facility], all questions answered.
== END 2024-07-31 13:35 | DRG 308 ==
LOC: ED 18:24 → AC 22:02 → ICU 22:36
PROVIDERS: Internal Medicine; Admitting Provider Internal Medicine; Emergency Provider Emergency Medicine; PCP Physician Assistant; Referring Provider Emergency Medicine; Visit Provider Internal Medicine
DX: I48.91 Unspecified atrial fibrillation (principal); I50.31 Acute diastolic (congestive) heart failure; D62 Acute posthemorrhagic anemia; E87.1 Hypo-osmolality and hyponatremia; N17.9 Acute kidney failure, unspecified; K92.0 Hematemesis; K56.7 Ileus, unspecified; F17.200 Nicotine dependence, unspecified, uncomplicated; J44.9 Chronic obstructive pulmonary disease, unspecified; G47.30 Sleep apnea, unspecified; Z79.01 Long term (current) use of anticoagulants; Z86.711 Personal history of pulmonary embolism; Z87.440 Personal history of urinary (tract) infections
CPT/HCPCS: 36415; 71045; 74018; 74177; 80048; 80053; 82550; 82962; 83690; 83735; 83880; 84443; 84484; 85014; 85018; 85025; 87633; 87797; 93005; 94640; 94762; 96365; 96366; 96375; 97129; 97162; 97166; 97530; 97535; 99284; 99285; J1940; J2405; J2470; J2765; J2919; J3475; Q9967

== ENCOUNTER → 2024-10-22 13:21 | Outpatient (CLI) | payer MEDICARE, OTHER, SELFPAY ==
[2023-10-18 13:56] VITALS: O2SAT 95
[2023-10-19 23:00] VITALS: PULSE 96; RESP 21
[2024-07-23 23:10] VITALS: BMI 35.0
[2024-10-22 13:53] LABS: Hematocrit 32.5 % (41-53); Hemoglobin 10.6 g/dL (13.5-17.5); Mean Corpuscular HGB Conc 32.7 % (30-36); Mean Corpuscular Hemoglobin 31.4 PG (26-34); Platelet Count 220 X10^3/uL (150-400); Red Blood Cell Count 3.39 X10^6/uL (4.5-5.9); Red Cell Distribution Width 17.1 % (11.6-14.8); White Blood Cell Count 7.2 X10^3/uL (4.5-11.0)
[2024-10-22 14:10] LABS: Alanine Aminotransferase 15 IU/L (<50); Albumin 3.7 g/dL (3.5-5.0); Albumin Globulin Ratio 1.4 (1.0-2.8); Alkaline Phosphatase 65 U/L (38-126); Aspartate Aminotransferase 21 IU/L (17-59); Bilirubin Total 0.6 mg/dL (0.2-1.3); Blood Urea Nitrogen 18 mg/dL (9-20); Calcium 9.6 mg/dL (8.4-10.2); Carbon Dioxide 21 mmol/L (22-32); Chloride 106 mmol/L (98-107); Estimated Glomerular Filt Rate > 60 mL/min (>60); Globulin 2.7 g/dL (1.7-4.1); Glucose 111 mg/dL (80-110); HEMOLYSIS < 15 (0-50); Potassium 3.4 mmol/L (3.4-5.1); Sodium 139 mmol/L (137-145); Total Protein 6.4 g/dL (6.3-8.2)
== END ==
PROVIDERS: PCP Physician Assistant; Referring Provider Nurse Practitioner Acute Care; Visit Provider Nurse Practitioner Acute Care
DX: I48.91 Unspecified atrial fibrillation (principal)
CPT/HCPCS: 36415; 80053; 85027

== ENCOUNTER → 2024-11-14 13:55 | Outpatient (CLI) | payer MEDICARE, OTHER, SELFPAY ==
[2023-10-18 13:56] VITALS: O2SAT 95
[2023-10-19 23:00] VITALS: PULSE 96; RESP 21
[2024-07-23 23:10] VITALS: BMI 35.0
[2024-11-14 14:45] LABS: BUN Creatinine Ratio 29.3 (6-22); Blood Urea Nitrogen 36 mg/dL (9-20); Calcium 10.2 mg/dL (8.4-10.2); Carbon Dioxide 23 mmol/L (22-32); Chloride 103 mmol/L (98-107); Estimated Glomerular Filt Rate > 60 mL/min (>60); Glucose 95 mg/dL (80-110); HEMOLYSIS < 15 (0-50); Sodium 139 mmol/L (137-145)
== END ==
PROVIDERS: PCP Physician Assistant; Referring Provider Nurse Practitioner Acute Care; Visit Provider Nurse Practitioner Acute Care
DX: I10 Essential (primary) hypertension (principal)
CPT/HCPCS: 36415; 80048

== ENCOUNTER → 2024-12-12 15:22 | Outpatient (CLI) | payer MEDICARE, OTHER, SELFPAY ==
[2023-10-18 13:56] VITALS: O2SAT 95
[2023-10-19 23:00] VITALS: PULSE 96; RESP 21
[2024-07-23 23:10] VITALS: BMI 35.0
[2024-12-12 16:02] LABS: BUN Creatinine Ratio 20.5 (6-22); Blood Urea Nitrogen 26 mg/dL (9-20); Calcium 9.5 mg/dL (8.4-10.2); Carbon Dioxide 24 mmol/L (22-32); Chloride 102 mmol/L (98-107); Estimated Glomerular Filt Rate > 60 mL/min (>60); Glucose 88 mg/dL (80-110); HEMOLYSIS < 15 (0-50); Potassium 4.3 mmol/L (3.4-5.1); Sodium 137 mmol/L (137-145)
== END ==
PROVIDERS: PCP Physician Assistant; Referring Provider Nurse Practitioner Acute Care; Visit Provider Nurse Practitioner Acute Care
DX: I50.32 Chronic diastolic (congestive) heart failure (principal)
CPT/HCPCS: 36415; 80048

== ENCOUNTER → 2024-12-19 13:54 | Outpatient (CLI) | payer MEDICARE, OTHER, SELFPAY ==
[2023-10-18 13:56] VITALS: O2SAT 95
[2023-10-19 23:00] VITALS: PULSE 96; RESP 21
[2024-07-23 23:10] VITALS: BMI 35.0
--- NOTE | 2024-12-19 13:59 | DI.ECHO.S_ITS ---
[facility]+ [facility] : : [address] : : [place] : : [id number] : : Phone: [phone] Echocardiogram Report + + :Name: LEONID VOSS Study Date: 12/19/2024 Height: 69 in : :Hospital ReadingLocation: Weight: 222 lb : : Gender: Male BSA: 2.2 m2 : :: 1955 Age: 69 yrs BP: 102/64 mmHg: :Reason For Study: HEART FAILURE : :Ordering Physician: KEIRA, : :VENKAT Performed By: Chelsea Baires : :Referring: VENKAT CROCKETT : + + Interpretation Summary The patient was in atrial fibrillation with heart rates between 67-83 bpm during the exam. The ejection fraction is estimated to be 55-60%. Diastolic function could not be accurately assessed due to atrial fibrillation. The left atrium is moderately dilated. The right ventricle is mildly dilated. The right ventricular systolic function is normal. A patent foramen ovale is suspected. There is mild mitral regurgitation. There is mild tricuspid regurgitation. The right ventricular systolic pressure is estimated to be at least 37 mmHg based on an estimated right atrial pressure of 8 mm Hg. The ascending aorta is mildly enlarged. Compared to the prior study 10/18/2023, the right ventricle now appears mildly dilated. Procedure: A two-dimensional transthoracic echocardiogram with color flow and Doppler was performed. The study quality was technically adequate. Comparison is made with the echocardiogram of 10/18/2023. The patient was in atrial fibrillation with heart rates between 67-83 bpm during the exam. Left Ventricle: The left ventricle is normal in size and wall thickness. The ejection fraction is estimated to be 55-60%. Diastolic function could not be accurately assessed due to atrial fibrillation. Right Ventricle: The right ventricle is mildly dilated. The right ventricular systolic function is normal. Atria: The left atrium is moderately dilated. The right atrium is normal in size. A patent foramen ovale is suspected. Mitral Valve: The mitral valve leaflets appear mildly thickened, but open well. There is mild mitral regurgitation. Aortic Valve: The aortic valve is trileaflet. The aortic valve is slightly calcified. The aortic valve opens well. There is no aortic valve stenosis. No aortic regurgitation is present. Tricuspid Valve: The tricuspid valve leaflets are thin and pliable. There is mild tricuspid regurgitation. The right ventricular systolic pressure is estimated to be at least 37 mmHg based on an estimated right atrial pressure of 8 mm Hg. Pulmonic Valve: The pulmonic valve is not well seen, but is grossly normal. There is no pulmonic valvular regurgitation. Great Vessels: The aortic root is normal size. The ascending aorta is mildly enlarged. The IVC is dilated (diameter is greater than 2.1 cm) yet it collapses greater than 50% with a sniff. This suggests a right atrial pressure of 8 mm Hg. Pericardium/ Pleura There is no pericardial effusion. There is no pleural effusion. MMode/2D Measurements & Calculations LVIDd: 5.1 cm LVOT diam: 2.2 cm LVIDs: 3.6 cm Ao root diam: 3.5 cm FS: 28.7 % asc Aorta Diam: 3.9 cm EPSS: 0.68 cm Ao Arch Diam (Prox Trans): 3.6 cm IVSd: 0.85 cm LVPWd: 0.93 cm LV whiteside. diameter/BSA (cm/m^2): 2.3 LV sys. diameter/BSA (cm/m^2): 1.7 LA A2 area: 25.9 cm2 RA long axis: 6.2 cm LA A4 area: 29.2 cm2 RA area: 22.4 cm2 LA length (vol): 6.8 cm RA vol: 68.3 ml LA vol: 94.8 ml RA : 31.7 ml/m2 LA vol index: 43.9 ml/m2 IVC diam: 2.2 cm RVD1 (basal): 4.8 cm RVD2 (mid): 4.1 cm TAPSE: 2.1 cm Doppler Measurements & Calculations Ao V2 max: 112.4 cm/sec LVOT Max Cisco: 84.6 cm/sec Ao V2 mean: 74.4 cm/sec LV V1 max P.9 mmHg Ao max P.1 mmHg LV V1 VTI: 15.9 cm Ao mean P.6 mmHg JANEE(I,D): 2.9 cm2 Ao V2 VTI: 20.3 cm JANEE(V,D): 2.8 cm2 sev ratio: 0.78 JANEE indexed to BSA (cm^2/m^2): 1.4 MV E max cisco: 79.9 cm/sec TR max cisco: 269.4 cm/sec Med Peak E' Cisco: 8.2 cm/sec TR max P.0 mmHg E/E' med: 9.8 PA V2 max: 87.0 cm/sec Lat Peak E' Cisco: 9.8 cm/sec PA V2 mean: 59.6 cm/sec E/E' lat: 8.2 PA mean P.6 mmHg E/e' average: 9.0 PA pr(Accel): 30.2 mmHg MV dec time: 0.22 sec SV(LVOT): 59.4 ml Reading Physician:04:54 PM
== END ==
PROVIDERS: PCP Physician Assistant; Referring Provider Nurse Practitioner Acute Care; Visit Provider Nurse Practitioner Acute Care
DX: I08.1 Rheumatic disorders of both mitral and tricuspid valves (principal); I50.30 Unspecified diastolic (congestive) heart failure; I77.89 Other specified disorders of arteries and arterioles
CPT/HCPCS: 93306